=== PATIENT | female | born 1985 | race Hispanic/Latino ===

== ENCOUNTER 2022-06-08 11:45 | Observation (INO) | payer OTHER ==
--- OUTSIDE RECORDS SUMMARY | 2022-06-08 12:03 | XMS REPORT | Continuity of Care Document ---
:1985 Author Organization [facility] t Address [address] [place] [address] Care Team Providers Name Role Phone Eleonora Malin MD Primary Care Physician DESHAWN URIARTE Attending Clinician Unavailable ELEONORA MALIN Attending Clinician Unavailable DEISY SALINAS K.HSherlyn Attending Clinician Unavailable CAILIN STERLING Attending Clinician Unavailable RENEE BOYD Attending Clinician Unavailable 2, [facility] Attending Clinician Unavailable Brad TOMPKINS, Deisy K.H. Attending Clinician Romulo Waldrop Attending Clinician Unknown, Attending Attending Clinician Unavailable UNKNOWN, ATTENDING Attending Clinician Unavailable OZIEL SARMIENTO Attending Clinician Unavailable Oziel Sarmiento DO Attending Clinician Zak Gordon MD Attending Clinician Doctor Unassigned, [place] Attending Clinician Unavailable Enzo TOMPKINS, Stacia Attending Clinician Shelby Galo MD Attending Clinician [phone] Eleonora Malin MD Attending Clinician Deshawn Myers Attending Clinician Pob, [facility] Main Attending Clinician Unavailable Asher MEZA, Cailin Mg Attending Clinician [phone] GILDA ORLANDO Attending Clinician Unavailable SOHAM NICHOLAS Attending Clinician Unavailable Darion CREAM DUMPER, Gilda Gomez Attending Clinician Tessy SINGLETON, Rae Garcia Attending Clinician Unavailable ROMULO LANDEROS Attending Clinician Unavailable Hugo AHUMADA, Cherelle Cho Attending Clinician Ida SINGLETON, Taj Cohn Attending Clinician Unavailable Americo SINGLETON, Rosemarie Cohn Attending Clinician Unavailable Yissel Mcallister MA Attending Clinician Unavailable Meron TOMPKINS, Soham Terry Attending Clinician Haylie COBOS, Mallika Cohn Attending Clinician Unavailable Lona Magallon MA Attending Clinician Unavailable [facility] Attending Clinician Unavailable Kelby Gonzalez Attending Clinician KELBY MERINO Attending Clinician Unavailable Sandrine Alamo Attending Clinician Eleonora Herman MD Attending Clinician ELEONORA HERMAN Attending Clinician Unavailable RAMBO Reynoso Eloise Attending Clinician Aminta Casey Attending Clinician [phone] Lexy COBOS, Joan Attending Clinician Unavailable Senait Rivas Attending Clinician Juliana Gallegos MD Attending Clinician JULIANA GALLEGOS Attending Clinician Unavailable JUAN CARLOS OLVERA Attending Clinician Unavailable Desi Corona RN Attending Clinician ARY HEDRICK Attending Clinician Unavailable Jaja AHUMADA, Jonh Simpson Attending Clinician Piyush Van MD Attending Clinician Mario TOMPKINS, Tareq Attending Clinician Lacey TOMPKINS, Tai Attending Clinician [phone] Benny TOMPKINS, Gianluca Wray Attending Clinician RENAN REECE Attending Clinician Unavailable Viral TOMPKINS, Zak Galicia Attending Clinician Renan Reece MD Attending Clinician Nurse, Adc Pob Immunization Attending Clinician Unavailable Power Wheat RN, Rosemarie Gomez Attending Clinician Unavailable Tavon AHUMADA, All Galan Attending Clinician ALL MONTES DE OCA Attending Clinician Unavailable LUZ MARINA CRUZ Attending Clinician Unavailable Nancy TOMPKINS, Luz Marina Rodriguez Attending Clinician [phone] Dakota SINGLETON, Isabel Thapa Attending Clinician Bert Glover MD Attending Clinician , [facility] Attending Clinician Unavailable OZIEL SARMIENTO Admitting Clinician Unavailable GILDA ORLANDO Admitting Clinician Unavailable DEISY SALINAS Admitting Clinician Unavailable El TOMPKINS, Juliana Garcia Admitting Clinician Payers Payer Name Policy Type Policy Number Effective Date Expiration Date Ramiro RIVERA [id number] 2020 2020 HOSP DIST 00:00:00 00:00:00 [place] [id number] 2022 00:00:00 [facility] [id number] 2022 STAR PLUS 00:00:00 Problems Condition Condition Condition Status Onset Resolution Last Treating Co mments Source Name Details Category Date Date Treatment Clinician Date Spells of Spells of Disease Active 2021-06 Uni vers decreased decreased 0-26 ity [place] [facility] [place] Dyspepsia Dyspepsia Disease Active 2021-06 Uni vers 0-02 ity of 00:00: [place] [id number] Medical Branch Other Other Disease Active 2021-06 Univers cardiomyop cardiomyop 0-02 it y of athy athy 00:00: [place] [facility] Dyslipidem Dyslipidem Disease Active 2021-06 U nivers ia ia 0-02 ity of 00:00: [place] 00 Medical Branch Left Left Disease Active Univers ovarian ovarian 9-30 ity of cyst cyst 00:00: [place] 00 Medical Branch RIVAS RIVAS Disease Active Univers (dyspnea (dyspnea 9-30 ity of on on 00:00: [place] exertion) exertion) 00 [facility] History of History of Disease Active U nivers bacterial bacterial 9-30 ity of endocardit endocardit [place] 00 [facility] Bilateral Bilateral Disease Active Uni vers neck pain neck pain 9-30 ity of 00:00: [place] [facility] Pain Pain Disease Active Univers pelvic pelvic 9- ity of 00:00: [place] [facility] Irregular Irregular Disease Active Uni vers menstrual menstrual 9-21 ity of cycle cycle 00:00: [place] [facility] Enterococc Enterococc Disease Active U nivers us 5-26 ity of faecalis faecalis 00:00: [place] infection infection 00 [facility] Poor Poor Disease Active Univers dentition dentition 5-26 ity of 00:00: [place] 00 Medical Branch Seasonal Seasonal Disease Active Unive rs allergies allergies 5-26 ity of 00:00: [place] 00 [facility] Nausea Nausea Disease Active Univers 5-05 ity of 00:00: [place] 00 [facility] Branch Status Status Disease Active Univers post post 5-05 ity of aortic aortic 00:00: [place] valve valve 00 Medical replacemen replacemen Br anch t with t with bioprosthe bioprosthe tic valve tic valve NSTEMI NSTEMI Disease Active Univers (non-ST (non-ST 4-10 ity of elevated elevated 00:00: [place] myocardial myocardial 00 Me dical infarction infarction Br anch ) ) Nonrheumat Nonrheumat Disease Active U nivers ic aortic ic aortic 4-10 ity of valve valve 00:00: [place] insufficie insufficie 00 Me dical ncy ncy Branch Severe Severe Disease Active Univers aortic aortic 4-09 ity of insufficie insufficie 00:[place] ncy [place]cy 00 [facility] Heart Heart Disease Active Univers disease disease 09-26 ity of 00:00: Medical Branch Cigarette Cigarette Disease Active Uni vers nicotine nicotine 09-26 ity of dependence dependence 00:00: Dam[place] baptiste with other with other 00 Me dical nicotine-i nicotine-i Br anch nduced nduced disorder disorder 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 Added automatic ally from request for surgery [id number] Chronic Chronic Disease Active Univers pain pain 4-02 ity of syndrome syndrome 00:00: Medical Branch Acute Acute Disease Active Univers pulmonary pulmonary 4 ity of edema edema 00:00: [place] [facility] Current Current Disease Active Univers mild mild 4-02 ity of episode of episode of 00:00: [place] baptiste major major 00 Medical depressive depressive Br anch disorder, disorder, unspecifie unspecifie d whether d whether recurrent recurrent Hospital Hospital Disease Active Unive rs discharge discharge 4-02 ity of follow-up follow-up 00:00: [facility] Medical Branch Atypical Atypical Disease Active Unive rs chest pain chest pain 4-02 it y of 00:00: [place] [facility] High High Disease Active Univers priority priority 3-04 ity of for for 00:00: [place] COVID-19 COVID-19 00 Medica l virus virus Branch vaccinatio vaccinatio n n Blurry Blurry Disease Active Univers vision, vision, 3-04 ity of bilateral bilateral 00:00[place] Primary Primary Disease Active Univers insomnia insomnia 2-02 ity of 00:00: [place] [facility] No-show No-show Disease Active Univers for for 2-02 ity of appointmen appointmen 00:00: [place] [facility] Mixed Mixed Disease Active Univers hyperlipid hyperlipid 07-22 it y of emia emia 00:00: [place] 00 Medical Branch Essential Essential Disease Active Uni vers hypertensi hypertensi 07-22 it y of on on 00:00: [place] 00 Medical Branch Insomnia, Insomnia, Disease Active Uni vers unspecifie unspecifie 07-22 it y of d type d type 00:00: [place] 00 Medical Branch Diabetes Diabetes Disease Active Unive rs mellitus, mellitus, 1-28 ity of type II, type II, 00:00: [place] insulin insulin 00 Medical dependent dependent Bran ch Diabetes Diabetes Disease Active Unive rs mellitus mellitus 1-28 ity of type 2 type 2 00:00: [place] with with 00 Medical complicati complicati Br anch ons, ons, uncontroll uncontroll ed ed Menorrhagi Menorrhagi Disease Active 2019-06 U nivers a with a with 105 ity of irregular irregular 00:00[place] cycle [place] Tobacco Tobacco Disease Active 2019-06 Univers use use 1-05 ity of 00:00: [place] 00 Medical Branch Class 1 Class 1 Disease Active 2018-06 Univers obesity obesity 2-16 ity of due to due to 00:00: [place] excess excess 00 Medical calories calories Branch with body with body mass index mass index (BMI) of (BMI) of 34.0 to 34.0 to 34.9 in 34.9 in adult, adult, unspecifie unspecifie d whether d whether serious serious comorbidit comorbidit y present y present Well woman Well woman Disease Active 2018-06 U nivers exam exam 2-16 ity of 00:00: [place] 00 Medical Branch Encounter Encounter Disease Active 2018-06 Uni vers for for 216 ity of surveillan surveillan 00:00: [place] of ce of Medical contracept contracept Br anch german, german, unspecifie unspecifie d d contracept contracept fabiola fabiola History of History of Disease Active 2018-06 U nivers bilateral bilateral 2-16 ity of tubal tubal 00:00: [place] ligation ligation 00 Medica l Branch Class 2 Class 2 Disease Active 2018-06 Univers severe severe 2-16 ity of obesity obesity 00:00: [place] with with 00 Medical serious serious Branch comorbidit comorbidit y and body y and body mass index mass index (BMI) of (BMI) of 37.0 to 37.0 to 37.9 in 37.9 in adult, adult, unspecifie unspecifie d obesity d obesity type type Cellulitis Cellulitis Disease Active U nivers 7-13 ity of 00:00: Medical Branch BMI BMI Disease Active Univers 37.0-37.9, 37.0-37.9, 7-13 it y of adult adult 00:00: [place] [facility] MDD (major MDD (major Disease Active 2012-06 U nivers depressive depressive 0- it y of disorder) disorder) 00:[place] [facility] [place] Anxiety Anxiety Disease Active 2012-06 Univers 0- ity of 00:00: Medical Branch Fibromyalg Fibromyalg Disease Active 2012-06 U nivers ia ia 0- ity of syndrome syndrome 00:00: [place] [facility] High High Disease Active 2010-06 Univers triglyceri triglyceri 1-23 it y of claudia claudia 00:00: [place] [facility] AIDS AIDS Disease Active Univers (acquired (acquired 831 ity of immunodefi immunodefi 00:00: [place] ciency ciency 00 Medical syndrome), syndrome), Br anch CD4 <=200 CD4 <=200 Currently Currently Disease Active Uni vers asymptomat asymptomat 6-22 it y of ic HIV ic HIV 00:00: [place] infection, infection, 00 Me dical with with Branch history of history of HIV-relate HIV-relate d illness d illness Symptomati Symptomati Disease Active U nivers c HIV c HIV 6-22 ity of infection infection 00:00[place] [facility] Maternal Maternal Disease Resolve 2012-10-04 2012-10-04 Univers HIV HIV d 3-12 00:00:00 20:02:55 ity of positive positive 00:00: [place] complicati complicati 00 Me dical ng ng Branch Disease Resolve 2012-10-04 2015-03-21 Univers delivery delivery d 3-05 00:00:00 23:08:00 it y of delivered delivered 00:00[place] [facility] Disease Resolve 2009-08-22 2009-08-23 [facility], d 8-31 00:00:00 01:36:10 ity of incidental incidental 00:00: [place] Abnormal Abnormal Disease Resolve 2009-08-22 2009-08-23 [facility] maternal maternal d 9-13 00:00:00 01:36:14 it y of glucose glucose 00:00: [place] tolerance, tolerance, 00 Me dical complicati complicati Br anch ng ng , , childbirth childbirth , or the , or the puerperium puerperium , , unspecifie unspecifie d as to d as to episode of episode of care care Disease Resolve 2006-062009-02-17 2015-03-21 [facility] delivery delivery d 0-17 00:00:00 22:36:23 it y of delivered delivered [place] Tachycardi Tachycardi Disease Resolve 2009-02-17 2015-03-21 Univers a a d 9-13 00:00:00 22:34:34 ity of 00:00: [place] 00 Medical Branch Disease Resolve 2009-02-17 2009-02-17 [facility], d 6-22 00:00:00 15:41:07 ity of incidental incidental 00:00: [place] Allergies, Adverse Reactions, Alerts Allergy Allergy Status Severity Reaction(s) Onset Inactive Treating Comm ents Source Name Type Date Date Clinician erythrom DA Active [facility] ycin 3-07 Clear base 00:00: [place] 00 [facility] ERYTHROM DRUG Active Anaphylaxis 2006-06 Uni vers YCIN 0-17 ity of 00:00: [place] 00 Medical Branch Erythrom Propensi Active Anaphylaxis 2006-06 U nivers ycin ty to 0-17 ity of adverse 00:00: [place] reaction Medical s Branch Social History Social Habit Start Date Stop Date Quantity Comments Source History SDSD University o f Alcohol Frequency [place] M edical Branch History SDSD University o f Alcohol Std Drinks [place] [facility] History [facility] University o f Alcohol Binge [place] [facility] Exposure to 2022-05-28 2022-06-07 Not sure University of SARS-CoV-2 (event) 00:00:00 15:04:00 [facility] Alcohol intake 2022-05-21 2022-05-21 Current drinker Unive rsity of 00:00:00 00:00:00 of alcohol [facility] (finding) [place] Alcohol Comment 2022-03-10 2022-03-10 socially, not on Uni versity of 00:00:00 00:00:00 a weekly basis [facility] Branch Cigarettes smoked 2022-03-10 2022-03-10 Univers ity of current (pack per 00:00:00 00:00:00 [facility] ) - Reported Branch Cigarette 2022-03-10 2022-03-10 University of pack-years 00:00:00 00:00:00 [facility] Tobacco use and 2022-03-10 2022-03-10 Smokeless Universit y of exposure 00:00:00 00:00:00 tobacco non-user [facility] dical [place] History of tobacco 2020-09-17 Cigarette Smoker University of use 00:00:00 [facility] Sex [birth year] Universit y of 00:00:00 00:00:00 [facility] Smoking Status Start Date Stop Date Source Occasional tobacco 2022-03-10 00:00:00 Universit y of [place] smoker Medical Branch Ex-smoker 2022-01-20 00:00:00 2022-01-20 University o f [place] 00:00:00 [facility] Current every day smoker 2020-10-10 00:00:00 Uni versity of [facility] Medications Ordered Filled Start Stop Current Ordering Indication Dosage Frequency Signature Comments Components Source Medication Medication Date Date Medication? Clinician (SIG) Name Name propranoloL 2021-06- Yes [id number] 10mg Take 1 Univers 10 mg 08-08 tablet by ity of tablet 00:00: 05:59 mouth in [place] 00 :00 the Medical morning Branch and 1 tablet in the evening. Do all this for 30 days. Hold if BP < 100/60. Stop Metoprolol propranoloL 2021-06- Yes [id number] 10mg Take 1 Univers 10 mg 08-08 tablet by ity of tablet 00:00: 05:59 mouth in [place] 00 :00 the Medical morning Branch and 1 tablet in the evening. Do all this for 30 days. Hold if BP < 100/60. Stop Metoprolol propranoloL 2021-06- Yes [id number] 10mg Take 1 Univers 10 mg 08-08 tablet by ity of tablet 00:00: 05:59 mouth in [place] 00 :00 the [facility] morning Branch and 1 tablet in the evening. Do all this for 30 days. Hold if BP < 100/60. Stop Metoprolol naproxen 2021-06 Yes [id number] 550mg Take 1 Univers sodium 550 1-27 [id number] tablet by it y of mg tablet 00:00: [place] the [place] morning Branch and 1 tablet in the evening. Take with meals. naproxen 2021-06 Yes [id number] 550mg Take 1 Univers sodium 550 1-27 [id number] tablet by it y of mg tablet 00:00: [place] the [place] morning Branch and 1 tablet in the evening. Take with meals. methylPREDN 2021-06 Yes [id number] Take by Univers ISolone 4 07-16 [id number] mouth ity of mg tablets 00:00: [place]STRU [place] CTIONS. Medical follow Branch package directions naproxen 2021-06 Yes [id number] 550mg Take 1 Univers sodium 550 1-27 [id number] tablet by it y of mg tablet 00:00: [place] the [place] morning Branch and 1 tablet in the evening. Take with meals. methylPREDN 2021-06 Yes [id number] Take by Univers ISolone 4 07-16 [id number] mouth ity of mg tablets 00:00: [place] CTIONS. Medical follow Branch package directions naproxen 2021-06 Yes [id number] 550mg Take 1 Univers sodium 550 1-27 [id number] tablet by it y of mg tablet 00:00: [place] the [place] morning Branch and 1 tablet in the evening. Take with meals. methylPREDN 2021-06 Yes [id number] Take by Univers ISolone 4 07-16 [id number] mouth ity of mg tablets 00:00: [place] CTIONS. Medical follow Branch package directions naproxen 2021-06 Yes [id number] 550mg Take 1 Univers sodium 550 1-27 [id number] tablet by it y of mg tablet 00:00: [place] the [place] morning Branch and 1 tablet in the evening. Take with meals. naproxen 2021-06 Yes [id number] 550mg Take 1 Univers sodium 550 07-16 [id number] tablet by it y of mg tablet 00:00: [place] 00 the Medical morning Branch and 1 tablet in the evening. Take with meals. naproxen 2021-06 Yes [id number] 550mg Take 1 Univers sodium 550 07-16 [id number] tablet by it y of mg tablet 00:00: [place] 00 the Medical morning Branch and 1 tablet in the evening. Take with meals. naproxen 2021-06 Yes [id number] 550mg Take 1 Univers sodium 550 07-16 [id number] tablet by it y of mg tablet 00:00: [place] 00 the [facility] morning Branch and 1 tablet in the evening. Take with meals. methylPREDN 2021-06- No [id number] Take by Univers ISolone 4 07-16 [id number] mouth ity of mg tablets 00:00: 00:00 SEE-INSTRU [place] 00 :00 CTIONS. Medical follow Branch package directions methylPREDN 2021-06- No [id number] Take by Univers ISolone 4 07-16 [id number] mouth ity of mg tablets 00:00: 00:00 SEE-INSTRU [place] 00 :00 CTIONS. Medical follow Branch package directions methocarbam 2021-06- Yes [id number] 500mg Take 1 Univers oL 500 mg 07-16 [id number] tablet by it y of tablet 00:00: 05:59 mouth in [place] 00 :00 the [facility] morning Branch and 1 tablet at noon and 1 tablet in the evening. Do all this for 5 days. methocarbam 2021-06- No [id number] 500mg Take 1 Univers oL 500 mg 07-16 [id number] tablet by it y of tablet 00:00: 05:59 mouth in [place] 00 :00 the [facility] morning Branch and 1 tablet at noon and 1 tablet in the evening. Do all this for 5 days. albuterol 2021-06 Yes [id number] Use as Univers 2.5 mg /3 1-11 6 directed ity of mL (0.083 00:00: every 4-6 Mirza as %) 00 hrs as Medical nebulizer needed Branch solution flash 2021-06 Yes [id number] 1{kit} 1 Kit 5 Un matthieu glucose 1-11 (five) ity of scanning 00:00: times [place] reader 00 daily. Medical (FREESTYLE Branch MAXINE 14 DAY READER) Misc fluocinonid 2021-06 Yes [id number] Apply to Univers e 0.05 % 1-11 rash once ity of cream 00:00: daily. Medical Branch flash 2021-06 Yes [id number] 1{kit} inject 1 U nivers glucose 1-11 Kit under ity of sensor 00:00: the skin [place] (FREESTYLE 00 as needed Medi itzel MAXINE 14 (as need Branch DAY SENSOR) for Kit glucose monitoring ). albuterol 2021-06 Yes [id number] Use as Univers 2.5 mg /3 1-11 6 directed ity of mL (0.083 00:00: every 4-6 Mirza as %) 00 hrs as Medical nebulizer needed Branch solution flash 2021-06 Yes [id number] 1{kit} 1 Kit 5 Un matthieu glucose 1-11 (five) ity of scanning 00:00: times [place] reader 00 daily. Medical (FREESTYLE Branch MAXINE 14 DAY READER) Misc fluocinonid 2021-06 Yes [id number] Apply to Univers e 0.05 % 1-11 rash once ity of cream 00:00: daily. Medical Branch flash 2021-06 Yes [id number] 1{kit} inject 1 U nivers glucose 1-11 Kit under ity of sensor 00:00: the skin [place] (FREESTYLE 00 as needed Medi itzel MAXINE 14 (as need Branch DAY SENSOR) for Kit glucose monitoring ). albuterol 2021-06 Yes [id number] Use as Univers 2.5 mg /3 1-11 6 directed ity of mL (0.083 00:00: every 4-6 Mirza as %) 00 hrs as Medical nebulizer needed Branch solution flash 2021-06 Yes [id number] 1{kit} 1 Kit 5 Un matthieu glucose 1-11 (five) ity of scanning 00:00: times [place] reader 00 daily. Medical (FREESTYLE Branch MAXINE 14 DAY READER) Misc fluocinonid 2021-06 Yes [id number] Apply to Univers e 0.05 % 1-11 rash once ity of cream 00:00: daily. Medical Branch flash 2021-06 Yes [id number] 1{kit} inject 1 U nivers glucose 1-11 Kit under ity of sensor 00:00: the skin [place] (FREESTYLE 00 as needed Medi itzel MAXINE 14 (as need Branch DAY SENSOR) for Kit glucose monitoring ). albuterol 2021-06 Yes [id number] Use as Univers 2.5 mg /3 1-11 6 directed ity of mL (0.083 00:00: every 4-6 [place]za as %) 00 hrs as Medical nebulizer needed Branch solution flash 2021-06 Yes [id number] 1{kit} 1 Kit 5 Un matthieu glucose 1-11 (five) ity of scanning 00:00: times [place] reader 00 daily. Medical (FREESTYLE Branch MAXINE 14 DAY READER) Misc fluocinonid 2021-06 Yes [id number] Apply to Univers e 0.05 % 1-11 rash once ity of cream 00:00: daily. Medical Branch flash 2021-06 Yes [id number] 1{kit} inject 1 U nivers glucose 1-11 Kit under ity of sensor 00:00: the skin [place] (FREESTYLE 00 as needed Medi itzel MAXINE 14 (as need Branch DAY SENSOR) for Kit glucose monitoring ). albuterol 2021-06 Yes [id number] Use as Univers 2.5 mg /3 1-11 6 directed ity of mL (0.083 00:00: every 4-6 [place]za as %) 00 hrs as Medical nebulizer needed Branch solution flash 2021-06 Yes [id number] 1{kit} 1 Kit 5 Un matthieu glucose 1-11 (five) ity of scanning 00:00: times [place] reader 00 daily. Medical (FREESTYLE Branch MAXINE 14 DAY READER) Misc fluocinonid 2021-06 Yes [id number] Apply to Univers e 0.05 % 1-11 rash once ity of cream 00:00: daily. Medical Branch flash 2021-06 Yes [id number] 1{kit} inject 1 U nivers glucose 1-11 Kit under ity of sensor 00:00: the skin [place] (FREESTYLE 00 as needed Medi itzel MAXINE 14 (as need Branch DAY SENSOR) for Kit glucose monitoring ). albuterol 2021-06 Yes [id number] Use as Univers 2.5 mg /3 1-11 6 directed ity of mL (0.083 00:00: every 4-6 [place]za as %) 00 hrs as Medical nebulizer needed Branch solution flash 2021-06 Yes [id number] 1{kit} 1 Kit 5 Un matthieu glucose 1-11 (five) ity of scanning 00:00: times [place] reader 00 daily. Medical (FREESTYLE Branch MAXINE 14 DAY READER) Misc fluocinonid 2021-06 Yes [id number] Apply to Univers e 0.05 % 1-11 rash once ity of cream 00:00: daily. Medical Branch flash 2021-06 Yes [id number] 1{kit} inject 1 U nivers glucose 1-11 Kit under ity of sensor 00:00: the skin [place] (FREESTYLE 00 as needed Medi itzel MAXINE 14 (as need Branch DAY SENSOR) for Kit glucose monitoring ). albuterol 2021-06 Yes [id number] Use as Univers 2.5 mg /3 1-11 6 directed ity of mL (0.083 00:00: every 4-6 Mirza as %) 00 hrs as Medical nebulizer needed Branch solution flash 2021-06 Yes [id number] 1{kit} 1 Kit 5 Un matthieu glucose 1-11 (five) ity of scanning 00:00: times [place] reader 00 daily. Medical (FREESTYLE Branch MAXINE 14 DAY READER) Misc fluocinonid 2021-06 Yes [id number] Apply to Univers e 0.05 % 1-11 rash once ity of cream 00:00: daily. Medical Branch flash 2021-06 Yes [id number] 1{kit} inject 1 U nivers glucose 1-11 Kit under ity of sensor 00:00: the skin [place] (FREESTYLE 00 as needed Medi itzel MAXINE 14 (as need Branch DAY SENSOR) for Kit glucose monitoring ). albuterol 2021-06 Yes [id number] Use as [facility] 2.5 mg /3 1-11 6 directed ity of mL (0.083 00:00: every 4-6 [facility] as %) 00 hrs as Medical nebulizer needed Branch solution flash 2021-06 Yes [id number] 1{kit} 1 Kit 5 Un [facility] glucose 1-11 (five) ity of scanning 00:00: times [place] reader 00 daily. Medical (FREESTYLE Branch MAXINE 14 DAY READER) Misc fluocinonid 2021-06 Yes [id number] Apply to [facility] e 0.05 % 1-11 rash once ity of cream 00:00: daily. Medical Branch flash 2021-06 Yes [id number] 1{kit} inject 1 U nivers glucose 1-11 Kit under ity of sensor 00:00: the skin [place] (FREESTYLE 00 as needed Medi itzel MAXINE 14 (as need Branch DAY SENSOR) for Kit glucose monitoring ). albuterol 2021-06 Yes [id number] Use as [facility] 2.5 mg /3 1-11 6 directed ity of mL (0.083 00:00: every 4-6 [place] as %) 00 hrs as Medical nebulizer needed Branch solution flash 2021-06 Yes [id number] 1{kit} 1 Kit 5 [facility] glucose 1-11 (five) ity of scanning 00:00: times [place] reader 00 daily. Medical (FREESTYLE Branch MAXINE 14 DAY READER) Misc fluocinonid 2021-06 Yes [id number] Apply to [facility] e 0.05 % 1-11 rash once ity of cream 00:00: daily. Medical Branch flash 2021-06 Yes [id number] 1{kit} inject 1 U nivers glucose 1-11 Kit under ity of sensor 00:00: the skin [place] (FREESTYLE 00 as needed Medi itzel MAXINE 14 (as need Branch DAY SENSOR) for Kit glucose monitoring ). albuterol 2021-06 Yes [id number] Use as [facility] 2.5 mg /3 1-11 6 directed ity of mL (0.083 00:00: every 4-6 [place] as %) 00 hrs as Medical nebulizer needed Branch solution flash 2021-06 Yes [id number] 1{kit} 1 Kit 5 [facility] glucose 1-11 (five) ity of scanning 00:00: times [place] reader 00 daily. Medical (FREESTYLE Branch MAXINE 14 DAY READER) Misc fluocinonid 2021-06 Yes [id number] Apply to [facility] e 0.05 % 1-11 rash once ity of cream 00:00: daily. Medical Branch flash 2021-06 Yes [id number] 1{kit} inject 1 U nivers glucose 1-11 Kit under ity of sensor 00:00: the skin [place] (FREESTYLE 00 as needed Medi itzel MAXINE 14 (as need Branch DAY SENSOR) for Kit glucose monitoring ). albuterol 2021-06 Yes [id number] Use as [facility] 2.5 mg /3 1-11 6 directed ity of mL (0.083 00:00: every 4-6 [place] as %) 00 hrs as Medical nebulizer needed Branch solution flash 2021-06 Yes [id number] 1{kit} 1 Kit 5 [facility] glucose 1-11 (five) ity of scanning 00:00: times [place] reader 00 daily. Medical (FREESTYLE Branch MAXINE 14 DAY READER) Misc fluocinonid 2021-06 Yes [id number] Apply to [facility] e 0.05 % 1-11 rash once ity of cream 00:00: daily. Medical Branch flash 2021-06 Yes [id number] 1{kit} inject 1 U nivers glucose 1-11 Kit under ity of sensor 00:00: the skin [place] (FREESTYLE 00 as needed Medi itzel MAXINE 14 (as need Branch DAY SENSOR) for Kit glucose monitoring ). albuterol 2021-06 Yes [id number] Use as [facility] 2.5 mg /3 1-11 6 directed ity of mL (0.083 00:00: every 4-6 [place] as %) 00 hrs as Medical nebulizer needed Branch solution flash 2021-06 Yes [id number] 1{kit} 1 Kit 5 [facility] glucose 1-11 (five) ity of scanning 00:00: times [place] reader 00 daily. Medical (FREESTYLE Branch MAXINE 14 DAY READER) Misc fluocinonid 2021-06 Yes [id number] Apply to [facility] e 0.05 % 1-11 rash once ity of cream 00:00: daily. Medical Branch flash 2021-06 Yes [id number] 1{kit} inject 1 [facility] nivers glucose 1-11 Kit under ity of sensor 00:00: the skin [place] (FREESTYLE 00 as needed Medi itzel MAXINE 14 (as need Branch DAY SENSOR) for Kit glucose monitoring ). fluticasone 2021-06 Yes [id number] 2{spray Use 2 [facility] (FLONASE 1-10 } Sprays in ity of SENSIMIST) 00:00: each [place] 27.5 00 nostril in Medical mcg/actuati the Branch on nasal morning. spray fluticasone 2021-06 Yes [id number] 2{spray Use 2 [facility] (FLONASE 1-10 } Sprays in ity of SENSIMIST) 00:00: each [place] 27.5 00 nostril in Medical mcg/actuati the Branch on nasal morning. spray fluticasone 2021-06 Yes [id number] 2{spray Use 2 [facility] (FLONASE 1-10 } Sprays in ity of SENSIMIST) 00:00: each [place] 27.5 00 nostril in Medical mcg/actuati the Branch on nasal morning. spray fluticasone 2021-06 Yes [id number] 2{spray Use 2 [facility] (FLONASE 1-10 } Sprays in ity of SENSIMIST) 00:00: each [place] 27.5 00 nostril in Medical mcg/actuati the Branch on nasal morning. spray fluticasone 2021-06 Yes [id number] 2{spray Use 2 [facility] (FLONASE 1-10 } Sprays in ity of SENSIMIST) 00:00: each [place] 27.5 00 nostril in Medical mcg/actuati the Branch on nasal morning. spray fluticasone 2021-06 Yes [id number] 2{spray Use 2 [facility] (FLONASE 1-10 } Sprays in ity of SENSIMIST) 00:00: each [place] 27.5 00 nostril in Medical mcg/actuati the Branch on nasal morning. spray fluticasone 2021-06 Yes [id number] 2{spray Use 2 [facility] (FLONASE 1-10 } Sprays in ity of SENSIMIST) 00:00: each [place] 27.5 00 nostril in Medical mcg/actuati the Branch on nasal morning. spray fluticasone 2021-06 Yes [id number] 2{spray Use 2 [facility] (FLONASE 1-10 } Sprays in ity of SENSIMIST) 00:00: each [place] 27.5 00 nostril in Medical mcg/actuati the Branch on nasal morning. spray fluticasone 2021-06 Yes [id number] 2{spray Use 2 [facility] (FLONASE 1-10 } Sprays in ity of SENSIMIST) 00:00: each [place] 27.5 00 nostril in Medical mcg/actuati the Branch on nasal morning. spray fluticasone 2021-06 Yes [id number] 2{spray Use 2 [facility] (FLONASE 1-10 } Sprays in ity of SENSIMIST) 00:00: each [place] 27.5 00 nostril in Medical mcg/actuati the Branch on nasal morning. spray fluticasone 2021-06 Yes [id number] 2{spray Use 2 [facility] (FLONASE 1-10 } Sprays in ity of SENSIMIST) 00:00: each [place] 27.5 00 nostril in Medical mcg/actuati the Branch on nasal morning. spray fluticasone 2021-06 Yes [id number] 2{spray Use 2 [facility] (FLONASE 1-10 } Sprays in ity of SENSIMIST) 00:00: each [place] 27.5 00 nostril in Medical mcg/actuati the Branch on nasal morning. spray fluticasone 2021-06 Yes [id number] 2{spray Use 2 [facility] (FLONASE 1-10 } Sprays in ity of SENSIMIST) 00:00: each [place] 27.5 00 nostril in Medical mcg/actuati the Branch on nasal morning. spray ondansetron 2021-06 Yes [id number] 4mg Take 1 [facility] (ZOFRAN) 4 1-01 tablet by ity of mg tablet 00:00: mouth [place] 00 every 8 Medical (eight) Branch hours as needed for Nausea and Vomiting (N/V). ondansetron 2021-06 Yes [id number] 4mg Take 1 [facility] (ZOFRAN) 4 1-01 tablet by ity of mg tablet 00:00: mouth [place] 00 every 8 Medical (eight) Branch hours as needed for Nausea and Vomiting (N/V). ondansetron 2021-06 Yes [id number] 4mg Take 1 [facility] (ZOFRAN) 4 1-01 tablet by ity of mg tablet 00:00: mouth [place] 00 every 8 Medical (eight) Branch hours as needed for Nausea and Vomiting (N/V). ondansetron 2021-06 Yes [id number] 4mg Take 1 [facility] (ZOFRAN) 4 1-01 tablet by ity of mg tablet 00:00: mouth [place] 00 every 8 Medical (eight) Branch hours as needed for Nausea and Vomiting (N/V). ondansetron 2021-06 Yes [id number] 4mg Take 1 [facility] (ZOFRAN) 4 1-01 tablet by ity of mg tablet 00:00: mouth [place] 00 every 8 Medical (eight) Branch hours as needed for Nausea and Vomiting (N/V). ondansetron 2021-06 Yes [id number] 4mg Take 1 [facility] (ZOFRAN) 4 1-01 tablet by ity of mg tablet 00:00: mouth [place] 00 every 8 Medical (eight) Branch hours as needed for Nausea and Vomiting (N/V). ondansetron 2021-06 Yes [id number] 4mg Take 1 [facility] (ZOFRAN) 4 1-01 tablet by ity of mg tablet 00:00: mouth [place] 00 every 8 Medical (eight) Branch hours as needed for Nausea and Vomiting (N/V). ondansetron 2021-06 Yes [id number] 4mg Take 1 [facility] (ZOFRAN) 4 1-01 tablet by ity of mg tablet 00:00: mouth [place] 00 every 8 Medical (eight) Branch hours as needed for Nausea and Vomiting (N/V). ondansetron 2021-06 Yes [id number] 4mg Take 1 [facility] (ZOFRAN) 4 1-01 tablet by ity of mg tablet 00:00: mouth [place] 00 every 8 Medical (eight) Branch hours as needed for Nausea and Vomiting (N/V). ondansetron 2021-06 Yes [id number] 4mg Take 1 [facility] (ZOFRAN) 4 1-01 tablet by ity of mg tablet 00:00: mouth [place] 00 every 8 Medical (eight) Branch hours as needed for Nausea and Vomiting (N/V). ondansetron 2021-06 Yes [id number] 4mg Take 1 [facility] (ZOFRAN) 4 1-01 tablet by ity of mg tablet 00:00: mouth [place] 00 every 8 Medical (eight) Branch hours as needed for Nausea and Vomiting (N/V). ondansetron 2021-06- No [id number] 4mg Take 1 [facility] (ZOFRAN) 4 06-20 tablet by ity of mg tablet 00:00: 00:00 mouth [place] 00 :00 every 8 Medical (eight) Branch hours as needed for Nausea and Vomiting (N/V). ondansetron 2021-06- No [id number] 4mg Take 1 [facility] (ZOFRAN) 4 06-20 tablet by ity of mg tablet 00:00: 00:00 mouth [place] 00 :00 every 8 Medical (eight) Branch hours as needed for Nausea and Vomiting (N/V). amoxicillin 2021-06 Yes [id number] 1{tbl} Take 1 [facility] -clavulanat 0-31 tablet by ity of e 875-125 00:00: mouth [place] mg per 00 the Medical tablet morning Branch and 1 tablet in the evening. amoxicillin 2021-06 Yes [id number] 1{tbl} Take 1 [facility] -clavulanat 0-31 tablet by ity of e 875-125 00:00: mouth [place] mg per 00 the Medical tablet morning Branch and 1 tablet in the evening. amoxicillin 2021-06 Yes [id number] 1{tbl} Take 1 [facility] -clavulanat 0-31 tablet by ity of e 875-125 00:00: mouth [place] mg per 00 the Medical tablet morning Branch and 1 tablet in the evening. amoxicillin 2021-06 Yes [id number] 1{tbl} Take 1 [facility] -clavulanat 0-31 tablet by ity of e 875-125 00:00: mouth [place] mg per 00 the Medical tablet morning Branch and 1 tablet in the evening. amoxicillin 2021-06 Yes [id number] 1{tbl} Take 1 [facility] -clavulanat 0-31 tablet by ity of e 875-125 00:00: mouth [place] mg per 00 the Medical tablet morning Branch and 1 tablet in the evening. amoxicillin 2021-06 Yes [id number] 1{tbl} Take 1 [facility] -clavulanat 0-31 tablet by ity of e 875-125 00:00: mouth [place] mg per 00 the Medical tablet morning Branch and 1 tablet in the evening. amoxicillin 2021-06 Yes [id number] 1{tbl} Take 1 [facility] -clavulanat 0-31 tablet by ity of e 875-125 00:00: mouth [place] mg per 00 the Medical tablet morning Branch and 1 tablet in the evening. amoxicillin 2021-06 Yes [id number] 1{tbl} Take 1 [facility] -clavulanat 0-31 tablet by ity of e 875-125 00:00: mouth [place] mg per 00 the Medical tablet morning Branch and 1 tablet in the evening. amoxicillin 2021-06 Yes [id number] 1{tbl} Take 1 [facility] -clavulanat 0-31 tablet by ity of e 875-125 00:00: mouth [place] mg per 00 the Medical tablet morning Branch and 1 tablet in the evening. amoxicillin 2021-06 Yes [id number] 1{tbl} Take 1 [facility] -clavulanat 0-31 tablet by ity of e 875-125 00:00: mouth [place] mg per 00 the Medical tablet morning Branch and 1 tablet in the evening. amoxicillin 2021-06 Yes [id number] 1{tbl} Take 1 [facility] -clavulanat 0-31 tablet by ity of e 875-125 00:00: mouth [place] mg per 00 the Medical tablet morning Branch and 1 tablet in the evening. amoxicillin 2021-06 Yes [id number] 1{tbl} Take 1 [facility] -clavulanat 0-31 tablet by ity of e 875-125 00:00: mouth [place] mg per 00 the Medical tablet morning Branch and 1 tablet in the evening. amoxicillin 2021-06 Yes [id number] 1{tbl} Take 1 [facility] -clavulanat 0-31 tablet by ity of e 875-125 00:00: mouth [place] mg per 00 the Medical tablet morning Branch and 1 tablet in the evening. amoxicillin 2021-06- No [id number] 1{tbl} Take 1 [facility] -clavulanat 0-31 12-19 tablet by it y of e 875-125 00:00: 00:00 mouth in [place] mg per 00 :00 the Medical tablet morning Branch and 1 tablet in the evening. amoxicillin 2021-06- No [id number] 1{tbl} Take 1 [facility] -clavulanat 0-31 12-19 tablet by it y of e 875-125 00:00: 00:00 mouth in [place] mg per 00 :00 the Medical tablet morning Branch and 1 tablet in the evening. Diclofenac 2021-06 Yes [id number] Apply 4g [facility] Sodium 0-26 to ity of (VOLTAREN) 00:00: affected [place] as 1 % gel 00 area QID Medical Branch Lidocaine 5 2021-06 Yes [id number] Apply to [facility] % cream 0-26 area(s) 2 ity of 00:00: (two) [place] 00 times Medical daily as Branch needed for Pain (scale 4-6). Apply 5g to affected areas BID PRN amitriptyli 2021-06 Yes [id number] 10mg Take 1 [facility] ne 10 mg 0-26 tablet by ity of tablet 00:00: mouth at [place] 00 bedtime. Medical Branch Diclofenac 2021-06 Yes [id number] Apply 4g [facility] Sodium 0-26 to ity of (VOLTAREN) 00:00: affected [place] as 1 % gel 00 area QID Medical Branch Lidocaine 5 2021-06 Yes [id number] Apply to [facility] % cream 0-26 area(s) 2 ity of 00:00: (two) [place] 00 times Medical daily as Branch needed for Pain (scale 4-6). Apply 5g to affected areas BID PRN amitriptyli 2021-06 Yes [id number] 10mg Take 1 [facility] ne 10 mg 0-26 tablet by ity of tablet 00:00: mouth at [place] 00 bedtime. Medical Branch Diclofenac 2021-06 Yes [id number] Apply 4g [facility] Sodium 0-26 to ity of (VOLTAREN) 00:00: affected [place] [facility] 1 % gel 00 area QID Medical Branch Lidocaine 5 2021-06 Yes [id number] Apply to [facility] % cream 0-26 area(s) 2 ity of 00:00: (two) [place] 00 times Medical daily as Branch needed for Pain (scale 4-6). Apply 5g to affected areas BID PRN amitriptyli 2021-06 Yes [id number] 10mg Take 1 [facility] ne 10 mg 0-26 tablet by ity of tablet 00:00: mouth at [place] 00 bedtime. Medical Branch Diclofenac 2021-06 Yes [id number] Apply 4g [facility] Sodium 0-26 to ity of (VOLTAREN) 00:00: affected [place] [facility] 1 % gel 00 area QID Medical Branch Lidocaine 5 2021-06 Yes [id number] Apply to [facility] % cream 0-26 area(s) 2 ity of 00:00: (two) [place] 00 times Medical daily as Branch needed for Pain (scale 4-6). Apply 5g to affected areas BID PRN amitriptyli 2021-06 Yes [id number] 10mg Take 1 [facility] ne 10 mg 0-26 tablet by ity of tablet 00:00: mouth at [place] 00 bedtime. Medical Branch Diclofenac 2021-06 Yes [id number] Apply 4g [facility] Sodium 0-26 to ity of (VOLTAREN) 00:00: affected [place] as 1 % gel 00 area QID Medical Branch Lidocaine 5 2021-06 Yes [id number] Apply to [facility] % cream 0-26 area(s) 2 ity of 00:00: (two) [place] 00 times Medical daily as Branch needed for Pain (scale 4-6). Apply 5g to affected areas BID PRN amitriptyli 2021-06 Yes [id number] 10mg Take 1 [facility] ne 10 mg 0-26 tablet by ity of tablet 00:00: mouth at [place] 00 bedtime. Medical Branch Diclofenac 2021-06 Yes [id number] Apply 4g [facility] Sodium 0-26 to ity of (VOLTAREN) 00:00: affected [place] [facility] 1 % gel 00 area QID Medical Branch Lidocaine 5 2021-06 Yes [id number] Apply to [facility] % cream 0-26 area(s) 2 ity of 00:00: (two) [place] 00 times Medical daily as Branch needed for Pain (scale 4-6). Apply 5g to affected areas BID PRN amitriptyli 2021-06 Yes [id number] 10mg Take 1 [facility] ne 10 mg 0-26 tablet by ity of tablet 00:00: mouth at [place] 00 bedtime. Medical Branch Diclofenac 2021-06 Yes [id number] Apply 4g [facility] Sodium 0-26 to ity of (VOLTAREN) 00:00: affected [place] as 1 % gel 00 area QID Medical Branch Lidocaine 5 2021-06 Yes [id number] Apply to [facility] % cream 0-26 area(s) 2 ity of 00:00: (two) [place] 00 times Medical daily as Branch needed for Pain (scale 4-6). Apply 5g to affected areas BID PRN amitriptyli 2021-06 Yes [id number] 10mg Take 1 [facility] ne 10 mg 0-26 tablet by ity of tablet 00:00: mouth at [place] 00 bedtime. Medical Branch Diclofenac 2021-06 Yes [id number] Apply 4g [facility] Sodium 0-26 to ity of (VOLTAREN) 00:00: affected [place] as 1 % gel 00 area QID Medical Branch Lidocaine 5 2021-06 Yes [id number] Apply to [facility] % cream 0-26 area(s) 2 ity of 00:00: (two) [place] 00 times Medical daily as Branch needed for Pain (scale 4-6). Apply 5g to affected areas BID PRN amitriptyli 2021-06 Yes [id number] 10mg Take 1 [facility] ne 10 mg 0-26 tablet by ity of tablet 00:00: mouth at [place] 00 bedtime. Medical Branch Diclofenac 2021-06 Yes [id number] Apply 4g [facility] Sodium 0-26 to ity of (VOLTAREN) 00:00: affected [place] as 1 % gel 00 area QID Medical Branch Lidocaine 5 2021-06 Yes [id number] Apply to [facility] % cream 0-26 area(s) 2 ity of 00:00: (two) [place] 00 times Medical daily as Branch needed for Pain (scale 4-6). Apply 5g to affected areas BID PRN amitriptyli 2021-06 Yes [id number] 10mg Take 1 [facility] ne 10 mg 0-26 tablet by ity of tablet 00:00: mouth at [place] 00 bedtime. Medical Branch Diclofenac 2021-06 Yes [id number] Apply 4g [facility] Sodium 0-26 to ity of (VOLTAREN) 00:00: affected [place] as 1 % gel 00 area QID Medical Branch Lidocaine 5 2021-06 Yes [id number] Apply to [facility] % cream 0-26 area(s) 2 ity of 00:00: (two) [place] 00 times Medical daily as Branch needed for Pain (scale 4-6). Apply 5g to affected areas BID PRN amitriptyli 2021-06 Yes [id number] 10mg Take 1 [facility] ne 10 mg 0-26 tablet by ity of tablet 00:00: mouth at [place] 00 bedtime. Medical Branch Diclofenac 2021-06 Yes [id number] Apply 4g [facility] Sodium 0-26 to ity of (VOLTAREN) 00:00: affected [place] as 1 % gel 00 area QID Medical Branch Lidocaine 5 2021-06 Yes [id number] Apply to [facility] % cream 0-26 area(s) 2 ity of 00:00: (two) [place] 00 times Medical daily as Branch needed for Pain (scale 4-6). Apply 5g to affected areas BID PRN amitriptyli 2021-06 Yes [id number] 10mg Take 1 [facility] ne 10 mg 0-26 tablet by ity of tablet 00:00: mouth at [place] 00 bedtime. Medical Branch Diclofenac 2021-06 Yes [id number] Apply 4g [facility] Sodium 0-26 to ity of (VOLTAREN) 00:00: affected [place] 1 % gel 00 area QID Medical Branch Lidocaine 5 2021-06 Yes [id number] Apply to [facility] % cream 0-26 area(s) 2 ity of 00:00: (two) [place] 00 times Medical daily as Branch needed for Pain (scale 4-6). Apply 5g to affected areas BID PRN amitriptyli 2021-06 Yes [id number] 10mg Take 1 [facility] ne 10 mg 0-26 tablet by ity of tablet 00:00: mouth at [place] 00 bedtime. Medical Branch Diclofenac 2021-06 Yes [id number] Apply 4g [facility] Sodium 0-26 to ity of (VOLTAREN) 00:00: affected [place] 1 % gel 00 area QID Medical Branch Lidocaine 5 2021-06 Yes [id number] Apply to [facility] % cream 0-26 area(s) 2 ity of 00:00: (two) [place] 00 times Medical daily as Branch needed for Pain (scale 4-6). Apply 5g to affected areas BID PRN amitriptyli 2021-06 Yes [id number] 10mg Take 1 [facility] ne 10 mg 0-26 tablet by ity of tablet 00:00: mouth at [place] 00 bedtime. Medical Branch Diclofenac 2021-06 Yes [id number] Apply 4g [facility] Sodium 0-26 to ity of (VOLTAREN) 00:00: affected [place] 1 % gel 00 area QID Medical Branch Lidocaine 5 2021-06 Yes [id number] Apply to [facility] % cream 0-26 area(s) 2 ity of 00:00: (two) [place] 00 times Medical daily as Branch needed for Pain (scale 4-6). Apply 5g to affected areas BID PRN amitriptyli 2021-06 Yes [id number] 10mg Take 1 [facility] ne 10 mg 0-26 tablet by ity of tablet 00:00: mouth at [place] 00 bedtime. Medical Branch Diclofenac 2021-06 Yes [id number] Apply 4g [facility] Sodium 0-26 to ity of (VOLTAREN) 00:00: affected [place] 1 % gel 00 area QID Medical Branch Lidocaine 5 2021-06 Yes [id number] Apply to [facility] % cream 0-26 area(s) 2 ity of 00:00: (two) [place] 00 times Medical daily as Branch needed for Pain (scale 4-6). Apply 5g to affected areas BID PRN amitriptyli 2021-06 Yes [id number] 10mg Take 1 [facility] ne 10 mg 0-26 tablet by ity of tablet 00:00: mouth at [place] 00 bedtime. Medical Branch Diclofenac 2021-06 Yes [id number] Apply 4g [facility] Sodium 0-26 to ity of (VOLTAREN) 00:00: affected [place] 1 % gel 00 area QID Medical Branch Lidocaine 5 2021-06 Yes [id number] Apply to [facility] % cream 0-26 area(s) 2 ity of 00:00: (two) [place] 00 times Medical daily as Branch needed for Pain (scale 4-6). Apply 5g to affected areas BID PRN amitriptyli 2021-06 Yes [id number] 10mg Take 1 [facility] ne 10 mg 0-26 tablet by ity of tablet 00:00: mouth at [place] 00 bedtime. Medical Branch Diclofenac 2021-06 Yes [id number] Apply 4g [facility] Sodium 0-26 to ity of (VOLTAREN) 00:00: affected [place] 1 % gel 00 area QID Medical Branch Lidocaine 5 2021-06 Yes [id number] Apply to [facility] % cream 0-26 area(s) 2 ity of 00:00: (two) [place] 00 times Medical daily as Branch needed for Pain (scale 4-6). Apply 5g to affected areas BID PRN amitriptyli 2021-06 Yes [id number] 10mg Take 1 [facility] ne 10 mg 0-26 tablet by ity of tablet 00:00: mouth at [place] 00 bedtime. Medical Branch Diclofenac 2021-06 Yes [id number] Apply 4g [facility] Sodium 0-26 to ity of (VOLTAREN) 00:00: affected [place] 1 % gel 00 area QID Medical Branch Lidocaine 5 2021-06 Yes [id number] Apply to [facility] % cream 0-26 area(s) 2 ity of 00:00: (two) [place] 00 times Medical daily as Branch needed for Pain (scale 4-6). Apply 5g to affected areas BID PRN amitriptyli 2021-06 Yes [id number] 10mg Take 1 [facility] ne 10 mg 0-26 tablet by ity of tablet 00:00: mouth at [place] 00 bedtime. Medical Branch Diclofenac 2021-06 Yes [id number] Apply 4g [facility] Sodium 0-26 to ity of (VOLTAREN) 00:00: affected [place] 1 % gel 00 area QID Medical Branch Lidocaine 5 2021-06 Yes [id number] Apply to [facility] % cream 0-26 area(s) 2 ity of 00:00: (two) [place] 00 times Medical daily as Branch needed for Pain (scale 4-6). Apply 5g to affected areas BID PRN amitriptyli 2021-06 Yes [id number] 10mg Take 1 [facility] ne 10 mg 0-26 tablet by ity of tablet 00:00: mouth at [place] 00 bedtime. Medical Branch Diclofenac 2021-06 Yes [id number] Apply 4g [facility] Sodium 0-26 to ity of (VOLTAREN) 00:00: affected [place] 1 % gel 00 area QID Medical Branch Lidocaine 5 2021-06 Yes [id number] Apply to [facility] % cream 0-26 area(s) 2 ity of 00:00: (two) [place] 00 times Medical daily as Branch needed for Pain (scale 4-6). Apply 5g to affected areas BID PRN amitriptyli 2021-06 Yes [id number] 10mg Take 1 [facility] ne 10 mg 0-26 tablet by ity of tablet 00:00: mouth at [place] 00 bedtime. Medical Branch Diclofenac 2021-06 Yes [id number] Apply 4g [facility] Sodium 0-26 to ity of (VOLTAREN) 00:00: affected [place] 1 % gel 00 area QID Medical Branch Lidocaine 5 2021-06 Yes [id number] Apply to [facility] % cream 0-26 area(s) 2 ity of 00:00: (two) [place] 00 times Medical daily as Branch needed for Pain (scale 4-6). Apply 5g to affected areas BID PRN amitriptyli 2021-06 Yes [id number] 10mg Take 1 [facility] ne 10 mg 0-26 tablet by ity of tablet 00:00: mouth at [place] [address] bedtime. [facility] Yes [id number] 1{tbl} Take 1 [facility] ne 0.35 mg 0-11 tablet by ity of tablet 00:00: mouth in [place] the Medical morning. [place] [facility] Yes [id number] 1{tbl} Take 1 [facility] ne 0.35 mg 0-11 tablet by ity of tablet 00:00: mouth in [place] the Medical morning. [place] [facility] Yes [id number] 1{tbl} Take 1 [facility] ne 0.35 mg 0-11 tablet by ity of tablet 00:00: mouth in [place] the morning. [place] [facility] Yes [id number] 1{tbl} Take 1 [facility] ne 0.35 mg 0-11 tablet by ity of tablet 00:00: mouth in [place] the morning. [place] [facility] Yes [id number] 1{tbl} Take 1 [facility] ne 0.35 mg 0-11 tablet by ity of tablet 00:00: mouth in [place] the morning. [place] juanndro 2021-06 Yes [id number] 1{tbl} Take 1 [facility] ne 0.35 mg 0-11 tablet by ity of tablet 00:00: mouth in [place] the morning. [place] juanndro 2021-06 Yes [id number] 1{tbl} Take 1 [facility] ne 0.35 mg 0-11 tablet by ity of tablet 00:00: mouth in [place] the Medical morning. [place] [facility] Yes [id number] 1{tbl} Take 1 [facility] ne 0.35 mg 0-11 tablet by ity of tablet 00:00: mouth in [place] the Medical morning. [place] juanndro 2021-06 Yes [id number] 1{tbl} Take 1 [facility] ne 0.35 mg 0-11 tablet by ity of tablet 00:00: mouth in [place] the Medical morning. [place] juanndro 2021-06 Yes [id number] 1{tbl} Take 1 [facility] ne 0.35 mg 0-11 tablet by ity of tablet 00:00: mouth in [place] the Medical morning. Branch juanndro 2021-06 Yes [id number] 1{tbl} Take 1 [facility] ne 0.35 mg 0-11 tablet by ity of tablet 00:00: mouth in [place] the Medical morning. Branch norenicolendro 2021-06 Yes [id number] 1{tbl} Take 1 [facility] ne 0.35 mg 0-11 tablet by ity of tablet 00:00: mouth in [place] the Medical morning. Branch norenicolendro 2021-06 Yes [id number] 1{tbl} Take 1 [facility] ne 0.35 mg 0-11 tablet by ity of tablet 00:00: mouth in [place] the Medical morning. Branch juanndro 2021-06 Yes [id number] 1{tbl} Take 1 [facility] ne 0.35 mg 0-11 tablet by ity of tablet 00:00: mouth in [place] the Medical morning. Branch juanndro 2021-06 Yes [id number] 1{tbl} Take 1 [facility] ne 0.35 mg 0-11 tablet by ity of tablet 00:00: mouth in [place] the Medical morning. Branch juanndro 2021-06 Yes [id number] 1{tbl} Take 1 [facility] ne 0.35 mg 0-11 tablet by ity of tablet 00:00: mouth in [place] the Medical morning. Branch juanndro 2021-06 Yes [id number] 1{tbl} Take 1 [facility] ne 0.35 mg 0-11 tablet by ity of tablet 00:00: mouth in [place] the Medical morning. Branch juanndro 2021-06 Yes [id number] 1{tbl} Take 1 [facility] ne 0.35 mg 0-11 tablet by ity of tablet 00:00: mouth in [place] the Medical morning. Branch juanndro 2021-06 Yes [id number] 1{tbl} Take 1 [facility] ne 0.35 mg 0-11 tablet by ity of tablet 00:00: mouth in [place] 00 the Medical morning. Branch norenicolendro 2021-06 Yes [id number] 1{tbl} Take 1 [facility] ne 0.35 mg 0-11 tablet by ity of tablet 00:00: mouth in [place] the Medical morning. Branch norethindro 2021-06 Yes [id number] 1{tbl} Take 1 [facility] ne 0.35 mg 0-11 tablet by ity of tablet 00:00: mouth in [place] the Medical morning. Branch norethindro 2021-06 Yes [id number] 1{tbl} Take 1 [facility] ne 0.35 mg 0-11 tablet by ity of tablet 00:00: mouth in [place] the morning. Branch norethindro 2021-06 Yes [id number] 1{tbl} Take 1 [facility] ne 0.35 mg 0-11 tablet by ity of tablet 00:00: mouth in [place] the Medical morning. Branch norethindro 2021-06 Yes [id number] 1{tbl} Take 1 [facility] ne 0.35 mg 0-11 tablet by ity of tablet 00:00: mouth in [place] the morning. Branch norethindro 2021-06 Yes [id number] 1{tbl} Take 1 [facility] ne 0.35 mg 0-11 tablet by ity of tablet 00:00: mouth in [place] the morning. Branch norethindro 2021-06 Yes [id number] 1{tbl} Take 1 [facility] ne 0.35 mg 0-11 tablet by ity of tablet 00:00: mouth in [place] the morning. Branch norethindro 2021-06 Yes [id number] 1{tbl} Take 1 [facility] ne 0.35 mg 0-11 tablet by ity of tablet 00:00: mouth in [place] the morning. Branch bictegrav-e Yes [id number] 1{tbl} Take 1 [facility] mtricit-ten 9-30 tablet by ity of ofov ala 00:00: mouth in [place] (BIKTARVY) 00 the Medical 50-200-25 morning. Branch mg tablet buPROPion Yes [id number] 300mg Take 1 U nivers XL 300 mg 9-30 tablet by ity o f 24 hr 00:00: mouth in [place] tablet 00 the Medical morning. Branch metoprolol Yes [id number] 25mg Take 1 [facility] succinate 9-30 tablet by ity o f XL 25 mg 24 00:00: mouth in [place] hr tablet 00 the Medical morning Branch and 1 tablet in the evening. ezetimibe Yes [id number] 10mg Take 1 U nivers 10 mg 9-30 tablet by ity of tablet 00:00: mouth in [place] 00 the morning. Branch atorvastati Yes [id number] 80mg Take 1 [facility] n 80 mg 9-30 tablet by ity of tablet 00:00: mouth at [place] [address] bedtime. Medical Branch fenofibrate Yes [id number] 43mg Take 1 [facility] micronized 9-30 capsule by ity of 43 mg 00:00: mouth in [place] capsule 00 the morning. Branch SITagliptin Yes 100mg Take 1 Uni vers (JANUVIA) 9-30 tablet by ity o f 100 mg 00:00: mouth in [place] tablet 00 the morning. Branch Insulin Yes 10U inject 10 Unive rs Detemir 9-30 Units ity of (LEVEMIR 00:00: under the [facility] s FLEXTOUCH 00 skin in [facility] U-100 the Branch INSULN) 100 morning unit/mL (3 and 10 mL) Units in injection the evening. insulin Yes Blood [facility] aspart 9-30 glucose < ity of U-100 00:00: 90 : Hold [place] (NOVOLOG 00 Novolog, Medical FLEXPEN do not use [place] U-100 Blood INSULIN) glucose 100 unit/mL 90-120, (3 mL) subtract 1 injection Unit, give 4 units Blood glucose 120-150 : GIVE 5 UNITS Blood glucose 150 - 180 add 1 unit, give 6 units Blood glucose 181 - 210 add 2 units, given 7 units Blood glucose 211 - 240 add 3 units, give 8 units Blood glucose 241 - 300 add 4 units, give 9 units Blood glucose > 300, add 5 Units. Given 10 units, recheck in 3 hours. If blood glucose >300 seek medical attention traZODone Yes [id number] 50mg Take 1 [facility] vers 50 mg 9-30 tablet by ity of tablet 00:00: mouth at [place] [address] bedtime. Medical Branch aspirin 81 Yes [id number] 81mg Take 1 U nivers mg chewable 9-30 tablet by ity of tablet 00:00: mouth in [place] 00 the morning. Branch omeprazole Yes [id number] TAKE ONE [facility] 40 mg 9-30 CAPSULE BY ity of capsule 00:00: MOUTH 15 [place] 00 MINS Medical BEFORE A Branch MEAL DAILY Insulin Yes [id number] Use as Uni vers [place], 9-30 directed ity of Disposable, 00:00: [place] (UNIFINE 00 Medical PENTIPS) 32 Branch gauge x 5/32" Ndle blood sugar Yes E11.9 Unive rs diagnostic 9-30 Measure ity of strip 00:00: blood [place] 00 sugar BID Medical Branch lancets 28 Yes E11.9: Unive rs gauge Misc 9-30 Measure ity of 00:00: blood [place] 00 sugar BID Medical Branch metformin Yes [id number] 500mg Take 1 [facility] ER 500 mg 9-30 [id number] tablet by ity of 24 hr 00:00: mouth [place] tablet 00 daily with Medical breakfast. Branch Diclofenac Yes [id number] Apply 4g [facility] Sodium 9-30 to ity of (VOLTAREN) 00:00: affected [place] as 1 % gel 00 area QID Medical Branch Lidocaine 5 Yes [id number] Apply to [facility] % cream 9-30 area(s) 2 ity of 00:00: (two) [place] 00 times Medical daily as Branch needed for Pain (scale 4-6). Apply 5g to affected areas BID PRN bictegrav-e Yes [id number] 1{tbl} Take 1 [facility] mtricit-ten 9-30 tablet by ity of ofov ala 00:00: mouth in [place] (BIKTARVY) 00 the Medical 50-200-25 morning. Branch mg tablet buPROPion Yes [id number] 300mg Take 1 U nivers XL 300 mg 9-30 tablet by ity o f 24 hr 00:00: mouth in [place] tablet 00 the Medical morning. Branch metoprolol Yes [id number] 25mg Take 1 [facility] succinate 9-30 tablet by ity o f XL 25 mg 24 00:00: mouth in [place] hr tablet 00 the Medical morning Branch and 1 tablet in the evening. ezetimibe Yes [id number] 10mg Take 1 U nivers 10 mg 9-30 tablet by ity of tablet 00:00: mouth in [place] 00 the Medical morning. Branch atorvastati Yes [id number] 80mg Take 1 [facility] n 80 mg 9-30 tablet by ity of tablet 00:00: mouth at [place] 00 bedtime. Medical Branch fenofibrate Yes [id number] 43mg Take 1 [facility] micronized 9-30 capsule by ity of 43 mg 00:00: mouth in [place] capsule 00 the morning. Branch SITagliptin Yes 100mg Take 1 Uni vers (JANUVIA) 9-30 tablet by ity o f 100 mg 00:00: mouth in [place] tablet 00 the morning. Branch Insulin Yes 10U inject 10 Unive rs Detemir 9-30 Units ity of (LEVEMIR 00:00: under the [facility] s FLEXTOUCH 00 skin in [facility] U-100 the Branch INSULN) 100 morning unit/mL (3 and 10 mL) Units in injection the evening. insulin Yes Blood [facility] aspart 9-30 glucose < ity of U-100 00:00: 90 : Hold [place] (NOVOLOG 00 Novolog, Medical FLEXPEN do not use [place] U-100 Blood INSULIN) glucose 100 unit/mL 90-120, (3 mL) subtract 1 injection Unit, give 4 units Blood glucose 120-150 : GIVE 5 UNITS Blood glucose 150 - 180 add 1 unit, give 6 units Blood glucose 181 - 210 add 2 units, given 7 units Blood glucose 211 - 240 add 3 units, give 8 units Blood glucose 241 - 300 add 4 units, give 9 units Blood glucose > 300, add 5 Units. Given 10 units, recheck in 3 hours. If blood glucose >300 seek medical attention traZODone Yes [id number] 50mg Take 1 Uni vers 50 mg 9-30 tablet by ity of tablet 00:00: mouth at [place] 00 bedtime. Medical Branch aspirin 81 Yes [id number] 81mg Take 1 U nivers mg chewable 9-30 tablet by ity of tablet 00:00: mouth in [place] 00 the morning. Branch omeprazole Yes [id number] TAKE ONE [facility] 40 mg 9-30 CAPSULE BY ity of capsule 00:00: MOUTH 15 [place] 00 MINS Medical BEFORE A Branch MEAL DAILY Insulin Yes [id number] Use as Uni vers [place], 9-30 directed ity of Disposable, 00:00: [place] (UNIFINE 00 Medical PENTIPS) 32 Branch gauge x 5/32" Ndle blood sugar Yes E11.9 Unive rs diagnostic 9-30 Measure ity of strip 00:00: blood [place] 00 sugar BID Medical Branch lancets 28 Yes E11.9: Unive rs gauge Misc 9-30 Measure ity of 00:00: blood 00 sugar BID Medical Branch metformin Yes [id number] 500mg Take 1 [facility] ER 500 mg 9-30 [id number] tablet by ity of 24 hr 00:00: mouth [place] tablet 00 daily with Medical breakfast. Branch Diclofenac Yes [id number] Apply 4g [facility] Sodium 9-30 to ity of (VOLTAREN) 00:00: affected [place] 1 % gel 00 area QID Medical Branch Lidocaine 5 Yes [id number] Apply to [facility] % cream 9-30 area(s) 2 ity of 00:00: (two) [place] 00 times Medical daily as Branch needed for Pain (scale 4-6). Apply 5g to affected areas BID PRN bictegrav-e Yes [id number] 1{tbl} Take 1 [facility] mtricit-ten 9-30 tablet by ity of ofov ala 00:00: mouth in [place] (BIKTARVY) 00 the Medical 50-200-25 morning. Branch mg tablet buPROPion Yes [id number] 300mg Take 1 U nivers XL 300 mg 9-30 tablet by ity o f 24 hr 00:00: mouth in [place] tablet 00 the Medical morning. Branch metoprolol Yes [id number] 25mg Take 1 [facility] succinate 9-30 tablet by ity o f XL 25 mg 24 00:00: mouth in [place] hr tablet 00 the Medical morning Branch and 1 tablet in the evening. ezetimibe Yes [id number] 10mg Take 1 U nivers 10 mg 9-30 tablet by ity of tablet 00:00: mouth in [place] 00 the Medical morning. Branch atorvastati Yes [id number] 80mg Take 1 [facility] n 80 mg 9-30 tablet by ity of tablet 00:00: mouth at [place] 00 bedtime. Medical Branch fenofibrate Yes [id number] 43mg Take 1 [facility] micronized 9-30 capsule by ity of 43 mg 00:00: mouth in [place] capsule 00 the morning. Branch SITagliptin Yes 100mg Take 1 Uni vers (JANUVIA) 9-30 tablet by ity o f 100 mg 00:00: mouth in [place] tablet 00 the morning. Branch Insulin Yes 10U inject 10 Unive rs Detemir 9-30 Units ity of (LEVEMIR 00:00: [place] FLEXTOUCH 00 skin in Medical U-100 the Branch INSULN) 100 morning unit/mL (3 and 10 mL) Units in injection the evening. insulin Yes Blood [facility] aspart 9-30 glucose < ity of U-100 00:00: 90 : Hold [place] (NOVOLOG 00 Novolog, [facility] FLEXPEN do not use [place] U-100 Blood INSULIN) glucose 100 unit/mL 90-120, (3 mL) subtract 1 injection Unit, give 4 units Blood glucose 120-150 : GIVE 5 UNITS Blood glucose 150 - 180 add 1 unit, give 6 units Blood glucose 181 - 210 add 2 units, given 7 units Blood glucose 211 - 240 add 3 units, give 8 units Blood glucose 241 - 300 add 4 units, give 9 units Blood glucose > 300, add 5 Units. Given 10 units, recheck in 3 hours. If blood glucose >300 seek medical attention traZODone Yes [id number] 50mg Take 1 Uni vers 50 mg 9-30 tablet by ity of tablet 00:00: mouth at [place] 00 bedtime. [facility] aspirin 81 Yes [id number] 81mg Take 1 U nivers mg chewable 9-30 tablet by ity of tablet 00:00: mouth in [place] 00 the morning. Branch omeprazole Yes [id number] TAKE ONE [facility] 40 mg 9-30 CAPSULE BY ity of capsule 00:00: MOUTH 15 [place] 00 MINS Medical BEFORE A [place] MEAL DAILY Insulin Yes [id number] Use as Uni vers [place], 9-30 directed ity of Disposable, 00:00: [place] (UNIFINE 00 Medical PENTIPS) 32 Branch gauge x 5/32" Ndle blood sugar Yes E11.9 Unive rs diagnostic 9-30 Measure ity of strip 00:00: blood [place] 00 sugar BID Medical Branch lancets 28 0 Yes E11.9: Unive rs gauge Misc 9-30 Measure ity of 00:00: blood [place] 00 sugar BID Medical Branch metformin 0 Yes [id number] 500mg Take 1 [facility] ER 500 mg 9-30 [id number] tablet by ity of 24 hr 00:00: mouth [place] tablet 00 daily with Medical breakfast. Branch Diclofenac Yes [id number] Apply 4g [facility] Sodium 9-30 to ity of (VOLTAREN) 00:00: affected [place] 1 % gel 00 area QID Medical Branch Lidocaine 5 Yes [id number] Apply to [facility] % cream 9-30 area(s) 2 ity of 00:00: (two) [place] 00 times Medical daily as Branch needed for Pain (scale 4-6). Apply 5g to affected areas BID PRN bictegrav-e Yes [id number] 1{tbl} Take 1 [facility] mtricit-ten 9-30 tablet by ity of ofov ala 00:00: mouth in [place] (BIKTARVY) 00 the Medical 50-200-25 morning. Branch mg tablet buPROPion Yes [id number] 300mg Take 1 U nivers XL 300 mg 9-30 tablet by ity o f 24 hr 00:00: mouth in [place] tablet 00 the Medical morning. Branch metoprolol Yes [id number] 25mg Take 1 [facility] succinate 9-30 tablet by ity o f XL 25 mg 24 00:00: mouth in [place] hr tablet 00 the Medical morning Branch and 1 tablet in the evening. ezetimibe Yes [id number] 10mg Take 1 U nivers 10 mg 9-30 tablet by ity of tablet 00:00: mouth in [place] 00 the Medical morning. Branch atorvastati Yes [id number] 80mg Take 1 [facility] n 80 mg 9-30 tablet by ity of tablet 00:00: mouth at [place] 00 bedtime. Medical Branch fenofibrate 0 Yes [id number] 43mg Take 1 [facility] micronized 9-30 capsule by ity of 43 mg 00:00: mouth in [place] capsule 00 the Medical morning. Branch SITagliptin 0 Yes 100mg Take 1 Uni vers (JANUVIA) 9-30 tablet by ity o f 100 mg 00:00: mouth in [place] tablet 00 the Medical morning. Branch Insulin Yes 10U inject 10 Unive rs Detemir 9-30 Units ity of (LEVEMIR 00:00: [place] FLE[place] skin in Medical U-100 the Branch INSULN) 100 morning unit/mL (3 and 10 mL) Units in injection the evening. insulin Yes Blood Univers aspart 9-30 glucose < ity of U-100 00:00: 90 : Hold [place] (NOVOLOG 00 Novolog, Medical FLEXPEN do not use [place] U-100 Blood INSULIN) glucose 100 unit/mL 90-120, (3 mL) subtract 1 injection Unit, give 4 units Blood glucose 120-150 : GIVE 5 UNITS Blood glucose 150 - 180 add 1 unit, give 6 units Blood glucose 181 - 210 add 2 units, given 7 units Blood glucose 211 - 240 add 3 units, give 8 units Blood glucose 241 - 300 add 4 units, give 9 units Blood glucose > 300, add 5 Units. Given 10 units, recheck in 3 hours. If blood glucose >300 seek medical attention traZODone Yes [id number] 50mg Take 1 Uni vers 50 mg 9-30 tablet by ity of tablet 00:00: mouth at [place] 00 bedtime. Medical Branch aspirin 81 Yes [id number] 81mg Take 1 U nivers mg chewable 9-30 tablet by ity of tablet 00:00: mouth in [place] 00 the Medical morning. Branch omeprazole Yes [id number] TAKE ONE [facility] 40 mg 9-30 CAPSULE BY ity of capsule 00:00: MOUTH 15 [place] 00 MINS Medical BEFORE A [place] MEAL DAILY Insulin Yes [id number] Use as Uni vers [place], 9-30 directed ity of Disposable, 00:00: [place] (UNIFINE 00 Medical PENTIPS) 32 Branch gauge x 5/32" Ndle blood sugar Yes E11.9 Unive rs diagnostic 9-30 Measure ity of strip 00:00: blood [place] 00 sugar BID Medical Branch lancets 28 Yes E11.9: Unive rs gauge Misc 9-30 Measure ity of 00:00: blood [place] 00 sugar BID Medical Branch metformin Yes [id number] 500mg Take 1 [facility] ER 500 mg 9-30 [id number] tablet by ity of 24 hr 00:00: mouth [place] tablet 00 daily with Medical breakfast. Branch Diclofenac Yes [id number] Apply 4g [facility] Sodium 9-30 to ity of (VOLTAREN) 00:00: affected [place] 1 % gel 00 area QID Medical Branch Lidocaine 5 Yes [id number] Apply to [facility] % cream 9-30 area(s) 2 ity of 00:00: (two) [place] 00 times Medical daily as Branch needed for Pain (scale 4-6). Apply 5g to affected areas BID PRN bictegrav-e Yes [id number] 1{tbl} Take 1 [facility] mtricit-ten 9-30 tablet by ity of ofov ala 00:00: mouth in [place] (BIKTARVY) 00 the Medical 50-200-25 morning. Branch mg tablet buPROPion Yes [id number] 300mg Take 1 U nivers XL 300 mg 9-30 tablet by ity o f 24 hr 00:00: mouth in [place] tablet 00 the Medical morning. Branch metoprolol Yes [id number] 25mg Take 1 [facility] succinate 9-30 tablet by ity o f XL 25 mg 24 00:00: mouth in [place] hr tablet 00 the Medical morning Branch and 1 tablet in the evening. ezetimibe Yes [id number] 10mg Take 1 U nivers 10 mg 9-30 tablet by ity of tablet 00:00: mouth in [place] 00 the Medical morning. Branch atorvastati Yes [id number] 80mg Take 1 [facility] n 80 mg 9-30 tablet by ity of tablet 00:00: mouth at [place] 00 bedtime. Medical Branch fenofibrate Yes [id number] 43mg Take 1 [facility] micronized 9-30 capsule by ity of 43 mg 00:00: mouth in [place] capsule 00 the Medical morning. Branch SITagliptin Yes 100mg Take 1 Uni vers (JANUVIA) 9-30 tablet by ity o f 100 mg 00:00: mouth in [place] tablet 00 the Medical morning. Branch Insulin Yes 10U inject 10 Unive rs Detemir 9-30 Units ity of (LEVEMIR 00:00: [place] FLEXT[place]CH 00 skin in Medical U-100 the Branch INSULN) 100 morning unit/mL (3 and 10 mL) Units in injection the evening. insulin Yes Blood [facility] aspart 9-30 glucose < ity of U-100 00:00: 90 : Hold [place] (NOVOLOG 00 Novolog, Medical FLEXPEN do not use Branch U-100 Blood INSULIN) glucose 100 unit/mL 90-120, (3 mL) subtract 1 injection Unit, give 4 units Blood glucose 120-150 : GIVE 5 UNITS Blood glucose 150 - 180 add 1 unit, give 6 units Blood glucose 181 - 210 add 2 units, given 7 units Blood glucose 211 - 240 add 3 units, give 8 units Blood glucose 241 - 300 add 4 units, give 9 units Blood glucose > 300, add 5 Units. Given 10 units, recheck in 3 hours. If blood glucose >300 seek medical attention traZODone Yes [id number] 50mg Take 1 Uni vers 50 mg 9-30 tablet by ity of tablet 00:00: mouth at [place] 00 bedtime. Medical Branch aspirin 81 Yes [id number] 81mg Take 1 U nivers mg chewable 9-30 tablet by ity of tablet 00:00: mouth in [place] 00 the Medical morning. Branch omeprazole Yes [id number] TAKE ONE [facility] 40 mg 9-30 CAPSULE BY ity of capsule 00:00: MOUTH 15 [place] 00 MINS Medical BEFORE A [place] MEAL DAILY Insulin Yes [id number] Use as Uni vers [place], 9-30 directed ity of Disposable, 00:00: [place] (UNIFINE 00 Medical PENTIPS) 32 Branch gauge x 5/32" Ndle blood sugar Yes E11.9 Unive rs diagnostic 9-30 Measure ity of strip 00:00: blood 00 sugar BID Medical Branch lancets 28 Yes E11.9: Unive rs gauge Misc 9-30 Measure ity of 00:00: blood 00 sugar BID Medical Branch metformin Yes [id number] 500mg Take 1 [facility] ER 500 mg 9-30 [id number] tablet by ity of 24 hr 00:00: mouth [place] tablet 00 daily with Medical breakfast. Branch Diclofenac Yes [id number] Apply 4g [facility] Sodium 9-30 to ity of (VOLTAREN) 00:00: affected [place] 1 % gel 00 area QID Medical Branch Lidocaine 5 Yes [id number] Apply to [facility] % cream 9-30 area(s) 2 ity of 00:00: (two) [place] 00 times Medical daily as Branch needed for Pain (scale 4-6). Apply 5g to affected areas BID PRN bictegrav-e Yes [id number] 1{tbl} Take 1 Univers mtricit-ten 9-30 tablet by ity of ofov ala 00:00: mouth in [place] (BIKTARVY) 00 the Medical 50-200-25 morning. Branch mg tablet buPROPion Yes [id number] 300mg Take 1 U nivers XL 300 mg 9-30 tablet by ity o f 24 hr 00:00: mouth in [place] tablet 00 the Medical morning. Branch metoprolol Yes [id number] 25mg Take 1 [facility] succinate 9-30 tablet by ity o f XL 25 mg 24 00:00: mouth in [place] hr tablet 00 the Medical morning Branch and 1 tablet in the evening. ezetimibe Yes [id number] 10mg Take 1 U nivers 10 mg 9-30 tablet by ity of tablet 00:00: mouth in [place] 00 the Medical morning. Branch atorvastati Yes [id number] 80mg Take 1 [facility] n 80 mg 9-30 tablet by ity of tablet 00:00: mouth at [place] 00 bedtime. Medical Branch fenofibrate Yes [id number] 43mg Take 1 [facility] micronized 9-30 capsule by ity of 43 mg 00:00: mouth in [place] capsule 00 the Medical morning. Branch SITagliptin Yes 100mg Take 1 Uni vers (JANUVIA) 9-30 tablet by ity o f 100 mg 00:00: mouth in [place] tablet 00 the Medical morning. Branch Insulin Yes 10U inject 10 Unive rs Detemir 9-30 Units ity of (LEVEMIR 00:00: [place] the [place] FLEXT[place] 00 skin in Medical U-100 the Branch INSULN) 100 morning unit/mL (3 and 10 mL) Units in injection the evening. insulin Yes Blood [facility] aspart 9-30 glucose < ity of U-100 00:00: 90 : Hold [place] (NOVOLOG 00 Novolog, Medical FLEXPEN do not use Branch U-100 Blood INSULIN) glucose 100 unit/mL 90-120, (3 mL) subtract 1 injection Unit, give 4 units Blood glucose 120-150 : GIVE 5 UNITS Blood glucose 150 - 180 add 1 unit, give 6 units Blood glucose 181 - 210 add 2 units, given 7 units Blood glucose 211 - 240 add 3 units, give 8 units Blood glucose 241 - 300 add 4 units, give 9 units Blood glucose > 300, add 5 Units. Given 10 units, recheck in 3 hours. If blood glucose >300 seek medical attention traZODone Yes [id number] 50mg Take 1 Uni vers 50 mg 9-30 tablet by ity of tablet 00:00: mouth at [place] 00 bedtime. Medical Branch aspirin 81 Yes [id number] 81mg Take 1 U nivers mg chewable 9-30 tablet by ity of tablet 00:00: mouth in [place] 00 the Medical morning. Branch omeprazole Yes [id number] TAKE ONE [facility] 40 mg 9-30 CAPSULE BY ity of capsule 00:00: MOUTH 15 [place] 00 MINS Medical BEFORE A Branch MEAL DAILY Insulin 0 Yes [id number] Use as Uni vers [place], 9-30 directed ity of Disposable, 00:00: [place] (UNIFINE 00 Medical PENTIPS) 32 Branch gauge x 5/32" Ndle blood sugar Yes E11.9 Unive rs diagnostic 9-30 Measure ity of strip 00:00: blood [place] sugar BID Medical Branch lancets 28 Yes E11.9: Unive rs gauge Misc -30 Measure ity of 00:00: blood [place] 00 sugar BID Medical Branch metformin 0 Yes [id number] 500mg Take 1 [facility] ER 500 mg 9-30 [id number] tablet by ity of 24 hr 00:00: mouth [place] tablet 00 daily with Medical breakfast. Branch Diclofenac Yes [id number] Apply 4g [facility] Sodium 30 to ity of (VOLTAREN) 00:00: affected [place] 1 % gel 00 area QID Medical Branch Lidocaine 5 Yes [id number] Apply to [facility] % cream 30 area(s) 2 ity of 00:00: (two) [place] 00 times Medical daily as Branch needed for Pain (scale 4-6). Apply 5g to affected areas BID PRN bictegrav-e Yes [id number] 1{tbl} Take 1 [facility] mtricit-ten 9-30 tablet by ity of ofov ala 00:00: mouth in [place] (BIKTARVY) 00 the Medical 50-200-25 morning. Branch mg tablet buPROPion Yes [id number] 300mg Take 1 U nivers XL 300 mg 9-30 tablet by ity o f 24 hr 00:00: mouth in [place] tablet 00 the Medical morning. Branch metoprolol Yes [id number] 25mg Take 1 [facility] succinate 9-30 tablet by ity o f XL 25 mg 24 00:00: mouth in [place] hr tablet 00 the Medical morning Branch and 1 tablet in the evening. ezetimibe Yes [id number] 10mg Take 1 U nivers 10 mg 9-30 tablet by ity of tablet 00:00: mouth in [place] 00 the morning. Branch atorvastati Yes [id number] 80mg Take 1 Univers n 80 mg 9-30 tablet by ity of tablet 00:00: mouth at [place] 00 bedtime. Medical Branch fenofibrate Yes [id number] 43mg Take 1 [facility] micronized 9-30 capsule by ity of 43 mg 00:00: mouth in [place] capsule 00 the morning. Branch SITagliptin Yes 100mg Take 1 Uni vers (JANUVIA) 9-30 tablet by ity o f 100 mg 00:00: mouth in [place] tablet 00 the morning. Branch Insulin Yes 10U inject 10 Unive rs Detemir 9-30 Units ity of (LEVEMIR 00:00: [place] the [place] FLEXT[place] 00 skin in Medical U-100 the Branch INSULN) 100 morning unit/mL (3 and 10 mL) Units in injection the evening. insulin Yes Blood Univers aspart 9-30 glucose < ity of U-100 00:00: 90 : Hold [place] (NOVOLOG 00 Novolog, Medical FLEXPEN do not use Branch U-100 Blood INSULIN) glucose 100 unit/mL 90-120, (3 mL) subtract 1 injection Unit, give 4 units Blood glucose 120-150 : GIVE 5 UNITS Blood glucose 150 - 180 add 1 unit, give 6 units Blood glucose 181 - 210 add 2 units, given 7 units Blood glucose 211 - 240 add 3 units, give 8 units Blood glucose 241 - 300 add 4 units, give 9 units Blood glucose > 300, add 5 Units. Given 10 units, recheck in 3 hours. If blood glucose >300 seek medical attention traZODone Yes [id number] 50mg Take 1 Uni vers 50 mg 9-30 tablet by ity of tablet 00:00: mouth at [place] 00 bedtime. Medical Branch aspirin 81 Yes [id number] 81mg Take 1 U nivers mg chewable 9-30 tablet by ity of tablet 00:00: mouth in [place] 00 the Medical morning. Branch omeprazole Yes [id number] TAKE ONE [facility] 40 mg 9-30 CAPSULE BY ity of capsule 00:00: MOUTH 15 [place] 00 MINS Medical BEFORE A Branch MEAL DAILY Insulin Yes [id number] Use as [facility] vers [place], 9-30 directed ity of Disposable, 00:00: [place] (UNIFINE 00 Medical PENTIPS) 32 Branch gauge x 5/32" Ndle blood sugar Yes E11.9 Unive rs diagnostic 9-30 Measure ity of strip 00:00: blood [place] 00 sugar BID Medical Branch lancets 28 Yes E11.9: Unive rs gauge Misc 9-30 Measure ity of 00:00: blood [place] 00 sugar BID Medical Branch metformin Yes [id number] 500mg Take 1 [facility] ER 500 mg 9-30 [id number] tablet by ity of 24 hr 00:00: mouth [place] tablet 00 daily with Medical breakfast. Branch Diclofenac Yes [id number] Apply 4g [facility] Sodium 9-30 to ity of (VOLTAREN) 00:00: affected [place] as 1 % gel 00 area QID Medical Branch Lidocaine 5 Yes [id number] Apply to [facility] % cream 9-30 area(s) 2 ity of 00:00: (two) [place] 00 times Medical daily as Branch needed for Pain (scale 4-6). Apply 5g to affected areas BID PRN bictegrav-e Yes [id number] 1{tbl} Take 1 [facility] mtricit-ten 9-30 tablet by ity of ofov ala 00:00: mouth in [place] (BIKTARVY) 00 the Medical 50-200-25 morning. Branch mg tablet buPROPion Yes [id number] 300mg Take 1 U nivers XL 300 mg 9-30 tablet by ity o f 24 hr 00:00: mouth in [place] tablet 00 the Medical morning. Branch metoprolol Yes [id number] 25mg Take 1 [facility] succinate 9-30 tablet by ity o f XL 25 mg 24 00:00: mouth in [place] hr tablet 00 the Medical morning Branch and 1 tablet in the evening. ezetimibe Yes [id number] 10mg Take 1 U nivers 10 mg 9-30 tablet by ity of tablet 00:00: mouth in [place] 00 the morning. Branch atorvastati Yes [id number] 80mg Take 1 [facility] n 80 mg 9-30 tablet by ity of tablet 00:00: mouth at [place] 00 bedtime. Medical Branch fenofibrate Yes [id number] 43mg Take 1 [facility] micronized 9-30 capsule by ity of 43 mg 00:00: mouth in [place] capsule 00 the morning. Branch SITagliptin Yes 100mg Take 1 Uni vers (JANUVIA) 9-30 tablet by ity o f 100 mg 00:00: mouth in [place] tablet 00 the morning. Branch Insulin Yes 10U inject 10 Unive rs Detemir 9-30 Units ity of (LEVEMIR 00:00: under the [facility] s FLEXTOUCH 00 skin in [facility] U-100 the Branch INSULN) 100 morning unit/mL (3 and 10 mL) Units in injection the evening. insulin Yes Blood [facility] aspart 9-30 glucose < ity of U-100 00:00: 90 : Hold [place] (NOVOLOG 00 Novolog, Medical FLEXPEN do not use [place] U-100 Blood INSULIN) glucose 100 unit/mL 90-120, (3 mL) subtract 1 injection Unit, give 4 units Blood glucose 120-150 : GIVE 5 UNITS Blood glucose 150 - 180 add 1 unit, give 6 units Blood glucose 181 - 210 add 2 units, given 7 units Blood glucose 211 - 240 add 3 units, give 8 units Blood glucose 241 - 300 add 4 units, give 9 units Blood glucose > 300, add 5 Units. Given 10 units, recheck in 3 hours. If blood glucose >300 seek medical attention traZODone Yes [id number] 50mg Take 1 [facility] vers 50 mg 9-30 tablet by ity of tablet 00:00: mouth at [place] 00 bedtime. Medical Branch aspirin 81 Yes [id number] 81mg Take 1 U nivers mg chewable 9-30 tablet by ity of tablet 00:00: mouth in [place] 00 the Medical morning. Branch omeprazole Yes [id number] TAKE ONE [facility] 40 mg 9-30 CAPSULE BY ity of capsule 00:00: MOUTH 15 [place] 00 MINS Medical BEFORE A Branch MEAL DAILY Insulin Yes [id number] Use as [facility] vers [place], 9-30 directed ity of Disposable, 00:00: [place] (UNIFINE 00 Medical PENTIPS) 32 Branch gauge x 5/32" Ndle blood sugar Yes E11.9 Unive rs diagnostic 9-30 Measure ity of strip 00:00: blood [place] 00 sugar BID Medical Branch lancets 28 Yes E11.9: Unive rs gauge Misc 9-30 Measure ity of 00:00: blood [place] 00 sugar BID Medical Branch metformin Yes [id number] 500mg Take 1 [facility] ER 500 mg 9-30 [id number] tablet by ity of 24 hr 00:00: mouth [place] tablet 00 daily with Medical breakfast. Branch Diclofenac Yes [id number] Apply 4g [facility] Sodium 9-30 to ity of (VOLTAREN) 00:00: affected [place] as 1 % gel 00 area QID Medical Branch Lidocaine 5 Yes [id number] Apply to [facility] % cream 9-30 area(s) 2 ity of 00:00: (two) [place] 00 times Medical daily as Branch needed for Pain (scale 4-6). Apply 5g to affected areas BID PRN bictegrav-e Yes [id number] 1{tbl} Take 1 [facility] mtricit-ten 9-30 tablet by ity of ofov ala 00:00: mouth in [place] (BIKTARVY) 00 the Medical 50-200-25 morning. Branch mg tablet buPROPion Yes [id number] 300mg Take 1 U nivers XL 300 mg 9-30 tablet by ity o f 24 hr 00:00: mouth in [place] tablet 00 the Medical morning. Branch metoprolol Yes [id number] 25mg Take 1 [facility] succinate 9-30 tablet by ity o f XL 25 mg 24 00:00: mouth in [place] hr tablet 00 the Medical morning Branch and 1 tablet in the evening. ezetimibe Yes [id number] 10mg Take 1 U nivers 10 mg 9-30 tablet by ity of tablet 00:00: mouth in [place] 00 the morning. Branch atorvastati Yes [id number] 80mg Take 1 [facility] n 80 mg 9-30 tablet by ity of tablet 00:00: mouth at [place] 00 bedtime. Medical Branch fenofibrate Yes [id number] 43mg Take 1 [facility] micronized 9-30 capsule by ity of 43 mg 00:00: mouth in [place] capsule 00 the morning. Branch SITagliptin Yes 100mg Take 1 Uni vers (JANUVIA) 9-30 tablet by ity o f 100 mg 00:00: mouth in [place] tablet 00 the morning. Branch Insulin Yes 10U inject 10 Unive rs Detemir 9-30 Units ity of (LEVEMIR 00:00: under the [facility] s FLEXTOUCH 00 skin in [facility] U-100 the Branch INSULN) 100 morning unit/mL (3 and 10 mL) Units in injection the evening. insulin Yes Blood [facility] aspart 9-30 glucose < ity of U-100 00:00: 90 : Hold [place] (NOVOLOG 00 Novolog, Medical FLEXPEN do not use [place] U-100 Blood INSULIN) glucose 100 unit/mL 90-120, (3 mL) subtract 1 injection Unit, give 4 units Blood glucose 120-150 : GIVE 5 UNITS Blood glucose 150 - 180 add 1 unit, give 6 units Blood glucose 181 - 210 add 2 units, given 7 units Blood glucose 211 - 240 add 3 units, give 8 units Blood glucose 241 - 300 add 4 units, give 9 units Blood glucose > 300, add 5 Units. Given 10 units, recheck in 3 hours. If blood glucose >300 seek medical attention traZODone Yes [id number] 50mg Take 1 [facility] vers 50 mg 9-30 tablet by ity of tablet 00:00: mouth at [place] 00 bedtime. Medical Branch aspirin 81 Yes [id number] 81mg Take 1 U nivers mg chewable 9-30 tablet by ity of tablet 00:00: mouth in [place] 00 the Medical morning. Branch omeprazole Yes [id number] TAKE ONE [facility] 40 mg 9-30 CAPSULE BY ity of capsule 00:00: MOUTH 15 [place] 00 MINS Medical BEFORE A Branch MEAL DAILY Insulin Yes [id number] Use as [facility] vers [place], 9-30 directed ity of Disposable, 00:00: [place] (UNIFINE 00 Medical PENTIPS) 32 Branch gauge x 5/32" Ndle blood sugar Yes E11.9 Unive rs diagnostic 9-30 Measure ity of strip 00:00: blood [place] 00 sugar BID Medical Branch lancets 28 Yes E11.9: Unive rs gauge Misc -30 Measure ity of 00:00: blood [place] 00 sugar BID Medical Branch metformin Yes [id number] 500mg Take 1 [facility] ER 500 mg 9-30 [id number] tablet by ity of 24 hr 00:00: mouth [place] tablet 00 daily with Medical breakfast. Branch bictegrav-e Yes [id number] 1{tbl} Take 1 [facility] mtricit-ten 9-30 tablet by ity of ofov ala 00:00: mouth in [place] (BIKTARVY) 00 the Medical 50-200-25 morning. Branch mg tablet buPROPion Yes [id number] 300mg Take 1 U nivers XL 300 mg 9-30 tablet by ity o f 24 hr 00:00: mouth in [place] tablet 00 the Medical morning. Branch metoprolol Yes [id number] 25mg Take 1 [facility] succinate 9-30 tablet by ity o f XL 25 mg 24 00:00: mouth in [place] hr tablet 00 the Medical morning Branch and 1 tablet in the evening. ezetimibe Yes [id number] 10mg Take 1 U nivers 10 mg 9-30 tablet by ity of tablet 00:00: mouth in [place] 00 the Medical morning. Branch atorvastati Yes [id number] 80mg Take 1 [facility] n 80 mg 9-30 tablet by ity of tablet 00:00: mouth at [place] 00 bedtime. Medical Branch fenofibrate Yes [id number] 43mg Take 1 [facility] micronized 9-30 capsule by ity of 43 mg 00:00: mouth in [place] capsule 00 the morning. Branch SITagliptin Yes 100mg Take 1 Uni vers (JANUVIA) 9-30 tablet by ity o f 100 mg 00:00: mouth in [place] tablet 00 the morning. Branch Insulin Yes 10U inject 10 Unive rs Detemir 9-30 Units ity of (LEVEMIR 00:00: [place] FLE[place] 00 skin in Medical U-100 the Branch INSULN) 100 morning unit/mL (3 and 10 mL) Units in injection the evening. insulin Yes Blood [facility] aspart 9-30 glucose < ity of U-100 00:00: 90 : Hold [place] (NOVOLOG 00 Novolog, Medical FLEXPEN do not use Branch U-100 Blood INSULIN) glucose 100 unit/mL 90-120, (3 mL) subtract 1 injection Unit, give 4 units Blood glucose 120-150 : GIVE 5 UNITS Blood glucose 150 - 180 add 1 unit, give 6 units Blood glucose 181 - 210 add 2 units, given 7 units Blood glucose 211 - 240 add 3 units, give 8 units Blood glucose 241 - 300 add 4 units, give 9 units Blood glucose > 300, add 5 Units. Given 10 units, recheck in 3 hours. If blood glucose >300 seek medical attention traZODone Yes [id number] 50mg Take 1 [facility] vers 50 mg 9-30 tablet by ity of tablet 00:00: mouth at [place] 00 bedtime. Medical Branch aspirin 81 Yes [id number] 81mg Take 1 U nivers mg chewable 9-30 tablet by ity of tablet 00:00: mouth in [place] 00 the morning. Branch omeprazole Yes [id number] TAKE ONE [facility] 40 mg 9-30 CAPSULE BY ity of capsule 00:00: MOUTH 15 [place] 00 MINS Medical BEFORE A Branch MEAL DAILY Insulin Yes [id number] Use as [facility] vers [place], 9-30 directed ity of Disposable, 00:00: [place] (UNIFINE 00 Medical PENTIPS) 32 Branch gauge x 5/32" Ndle blood sugar Yes E11.9 Unive rs diagnostic 9-30 Measure ity of strip 00:00: blood [place] 00 sugar BID Medical Branch lancets 28 0 Yes E11.9: Unive rs gauge Misc 9-30 Measure ity of 00:00: blood [place] 00 sugar BID Medical Branch metformin 0 Yes [id number] 500mg Take 1 [facility] ER 500 mg 9-30 [id number] tablet by ity of 24 hr 00:00: mouth [place] tablet 00 daily with Medical breakfast. Branch bictegrav-e Yes [id number] 1{tbl} Take 1 [facility] mtricit-ten 9-30 tablet by ity of ofov ala 00:00: mouth in [place] (BIKTARVY) 00 the Medical 50-200-25 morning. Branch mg tablet buPROPion Yes [id number] 300mg Take 1 U nivers XL 300 mg 9-30 tablet by ity o f 24 hr 00:00: mouth in [place] tablet 00 the Medical morning. Branch metoprolol Yes [id number] 25mg Take 1 [facility] succinate 9-30 tablet by ity o f XL 25 mg 24 00:00: mouth in [place] hr tablet 00 the Medical morning Branch and 1 tablet in the evening. ezetimibe Yes [id number] 10mg Take 1 U nivers 10 mg 9-30 tablet by ity of tablet 00:00: mouth in [place] 00 the Medical morning. Branch atorvastati Yes [id number] 80mg Take 1 [facility] n 80 mg 9-30 tablet by ity of tablet 00:00: mouth at [place] 00 bedtime. Medical Branch fenofibrate Yes [id number] 43mg Take 1 [facility] micronized 9-30 capsule by ity of 43 mg 00:00: mouth in [place] capsule 00 the Medical morning. Branch SITagliptin Yes 100mg Take 1 Uni vers (JANUVIA) 9-30 tablet by ity o f 100 mg 00:00: mouth in [place] tablet 00 the Medical morning. Branch Insulin Yes 10U inject 10 Unive rs Detemir 9-30 Units ity of (LEVEMIR 00:00: [place] FLE[place] skin in Medical U-100 the Branch INSULN) 100 morning unit/mL (3 and 10 mL) Units in injection the evening. insulin Yes Blood [facility] aspart 9-30 glucose < ity of U-100 00:00: 90 : Hold [place] (NOVOLOG 00 Novolog, Medical FLEXPEN do not use Branch U-100 Blood INSULIN) glucose 100 unit/mL 90-120, (3 mL) subtract 1 injection Unit, give 4 units Blood glucose 120-150 : GIVE 5 UNITS Blood glucose 150 - 180 add 1 unit, give 6 units Blood glucose 181 - 210 add 2 units, given 7 units Blood glucose 211 - 240 add 3 units, give 8 units Blood glucose 241 - 300 add 4 units, give 9 units Blood glucose > 300, add 5 Units. Given 10 units, recheck in 3 hours. If blood glucose >300 seek medical attention traZODone Yes [id number] 50mg Take 1 [facility] vers 50 mg 9-30 tablet by ity of tablet 00:00: mouth at [place] 00 bedtime. Medical Branch aspirin 81 Yes [id number] 81mg Take 1 U nivers mg chewable 9-30 tablet by ity of tablet 00:00: mouth in [place] 00 the Medical morning. Branch omeprazole Yes [id number] TAKE ONE [facility] 40 mg 9-30 CAPSULE BY ity of capsule 00:00: MOUTH 15 [place] 00 MINS Medical BEFORE A Branch MEAL DAILY Insulin Yes [id number] Use as [facility] vers [place], 9-30 directed ity of Disposable, 00:00: [place] (UNIFINE 00 Medical PENTIPS) 32 Branch gauge x 5/32" Ndle blood sugar Yes E11.9 Unive rs diagnostic 9-30 Measure ity of strip 00:00: blood [place] 00 sugar BID Medical Branch lancets 28 Yes E11.9: Unive rs gauge Misc 9-30 Measure ity of 00:00: blood 00 sugar BID Medical Branch metformin Yes [id number] 500mg Take 1 [facility] ER 500 mg 9-30 [id number] tablet by ity of 24 hr 00:00: mouth [place] tablet 00 daily with Medical breakfast. Branch bictegrav-e Yes [id number] 1{tbl} Take 1 [facility] mtricit-ten 9-30 tablet by ity of ofov ala 00:00: mouth in [place] (BIKTARVY) 00 the Medical 50-200-25 morning. Branch mg tablet buPROPion Yes [id number] 300mg Take 1 U nivers XL 300 mg 9-30 tablet by ity o f 24 hr 00:00: mouth in [place] tablet 00 the morning. Branch metoprolol Yes [id number] 25mg Take 1 [facility] succinate 9-30 tablet by ity o f XL 25 mg 24 00:00: mouth in [place] hr tablet 00 the Medical morning Branch and 1 tablet in the evening. ezetimibe Yes [id number] 10mg Take 1 U nivers 10 mg 9-30 tablet by ity of tablet 00:00: mouth in [place] 00 the morning. Branch atorvastati Yes [id number] 80mg Take 1 [facility] n 80 mg 9-30 tablet by ity of tablet 00:00: mouth at [place] 00 bedtime. Medical Branch fenofibrate Yes [id number] 43mg Take 1 [facility] micronized 9-30 capsule by ity of 43 mg 00:00: mouth in [place] capsule the morning. Branch SITagliptin Yes 100mg Take 1 Uni vers (JANUVIA) 9-30 tablet by ity o f 100 mg 00:00: mouth in [place] tablet 00 the morning. Branch Insulin Yes 10U inject 10 Unive rs Detemir 9-30 Units ity of (LEVEMIR 00:00: under the [facility] s FLEXTOUCH 00 skin in Medical U-100 the Branch INSULN) 100 morning unit/mL (3 and 10 mL) Units in injection the evening. insulin Yes Blood [facility] aspart 9-30 glucose < ity of U-100 00:00: 90 : Hold [place] (NOVOLOG 00 Novolog, Medical FLEXPEN do not use [place] U-100 Blood INSULIN) glucose 100 unit/mL 90-120, (3 mL) subtract 1 injection Unit, give 4 units Blood glucose 120-150 : GIVE 5 UNITS Blood glucose 150 - 180 add 1 unit, give 6 units Blood glucose 181 - 210 add 2 units, given 7 units Blood glucose 211 - 240 add 3 units, give 8 units Blood glucose 241 - 300 add 4 units, give 9 units Blood glucose > 300, add 5 Units. Given 10 units, recheck in 3 hours. If blood glucose >300 seek medical attention traZODone Yes [id number] 50mg Take 1 [facility] vers 50 mg 9-30 tablet by ity of tablet 00:00: mouth at [place] 00 bedtime. Medical Branch aspirin 81 Yes [id number] 81mg Take 1 U nivers mg chewable 9-30 tablet by ity of tablet 00:00: mouth in [place] 00 the Medical morning. Branch omeprazole Yes [id number] TAKE ONE [facility] 40 mg 9-30 CAPSULE BY ity of capsule 00:00: MOUTH 15 [place] 00 MINS Medical BEFORE A Branch MEAL DAILY Insulin Yes [id number] Use as [facility] vers [place], 9-30 directed ity of Disposable, 00:00: [place] (UNIFINE 00 Medical PENTIPS) 32 Branch gauge x 5/32" Ndle blood sugar Yes E11.9 Unive rs diagnostic 9-30 Measure ity of strip 00:00: blood [place] 00 sugar BID Medical Branch lancets 28 Yes E11.9: Unive rs gauge Misc 9-30 Measure ity of 00:00: blood [place] 00 sugar BID Medical Branch metformin Yes [id number] 500mg Take 1 [facility] ER 500 mg 9-30 [id number] tablet by ity of 24 hr 00:00: mouth [place] tablet 00 daily with Medical breakfast. Branch bictegrav-e Yes [id number] 1{tbl} Take 1 [facility] mtricit-ten 9-30 tablet by ity of ofov ala 00:00: mouth in [place] (BIKTARVY) 00 the Medical 50-200-25 morning. Branch mg tablet buPROPion Yes [id number] 300mg Take 1 U nivers XL 300 mg 9-30 tablet by ity o f 24 hr 00:00: mouth in [place] tablet 00 the Medical morning. Branch metoprolol Yes [id number] 25mg Take 1 [facility] succinate 9-30 tablet by ity o f XL 25 mg 24 00:00: mouth in [place] hr tablet 00 the Medical morning Branch and 1 tablet in the evening. ezetimibe Yes [id number] 10mg Take 1 U nivers 10 mg 9-30 tablet by ity of tablet 00:00: mouth in [place] 00 the Medical morning. Branch atorvastati Yes [id number] 80mg Take 1 [facility] n 80 mg 9-30 tablet by ity of tablet 00:00: mouth at [place] 00 bedtime. Medical Branch fenofibrate Yes [id number] 43mg Take 1 [facility] micronized 9-30 capsule by ity of 43 mg 00:00: mouth in [place] capsule 00 the Medical morning. Branch SITagliptin Yes 100mg Take 1 Uni vers (JANUVIA) 9-30 tablet by ity o f 100 mg 00:00: mouth in [place] tablet 00 the Medical morning. Branch Insulin Yes 10U inject 10 Unive rs Detemir 9-30 Units ity of (LEVEMIR 00:00: under the [place] FLEXT[place] 00 skin in Medical U-100 the Branch INSULN) 100 morning unit/mL (3 and 10 mL) Units in injection the evening. insulin Yes Blood [facility] aspart 9-30 glucose < ity of U-100 00:00: 90 : Hold [place] (NOVOLOG 00 Novolog, Medical FLEXPEN do not use [place] U-100 Blood INSULIN) glucose 100 unit/mL 90-120, (3 mL) subtract 1 injection Unit, give 4 units Blood glucose 120-150 : GIVE 5 UNITS Blood glucose 150 - 180 add 1 unit, give 6 units Blood glucose 181 - 210 add 2 units, given 7 units Blood glucose 211 - 240 add 3 units, give 8 units Blood glucose 241 - 300 add 4 units, give 9 units Blood glucose > 300, add 5 Units. Given 10 units, recheck in 3 hours. If blood glucose >300 seek medical attention traZODone Yes [id number] 50mg Take 1 Uni vers 50 mg 9-30 tablet by ity of tablet 00:00: mouth at [place] 00 bedtime. Medical Branch aspirin 81 Yes [id number] 81mg Take 1 U nivers mg chewable 9-30 tablet by ity of tablet 00:00: mouth in [place] 00 the morning. Branch omeprazole Yes [id number] TAKE ONE [facility] 40 mg 9-30 CAPSULE BY ity of capsule 00:00: MOUTH 15 [place] 00 MINS Medical BEFORE A Branch MEAL DAILY Insulin Yes [id number] Use as [facility] vers [place], 9-30 directed ity of Disposable, 00:00: [place] (UNIFINE 00 Medical PENTIPS) 32 Branch gauge x 5/32" Ndle blood sugar 0 Yes E11.9 Unive rs diagnostic 9-30 Measure ity of strip 00:00: blood [place] 00 sugar BID Medical Branch lancets 28 0 Yes E11.9: Unive rs gauge Misc 9-30 Measure ity of 00:00: blood 00 sugar BID Medical Branch metformin 0 Yes [id number] 500mg Take 1 [facility] ER 500 mg 9-30 [id number] tablet by ity of 24 hr 00:00: mouth [place] tablet 00 daily with Medical breakfast. Branch bictegrav-e Yes [id number] 1{tbl} Take 1 [facility] mtricit-ten 9-30 tablet by ity of ofov ala 00:00: mouth in [place] (BIKTARVY) 00 the Medical 50-200-25 morning. Branch mg tablet buPROPion Yes [id number] 300mg Take 1 U nivers XL 300 mg 9-30 tablet by ity o f 24 hr 00:00: mouth in [place] tablet 00 the Medical morning. Branch metoprolol Yes [id number] 25mg Take 1 [facility] succinate 9-30 tablet by ity o f XL 25 mg 24 00:00: mouth in [place] hr tablet 00 the Medical morning Branch and 1 tablet in the evening. ezetimibe Yes [id number] 10mg Take 1 U nivers 10 mg 9-30 tablet by ity of tablet 00:00: mouth in [place] 00 the Medical morning. Branch atorvastati Yes [id number] 80mg Take 1 [facility] n 80 mg 9-30 tablet by ity of tablet 00:00: mouth at [place] 00 bedtime. Medical Branch fenofibrate Yes [id number] 43mg Take 1 [facility] micronized 9-30 capsule by ity of 43 mg 00:00: mouth in [place] capsule 00 the Medical morning. Branch SITagliptin Yes 100mg Take 1 Uni vers (JANUVIA) 9-30 tablet by ity o f 100 mg 00:00: mouth in [place] tablet 00 the Medical morning. Branch Insulin Yes 10U inject 10 Unive rs Detemir 9-30 Units ity of (LEVEMIR 00:00: under the [place] FLEXT[place] 00 skin in Medical U-100 the Branch INSULN) 100 morning unit/mL (3 and 10 mL) Units in injection the evening. insulin Yes Blood [facility] aspart 9-30 glucose < ity of U-100 00:00: 90 : Hold [place] (NOVOLOG 00 Novolog, Medical FLEXPEN do not use Branch U-100 Blood INSULIN) glucose 100 unit/mL 90-120, (3 mL) subtract 1 injection Unit, give 4 units Blood glucose 120-150 : GIVE 5 UNITS Blood glucose 150 - 180 add 1 unit, give 6 units Blood glucose 181 - 210 add 2 units, given 7 units Blood glucose 211 - 240 add 3 units, give 8 units Blood glucose 241 - 300 add 4 units, give 9 units Blood glucose > 300, add 5 Units. Given 10 units, recheck in 3 hours. If blood glucose >300 seek medical attention traZODone Yes [id number] 50mg Take 1 [facility] vers 50 mg 9-30 tablet by ity of tablet 00:00: mouth at [place] 00 bedtime. Medical Branch aspirin 81 Yes [id number] 81mg Take 1 U nivers mg chewable 9-30 tablet by ity of tablet 00:00: mouth in [place] 00 the Medical morning. Branch omeprazole Yes [id number] TAKE ONE [facility] 40 mg 9-30 CAPSULE BY ity of capsule 00:00: MOUTH 15 [place] 00 MINS Medical BEFORE A Branch MEAL DAILY Insulin Yes [id number] Use as [facility] vers [place], 9-30 directed ity of Disposable, 00:00: [place] (UNIFINE 00 Medical PENTIPS) 32 Branch gauge x 5/32" Ndle blood sugar Yes E11.9 Unive rs diagnostic 9-30 Measure ity of strip 00:00: blood [place] 00 sugar BID Medical Branch lancets 28 Yes E11.9: Unive rs gauge Misc 9-30 Measure ity of 00:00: blood [place] 00 sugar BID Medical Branch metformin Yes [id number] 500mg Take 1 [facility] ER 500 mg 9-30 [id number] tablet by ity of 24 hr 00:00: mouth [place] tablet 00 daily with Medical breakfast. Branch bictegrav-e Yes [id number] 1{tbl} Take 1 [facility] mtricit-ten 9-30 tablet by ity of ofov ala 00:00: mouth in [place] (BIKTARVY) 00 the Medical 50-200-25 morning. Branch mg tablet buPROPion Yes [id number] 300mg Take 1 U nivers XL 300 mg 9-30 tablet by ity o f 24 hr 00:00: mouth in [place] tablet 00 the morning. Branch metoprolol Yes [id number] 25mg Take 1 [facility] succinate 9-30 tablet by ity o f XL 25 mg 24 00:00: mouth in [place] hr tablet 00 the Medical morning Branch and 1 tablet in the evening. ezetimibe Yes [id number] 10mg Take 1 U nivers 10 mg 9-30 tablet by ity of tablet 00:00: mouth in [place] 00 the morning. Branch atorvastati Yes [id number] 80mg Take 1 [facility] n 80 mg 9-30 tablet by ity of tablet 00:00: mouth at [place] 00 bedtime. Medical Branch fenofibrate Yes [id number] 43mg Take 1 [facility] micronized 9-30 capsule by ity of 43 mg 00:00: mouth in [place] capsule 00 the morning. Branch SITagliptin Yes 100mg Take 1 Uni vers (JANUVIA) 9-30 tablet by ity o f 100 mg 00:00: mouth in [place] tablet 00 the morning. Branch Insulin Yes 10U inject 10 Unive rs Detemir 9-30 Units ity of (LEVEMIR 00:00: under the [facility] s FLEXTOUCH 00 skin in Medical U-100 the [place] INSULN) 100 morning unit/mL (3 and 10 mL) Units in injection the evening. insulin Yes Blood [facility] aspart 9-30 glucose < ity of U-100 00:00: 90 : Hold [place] (NOVOLOG 00 Novolog, Medical FLEXPEN do not use [place] U-100 Blood INSULIN) glucose 100 unit/mL 90-120, (3 mL) subtract 1 injection Unit, give 4 units Blood glucose 120-150 : GIVE 5 UNITS Blood glucose 150 - 180 add 1 unit, give 6 units Blood glucose 181 - 210 add 2 units, given 7 units Blood glucose 211 - 240 add 3 units, give 8 units Blood glucose 241 - 300 add 4 units, give 9 units Blood glucose > 300, add 5 Units. Given 10 units, recheck in 3 hours. If blood glucose >300 seek medical attention traZODone Yes [id number] 50mg Take 1 Uni vers 50 mg 9-30 tablet by ity of tablet 00:00: mouth at [place] 00 bedtime. Medical Branch aspirin 81 Yes [id number] 81mg Take 1 U nivers mg chewable 9-30 tablet by ity of tablet 00:00: mouth in [place] 00 the Medical morning. Branch omeprazole Yes [id number] TAKE ONE [facility] 40 mg 9-30 CAPSULE BY ity of capsule 00:00: MOUTH 15 [place] 00 MINS Medical BEFORE A Branch MEAL DAILY Insulin Yes [id number] Use as [facility] vers [place], 9-30 directed ity of Disposable, 00:00: [place] (UNIFINE 00 Medical PENTIPS) 32 Branch gauge x 5/32" Ndle blood sugar Yes E11.9 Unive rs diagnostic 9-30 Measure ity of strip 00:00: blood [place] 00 sugar BID Medical Branch lancets 28 Yes E11.9: Unive rs gauge Misc 9-30 Measure ity of 00:00: blood [place] 00 sugar BID Medical Branch metformin Yes [id number] 500mg Take 1 [facility] ER 500 mg 9-30 [id number] tablet by ity of 24 hr 00:00: mouth [place] tablet 00 daily with Medical breakfast. Branch bictegrav-e Yes [id number] 1{tbl} Take 1 [facility] mtricit-ten 9-30 tablet by ity of ofov ala 00:00: mouth in [place] (BIKTARVY) 00 the Medical 50-200-25 morning. Branch mg tablet buPROPion Yes [id number] 300mg Take 1 U nivers XL 300 mg 9-30 tablet by ity o f 24 hr 00:00: mouth in [place] tablet 00 the Medical morning. Branch metoprolol Yes [id number] 25mg Take 1 [facility] succinate 9-30 tablet by ity o f XL 25 mg 24 00:00: mouth in [place] hr tablet 00 the Medical morning Branch and 1 tablet in the evening. ezetimibe Yes [id number] 10mg Take 1 [facility] nivers 10 mg 9-30 tablet by ity of tablet 00:00: mouth in [place] 00 the Medical morning. Branch atorvastati Yes [id number] 80mg Take 1 [facility] n 80 mg 9-30 tablet by ity of tablet 00:00: mouth at [place] 00 bedtime. Medical Branch fenofibrate Yes [id number] 43mg Take 1 [facility] micronized 9-30 capsule by ity of 43 mg 00:00: mouth in [place] capsule 00 the Medical morning. Branch SITagliptin Yes 100mg Take 1 Uni vers (JANUVIA) 9-30 tablet by ity o f 100 mg 00:00: mouth in [place] tablet 00 the Medical morning. Branch Insulin Yes 10U inject 10 Unive rs Detemir 9-30 Units ity of (LEVEMIR 00:00: [place] FLE[place] skin in Medical U-100 the [place] INSULN) 100 morning unit/mL (3 and 10 mL) Units in injection the evening. insulin Yes Blood [facility] aspart 9-30 glucose < ity of U-100 00:00: 90 : Hold [place] (NOVOLOG 00 Novolog, Medical FLEXPEN do not use [place] U-100 Blood INSULIN) glucose 100 unit/mL 90-120, (3 mL) subtract 1 injection Unit, give 4 units Blood glucose 120-150 : GIVE 5 UNITS Blood glucose 150 - 180 add 1 unit, give 6 units Blood glucose 181 - 210 add 2 units, given 7 units Blood glucose 211 - 240 add 3 units, give 8 units Blood glucose 241 - 300 add 4 units, give 9 units Blood glucose > 300, add 5 Units. Given 10 units, recheck in 3 hours. If blood glucose >300 seek medical attention traZODone Yes [id number] 50mg Take 1 [facility] vers 50 mg 9-30 tablet by ity of tablet 00:00: mouth at [place] 00 bedtime. Medical Branch aspirin 81 Yes [id number] 81mg Take 1 [facility] nivers mg chewable 9-30 tablet by ity of tablet 00:00: mouth in [place] 00 the Medical morning. Branch omeprazole Yes [id number] TAKE ONE [facility] 40 mg 9-30 CAPSULE BY ity of capsule 00:00: MOUTH 15 [place] 00 MINS Medical BEFORE A Branch MEAL DAILY Insulin Yes [id number] Use as [facility] vers [place], 9-30 directed ity of Disposable, 00:00: [place] (UNIFINE 00 Medical PENTIPS) 32 Branch gauge x 5/32" Ndle blood sugar 0 Yes E11.9 Unive rs diagnostic 9-30 Measure ity of strip 00:00: blood [place] 00 sugar BID Medical Branch lancets 28 Yes E11.9: Unive rs gauge Misc 9-30 Measure ity of 00:00: blood [place] 00 sugar BID Medical Branch metformin Yes [id number] 500mg Take 1 [facility] ER 500 mg 9-30 [id number] tablet by ity of 24 hr 00:00: mouth [place] tablet 00 daily with Medical breakfast. Branch bictegrav-e Yes [id number] 1{tbl} Take 1 [facility] mtricit-ten 9-30 tablet by ity of ofov ala 00:00: mouth in [place] (BIKTARVY) 00 the Medical 50-200-25 morning. Branch mg tablet buPROPion Yes [id number] 300mg Take 1 [facility] nivers XL 300 mg 9-30 tablet by ity o f 24 hr 00:00: mouth in [place] tablet 00 the Medical morning. Branch metoprolol Yes [id number] 25mg Take 1 [facility] succinate 9-30 tablet by ity o f XL 25 mg 24 00:00: mouth in [place] hr tablet 00 the Medical morning Branch and 1 tablet in the evening. ezetimibe Yes [id number] 10mg Take 1 [facility] nivers 10 mg 9-30 tablet by ity of tablet 00:00: mouth in [place] 00 the Medical morning. Branch atorvastati Yes [id number] 80mg Take 1 [facility] n 80 mg 9-30 tablet by ity of tablet 00:00: mouth at [place] 00 bedtime. Medical Branch fenofibrate Yes [id number] 43mg Take 1 [facility] micronized 9-30 capsule by ity of 43 mg 00:00: mouth in [place] capsule 00 the Medical morning. Branch SITagliptin Yes 100mg Take 1 [facility] vers (JANUVIA) 9-30 tablet by ity o f 100 mg 00:00: mouth in [place] tablet 00 the Medical morning. Branch Insulin Yes 10U inject 10 Unive rs Detemir 9-30 Units ity of (LEVEMIR 00:00: [facility] skin in Medical U-100 the Branch INSULN) 100 morning unit/mL (3 and 10 mL) Units in injection the evening. insulin Yes Blood [facility] aspart 9-30 glucose < ity of U-100 00:00: 90 : Hold [place] (NOVOLOG 00 Novolog, Medical FLEXPEN do not use Branch U-100 Blood INSULIN) glucose 100 unit/mL 90-120, (3 mL) subtract 1 injection Unit, give 4 units Blood glucose 120-150 : GIVE 5 UNITS Blood glucose 150 - 180 add 1 unit, give 6 units Blood glucose 181 - 210 add 2 units, given 7 units Blood glucose 211 - 240 add 3 units, give 8 units Blood glucose 241 - 300 add 4 units, give 9 units Blood glucose > 300, add 5 Units. Given 10 units, recheck in 3 hours. If blood glucose >300 seek medical attention traZODone Yes [id number] 50mg Take 1 [facility] vers 50 mg 9-30 tablet by ity of tablet 00:00: mouth at [place] 00 bedtime. Medical Branch aspirin 81 Yes [id number] 81mg Take 1 [facility] nivers mg chewable 9-30 tablet by ity of tablet 00:00: mouth in [place] 00 the Medical morning. Branch omeprazole Yes [id number] TAKE ONE [facility] 40 mg 9-30 CAPSULE BY ity of capsule 00:00: MOUTH 15 [place] 00 MINS Medical BEFORE A [place] MEAL DAILY Insulin Yes [id number] Use as [facility] vers [place], 9-30 directed ity of Disposable, 00:00: [place] (UNIFINE 00 Medical PENTIPS) 32 Branch gauge x 5/32" Ndle blood sugar Yes E11.9 Unive rs diagnostic 9-30 Measure ity of strip 00:00: blood [place] 00 sugar BID Medical Branch lancets 28 Yes E11.9: Unive rs gauge Misc 9-30 Measure ity of 00:00: blood [place] 00 sugar BID Medical Branch metformin Yes [id number] 500mg Take 1 [facility] ER 500 mg 9-30 [id number] tablet by ity of 24 hr 00:00: mouth [place] tablet 00 daily with Medical breakfast. Branch bictegrav-e Yes [id number] 1{tbl} Take 1 [facility] mtricit-ten 9-30 tablet by ity of ofov ala 00:00: mouth in [place] (BIKTARVY) 00 the Medical 50-200-25 morning. Branch mg tablet buPROPion Yes [id number] 300mg Take 1 U nivers XL 300 mg 9-30 tablet by ity o f 24 hr 00:00: mouth in [place] tablet 00 the Medical morning. Branch metoprolol Yes [id number] 25mg Take 1 [facility] succinate 9-30 tablet by ity o f XL 25 mg 24 00:00: mouth in [place] hr tablet 00 the Medical morning Branch and 1 tablet in the evening. ezetimibe Yes [id number] 10mg Take 1 [facility] nivers 10 mg 9-30 tablet by ity of tablet 00:00: mouth in [place] 00 the Medical morning. Branch atorvastati Yes [id number] 80mg Take 1 [facility] n 80 mg 9-30 tablet by ity of tablet 00:00: mouth at [place] 00 bedtime. Medical Branch fenofibrate Yes [id number] 43mg Take 1 [facility] micronized 9-30 capsule by ity of 43 mg 00:00: mouth in [place] capsule 00 the Medical morning. Branch SITagliptin Yes 100mg Take 1 [facility] vers (JANUVIA) 9-30 tablet by ity o f 100 mg 00:00: mouth in [place] tablet 00 the Medical morning. Branch Insulin Yes 10U inject 10 Unive rs Detemir 9-30 Units ity of (LEVEMIR 00:00: [place] FLEXT[place] 00 skin in Medical U-100 the Branch INSULN) 100 morning unit/mL (3 and 10 mL) Units in injection the evening. insulin Yes Blood [facility] aspart 9-30 glucose < ity of U-100 00:00: 90 : Hold [place] (NOVOLOG 00 Novolog, Medical FLEXPEN do not use Branch U-100 Blood INSULIN) glucose 100 unit/mL 90-120, (3 mL) subtract 1 injection Unit, give 4 units Blood glucose 120-150 : GIVE 5 UNITS Blood glucose 150 - 180 add 1 unit, give 6 units Blood glucose 181 - 210 add 2 units, given 7 units Blood glucose 211 - 240 add 3 units, give 8 units Blood glucose 241 - 300 add 4 units, give 9 units Blood glucose > 300, add 5 Units. Given 10 units, recheck in 3 hours. If blood glucose >300 seek medical attention traZODone Yes [id number] 50mg Take 1 [facility] vers 50 mg 9-30 tablet by ity of tablet 00:00: mouth at [place] 00 bedtime. Medical Branch aspirin 81 Yes [id number] 81mg Take 1 [facility] nivers mg chewable 9-30 tablet by ity of tablet 00:00: mouth in [place] 00 the Medical morning. Branch omeprazole Yes [id number] TAKE ONE [facility] 40 mg 9-30 CAPSULE BY ity of capsule 00:00: MOUTH 15 [place] 00 MINS Medical BEFORE A [place] MEAL DAILY Insulin Yes [id number] Use as [facility] vers [place], 9-30 directed ity of Disposable, 00:00: [place] (UNIFINE 00 Medical PENTIPS) 32 Branch gauge x 5/32" Ndle blood sugar Yes E11.9 Unive rs diagnostic 9-30 Measure ity of strip 00:00: blood [place] 00 sugar BID Medical Branch lancets 28 Yes E11.9: Unive rs gauge Misc 9-30 Measure ity of 00:00: blood [place] 00 sugar BID Medical Branch metformin Yes [id number] 500mg Take 1 [facility] ER 500 mg 9-30 [id number] tablet by ity of 24 hr 00:00: mouth [place] tablet 00 daily with Medical breakfast. Branch bictegrav-e Yes [id number] 1{tbl} Take 1 [facility] mtricit-ten 9-30 tablet by ity of ofov ala 00:00: mouth in [place] (BIKTARVY) 00 the Medical 50-200-25 morning. Branch mg tablet buPROPion Yes [id number] 300mg Take 1 U nivers XL 300 mg 9-30 tablet by ity o f 24 hr 00:00: mouth in [place] tablet 00 the Medical morning. Branch metoprolol Yes [id number] 25mg Take 1 [facility] succinate 9-30 tablet by ity o f XL 25 mg 24 00:00: mouth in [place] hr tablet 00 the Medical morning Branch and 1 tablet in the evening. ezetimibe Yes [id number] 10mg Take 1 [facility] nivers 10 mg 9-30 tablet by ity of tablet 00:00: mouth in [place] 00 the morning. Branch atorvastati Yes [id number] 80mg Take 1 [facility] n 80 mg 9-30 tablet by ity of tablet 00:00: mouth at [place] [address] bedtime. Medical Branch fenofibrate Yes [id number] 43mg Take 1 [facility] micronized 9-30 capsule by ity of 43 mg 00:00: mouth in [place] capsule 00 the morning. Branch SITagliptin Yes 100mg Take 1 [facility] vers (JANUVIA) 9-30 tablet by ity o f 100 mg 00:00: mouth in [place] tablet 00 the morning. Branch Insulin Yes 10U inject 10 Unive rs Detemir 9-30 Units ity of (LEVEMIR 00:00: under the [facility] s FLEXTOUCH 00 skin in [facility] U-100 the Branch INSULN) 100 morning unit/mL (3 and 10 mL) Units in injection the evening. insulin Yes Blood [facility] aspart 9-30 glucose < ity of U-100 00:00: 90 : Hold [place] (NOVOLOG 00 Novolog, Medical FLEXPEN do not use [place] U-100 Blood INSULIN) glucose 100 unit/mL 90-120, (3 mL) subtract 1 injection Unit, give 4 units Blood glucose 120-150 : GIVE 5 UNITS Blood glucose 150 - 180 add 1 unit, give 6 units Blood glucose 181 - 210 add 2 units, given 7 units Blood glucose 211 - 240 add 3 units, give 8 units Blood glucose 241 - 300 add 4 units, give 9 units Blood glucose > 300, add 5 Units. Given 10 units, recheck in 3 hours. If blood glucose >300 seek medical attention traZODone Yes [id number] 50mg Take 1 [facility] vers 50 mg 9-30 tablet by ity of tablet 00:00: mouth at [place] [address] bedtime. Medical Branch aspirin 81 Yes [id number] 81mg Take 1 U nivers mg chewable 9-30 tablet by ity of tablet 00:00: mouth in [place] 00 the morning. Branch omeprazole Yes [id number] TAKE ONE [facility] 40 mg 9-30 CAPSULE BY ity of capsule 00:00: MOUTH 15 [place] 00 MINS Medical BEFORE A Branch MEAL DAILY Insulin Yes [id number] Use as [facility] vers [place], 9-30 directed ity of Disposable, 00:00: [place] (UNIFINE 00 Medical PENTIPS) 32 Branch gauge x 5/32" Ndle blood sugar Yes E11.9 Unive rs diagnostic 9-30 Measure ity of strip 00:00: blood [place] 00 sugar BID Medical Branch lancets 28 Yes E11.9: Unive rs gauge Misc 9-30 Measure ity of 00:00: blood [place] 00 sugar BID Medical Branch metformin Yes [id number] 500mg Take 1 [facility] ER 500 mg 9-30 [id number] tablet by ity of 24 hr 00:00: mouth [place] tablet 00 daily with Medical breakfast. Branch bictegrav-e Yes [id number] 1{tbl} Take 1 [facility] mtricit-ten 9-30 tablet by ity of ofov ala 00:00: mouth in [place] (BIKTARVY) 00 the Medical 50-200-25 morning. Branch mg tablet buPROPion Yes [id number] 300mg Take 1 U nivers XL 300 mg 9-30 tablet by ity o f 24 hr 00:00: mouth in [place] tablet 00 the Medical morning. Branch metoprolol Yes [id number] 25mg Take 1 [facility] succinate 9-30 tablet by ity o f XL 25 mg 24 00:00: mouth in [place] hr tablet 00 the Medical morning Branch and 1 tablet in the evening. ezetimibe Yes [id number] 10mg Take 1 U nivers 10 mg 9-30 tablet by ity of tablet 00:00: mouth in [place] 00 the Medical morning. Branch atorvastati Yes [id number] 80mg Take 1 [facility] n 80 mg 9-30 tablet by ity of tablet 00:00: mouth at [place] 00 bedtime. Medical Branch fenofibrate Yes [id number] 43mg Take 1 [facility] micronized 9-30 capsule by ity of 43 mg 00:00: mouth in [place] capsule 00 the Medical morning. Branch SITagliptin Yes 100mg Take 1 Uni vers (JANUVIA) 9-30 tablet by ity o f 100 mg 00:00: mouth in [place] tablet 00 the Medical morning. Branch Insulin Yes 10U inject 10 Unive rs Detemir 9-30 Units ity of (LEVEMIR 00:00: [place]LEXT[place] 00 skin in Medical U-100 the Branch INSULN) 100 morning unit/mL (3 and 10 mL) Units in injection the evening. insulin Yes Blood [facility] aspart 9-30 glucose < ity of U-100 00:00: 90 : Hold [place] (NOVOLOG 00 Novolog, Medical FLEXPEN do not use Branch U-100 Blood INSULIN) glucose 100 unit/mL 90-120, (3 mL) subtract 1 injection Unit, give 4 units Blood glucose 120-150 : GIVE 5 UNITS Blood glucose 150 - 180 add 1 unit, give 6 units Blood glucose 181 - 210 add 2 units, given 7 units Blood glucose 211 - 240 add 3 units, give 8 units Blood glucose 241 - 300 add 4 units, give 9 units Blood glucose > 300, add 5 Units. Given 10 units, recheck in 3 hours. If blood glucose >300 seek medical attention traZODone Yes [id number] 50mg Take 1 Uni vers 50 mg 9-30 tablet by ity of tablet 00:00: mouth at [place] 00 bedtime. Medical Branch aspirin 81 Yes [id number] 81mg Take 1 U nivers mg chewable 9-30 tablet by ity of tablet 00:00: mouth in [place] 00 the Medical morning. Branch omeprazole Yes [id number] TAKE ONE [facility] 40 mg 9-30 CAPSULE BY ity of capsule 00:00: MOUTH 15 [place] 00 MINS Medical BEFORE A Branch MEAL DAILY Insulin Yes [id number] Use as [facility] vers [place], 9-30 directed ity of Disposable, 00:00: [place] (UNIFINE 00 Medical PENTIPS) 32 Branch gauge x 5/32" Ndle blood sugar Yes E11.9 Unive rs diagnostic 9-30 Measure ity of strip 00:00: blood [place] 00 sugar BID Medical Branch lancets 28 Yes E11.9: Unive rs gauge Misc 9-30 Measure ity of 00:00: blood 00 sugar BID Medical Branch metformin Yes [id number] 500mg Take 1 [facility] ER 500 mg 9-30 [id number] tablet by ity of 24 hr 00:00: mouth [place] tablet 00 daily with Medical breakfast. Branch bictegrav-e Yes [id number] 1{tbl} Take 1 [facility] mtricit-ten 9-30 tablet by ity of ofov ala 00:00: mouth in [place] (BIKTARVY) 00 the Medical 50-200-25 morning. Branch mg tablet buPROPion Yes [id number] 300mg Take 1 U nivers XL 300 mg 9-30 tablet by ity o f 24 hr 00:00: mouth in [place] tablet 00 the Medical morning. Branch metoprolol Yes [id number] 25mg Take 1 [facility] succinate 9-30 tablet by ity o f XL 25 mg 24 00:00: mouth in [place] hr tablet 00 the Medical morning Branch and 1 tablet in the evening. ezetimibe Yes [id number] 10mg Take 1 U nivers 10 mg 9-30 tablet by ity of tablet 00:00: mouth in [place] 00 the Medical morning. Branch atorvastati Yes [id number] 80mg Take 1 [facility] n 80 mg 9-30 tablet by ity of tablet 00:00: mouth at [place] 00 bedtime. Medical Branch fenofibrate Yes [id number] 43mg Take 1 [facility] micronized 9-30 capsule by ity of 43 mg 00:00: mouth in [place] capsule 00 the Medical morning. Branch SITagliptin Yes 100mg Take 1 Uni vers (JANUVIA) 9-30 tablet by ity o f 100 mg 00:00: mouth in [place] tablet 00 the Medical morning. Branch Insulin Yes 10U inject 10 Unive rs Detemir 9-30 Units ity of (LEVEMIR 00:00: [place]LEXT[place] 00 skin in Medical U-100 the [place] INSULN) 100 morning unit/mL (3 and 10 mL) Units in injection the evening. insulin Yes Blood [facility] aspart 9-30 glucose < ity of U-100 00:00: 90 : Hold [place] (NOVOLOG 00 Novolog, Medical FLEXPEN do not use [place] U-100 Blood INSULIN) glucose 100 unit/mL 90-120, (3 mL) subtract 1 injection Unit, give 4 units Blood glucose 120-150 : GIVE 5 UNITS Blood glucose 150 - 180 add 1 unit, give 6 units Blood glucose 181 - 210 add 2 units, given 7 units Blood glucose 211 - 240 add 3 units, give 8 units Blood glucose 241 - 300 add 4 units, give 9 units Blood glucose > 300, add 5 Units. Given 10 units, recheck in 3 hours. If blood glucose >300 seek medical attention traZODone Yes [id number] 50mg Take 1 Uni vers 50 mg 9-30 tablet by ity of tablet 00:00: mouth at [place] 00 bedtime. Medical Branch aspirin 81 Yes [id number] 81mg Take 1 U nivers mg chewable 9-30 tablet by ity of tablet 00:00: mouth in [place] 00 the Medical morning. Branch omeprazole Yes [id number] TAKE ONE [facility] 40 mg 9-30 CAPSULE BY ity of capsule 00:00: MOUTH 15 [place] 00 MINS Medical BEFORE A [place] MEAL DAILY Insulin Yes [id number] Use as Uni vers [place], 9-30 directed ity of Disposable, 00:00: [place] (UNIFINE 00 Medical PENTIPS) 32 Branch gauge x 5/32" Ndle blood sugar Yes E11.9 Unive rs diagnostic 9-30 Measure ity of strip 00:00: blood [place] 00 sugar BID Medical Branch lancets 28 Yes E11.9: Unive rs gauge Misc 9-30 Measure ity of 00:00: blood [place] 00 sugar BID Medical Branch metformin Yes [id number] 500mg Take 1 [facility] ER 500 mg 9-30 [id number] tablet by ity of 24 hr 00:00: mouth [place] tablet 00 daily with Medical breakfast. Branch bictegrav-e Yes [id number] 1{tbl} Take 1 [facility] mtricit-ten 9-30 tablet by ity of ofov ala 00:00: mouth in [place] (BIKTARVY) 00 the Medical 50-200-25 morning. Branch mg tablet buPROPion Yes [id number] 300mg Take 1 U nivers XL 300 mg 9-30 tablet by ity o f 24 hr 00:00: mouth in [place] tablet 00 the Medical morning. Branch metoprolol Yes [id number] 25mg Take 1 [facility] succinate 9-30 tablet by ity o f XL 25 mg 24 00:00: mouth in [place] hr tablet 00 the Medical morning Branch and 1 tablet in the evening. ezetimibe Yes [id number] 10mg Take 1 U nivers 10 mg 9-30 tablet by ity of tablet 00:00: mouth in [place] 00 the morning. Branch atorvastati Yes [id number] 80mg Take 1 [facility] n 80 mg 9-30 tablet by ity of tablet 00:00: mouth at [place] [address] bedtime. Medical Branch fenofibrate Yes [id number] 43mg Take 1 Univers micronized 9-30 capsule by ity of 43 mg 00:00: mouth in [place] capsule 00 the morning. Branch SITagliptin Yes 100mg Take 1 Uni vers (JANUVIA) 9-30 tablet by ity o f 100 mg 00:00: mouth in [place] tablet 00 the morning. Branch Insulin Yes 10U inject 10 Unive rs Detemir 9-30 Units ity of (LEVEMIR 00:00: [place]LE[place] 00 skin in Medical U-100 the Branch INSULN) 100 morning unit/mL (3 and 10 mL) Units in injection the evening. insulin Yes Blood [facility] aspart 9-30 glucose < ity of U-100 00:00: 90 : Hold [place] (NOVOLOG 00 Novolog, Medical FLEXPEN do not use Branch U-100 Blood INSULIN) glucose 100 unit/mL 90-120, (3 mL) subtract 1 injection Unit, give 4 units Blood glucose 120-150 : GIVE 5 UNITS Blood glucose 150 - 180 add 1 unit, give 6 units Blood glucose 181 - 210 add 2 units, given 7 units Blood glucose 211 - 240 add 3 units, give 8 units Blood glucose 241 - 300 add 4 units, give 9 units Blood glucose > 300, add 5 Units. Given 10 units, recheck in 3 hours. If blood glucose >300 seek medical attention traZODone Yes [id number] 50mg Take 1 Uni vers 50 mg 9-30 tablet by ity of tablet 00:00: mouth at [place] [address] bedtime. Medical Branch aspirin 81 Yes [id number] 81mg Take 1 U nivers mg chewable 9-30 tablet by ity of tablet 00:00: mouth in [place] 00 the Medical morning. Branch omeprazole Yes [id number] TAKE ONE [facility] 40 mg 9-30 CAPSULE BY ity of capsule 00:00: MOUTH 15 [place] 00 MINS Medical BEFORE A [place] MEAL DAILY Insulin Yes [id number] Use as [facility] vers [place], 9-30 directed ity of Disposable, 00:00: [place] (UNIFINE 00 Medical PENTIPS) 32 Branch gauge x 5/32" Ndle blood sugar Yes E11.9 Unive rs diagnostic 9-30 Measure ity of strip 00:00: blood [place] 00 sugar BID Medical Branch lancets 28 Yes E11.9: Unive rs gauge Misc 9-30 Measure ity of 00:00: blood [place] 00 sugar BID Medical Branch metformin Yes [id number] 500mg Take 1 [facility] ER 500 mg 9-30 [id number] tablet by ity of 24 hr 00:00: mouth [place] tablet 00 daily with Medical breakfast. Branch bictegrav-e Yes [id number] 1{tbl} Take 1 [facility] mtricit-ten 9-30 tablet by ity of ofov ala 00:00: mouth in [place] (BIKTARVY) 00 the Medical 50-200-25 morning. Branch mg tablet buPROPion Yes [id number] 300mg Take 1 U nivers XL 300 mg 9-30 tablet by ity o f 24 hr 00:00: mouth in [place] tablet 00 the Medical morning. Branch metoprolol Yes [id number] 25mg Take 1 [facility] succinate 9-30 tablet by ity o f XL 25 mg 24 00:00: mouth in [place] hr tablet 00 the Medical morning Branch and 1 tablet in the evening. ezetimibe Yes [id number] 10mg Take 1 U nivers 10 mg 9-30 tablet by ity of tablet 00:00: mouth in [place] 00 the Medical morning. Branch atorvastati Yes [id number] 80mg Take 1 [facility] n 80 mg 9-30 tablet by ity of tablet 00:00: mouth at [place] 00 bedtime. Medical Branch fenofibrate Yes [id number] 43mg Take 1 [facility] micronized 9-30 capsule by ity of 43 mg 00:00: mouth in [place] capsule 00 the Medical morning. Branch SITagliptin Yes 100mg Take 1 Uni vers (JANUVIA) 9-30 tablet by ity o f 100 mg 00:00: mouth in [place] tablet 00 the Medical morning. Branch Insulin Yes 10U inject 10 Unive rs Detemir 9-30 Units ity of (LEVEMIR 00:00: [place]LE[place] 00 skin in Medical U-100 the Branch INSULN) 100 morning unit/mL (3 and 10 mL) Units in injection the evening. insulin Yes Blood [facility] aspart 9-30 glucose < ity of U-100 00:00: 90 : Hold [place] (NOVOLOG 00 Novolog, Medical FLEXPEN do not use [place] U-100 Blood INSULIN) glucose 100 unit/mL 90-120, (3 mL) subtract 1 injection Unit, give 4 units Blood glucose 120-150 : GIVE 5 UNITS Blood glucose 150 - 180 add 1 unit, give 6 units Blood glucose 181 - 210 add 2 units, given 7 units Blood glucose 211 - 240 add 3 units, give 8 units Blood glucose 241 - 300 add 4 units, give 9 units Blood glucose > 300, add 5 Units. Given 10 units, recheck in 3 hours. If blood glucose >300 seek medical attention traZODone Yes [id number] 50mg Take 1 Uni vers 50 mg 9-30 tablet by ity of tablet 00:00: mouth at [place] 00 bedtime. Medical Branch aspirin 81 Yes [id number] 81mg Take 1 U nivers mg chewable 9-30 tablet by ity of tablet 00:00: mouth in [place] 00 the Medical morning. Branch omeprazole Yes [id number] TAKE ONE [facility] 40 mg 9-30 CAPSULE BY ity of capsule 00:00: MOUTH 15 [place] 00 MINS Medical BEFORE A Branch MEAL DAILY Insulin Yes [id number] Use as [facility] vers [place], 9-30 directed ity of Disposable, 00:00: [place] (UNIFINE 00 Medical PENTIPS) 32 Branch gauge x 5/32" Ndle blood sugar Yes E11.9 Unive rs diagnostic 9-30 Measure ity of strip 00:00: blood [place] 00 sugar BID Medical Branch lancets 28 2022-0 Yes E11.9: Unive rs gauge Misc 9-30 Measure ity of 00:00: blood [place] 00 sugar BID Medical Branch metformin Yes [id number] 500mg Take 1 [facility] ER 500 mg 9-30 [id number] tablet by ity of 24 hr 00:00: mouth [place] tablet 00 daily with Medical breakfast. Branch bictegrav-e Yes [id number] 1{tbl} Take 1 [facility] mtricit-ten 9-30 tablet by ity of ofov ala 00:00: mouth in [place] (BIKTARVY) 00 the Medical 50-200-25 morning. Branch mg tablet buPROPion Yes [id number] 300mg Take 1 U nivers XL 300 mg 9-30 tablet by ity o f 24 hr 00:00: mouth in [place] tablet 00 the Medical morning. Branch metoprolol Yes [id number] 25mg Take 1 [facility] succinate 9-30 tablet by ity o f XL 25 mg 24 00:00: mouth in [place] hr tablet 00 the Medical morning Branch and 1 tablet in the evening. ezetimibe Yes [id number] 10mg Take 1 U nivers 10 mg 9-30 tablet by ity of tablet 00:00: mouth in [place] 00 the Medical morning. Branch atorvastati Yes [id number] 80mg Take 1 [facility] n 80 mg 9-30 tablet by ity of tablet 00:00: mouth at [place] 00 bedtime. Medical Branch fenofibrate Yes [id number] 43mg Take 1 [facility] micronized 9-30 capsule by ity of 43 mg 00:00: mouth in [place] capsule 00 the Medical morning. Branch SITagliptin Yes 100mg Take 1 Uni vers (JANUVIA) 9-30 tablet by ity o f 100 mg 00:00: mouth in [place] tablet 00 the Medical morning. Branch Insulin Yes 10U inject 10 Unive rs Detemir 9-30 Units ity of (LEVEMIR 00:00: [place] FLE[place] 00 skin in Medical U-100 the Branch INSULN) 100 morning unit/mL (3 and 10 mL) Units in injection the evening. insulin Yes Blood [facility] aspart 9-30 glucose < ity of U-100 00:00: 90 : Hold [place] (NOVOLOG 00 Novolog, Medical FLEXPEN do not use Branch U-100 Blood INSULIN) glucose 100 unit/mL 90-120, (3 mL) subtract 1 injection Unit, give 4 units Blood glucose 120-150 : GIVE 5 UNITS Blood glucose 150 - 180 add 1 unit, give 6 units Blood glucose 181 - 210 add 2 units, given 7 units Blood glucose 211 - 240 add 3 units, give 8 units Blood glucose 241 - 300 add 4 units, give 9 units Blood glucose > 300, add 5 Units. Given 10 units, recheck in 3 hours. If blood glucose >300 seek medical attention traZODone Yes [id number] 50mg Take 1 Uni vers 50 mg 9-30 tablet by ity of tablet 00:00: mouth at [place] 00 bedtime. Medical Branch aspirin 81 Yes [id number] 81mg Take 1 U nivers mg chewable 9-30 tablet by ity of tablet 00:00: mouth in [place] 00 the Medical morning. Branch omeprazole Yes [id number] TAKE ONE [facility] 40 mg 9-30 CAPSULE BY ity of capsule 00:00: MOUTH 15 [place] 00 MINS Medical BEFORE A [place] MEAL DAILY Insulin Yes [id number] Use as Uni vers [place], 9-30 directed ity of Disposable, 00:00: [place] (UNIFINE 00 Medical PENTIPS) 32 Branch gauge x 5/32" Ndle blood sugar Yes E11.9 Unive rs diagnostic 9-30 Measure ity of strip 00:00: blood [place] 00 sugar BID Medical Branch lancets 28 Yes E11.9: Unive rs gauge Misc 9-30 Measure ity of 00:00: blood [place] 00 sugar BID Medical Branch metformin Yes [id number] 500mg Take 1 [facility] ER 500 mg 9-30 [id number] tablet by ity of 24 hr 00:00: mouth [place] tablet 00 daily with Medical breakfast. Branch bictegrav-e Yes [id number] 1{tbl} Take 1 Univers mtricit-ten 9-30 tablet by ity of ofov ala 00:00: mouth in [place] (BIKTARVY) 00 the Medical 50-200-25 morning. Branch mg tablet buPROPion Yes [id number] 300mg Take 1 U nivers XL 300 mg 9-30 tablet by ity o f 24 hr 00:00: mouth in [place] tablet 00 the morning. Branch metoprolol Yes [id number] 25mg Take 1 [facility] succinate 9-30 tablet by ity o f XL 25 mg 24 00:00: mouth in [place] hr tablet 00 the Medical morning Branch and 1 tablet in the evening. ezetimibe Yes [id number] 10mg Take 1 U nivers 10 mg 9-30 tablet by ity of tablet 00:00: mouth in [place] 00 the morning. Branch atorvastati Yes [id number] 80mg Take 1 [facility] n 80 mg 9-30 tablet by ity of tablet 00:00: mouth at [place] 00 bedtime. Medical Branch fenofibrate Yes [id number] 43mg Take 1 [facility] micronized 9-30 capsule by ity of 43 mg 00:00: mouth in [place] capsule 00 the morning. Branch SITagliptin Yes 100mg Take 1 Uni vers (JANUVIA) 9-30 tablet by ity o f 100 mg 00:00: mouth in [place] tablet 00 the morning. Branch Insulin Yes 10U inject 10 Unive rs Detemir 9-30 Units ity of (LEVEMIR 00:00: under the [facility] s FLEXTOUCH 00 skin in [facility] U-100 the Branch INSULN) 100 morning unit/mL (3 and 10 mL) Units in injection the evening. insulin Yes Blood [facility] aspart 9-30 glucose < ity of U-100 00:00: 90 : Hold [place] (NOVOLOG 00 Novolog, Medical FLEXPEN do not use [place] U-100 Blood INSULIN) glucose 100 unit/mL 90-120, (3 mL) subtract 1 injection Unit, give 4 units Blood glucose 120-150 : GIVE 5 UNITS Blood glucose 150 - 180 add 1 unit, give 6 units Blood glucose 181 - 210 add 2 units, given 7 units Blood glucose 211 - 240 add 3 units, give 8 units Blood glucose 241 - 300 add 4 units, give 9 units Blood glucose > 300, add 5 Units. Given 10 units, recheck in 3 hours. If blood glucose >300 seek medical attention traZODone Yes [id number] 50mg Take 1 Uni vers 50 mg 9-30 tablet by ity of tablet 00:00: mouth at [place] 00 bedtime. Medical Branch aspirin 81 Yes [id number] 81mg Take 1 U nivers mg chewable 9-30 tablet by ity of tablet 00:00: mouth in [place] 00 the Medical morning. Branch omeprazole Yes [id number] TAKE ONE [facility] 40 mg 9-30 CAPSULE BY ity of capsule 00:00: MOUTH 15 [place] 00 MINS Medical BEFORE A Branch MEAL DAILY Insulin Yes [id number] Use as Uni vers [place], 9- directed ity of Disposable, 00:00: [place] (UNIFINE 00 Medical PENTIPS) 32 Branch gauge x 5/32" Ndle blood sugar Yes E11.9 Unive rs diagnostic 9-30 Measure ity of strip 00:00: blood [place] 00 sugar BID Medical Branch lancets 28 Yes E11.9: Unive rs gauge Misc -30 Measure ity of 00:00: blood [place] 00 sugar BID Medical Branch metformin Yes [id number] 500mg Take 1 [facility] ER 500 mg 9-30 [id number] tablet by ity of 24 hr 00:00: mouth [place] tablet 00 daily with Medical breakfast. Branch bictegrav-e Yes [id number] 1{tbl} Take 1 Univers mtricit-ten 9-30 tablet by ity of ofov ala 00:00: mouth in [place] (BIKTARVY) 00 the Medical 50-200-25 morning. Branch mg tablet buPROPion Yes [id number] 300mg Take 1 U nivers XL 300 mg 9-30 tablet by ity o f 24 hr 00:00: mouth in [place] tablet 00 the Medical morning. Branch ezetimibe Yes [id number] 10mg Take 1 U nivers 10 mg 9-30 tablet by ity of tablet 00:00: mouth in [place] 00 the Medical morning. Branch atorvastati Yes [id number] 80mg Take 1 Univers n 80 mg 9-30 tablet by ity of tablet 00:00: mouth at [place] 00 bedtime. Medical Branch fenofibrate Yes [id number] 43mg Take 1 [facility] micronized 9-30 capsule by ity of 43 mg 00:00: mouth in [place] capsule 00 the Medical morning. Branch SITagliptin Yes 100mg Take 1 Uni vers (JANUVIA) 9-30 tablet by ity o f 100 mg 00:00: mouth in [place] tablet 00 the Medical morning. Branch Insulin Yes 10U inject 10 Unive rs Detemir 9-30 Units ity of (LEVEMIR 00:00: [place] FLEXT[place] 00 skin in Medical U-100 the Branch INSULN) 100 morning unit/mL (3 and 10 mL) Units in injection the evening. insulin Yes Blood [facility] aspart 9-30 glucose < ity of U-100 00:00: 90 : Hold [place] (NOVOLOG 00 Novolog, Medical FLEXPEN do not use Branch U-100 Blood INSULIN) glucose 100 unit/mL 90-120, (3 mL) subtract 1 injection Unit, give 4 units Blood glucose 120-150 : GIVE 5 UNITS Blood glucose 150 - 180 add 1 unit, give 6 units Blood glucose 181 - 210 add 2 units, given 7 units Blood glucose 211 - 240 add 3 units, give 8 units Blood glucose 241 - 300 add 4 units, give 9 units Blood glucose > 300, add 5 Units. Given 10 units, recheck in 3 hours. If blood glucose >300 seek medical attention traZODone Yes [id number] 50mg Take 1 Uni vers 50 mg 9-30 tablet by ity of tablet 00:00: mouth at [place] 00 bedtime. Medical Branch aspirin 81 Yes [id number] 81mg Take 1 U nivers mg chewable 9-30 tablet by ity of tablet 00:00: mouth in [place] 00 the Medical morning. Branch omeprazole Yes [id number] TAKE ONE [facility] 40 mg 9-30 CAPSULE BY ity of capsule 00:00: MOUTH 15 [place] 00 MINS Medical BEFORE A [place] MEAL DAILY Insulin Yes [id number] Use as Uni vers [place], 9-30 directed ity of Disposable, 00:00: [place] (UNIFINE 00 Medical PENTIPS) 32 Branch gauge x 5/32" Ndle blood sugar Yes E11.9 Unive rs diagnostic 9-30 Measure ity of strip 00:00: blood [place] 00 sugar BID Medical Branch lancets 28 Yes E11.9: Unive rs gauge Misc 9-30 Measure ity of 00:00: blood [place] 00 sugar BID Medical Branch metformin Yes [id number] 500mg Take 1 Univers ER 500 mg 9-30 [id number] tablet by ity of 24 hr 00:00: mouth [place] tablet 00 daily with Medical breakfast. Branch bictegrav-e Yes [id number] 1{tbl} Take 1 Univers mtricit-ten 9-30 tablet by ity of ofov ala 00:00: mouth in [place] (BIKTARVY) 00 the Medical 50-200-25 morning. Branch mg tablet buPROPion Yes [id number] 300mg Take 1 U nivers XL 300 mg 9-30 tablet by ity o f 24 hr 00:00: mouth in [place] tablet 00 the Medical morning. Branch ezetimibe Yes [id number] 10mg Take 1 U nivers 10 mg 9-30 tablet by ity of tablet 00:00: mouth in [place] 00 the Medical morning. Branch atorvastati Yes [id number] 80mg Take 1 Univers n 80 mg 9-30 tablet by ity of tablet 00:00: mouth at [place] 00 bedtime. Medical Branch fenofibrate Yes [id number] 43mg Take 1 [facility] micronized 9-30 capsule by ity of 43 mg 00:00: mouth in [place] capsule 00 the Medical morning. Branch SITagliptin Yes 100mg Take 1 Uni vers (JANUVIA) 9-30 tablet by ity o f 100 mg 00:00: mouth in [place] tablet 00 the Medical morning. Branch Insulin Yes 10U inject 10 Unive rs Detemir 9-30 Units ity of (LEVEMIR 00:00: [place] FLEXTOU[place] 00 skin in Medical U-100 the Branch INSULN) 100 morning unit/mL (3 and 10 mL) Units in injection the evening. insulin Yes Blood [facility] aspart 9-30 glucose < ity of U-100 00:00: 90 : Hold [place] (NOVOLOG 00 Novolog, Medical FLEXPEN do not use [place] U-100 Blood INSULIN) glucose 100 unit/mL 90-120, (3 mL) subtract 1 injection Unit, give 4 units Blood glucose 120-150 : GIVE 5 UNITS Blood glucose 150 - 180 add 1 unit, give 6 units Blood glucose 181 - 210 add 2 units, given 7 units Blood glucose 211 - 240 add 3 units, give 8 units Blood glucose 241 - 300 add 4 units, give 9 units Blood glucose > 300, add 5 Units. Given 10 units, recheck in 3 hours. If blood glucose >300 seek medical attention traZODone Yes [id number] 50mg Take 1 Uni vers 50 mg 9-30 tablet by ity of tablet 00:00: mouth at [place] 00 bedtime. Medical Branch aspirin 81 Yes [id number] 81mg Take 1 U nivers mg chewable 9-30 tablet by ity of tablet 00:00: mouth in [place] 00 the Medical morning. Branch omeprazole Yes [id number] TAKE ONE Univers 40 mg 9-30 CAPSULE BY ity of capsule 00:00: MOUTH 15 [place] 00 MINS Medical BEFORE A [place] MEAL DAILY Insulin Yes [id number] Use as Uni vers [place], 9-30 directed ity of Disposable, 00:00: [place] (UNIFINE 00 Medical PENTIPS) 32 Branch gauge x 5/32" Ndle blood sugar Yes E11.9 Unive rs diagnostic 9-30 Measure ity of strip 00:00: blood [place] 00 sugar BID Medical Branch lancets 28 Yes E11.9: Unive rs gauge Misc 9-30 Measure ity of 00:00: blood [place] 00 sugar BID Medical Branch metformin Yes [id number] 500mg Take 1 Univers ER 500 mg 9-30 [id number] tablet by ity of 24 hr 00:00: mouth [place] tablet 00 daily with Medical breakfast. Branch bictegrav-e Yes [id number] 1{tbl} Take 1 Univers mtricit-ten 9-30 tablet by ity of ofov ala 00:00: mouth in [place] (BIKTARVY) 00 the Medical 50-200-25 morning. Branch mg tablet buPROPion Yes [id number] 300mg Take 1 U nivers XL 300 mg 9-30 tablet by ity o f 24 hr 00:00: mouth in [place] tablet 00 the Medical morning. Branch ezetimibe Yes [id number] 10mg Take 1 U nivers 10 mg 9-30 tablet by ity of tablet 00:00: mouth in [place] 00 the Medical morning. Branch atorvastati Yes [id number] 80mg Take 1 Univers n 80 mg 9-30 tablet by ity of tablet 00:00: mouth at [place] 00 bedtime. Medical Branch fenofibrate Yes [id number] 43mg Take 1 Univers micronized 9-30 capsule by ity of 43 mg 00:00: mouth in [place] capsule 00 the morning. Branch SITagliptin Yes 100mg Take 1 Uni vers (JANUVIA) 9-30 tablet by ity o f 100 mg 00:00: mouth in [place] tablet 00 the Medical morning. Branch Insulin Yes 10U inject 10 Unive rs Detemir 9-30 Units ity of (LEVEMIR 00:00: [place] FLEXTOUCH 00 skin in Medical U-100 the Branch INSULN) 100 morning unit/mL (3 and 10 mL) Units in injection the evening. insulin Yes Blood Univers aspart 9-30 glucose < ity of U-100 00:00: 90 : Hold [place] (NOVOLOG 00 Novolog, [facility] FLEXPEN do not use [place] U-100 Blood INSULIN) glucose 100 unit/mL 90-120, (3 mL) subtract 1 injection Unit, give 4 units Blood glucose 120-150 : GIVE 5 UNITS Blood glucose 150 - 180 add 1 unit, give 6 units Blood glucose 181 - 210 add 2 units, given 7 units Blood glucose 211 - 240 add 3 units, give 8 units Blood glucose 241 - 300 add 4 units, give 9 units Blood glucose > 300, add 5 Units. Given 10 units, recheck in 3 hours. If blood glucose >300 seek medical attention traZODone Yes [id number] 50mg Take 1 Uni vers 50 mg 9-30 tablet by ity of tablet 00:00: mouth at [place] 00 bedtime. Medical Branch aspirin 81 Yes [id number] 81mg Take 1 U nivers mg chewable 9-30 tablet by ity of tablet 00:00: mouth in [place] 00 the morning. Branch omeprazole Yes [id number] TAKE ONE Univers 40 mg 9-30 CAPSULE BY ity of capsule 00:00: MOUTH 15 [place] 00 MINS Medical BEFORE A Branch MEAL DAILY Insulin Yes [id number] Use as Uni vers [place], 9-30 directed ity of Disposable, 00:00: [place] (UNIFINE 00 Medical PENTIPS) 32 Branch gauge x 5/32" Ndle blood sugar Yes E11.9 Unive rs diagnostic 9-30 Measure ity of strip 00:00: blood 00 sugar BID Medical Branch lancets 28 0 Yes E11.9: Unive rs gauge Misc 9-30 Measure ity of 00:00: blood 00 sugar BID Medical Branch metformin Yes [id number] 500mg Take 1 Univers ER 500 mg 9-30 [id number] tablet by ity of 24 hr 00:00: mouth [place] tablet 00 daily with Medical breakfast. Branch bictegrav-e Yes [id number] 1{tbl} Take 1 Univers mtricit-ten 9-30 tablet by ity of ofov ala 00:00: mouth in [place] (BIKTARVY) 00 the Medical 50200-25 morning. Branch mg tablet buPROPion Yes [id number] 300mg Take 1 U nivers XL 300 mg 9-30 tablet by ity o f 24 hr 00:00: mouth in [place] tablet 00 the Medical morning. Branch ezetimibe Yes [id number] 10mg Take 1 U nivers 10 mg 9-30 tablet by ity of tablet 00:00: mouth in [place] 00 the Medical morning. Branch atorvastati Yes [id number] 80mg Take 1 Univers n 80 mg 9-30 tablet by ity of tablet 00:00: mouth at [place] 00 bedtime. Medical Branch fenofibrate Yes [id number] 43mg Take 1 [facility] micronized 9-30 capsule by ity of 43 mg 00:00: mouth in [place] capsule 00 the Medical morning. Branch SITagliptin Yes 100mg Take 1 Uni vers (JANUVIA) 9-30 tablet by ity o f 100 mg 00:00: mouth in [place] tablet 00 the Medical morning. Branch Insulin Yes 10U inject 10 Unive rs Detemir 9-30 Units ity of (LEVEMIR 00:00: [place] FLEXTOUCH 00 skin in Medical U-100 the Branch INSULN) 100 morning unit/mL (3 and 10 mL) Units in injection the evening. insulin Yes Blood Univers aspart 9-30 glucose < ity of U-100 00:00: 90 : Hold [place] (NOVOLOG 00 Novolog, Medical FLEXPEN do not use Branch U-100 Blood INSULIN) glucose 100 unit/mL 90-120, (3 mL) subtract 1 injection Unit, give 4 units Blood glucose 120-150 : GIVE 5 UNITS Blood glucose 150 - 180 add 1 unit, give 6 units Blood glucose 181 - 210 add 2 units, given 7 units Blood glucose 211 - 240 add 3 units, give 8 units Blood glucose 241 - 300 add 4 units, give 9 units Blood glucose > 300, add 5 Units. Given 10 units, recheck in 3 hours. If blood glucose >300 seek medical attention traZODone Yes [id number] 50mg Take 1 Uni vers 50 mg 9-30 tablet by ity of tablet 00:00: mouth at [place] 00 bedtime. Medical Branch aspirin 81 0 Yes [id number] 81mg Take 1 U nivers mg chewable 9-30 tablet by ity of tablet 00:00: mouth in [place] 00 the Medical morning. Branch omeprazole Yes [id number] TAKE ONE Univers 40 mg 9-30 CAPSULE BY ity of capsule 00:00: MOUTH 15 [place] 00 MINS Medical BEFORE A [place] MEAL DAILY Insulin 0 Yes [id number] Use as Uni vers [place], 9-30 directed ity of Disposable, 00:00: [place] (UNIFINE 00 Medical PENTIPS) 32 Branch gauge x 5/32" Ndle blood sugar Yes E11.9 Unive rs diagnostic 9-30 Measure ity of strip 00:00: blood [place] 00 sugar BID Medical Branch lancets 28 Yes E11.9: Unive rs gauge Misc 9-30 Measure ity of 00:00: blood [place] 00 sugar BID Medical Branch metformin 0 Yes [id number] 500mg Take 1 Univers ER 500 mg 9-30 [id number] tablet by ity of 24 hr 00:00: mouth [place] tablet 00 daily with Medical breakfast. Branch metoprolol 2021- No [id number] 25mg Take 1 Univers succinate 9-30 12-19 tablet by ity of XL 25 mg 24 00:00: 00:00 mouth in [place] hr tablet 00 :00 the Medical morning Branch and 1 tablet in the evening. metoprolol 2021- No [id number] 25mg Take 1 [facility] succinate 03-19 12-19 tablet by ity of XL 25 mg 24 00:00: 00:00 mouth in [place] hr tablet 00 :00 the Medical morning Branch and 1 tablet in the evening. metoprolol 2021- No [id number] 25mg Take 1 [facility] succinate 03-19 12-19 tablet by ity of XL 25 mg 24 00:00: 00:00 mouth in [place] hr tablet 00 :00 the Medical morning Branch and 1 tablet in the evening. Diclofenac 2021- No [id number] Apply 4g Univers Sodium 03-19 to ity of (VOLTAREN) 00:00: 00:00 affected [place] 1 % gel 00 :00 area QID Medical Branch Lidocaine 5 2021- No [id number] Apply to Univers % cream 03-19 area(s) 2 ity of 00:00: 00:00 (two) [place] 00 :00 times Medical daily as Branch needed for Pain (scale 4-6). Apply 5g to affected areas BID PRN Diclofenac 2021- No [id number] Apply 4g Univers Sodium 03-19 to ity of (VOLTAREN) 00:00: 00:00 affected [place] 1 % gel 00 :00 area QID Medical Branch Lidocaine 5 2021- No [id number] Apply to Univers % cream 03-19 area(s) 2 ity of 00:00: 00:00 (two) [place] 00 :00 times Medical daily as Branch needed for Pain (scale 4-6). Apply 5g to affected areas BID PRN empaglifloz 2021-2021- No 10mg Take 1 Uni vers in 03-19 tablet by ity of (JARDIANCE) 00:00: 00:00 mouth in [place] 10 mg 00 :00 the Medical morning. Branch empaglifloz 2021-2021- No 10mg Take 1 Uni vers in 03-19-30 tablet by ity of (JARDIANCE) 00:00: 00:00 mouth in [place] 10 mg 00 :00 the Medical morning. Branch METOPROLOL Yes [id number] TAKE 1 Univers SUCCINATE 9-27 TABLET BY ity o f XL 25 mg 24 00:00: MOUTH [place] hr tablet 00 TWICE Medical DAILY Branch METOPROLOL 2021-0 2021- No [id number] TAKE 1 [facility] SUCCINATE 9-27 09-30 TABLET BY ity of XL 25 mg 24 00:00: 00:00 MOUTH [place] hr tablet 00 :00 TWICE Medical DAILY Branch METOPROLOL 2021-0 2021- No [id number] TAKE 1 [facility] SUCCINATE 9-27 -30 TABLET BY ity of XL 25 mg 24 00:00: 00:00 MOUTH [place] hr tablet 00 :00 TWICE Medical DAILY Branch FENOFIBRATE 0 Yes [id number] TAKE ONE Univers MICRONIZED 9-07 CAPSULE BY ity of 43 mg 00:00: MOUTH [place] capsule 00 DAILY Medical Branch FENOFIBRATE 0 Yes [id number] TAKE ONE Univers MICRONIZED 9-07 CAPSULE BY ity of 43 mg 00:00: MOUTH [place] capsule 00 DAILY Medical Branch FENOFIBRATE 0 Yes [id number] TAKE ONE Univers MICRONIZED 9-07 CAPSULE BY ity of 43 mg 00:00: MOUTH [place] capsule 00 DAILY Medical Branch FENOFIBRATE 0 Yes [id number] TAKE ONE Univers MICRONIZED 9-07 CAPSULE BY ity of 43 mg 00:00: MOUTH [place] capsule 00 DAILY Medical Branch FENOFIBRATE 0 Yes [id number] TAKE ONE Univers MICRONIZED 9-07 CAPSULE BY ity of 43 mg 00:00: MOUTH [place] capsule 00 DAILY Medical Branch FENOFIBRATE 2021-0 2021- No [id number] TAKE ONE Univers MICRONIZED 9-07 09-30 CAPSULE BY it y of 43 mg 00:00: 00:00 MOUTH [place] capsule 00 :00 DAILY Medical Branch FENOFIBRATE 2021-0 2021- No [id number] TAKE ONE Univers MICRONIZED 9-07 09-30 CAPSULE BY it y of 43 mg 00:00: 00:00 MOUTH [place] capsule 00 :00 DAILY Medical Branch FENOFIBRATE 2021-0 Yes [id number] TAKE ONE Univers MICRONIZED 8-16 CAPSULE BY ity of 43 mg 00:00: MOUTH [place] capsule 00 DAILY Medical Branch FENOFIBRATE 2021-0 2021- No [id number] TAKE ONE Univers MICRONIZED 8-16 09-07 CAPSULE BY it y of 43 mg 00:00: 00:00 MOUTH [place] capsule 00 :00 DAILY Medical Branch molnupiravi 2021-0 Yes [id number] 800mg Take 4 Univers r 200 mg 8-04 capsules ity of capsule 00:00: by mouth [place] 00 every 12 Medical (twelve) Branch hours. molnupiravi 2021-0 Yes [id number] 800mg Take 4 Univers r 200 mg 8-04 capsules ity of capsule 00:00: by mouth [place] 00 every 12 Medical (twelve) Branch hours. molnupiravi 2021-0 Yes [id number] 800mg Take 4 Univers r 200 mg 8-04 capsules ity of capsule 00:00: by mouth [place] 00 every 12 Medical (twelve) Branch hours. molnupiravi 0 Yes [id number] 800mg Take 4 Univers r 200 mg 8-04 capsules ity of capsule 00:00: by mouth [place] 00 every 12 Medical (twelve) Branch hours. molnupiravi 0 Yes [id number] 800mg Take 4 Univers r 200 mg 8-04 capsules ity of capsule 00:00: by mouth [place] 00 every 12 Medical (twelve) Branch hours. molnupiravi 0 Yes [id number] 800mg Take 4 Univers r 200 mg 8-04 capsules ity of capsule 00:00: by mouth [place] 00 every 12 Medical (twelve) Branch hours. molnupiravi 2021-0 Yes [id number] 800mg Take 4 Univers r 200 mg 8-04 capsules ity of capsule 00:00: by mouth [place] 00 every 12 Medical (twelve) Branch hours. molnupiravi 0 Yes [id number] 800mg Take 4 Univers r 200 mg 8-04 capsules ity of capsule 00:00: by mouth [place] 00 every 12 Medical (twelve) Branch hours. molnupiravi 0 2021- No [id number] 800mg Take 4 Univers r 200 mg 8-04 09-30 capsules ity of capsule 00:00: 00:00 by mouth [place] 00 :00 every 12 Medical (twelve) Branch hours. molnupiravi 2021-0 202- No [id number] 800mg Take 4 Univers r 200 mg 8-04 09-30 capsules ity of capsule 00:00: 00:00 by mouth [place] 00 :00 every 12 Medical (twelve) Branch hours. atorvastati 0 Yes 80mg Take 1 Univ ers n 80 mg 8-03 tablet by ity of tablet 00:00: mouth at [place] [address] bedtime. Medical Branch ezetimibe 2022-0 Yes 10mg Take 1 Univer s 10 mg 8-03 tablet by ity of tablet 00:00: mouth in [place] the Medical morning. Branch atorvastati 2022-0 Yes 80mg Take 1 Univ ers n 80 mg 8-03 tablet by ity of tablet 00:00: mouth at [place] 00 bedtime. Medical Branch ezetimibe 2022-0 Yes 10mg Take 1 Univer s 10 mg 8-03 tablet by ity of tablet 00:00: mouth in [place] the Medical morning. Branch atorvastati 2022-0 Yes 80mg Take 1 Univ ers n 80 mg 8-03 tablet by ity of tablet 00:00: mouth at [place] [address] bedtime. Medical Branch ezetimibe 2022-0 Yes 10mg Take 1 Univer s 10 mg 8-03 tablet by ity of tablet 00:00: mouth in [place] the Medical morning. Branch atorvastati 2022-0 Yes 80mg Take 1 Univ ers n 80 mg 8-03 tablet by ity of tablet 00:00: mouth at [place] [address] bedtime. Medical Branch ezetimibe 2022-0 Yes 10mg Take 1 Univer s 10 mg 8-03 tablet by ity of tablet 00:00: mouth in [place] the Medical morning. Branch atorvastati 2022-0 Yes 80mg Take 1 Univ ers n 80 mg 8-03 tablet by ity of tablet 00:00: mouth at [place] [address] bedtime. Medical Branch ezetimibe 2022-0 Yes 10mg Take 1 Univer s 10 mg 8-03 tablet by ity of tablet 00:00: mouth in [place] the Medical morning. Branch atorvastati 2022-0 Yes 80mg Take 1 Univ ers n 80 mg 8-03 tablet by ity of tablet 00:00: mouth at [place] 00 bedtime. Medical Branch ezetimibe 2022-0 Yes 10mg Take 1 Univer s 10 mg 8-03 tablet by ity of tablet 00:00: mouth in [place] the Medical morning. Branch atorvastati 2022-0 Yes 80mg Take 1 Univ ers n 80 mg 8-03 tablet by ity of tablet 00:00: mouth at [place] 00 bedtime. Medical Branch ezetimibe 2022-0 Yes 10mg Take 1 Univer s 10 mg 8-03 tablet by ity of tablet 00:00: mouth in [place] 00 the Medical morning. Branch atorvastati 2022-0 Yes 80mg Take 1 Univ ers n 80 mg 8-03 tablet by ity of tablet 00:00: mouth at [place] 00 bedtime. Medical Branch ezetimibe 2022-0 Yes 10mg Take 1 Univer s 10 mg 8-03 tablet by ity of tablet 00:00: mouth in [place] 00 the Medical morning. Branch atorvastati 2022-0 Yes 80mg Take 1 Univ ers n 80 mg 8-03 tablet by ity of tablet 00:00: mouth at [place] 00 bedtime. Medical Branch ezetimibe 2022-0 Yes 10mg Take 1 Univer s 10 mg 8-03 tablet by ity of tablet 00:00: mouth in [place] 00 the Medical morning. Branch atorvastati 2022-0 Yes 80mg Take 1 Univ ers n 80 mg 8-03 tablet by ity of tablet 00:00: mouth at [place] [address] bedtime. Medical Branch ezetimibe 2-0 Yes 10mg Take 1 Univer s 10 mg 8-03 tablet by ity of tablet 00:00: mouth in [place] 00 the Medical morning. Branch atorvastati 2022-0 2022- No 80mg Take 1 Uni vers n 80 mg 8-03 09-30 tablet by ity of tablet 00:00: 00:00 mouth at [place] 00 :00 bedtime. Medical Branch ezetimibe 2022-0 2022- No 10mg Take 1 Unive rs 10 mg 8-03 09-30 tablet by ity of tablet 00:00: 00:00 mouth in [place] 00 :00 the Medical morning. Branch atorvastati 2022-0 2022- No 80mg Take 1 Uni vers n 80 mg 8-03 09-30 tablet by ity of tablet 00:00: 00:00 mouth at [place] 00 :00 bedtime. Medical Branch ezetimibe 2022-0 2022- No 10mg Take 1 Unive rs 10 mg 8-03 09-30 tablet by ity of tablet 00:00: 00:00 mouth in [place] 00 :00 the Medical morning. Branch BIKTARVY 2022-0 Yes [id number] TAKE ONE Univers 50-200-25 7-11 TABLET BY ity o f mg tablet 00:00: MOUTH [place] DAILY Medical Branch FENOFIBRATE Yes [id number] TAKE ONE [facility] MICRONIZED 7-11 CAPSULE BY ity of 43 mg 00:00: MOUTH [place] capsule DAILY [facility] flash Yes [id number] USE 2 KITS [facility] n[facility] glucose 7-11 6 (SIX) ity of sensor 00:00: TIMES [place] (FREESTYLE DAILY Medical MAXINE 14 Branch DAY SENSOR) Kit BIKTARVY Yes [id number] TAKE ONE [facility] 50-200-25 7-11 TABLET BY ity o f mg tablet 00:00: MOUTH [place] DAILY Medical Branch FENOFIBRATE Yes [id number] TAKE ONE [facility] MICRONIZED 7-11 CAPSULE BY ity of 43 mg 00:00: MOUTH [place] capsule DAILY Medical [facility] flash Yes [id number] USE 2 KITS U nivers glucose 7-11 6 (SIX) ity of sensor 00:00: TIMES [place] (FREESTYLE DAILY Medical MAXINE Branch SENSOR) Kit BIKTARVY Yes [id number] TAKE ONE [facility] 50-200-25 7-11 TABLET BY ity o f mg tablet 00:00: MOUTH [place] DAILY Medical Branch FENOFIBRATE Yes [id number] TAKE ONE [facility] MICRONIZED 7-11 CAPSULE BY ity of 43 mg 00:00: MOUTH [place] capsule DAILY Medical [facility] flash Yes [id number] USE 2 KITS [facility] nivers glucose 7-11 6 (SIX) ity of sensor 00:00: TIMES [place] (FREESTYLE DAILY Medical MAXINE 14 Branch DAY SENSOR) Kit BIKTARVY Yes [id number] TAKE ONE [facility] 50-200-25 7-11 TABLET BY ity o f mg tablet 00:00: MOUTH [place] 00 DAILY Medical Branch FENOFIBRATE Yes [id number] TAKE ONE [facility] MICRONIZED 7-11 CAPSULE BY ity of 43 mg 00:00: MOUTH [place] capsule DAILY Medical [facility] flash Yes [id number] USE 2 KITS U nivers glucose 7-11 6 (SIX) ity of sensor 00:00: TIMES [place] (FREESTYLE DAILY Medical MAXINE 14 Branch DAY SENSOR) Kit BIKTARVY Yes [id number] TAKE ONE [facility] 50-200-25 7-11 TABLET BY ity o f mg tablet 00:00: MOUTH [place] DAILY Medical [facility] flash Yes [id number] USE 2 KITS U nivers glucose 7-11 6 (SIX) ity of sensor 00:00: TIMES (FREESTYLE DAILY Medical MAXINE 14 Branch DAY SENSOR) Kit BIKTARVY Yes [id number] TAKE ONE [facility] 50-200-25 7-11 TABLET BY ity o f mg tablet 00:00: MOUTH [place] DAILY [facility] flash Yes [id number] USE 2 KITS U nivers glucose 7-11 6 (SIX) ity of sensor 00:00: TIMES (FREESTYLE DAILY Medical MAXINE 14 Branch DAY SENSOR) Kit BIKTARVY Yes [id number] TAKE ONE [facility] 50-200-25 7-11 TABLET BY ity o f mg tablet 00:00: MOUTH [place] DAILY [facility] flash Yes [id number] USE 2 KITS U nivers glucose 7-11 6 (SIX) ity of sensor 00:00: TIMES (FREESTYLE DAILY Medical MAXINE Branch DAY SENSOR) Kit BIKTARVY Yes [id number] TAKE ONE [facility] 50-200-25 7-11 TABLET BY ity o f mg tablet 00:00: MOUTH [place] DAILY [facility] flash Yes [id number] USE 2 KITS U nivers glucose 7-11 6 (SIX) ity of sensor 00:00: TIMES (FREESTYLE 00 DAILY Medical MAXINE 14 Branch DAY SENSOR) Kit BIKTARVY Yes [id number] TAKE ONE [facility] 50-200-25 7-11 TABLET BY ity o f mg tablet 00:00: MOUTH [place] DAILY Medical [facility] flash Yes [id number] USE 2 KITS U nivers glucose 7-11 6 (SIX) ity of sensor 00:00: TIMES (FREESTYLE 00 DAILY Medical MAXINE 14 Branch DAY SENSOR) Kit BIKTARVY Yes [id number] TAKE ONE [facility] 50-200-25 7-11 TABLET BY ity o f mg tablet 00:00: MOUTH [place] 00 DAILY Medical [facility] flash 2022-0 Yes [id number] USE 2 KITS [facility] nivers glucose 7-11 6 (SIX) ity of sensor 00:00: TIMES [place] (FREESTYLE 00 DAILY Medical MAXINE 14 Branch DAY SENSOR) Kit flash 2-0 Yes [id number] USE 2 KITS [facility] nivers glucose 7-11 6 (SIX) ity of sensor 00:00: TIMES [place] (FREESTYLE 00 DAILY Medical MAXINE 14 Branch DAY SENSOR) Kit flash 2021-0 Yes [id number] USE 2 KITS [facility] n[facility] glucose 7-11 6 (SIX) ity of sensor 00:00: TIMES [place] (FREESTYLE 00 DAILY Medical MAXINE 14 Branch DAY SENSOR) Kit flash 2021-0 Yes [id number] USE 2 KITS [facility] nivers glucose 7-11 6 (SIX) ity of sensor 00:00: TIMES [place] (FREESTYLE 00 DAILY Medical MAXINE 14 Branch DAY SENSOR) Kit flash 2021-0 Yes [id number] USE 2 KITS [facility] nivers glucose 7-11 6 (SIX) ity of sensor 00:00: TIMES [place] (FREESTYLE 00 DAILY Medical MAXINE 14 Branch DAY SENSOR) Kit flash 2021-0 Yes [id number] USE 2 KITS [facility] nivers glucose 7-11 6 (SIX) ity of sensor 00:00: TIMES [place] (FREESTYLE 00 DAILY Medical MAXINE 14 Branch DAY SENSOR) Kit flash 2021-0 Yes [id number] USE 2 KITS [facility] n[facility] glucose 7-11 6 (SIX) ity of sensor 00:00: TIMES [place] (FREESTYLE 00 DAILY Medical MAXINE 14 Branch DAY SENSOR) Kit flash 2021-0 Yes [id number] USE 2 KITS [facility] nivers glucose 7-11 6 (SIX) ity of sensor 00:00: TIMES [place] (FREESTYLE 00 DAILY Medical MAXINE 14 Branch DAY SENSOR) Kit flash 2021-0 Yes [id number] USE 2 KITS [facility] nivers glucose 7-11 6 (SIX) ity of sensor 00:00: TIMES [place] (FREESTYLE 00 DAILY Medical MAXINE 14 Branch DAY SENSOR) Kit flash 2-0 Yes [id number] USE 2 KITS [facility] n[facility] glucose 7-11 6 (SIX) ity of sensor 00:00: TIMES [place] (FREESTYLE 00 DAILY Medical MAXINE 14 Branch DAY SENSOR) Kit flash 2021-0 Yes [id number] USE 2 KITS [facility] nivers glucose 7-11 6 (SIX) ity of sensor 00:00: TIMES [place] (FREESTYLE 00 DAILY Medical MAXINE 14 Branch DAY SENSOR) Kit flash 2021-0 Yes [id number] USE 2 KITS U nivers glucose 7-11 6 (SIX) ity of sensor 00:00: TIMES [place] (FREESTYLE 00 DAILY Medical MAXINE 14 Branch DAY SENSOR) Kit flash 2021-0 Yes [id number] USE 2 KITS [facility] nivers glucose 7-11 6 (SIX) ity of sensor 00:00: TIMES [place] (FREESTYLE 00 DAILY Medical MAXINE 14 Branch DAY SENSOR) Kit flash 2021-0 Yes [id number] USE 2 KITS U nivers glucose 7-11 6 (SIX) ity of sensor 00:00: TIMES [place] (FREESTYLE 00 DAILY Medical MAXINE 14 Branch DAY SENSOR) Kit flash 2021-0 Yes [id number] USE 2 KITS [facility] nivers glucose 7-11 6 (SIX) ity of sensor 00:00: TIMES [place] (FREESTYLE 00 DAILY Medical MAXINE 14 Branch DAY SENSOR) Kit flash 2021-0 Yes [id number] USE 2 KITS [facility] n[facility] glucose 7-11 6 (SIX) ity of sensor 00:00: TIMES [place] (FREESTYLE 00 DAILY Medical MAXINE 14 Branch DAY SENSOR) Kit flash 2021-0 Yes [id number] USE 2 KITS [facility] n[facility] glucose 7-11 6 (SIX) ity of sensor 00:00: TIMES [place] (FREESTYLE 00 DAILY Medical MAXINE 14 Branch DAY SENSOR) Kit flash 2021-0 Yes [id number] USE 2 KITS [facility] n[facility] glucose 7-11 6 (SIX) ity of sensor 00:00: TIMES [place] (FREESTYLE 00 DAILY Medical MAXINE 14 Branch DAY SENSOR) Kit flash 2021-0 2022- No [id number] USE 2 KITS [facility] glucose 7-11 10-31 6 (SIX) ity of sensor 00:00: 00:00 TIMES [place] (FREESTYLE 00 :00 DAILY Medical MAXINE 14 Branch DAY SENSOR) Kit BIKTARVY 2021-2- No [id number] TAKE ONE [facility] 50-200-25 7-11 09-30 TABLET BY ity of mg tablet 00:00: 00:00 MOUTH [place] 00 :00 DAILY Medical Branch BIKTARVY 2- No [id number] TAKE ONE [facility] 50-200-25 12-2830 TABLET BY ity of mg tablet 00:00: 00:00 MOUTH [place] 00 :00 DAILY Medical Branch FENOFIBRATE 2021- No [id number] TAKE ONE [facility] MICRONIZED 12-2816 CAPSULE BY it y of 43 mg 00:00: 00:00 MOUTH [place] capsule 00 :00 DAILY Medical [facility] metoprolol 2021-0 Yes [id number] 25mg Take 1 [facility] succinate 6-01 tablet by ity o f XL 25 mg 24 00:00: mouth 2 [place] hr tablet 00 (two) Medical times Branch daily. metoprolol 2021-0 Yes [id number] 25mg Take 1 [facility] succinate 6-01 tablet by ity o f XL 25 mg 24 00:00: mouth 2 [place] hr tablet 00 (two) Medical times Branch daily. metoprolol 2021-0 Yes [id number] 25mg Take 1 [facility] succinate 6-01 tablet by ity o f XL 25 mg 24 00:00: mouth 2 [place] hr tablet 00 (two) Medical times Branch daily. metoprolol 2021-0 Yes [id number] 25mg Take 1 [facility] succinate 6-01 tablet by ity o f XL 25 mg 24 00:00: mouth 2 [place] hr tablet 00 (two) Medical times Branch daily. metoprolol 2021-0 Yes [id number] 25mg Take 1 [facility] succinate 6-01 tablet by ity o f XL 25 mg 24 00:00: mouth 2 [place] hr tablet 00 (two) Medical times Branch daily. metoprolol 2021-0 Yes [id number] 25mg Take 1 [facility] succinate 6-01 tablet by ity o f XL 25 mg 24 00:00: mouth 2 [place] hr tablet 00 (two) Medical times Branch daily. metoprolol 2021-0 Yes [id number] 25mg Take 1 [facility] succinate 6-01 tablet by ity o f XL 25 mg 24 00:00: mouth 2 [place] hr tablet 00 (two) Medical times Branch daily. metoprolol 2021-0 Yes [id number] 25mg Take 1 [facility] succinate 6-01 tablet by ity o f XL 25 mg 24 00:00: mouth 2 [place] hr tablet 00 (two) Medical times Branch daily. metoprolol Yes [id number] 25mg Take 1 [facility] succinate 6- tablet by ity o f XL 25 mg 24 00:00: mouth 2 [place] hr tablet 00 (two) Medical times Branch daily. metoprolol 0 2021- No [id number] 25mg Take 1 [facility] succinate 6- 09-27 tablet by ity of XL 25 mg 24 00:00: 00:00 mouth 2 [place] hr tablet 00 :00 (two) Medical times Branch daily. albuterol Yes [id number] .INHALE [facility] 90 5-19 6 1-2 PUFFS ity of mcg/actuati 00:00: BY MOUTH [place] on inhaler 00 EVERY SIX Medi itzle HOURS Branch NEEDED FOR SHORTNESS OF BREATH AND WHEEZING albuterol Yes [id number] .INHALE [facility] 90 5-19 6 1-2 PUFFS ity of mcg/actuati 00:00: BY MOUTH [place] on inhaler 00 EVERY SIX Medi it[facility] HOURS Branch NEEDED FOR SHORTNESS OF BREATH AND WHEEZING albuterol Yes [id number] .INHALE [facility] 90 5-19 6 1-2 PUFFS ity of mcg/actuati 00:00: BY MOUTH [place] on inhaler 00 EVERY SIX Medi itzel HOURS Branch NEEDED FOR SHORTNESS OF BREATH AND WHEEZING albuterol Yes [id number] .INHALE [facility] 90 5-19 6 1-2 PUFFS ity of mcg/actuati 00:00: BY MOUTH [place] on inhaler 00 EVERY SIX Medi itzel HOURS Branch NEEDED FOR SHORTNESS OF BREATH AND WHEEZING albuterol Yes [id number] .INHALE [facility] 90 5-19 6 1-2 PUFFS ity of mcg/actuati 00:00: BY MOUTH [place] on inhaler 00 EVERY SIX Medi itzel HOURS Branch NEEDED FOR SHORTNESS OF BREATH AND WHEEZING albuterol Yes [id number] .INHALE [facility] 90 5-19 6 1-2 PUFFS ity of mcg/actuati 00:00: BY MOUTH [place] on inhaler 00 EVERY SIX Medi itzel HOURS Branch NEEDED FOR SHORTNESS OF BREATH AND WHEEZING albuterol Yes [id number] .INHALE [facility] 90 5-19 6 1-2 PUFFS ity of mcg/actuati 00:00: BY MOUTH [place] on inhaler 00 EVERY SIX [facility]i [facility] HOURS Branch NEEDED FOR SHORTNESS OF BREATH AND WHEEZING albuterol 0 Yes [id number] .INHALE [facility] 90 5-19 6 1-2 PUFFS ity of mcg/actuati 00:00: BY MOUTH [place] on inhaler 00 EVERY SIX [facility]i [facility]zel HOURS Branch NEEDED FOR SHORTNESS OF BREATH AND WHEEZING albuterol 0 Yes [id number] .INHALE [facility] 90 5-19 6 1-2 PUFFS ity of mcg/actuati 00:00: BY MOUTH [place] on inhaler 00 EVERY SIX [facility]i [facility] HOURS Branch NEEDED FOR SHORTNESS OF BREATH AND WHEEZING albuterol 0 Yes [id number] .INHALE [facility] 90 5-19 6 1-2 PUFFS ity of mcg/actuati 00:00: BY MOUTH [place] on inhaler 00 EVERY SIX Medi itzel HOURS Branch NEEDED FOR SHORTNESS OF BREATH AND WHEEZING albuterol 0 Yes [id number] .INHALE [facility] 90 5-19 6 1-2 PUFFS ity of mcg/actuati 00:00: BY MOUTH [place] on inhaler 00 EVERY SIX Medi itzel HOURS Branch NEEDED FOR SHORTNESS OF BREATH AND WHEEZING albuterol 0 Yes [id number] .INHALE [facility] 90 5-19 6 1-2 PUFFS ity of mcg/actuati 00:00: BY MOUTH [place] on inhaler 00 EVERY SIX [facility]i [facility] HOURS Branch NEEDED FOR SHORTNESS OF BREATH AND WHEEZING albuterol 0 Yes [id number] .INHALE [facility] 90 5-19 6 1-2 PUFFS ity of mcg/actuati 00:00: BY MOUTH [place] on inhaler 00 EVERY SIX [facility]i [facility] HOURS Branch NEEDED FOR SHORTNESS OF BREATH AND WHEEZING albuterol 0 Yes [id number] .INHALE [facility] 90 5-19 6 1-2 PUFFS ity of mcg/actuati 00:00: BY MOUTH [place] on inhaler 00 EVERY SIX [facility]i [facility] HOURS Branch NEEDED FOR SHORTNESS OF BREATH AND WHEEZING albuterol 2021-0 Yes [id number] .INHALE [facility] 90 5-19 6 1-2 PUFFS ity of mcg/actuati 00:00: BY MOUTH [place] on inhaler 00 EVERY SIX Medi itzel HOURS Branch NEEDED FOR SHORTNESS OF BREATH AND WHEEZING albuterol 0 Yes [id number] .INHALE [facility] 90 5-19 6 1-2 PUFFS ity of mcg/actuati 00:00: BY MOUTH [place] on inhaler 00 EVERY SIX [facility]i itzel HOURS Branch NEEDED FOR SHORTNESS OF BREATH AND WHEEZING albuterol 0 Yes [id number] .INHALE [facility] 90 5-19 6 1-2 PUFFS ity of mcg/actuati 00:00: BY MOUTH [place] on inhaler 00 EVERY SIX [facility]i [facility]zel HOURS Branch NEEDED FOR SHORTNESS OF BREATH AND WHEEZING albuterol 0 Yes [id number] .INHALE [facility] 90 5-19 6 1-2 PUFFS ity of mcg/actuati 00:00: BY MOUTH [place] on inhaler 00 EVERY SIX Medi itzel HOURS Branch NEEDED FOR SHORTNESS OF BREATH AND WHEEZING albuterol 0 Yes [id number] .INHALE [facility] 90 5-19 6 1-2 PUFFS ity of mcg/actuati 00:00: BY MOUTH [place] on inhaler 00 EVERY SIX Medi itzel HOURS Branch NEEDED FOR SHORTNESS OF BREATH AND WHEEZING albuterol 0 Yes [id number] .INHALE [facility] 90 5-19 6 1-2 PUFFS ity of mcg/actuati 00:00: BY MOUTH [place] on inhaler 00 EVERY SIX Medi itzel HOURS Branch NEEDED FOR SHORTNESS OF BREATH AND WHEEZING albuterol 0 Yes [id number] .INHALE [facility] 90 5-19 6 1-2 PUFFS ity of mcg/actuati 00:00: BY MOUTH [place] on inhaler 00 EVERY SIX Medi itzel HOURS Branch NEEDED FOR SHORTNESS OF BREATH AND WHEEZING albuterol 0 Yes [id number] .INHALE [facility] 90 5-19 6 1-2 PUFFS ity of mcg/actuati 00:00: BY MOUTH [place] on inhaler 00 EVERY SIX Medi [facility]zel HOURS Branch NEEDED FOR SHORTNESS OF BREATH AND WHEEZING albuterol 2021-0 Yes [id number] .INHALE [facility] 90 5-19 6 1-2 PUFFS ity of mcg/actuati 00:00: BY MOUTH [place] on inhaler 00 EVERY SIX Medi [facility]zel HOURS Branch NEEDED FOR SHORTNESS OF BREATH AND WHEEZING albuterol Yes [id number] .INHALE [facility] 90 5-19 6 1-2 PUFFS ity of mcg/actuati 00:00: BY MOUTH [place] on inhaler 00 EVERY SIX [facility]i [facility] HOURS Branch NEEDED FOR SHORTNESS OF BREATH AND WHEEZING albuterol 0 Yes [id number] .INHALE [facility] 90 5-19 6 1-2 PUFFS ity of mcg/actuati 00:00: BY MOUTH [place] on inhaler 00 EVERY SIX Medi [facility]zel HOURS Branch NEEDED FOR SHORTNESS OF BREATH AND WHEEZING albuterol Yes [id number] .INHALE [facility] 90 5-19 6 1-2 PUFFS ity of mcg/actuati 00:00: BY MOUTH [place] on inhaler 00 EVERY SIX Medi [facility]zel HOURS Branch NEEDED FOR SHORTNESS OF BREATH AND WHEEZING albuterol 0 Yes [id number] .INHALE [facility] 90 5-19 6 1-2 PUFFS ity of mcg/actuati 00:00: BY MOUTH [place] on inhaler 00 EVERY SIX [facility]i [facility] HOURS Branch NEEDED FOR SHORTNESS OF BREATH AND WHEEZING albuterol 0 Yes [id number] .INHALE [facility] 90 5-19 6 1-2 PUFFS ity of mcg/actuati 00:00: BY MOUTH [place] on inhaler 00 EVERY SIX Medi itzel HOURS Branch NEEDED FOR SHORTNESS OF BREATH AND WHEEZING albuterol 0 Yes [id number] .INHALE [facility] 90 5-19 6 1-2 PUFFS ity of mcg/actuati 00:00: BY MOUTH [place] on inhaler 00 EVERY SIX [facility]i [facility] HOURS Branch NEEDED FOR SHORTNESS OF BREATH AND WHEEZING albuterol 0 Yes [id number] .INHALE [facility] 90 5-19 6 1-2 PUFFS ity of mcg/actuati 00:00: BY MOUTH [place] on inhaler 00 EVERY SIX Medi [facility]zel HOURS Branch NEEDED FOR SHORTNESS OF BREATH AND WHEEZING albuterol 0 Yes [id number] .INHALE [facility] 90 5-19 6 1-2 PUFFS ity of mcg/actuati 00:00: BY MOUTH [place] on inhaler 00 EVERY SIX Medi itzel HOURS Branch NEEDED FOR SHORTNESS OF BREATH AND WHEEZING albuterol Yes [id number] .INHALE [facility] 90 5-19 6 1-2 PUFFS ity of mcg/actuati 00:00: BY MOUTH [place] on inhaler 00 EVERY SIX Medi itzel HOURS Branch NEEDED FOR SHORTNESS OF BREATH AND WHEEZING albuterol Yes [id number] .INH[facility] 90 5-19 6 1-2 PUFFS ity of mcg/actuati 00:00: BY MOUTH [place] on inhaler 00 EVERY SIX Medi itzel HOURS Branch NEEDED FOR SHORTNESS OF BREATH AND WHEEZING albuterol 0 Yes [id number] .INHALE [facility] 90 5-19 6 1-2 PUFFS ity of mcg/actuati 00:00: BY MOUTH [place] on inhaler 00 EVERY SIX [facility]i [facility] HOURS Branch NEEDED FOR SHORTNESS OF BREATH AND WHEEZING albuterol 0 Yes [id number] .INHALE [facility] 90 5-19 6 1-2 PUFFS ity of mcg/actuati 00:00: BY MOUTH [place] on inhaler 00 EVERY SIX Medi itzel HOURS Branch NEEDED FOR SHORTNESS OF BREATH AND WHEEZING albuterol 0 Yes [id number] .INHALE [facility] 90 5-19 6 1-2 PUFFS ity of mcg/actuati 00:00: BY MOUTH [place] on inhaler 00 EVERY SIX Medi itzel HOURS Branch NEEDED FOR SHORTNESS OF BREATH AND WHEEZING albuterol 0 Yes [id number] .INHALE [facility] 90 5-19 6 1-2 PUFFS ity of mcg/actuati 00:00: BY MOUTH [place] on inhaler 00 EVERY SIX Medi itzel HOURS Branch NEEDED FOR SHORTNESS OF BREATH AND WHEEZING albuterol 0 Yes [id number] .IN[facility] 90 5-19 6 1-2 PUFFS ity of mcg/actuati 00:00: BY MOUTH [place] on inhaler 00 EVERY SIX Medi itzel HOURS Branch NEEDED FOR SHORTNESS OF BREATH AND WHEEZING albuterol 0 Yes [id number] .INHALE [facility] 90 5-19 6 1-2 PUFFS ity of mcg/actuati 00:00: BY MOUTH [place] on inhaler 00 EVERY SIX Medi itzel HOURS Branch NEEDED FOR SHORTNESS OF BREATH AND WHEEZING Nitrofurant 2022-0 Yes [id number] 1 po BID x [facility] oin&Nit. 5-05 5 days ity of Macrocryst 00:00: [place] 100 mg 00 Medical capsule Branch Nitrofurant 2021-0 Yes [id number] 1 po BID x [facility] oin&Nit. 5-05 5 days ity of Macrocryst 00:00: [place] 100 mg 00 Medical capsule Branch Nitrofurant 2021-0 Yes [id number] 1 po BID x [facility] oin&Nit. 5-05 5 days ity of Macrocryst 00:00: [place] 100 mg 00 Medical capsule Branch Nitrofurant 2021-0 Yes [id number] 1 po BID x [facility] oin&Nit. 5-05 5 days ity of Macrocryst 00:00: [place] 100 mg 00 Medical capsule Branch Nitrofurant 2021-0 Yes [id number] 1 po BID x [facility] oin&Nit. 5-05 5 days ity of Macrocryst 00:00: [place] 100 mg 00 Medical capsule Branch Nitrofurant 2021-0 Yes [id number] 1 po BID x [facility] oin&Nit. 5-05 5 days ity of Macrocryst 00:00: [place] 100 mg 00 Medical capsule Branch Nitrofurant 2021-0 2- No [id number] 1 po BID x [facility] oin&Nit. 505 03-10 5 days ity of Macrocryst 00:00: 00:00 [place] 100 mg 00 :00 Medical capsule Branch Nitrofurant 2-0 2- No [id number] 1 po BID x [facility] oin&Nit. 503-10 5 days ity of Macrocryst 00:00: 00:00 [place] 100 mg 00 :00 Medical capsule Branch TRAZODONE 2-0 Yes [id number] TAKE ONE [facility] 50 mg 4-22 TABLET BY ity of tablet 00:00: MOUTH AT [place] BEDTIME Medical Branch TRAZODONE 2021-0 Yes [id number] TAKE ONE [facility] 50 mg 4-22 TABLET BY ity of tablet 00:00: MOUTH AT [place] BEDTIME Medical Branch TRAZODONE 2021-0 Yes [id number] TAKE ONE [facility] 50 mg 4-22 TABLET BY ity of tablet 00:00: MOUTH AT [place] BEDTIME Medical Branch TRAZODONE 2021-0 Yes [id number] TAKE ONE [facility] 50 mg 4-22 TABLET BY ity of tablet 00:00: MOUTH AT [address] Branch TRAZODONE Yes [id number] TAKE ONE [facility] 50 mg 4-22 TABLET BY ity of tablet 00:00: MOUTH AT [place] [facility] Branch TRAZODONE 0 Yes [id number] TAKE ONE Univers 50 mg 4-22 TABLET BY ity of tablet 00:00: MOUTH AT [place] [facility] Branch TRAZODONE 0 Yes [id number] TAKE ONE [facility] 50 mg 4-22 TABLET BY ity of tablet 00:00: MOUTH AT [place] [facility] Branch TRAZODONE 0 Yes [id number] TAKE ONE Univers 50 mg 4-22 TABLET BY ity of tablet 00:00: MOUTH AT [address] Branch TRAZODONE Yes [id number] TAKE ONE [facility] 50 mg 4-22 TABLET BY ity of tablet 00:00: MOUTH AT [address] Branch TRAZODONE Yes [id number] TAKE ONE [facility] 50 mg 4-22 TABLET BY ity of tablet 00:00: MOUTH AT [place] [facility] Branch TRAZODONE 0 2021- No [id number] TAKE ONE [facility] 50 mg 4-22 09-30 TABLET BY ity of tablet 00:00: 00:00 MOUTH AT [place] 00 :00 [facility] Branch TRAZODONE 0 2021- No [id number] TAKE ONE [facility] 50 mg 4-22 09-30 TABLET BY ity of tablet 00:00: 00:00 MOUTH AT [place] 00 :00 [facility] Branch busPIRone 5 Yes [id number] 5mg Take 1 Univers mg tablet 4-05 tablet by ity o f 00:00: mouth 3 [place] (three) Medical times Branch daily as needed (anxiety). busPIRone 5 Yes [id number] 5mg Take 1 Univers mg tablet 4-05 tablet by ity o f 00:00: mouth 3 [place] 00 (three) Medical times Branch daily as needed (anxiety). busPIRone 5 Yes [id number] 5mg Take 1 [facility] mg tablet 4-05 tablet by ity o f 00:00: mouth 3 [place] 00 (three) Medical times Branch daily as needed (anxiety). busPIRone 5 Yes [id number] 5mg Take 1 [facility] mg tablet 4-05 tablet by ity o f 00:00: mouth 3 (three) Medical times Branch daily as needed (anxiety). busPIRone 5 0 Yes [id number] 5mg Take 1 [facility] mg tablet 4-05 tablet by ity o f 00:00: mouth 3 00 (three) Medical times Branch daily as needed (anxiety). busPIRone 5 Yes [id number] 5mg Take 1 [facility] mg tablet 4-05 tablet by ity o f 00:00: mouth 3 (three) Medical times Branch daily as needed (anxiety). busPIRone 5 Yes [id number] 5mg Take 1 [facility] mg tablet 4-05 tablet by ity o f 00:00: mouth 3 (three) Medical times Branch daily as needed (anxiety). busPIRone 5 Yes [id number] 5mg Take 1 Univers mg tablet 4-05 tablet by ity o f 00:00: mouth 3 (three) Medical times Branch daily as needed (anxiety). busPIRone 5 Yes [id number] 5mg Take 1 Univers mg tablet 4-05 tablet by ity o f 00:00: mouth 3 (three) Medical times Branch daily as needed (anxiety). busPIRone 5 Yes [id number] 5mg Take 1 [facility] mg tablet 4-05 tablet by ity o f 00:00: mouth 3 (three) Medical times Branch daily as needed (anxiety). busPIRone 5 2021- No [id number] 5mg Take 1 [facility] mg tablet 4-05 09-30 tablet by ity of 00:00: 00:00 mouth 3 00 :00 (three) Medical times Branch daily as needed (anxiety). busPIRone 5 2021- No [id number] 5mg Take 1 [facility] mg tablet 4-05 09-30 tablet by ity of 00:00: 00:00 mouth 3 00 :00 (three) Medical times Branch daily as needed (anxiety). fluocinonid Yes [id number] Apply to Univers e 0.05 % 1-21 rash once ity of cream 00:00: daily. Medical Branch fluocinonid 2021-0 Yes [id number] Apply to Univers e 0.05 % 1-21 rash once ity of cream 00:00: daily. Medical Branch fluocinonid 2021-0 Yes [id number] Apply to Univers e 0.05 % 1-21 rash once ity of cream 00:00: daily. Medical Branch fluocinonid 2021-0 Yes [id number] Apply to Univers e 0.05 % 1-21 rash once ity of cream 00:00: daily. Medical Branch fluocinonid 2021-0 Yes [id number] Apply to Univers e 0.05 % 1-21 rash once ity of cream 00:00: daily. Medical Branch fluocinonid 2021-0 Yes [id number] Apply to Univers e 0.05 % 1-21 rash once ity of cream 00:00: daily. Medical Branch fluocinonid 2021-0 Yes [id number] Apply to Univers e 0.05 % 1-21 rash once ity of cream 00:00: daily. Medical Branch fluocinonid 2021- Yes [id number] Apply to Univers e 0.05 % 1-21 rash once ity of cream 00:00: daily. Medical Branch fluocinonid 2021-0 Yes [id number] Apply to Univers e 0.05 % 1-21 rash once ity of cream 00:00: daily. Medical Branch fluocinonid 2021-0 Yes [id number] Apply to Univers e 0.05 % 1-21 rash once ity of cream 00:00: daily. Medical Branch fluocinonid 2021-0 Yes [id number] Apply to Univers e 0.05 % 1-21 rash once ity of cream 00:00: daily. Medical Branch fluocinonid 2021-0 Yes [id number] Apply to Univers e 0.05 % 1-21 rash once ity of cream 00:00: daily. Medical Branch fluocinonid 2021-0 Yes [id number] Apply to Univers e 0.05 % 1-21 rash once ity of cream 00:00: daily. Medical Branch fluocinonid 2021-0 Yes [id number] Apply to Univers e 0.05 % 1-21 rash once ity of cream 00:00: daily. Medical Branch fluocinonid 2021-0 Yes [id number] Apply to Univers e 0.05 % 1-21 rash once ity of cream 00:00: daily. Medical Branch fluocinonid 2021-0 Yes [id number] Apply to Univers e 0.05 % 1-21 rash once ity of cream 00:00: daily. Medical Branch fluocinonid 2021-0 Yes [id number] Apply to Univers e 0.05 % 1-21 rash once ity of cream 00:00: daily. Medical Branch fluocinonid 2021-0 Yes [id number] Apply to Univers e 0.05 % 1-21 rash once ity of cream 00:00: daily. Medical Branch fluocinonid 2021-0 Yes [id number] Apply to Univers e 0.05 % 1-21 rash once ity of cream 00:00: daily. [facility] Branch fluocinonid 2021-0 Yes [id number] Apply to Univers e 0.05 % 1-21 rash once ity of cream 00:00: daily. [facility] Branch fluocinonid 2021-0 Yes [id number] Apply to Univers e 0.05 % 1-21 rash once ity of cream 00:00: daily. Medical Branch fluocinonid 2021-0 Yes [id number] Apply to Univers e 0.05 % 1-21 rash once ity of cream 00:00: daily. [facility] Branch fluocinonid 2021-0 Yes [id number] Apply to Univers e 0.05 % 1-21 rash once ity of cream 00:00: daily. [facility] Branch fluocinonid 2021-0 Yes [id number] Apply to Univers e 0.05 % 1-21 rash once ity of cream 00:00: daily. [facility] Branch fluocinonid 2021-0 Yes [id number] Apply to Univers e 0.05 % 1-21 rash once ity of cream 00:00: daily. [facility] Branch fluocinonid 2021-0 Yes [id number] Apply to Univers e 0.05 % 1-21 rash once ity of cream 00:00: daily. Medical Branch fluocinonid Yes [id number] Apply to Univers e 0.05 % 1-21 rash once ity of cream 00:00: daily. [facility] Branch fluocinonid 2021- No [id number] Apply to Univers e 0.05 % -21 - rash once ity o f cream 00:00: 00:00 daily. [place] 00 : [facility] Branch Insulin Yes [id number] 10U inject 10 U nivers Detemir 1-20 Units ity of (LEVEM[place] 00:[place]LE[place] 00 skin 2 Medical U-100 (two) Branch INSULN) 100 times unit/mL (3 daily. mL) injection insulin Yes [id number] Blood Unive rs aspart 1-20 glucose < ity of U-100 00:00: 90 : Hold [place] (NOVOLOG 00 Novolog, Medical FLEXPEN do not use Branch U-100 Blood INSULIN) glucose 100 unit/mL 90-120, (3 mL) subtract 1 injection Unit, give 4 units Blood glucose 120-150 : GIVE 5 UNITS Blood glucose 150 - 180 add 1 unit, give 6 units Blood glucose 181 - 210 add 2 units, given 7 units Blood glucose 211 - 240 add 3 units, give 8 units Blood glucose 241 - 300 add 4 units, give 9 units Blood glucose > 300, add 5 Units. Given 10 units, recheck in 3 hours. If blood glucose >300 seek medical attention SITagliptin Yes [id number] 100mg Take 1 Univers (JANUVIA) 1-20 tablet by ity o f 100 mg 00:00: mouth [place] tablet 00 daily. [facility] blood sugar Yes [id number] E11.9 U nivers diagnostic 1-20 Measure ity of strip 00:00: blood sugar BID [facility] Branch empaglifloz Yes [id number] 10mg Take 1 Univers in 1-20 tablet by ity of (JARDIANCE) 00:00: mouth [place] 10 mg 00 daily. [facility] lancets 28 Yes [id number] E11.9: U nivers gauge Misc 1-20 Measure ity of 00:00: blood 00 sugar BID [facility] Branch Insulin Yes [id number] Use as Uni vers [place], 1-20 directed ity of Disposable, 00:00: [place] (UNIFINE 00 Medical PENTIPS) 32 Branch gauge x 5/32" Ndle aspirin 81 Yes [id number] 81mg Take 1 U nivers mg chewable 1-20 tablet by ity of tablet 00:00: mouth [place] 00 daily. Medical Branch Insulin Yes [id number] 10U inject 10 U nivers Detemir 1-20 Units ity of (LEVEMIR 00:00: [place] FLEXT[place]CH 00 skin 2 Medical U-100 (two) Branch INSULN) 100 times unit/mL (3 daily. mL) injection insulin Yes [id number] Blood Unive rs aspart 1-20 glucose < ity of U-100 00:00: 90 : Hold [place] (NOVOLOG 00 Novolog, Medical FLEXPEN do not use Branch U-100 Blood INSULIN) glucose 100 unit/mL 90-120, (3 mL) subtract 1 injection Unit, give 4 units Blood glucose 120-150 : GIVE 5 UNITS Blood glucose 150 - 180 add 1 unit, give 6 units Blood glucose 181 - 210 add 2 units, given 7 units Blood glucose 211 - 240 add 3 units, give 8 units Blood glucose 241 - 300 add 4 units, give 9 units Blood glucose > 300, add 5 Units. Given 10 units, recheck in 3 hours. If blood glucose >300 seek medical attention SITagliptin Yes [id number] 100mg Take 1 Univers (JANUVIA) 1-20 tablet by ity o f 100 mg 00:00: mouth [place] tablet 00 daily. Medical Branch blood sugar Yes [id number] E11.9 U nivers diagnostic 1-20 Measure ity of strip 00:00: blood [place] 00 sugar BID Medical Branch empaglifloz Yes [id number] 10mg Take 1 Univers in 1-20 tablet by ity of (JARDIANCE) 00:00: mouth [place] 10 mg 00 daily. Medical Branch lancets 28 Yes [id number] E11.9: U nivers gauge Misc 1-20 Measure ity of 00:00: blood [place] 00 sugar BID Medical Branch Insulin Yes [id number] Use as Uni vers [place], 1-20 directed ity of Disposable, 00:00: [place] (UNIFINE 00 Medical PENTIPS) 32 Branch gauge x " Ndle aspirin 81 0 Yes [id number] 81mg Take 1 U nivers mg chewable 1-20 tablet by ity of tablet 00:00: mouth [place] 00 daily. Medical Branch Insulin Yes [id number] 10U inject 10 U nivers Detemir 1-20 Units ity of (LEVEMIR 00:00: [place] FLEXTOUCH 00 skin 2 Medical U-100 (two) Branch INSULN) 100 times unit/mL (3 daily. mL) injection insulin Yes [id number] Blood Unive rs aspart 1-20 glucose < ity of U-100 00:00: 90 : Hold [place] (NOVOLOG 00 Novolog, Medical FLEXPEN do not use Branch U-100 Blood INSULIN) glucose 100 unit/mL 90-120, (3 mL) subtract 1 injection Unit, give 4 units Blood glucose 120-150 : GIVE 5 UNITS Blood glucose 150 - 180 add 1 unit, give 6 units Blood glucose 181 - 210 add 2 units, given 7 units Blood glucose 211 - 240 add 3 units, give 8 units Blood glucose 241 - 300 add 4 units, give 9 units Blood glucose > 300, add 5 Units. Given 10 units, recheck in 3 hours. If blood glucose >300 seek medical attention SITagliptin Yes [id number] 100mg Take 1 Univers (JANUVIA) 1-20 tablet by ity o f 100 mg 00:00: mouth [place] tablet 00 daily. Medical Branch blood sugar Yes [id number] E11.9 U nivers diagnostic 1-20 Measure ity of strip 00:00: blood [place] 00 sugar BID Medical Branch empaglifloz Yes [id number] 10mg Take 1 Univers in 1-20 tablet by ity of (JARDIANCE) 00:00: mouth [place] 10 mg 00 daily. Medical Branch lancets 28 Yes [id number] E11.9: U nivers gauge Misc 1-20 Measure ity of 00:00: blood [place] 00 sugar BID Medical Branch Insulin Yes [id number] Use as Uni vers [place], 1-20 directed ity of Disposable, 00:00: [place] (UNIFINE 00 Medical PENTIPS) 32 Branch gauge x 5/" Ndle aspirin 81 0 Yes [id number] 81mg Take 1 U nivers mg chewable 1-20 tablet by ity of tablet 00:00: mouth [place] 00 daily. Medical Branch Insulin Yes [id number] 10U inject 10 U nivers Detemir 1-20 Units ity of (LEVEMIR 00:00: [place] FLEXTOUCH 00 skin 2 Medical U-100 (two) Branch INSULN) 100 times unit/mL (3 daily. mL) injection insulin Yes [id number] Blood Unive rs aspart 1-20 glucose < ity of U-100 00:00: 90 : Hold [place] (NOVOLOG 00 Novolog, Medical FLEXPEN do not use Branch U-100 Blood INSULIN) glucose 100 unit/mL 90-120, (3 mL) subtract 1 injection Unit, give 4 units Blood glucose 120-150 : GIVE 5 UNITS Blood glucose 150 - 180 add 1 unit, give 6 units Blood glucose 181 - 210 add 2 units, given 7 units Blood glucose 211 - 240 add 3 units, give 8 units Blood glucose 241 - 300 add 4 units, give 9 units Blood glucose > 300, add 5 Units. Given 10 units, recheck in 3 hours. If blood glucose >300 seek medical attention SITagliptin Yes [id number] 100mg Take 1 Univers (JANUVIA) 1-20 tablet by ity o f 100 mg 00:00: mouth [place] tablet 00 daily. Medical Branch blood sugar Yes [id number] E11.9 U nivers diagnostic 1-20 Measure ity of strip 00:00: blood [place] 00 sugar BID Medical Branch empaglifloz Yes [id number] 10mg Take 1 Univers in 1-20 tablet by ity of (JARDIANCE) 00:00: mouth [place] 10 mg 00 daily. Medical Branch lancets 28 Yes [id number] E11.9: U nivers gauge Misc 1-20 Measure ity of 00:00: blood [place] 00 sugar BID Medical Branch Insulin Yes [id number] Use as Uni vers [place], 1-20 directed ity of Disposable, 00:00: [place] (UNIFINE 00 Medical PENTIPS) 32 Branch gauge x 5/32" Ndle aspirin 81 Yes [id number] 81mg Take 1 U nivers mg chewable 1-20 tablet by ity of tablet 00:00: mouth [place] 00 daily. Medical Branch Insulin Yes [id number] 10U inject 10 U nivers Detemir 1-20 Units ity of (LEVEMIR 00:00: [place] FLEXTOUCH 00 skin 2 Medical U-100 (two) Branch INSULN) 100 times unit/mL (3 daily. mL) injection insulin Yes [id number] Blood Unive rs aspart 1-20 glucose < ity of U-100 00:00: 90 : Hold [place] (NOVOLOG 00 Novolog, Medical FLEXPEN do not use Branch U-100 Blood INSULIN) glucose 100 unit/mL 90-120, (3 mL) subtract 1 injection Unit, give 4 units Blood glucose 120-150 : GIVE 5 UNITS Blood glucose 150 - 180 add 1 unit, give 6 units Blood glucose 181 - 210 add 2 units, given 7 units Blood glucose 211 - 240 add 3 units, give 8 units Blood glucose 241 - 300 add 4 units, give 9 units Blood glucose > 300, add 5 Units. Given 10 units, recheck in 3 hours. If blood glucose >300 seek medical attention SITagliptin Yes [id number] 100mg Take 1 Univers (JANUVIA) 1-20 tablet by ity o f 100 mg 00:00: mouth [place] tablet 00 daily. Medical Branch blood sugar Yes [id number] E11.9 U nivers diagnostic 1-20 Measure ity of strip 00:00: blood [place] sugar BID Medical Branch empaglifloz Yes [id number] 10mg Take 1 Univers in 1-20 tablet by ity of (JARDIANCE) 00:00: mouth [place] 10 mg 00 daily. Medical Branch lancets 28 Yes [id number] E11.9: U nivers gauge Misc 1-20 Measure ity of 00:00: blood [place] 00 sugar BID Medical Branch Insulin Yes [id number] Use as Uni vers [place], 1-20 directed ity of Disposable, 00:00: [place] (UNIFINE 00 Medical PENTIPS) 32 Branch gauge x 5/32" Ndle aspirin 81 Yes [id number] 81mg Take 1 U nivers mg chewable 1-20 tablet by ity of tablet 00:00: mouth [place] 00 daily. Medical Branch Insulin Yes [id number] 10U inject 10 U nivers Detemir 1-20 Units ity of (LEVEMIR 00:00: [facility] skin 2 Medical U-100 (two) Branch INSULN) 100 times unit/mL (3 daily. mL) injection insulin Yes [id number] Blood Unive rs aspart 1-20 glucose < ity of U-100 00:00: 90 : Hold [place] (NOVOLOG 00 Novolog, Medical FLEXPEN do not use Branch U-100 Blood INSULIN) glucose 100 unit/mL 90-120, (3 mL) subtract 1 injection Unit, give 4 units Blood glucose 120-150 : GIVE 5 UNITS Blood glucose 150 - 180 add 1 unit, give 6 units Blood glucose 181 - 210 add 2 units, given 7 units Blood glucose 211 - 240 add 3 units, give 8 units Blood glucose 241 - 300 add 4 units, give 9 units Blood glucose > 300, add 5 Units. Given 10 units, recheck in 3 hours. If blood glucose >300 seek medical attention SITagliptin Yes [id number] 100mg Take 1 Univers (JANUVIA) 1-20 tablet by ity o f 100 mg 00:00: mouth [place] tablet 00 daily. Medical Branch blood sugar Yes [id number] E11.9 U nivers diagnostic 1-20 Measure ity of strip 00:00: blood [place] 00 sugar BID Medical Branch empaglifloz Yes [id number] 10mg Take 1 Univers in 1-20 tablet by ity of (JARDIANCE) 00:00: mouth [place] 10 mg 00 daily. Medical Branch lancets 28 Yes [id number] E11.9: U nivers gauge Misc 1-20 Measure ity of 00:00: blood [place] 00 sugar BID Medical Branch Insulin Yes [id number] Use as Uni vers [place], 1-20 directed ity of Disposable, 00:00: [place] (UNIFINE 00 Medical PENTIPS) 32 Branch gauge x 5/32" Ndle aspirin 81 Yes [id number] 81mg Take 1 U nivers mg chewable 1-20 tablet by ity of tablet 00:00: mouth [place] 00 daily. Medical Branch Insulin Yes [id number] 10U inject 10 U nivers Detemir 1-20 Units ity of (LEVEMIR 00:00: [place] FLEXTOUCH 00 skin 2 Medical U-100 (two) Branch INSULN) 100 times unit/mL (3 daily. mL) injection insulin Yes [id number] Blood Unive rs aspart 1-20 glucose < ity of U-100 00:00: 90 : Hold [place] (NOVOLOG 00 Novolog, Medical FLEXPEN do not use Branch U-100 Blood INSULIN) glucose 100 unit/mL 90-120, (3 mL) subtract 1 injection Unit, give 4 units Blood glucose 120-150 : GIVE 5 UNITS Blood glucose 150 - 180 add 1 unit, give 6 units Blood glucose 181 - 210 add 2 units, given 7 units Blood glucose 211 - 240 add 3 units, give 8 units Blood glucose 241 - 300 add 4 units, give 9 units Blood glucose > 300, add 5 Units. Given 10 units, recheck in 3 hours. If blood glucose >300 seek medical attention SITagliptin Yes [id number] 100mg Take 1 Univers (JANUVIA) 1-20 tablet by ity o f 100 mg 00:00: mouth [place] tablet 00 daily. Medical Branch blood sugar Yes [id number] E11.9 U nivers diagnostic 1-20 Measure ity of strip 00:00: blood [place] sugar BID Medical Branch empaglifloz Yes [id number] 10mg Take 1 Univers in 1-20 tablet by ity of (JARDIANCE) 00:00: mouth [place] 10 mg 00 daily. Medical Branch lancets 28 Yes [id number] E11.9: U nivers gauge Misc 1-20 Measure ity of 00:00: blood [place] 00 sugar BID Medical Branch Insulin Yes [id number] Use as Uni vers [place], 1-20 directed ity of Disposable, 00:00: [place] (UNIFINE 00 Medical PENTIPS) 32 Branch gauge x 5/32" Ndle aspirin 81 Yes [id number] 81mg Take 1 U nivers mg chewable 1-20 tablet by ity of tablet 00:00: mouth [place] 00 daily. Medical Branch Insulin Yes [id number] 10U inject 10 U nivers Detemir 1-20 Units ity of (LEVEMIR 00:00: under the [employer] FLEXTOUCH 00 skin 2 Medical U-100 (two) Branch INSULN) 100 times unit/mL (3 daily. mL) injection insulin Yes [id number] Blood Unive rs aspart 1-20 glucose < ity of U-100 00:00: 90 : Hold [place] (NOVOLOG 00 Novolog, Medical FLEXPEN do not use Branch U-100 Blood INSULIN) glucose 100 unit/mL 90-120, (3 mL) subtract 1 injection Unit, give 4 units Blood glucose 120-150 : GIVE 5 UNITS Blood glucose 150 - 180 add 1 unit, give 6 units Blood glucose 181 - 210 add 2 units, given 7 units Blood glucose 211 - 240 add 3 units, give 8 units Blood glucose 241 - 300 add 4 units, give 9 units Blood glucose > 300, add 5 Units. Given 10 units, recheck in 3 hours. If blood glucose >300 seek medical attention SITagliptin Yes [id number] 100mg Take 1 Univers (JANUVIA) 1-20 tablet by ity o f 100 mg 00:00: mouth [place] tablet 00 daily. Medical Branch blood sugar Yes [id number] E11.9 U nivers diagnostic 1-20 Measure ity of strip 00:00: blood [place] 00 sugar BID Medical Branch empaglifloz Yes [id number] 10mg Take 1 Univers in 1-20 tablet by ity of (JARDIANCE) 00:00: mouth [place] 10 mg 00 daily. Medical Branch lancets 28 Yes [id number] E11.9: U nivers gauge Misc 1-20 Measure ity of 00:00: blood [place] 00 sugar BID Medical Branch Insulin Yes [id number] Use as Uni vers [place], 1-20 directed ity of Disposable, 00:00: [place] (UNIFINE 00 Medical PENTIPS) 32 Branch gauge x 5/32" Ndle aspirin 81 Yes [id number] 81mg Take 1 U nivers mg chewable 1-20 tablet by ity of tablet 00:00: mouth [place] 00 daily. Medical Branch Insulin Yes [id number] 10U inject 10 U nivers Detemir 1-20 Units ity of (LEVEMIR 00:00: [place] FLEXTOUCH 00 skin 2 Medical U-100 (two) Branch INSULN) 100 times unit/mL (3 daily. mL) injection insulin Yes [id number] Blood Unive rs aspart 1-20 glucose < ity of U-100 00:00: 90 : Hold [place] (NOVOLOG 00 Novolog, Medical FLEXPEN do not use Branch U-100 Blood INSULIN) glucose 100 unit/mL 90-120, (3 mL) subtract 1 injection Unit, give 4 units Blood glucose 120-150 : GIVE 5 UNITS Blood glucose 150 - 180 add 1 unit, give 6 units Blood glucose 181 - 210 add 2 units, given 7 units Blood glucose 211 - 240 add 3 units, give 8 units Blood glucose 241 - 300 add 4 units, give 9 units Blood glucose > 300, add 5 Units. Given 10 units, recheck in 3 hours. If blood glucose >300 seek medical attention SITagliptin Yes [id number] 100mg Take 1 Univers (JANUVIA) 1-20 tablet by ity o f 100 mg 00:00: mouth [place] tablet 00 daily. Medical Branch blood sugar Yes [id number] E11.9 U nivers diagnostic 1-20 Measure ity of strip 00:00: blood sugar BID Medical Branch empaglifloz Yes [id number] 10mg Take 1 Univers in 1-20 tablet by ity of (JARDIANCE) 00:00: mouth [place] 10 mg 00 daily. Medical Branch lancets 28 Yes [id number] E11.9: U nivers gauge Misc 1-20 Measure ity of 00:00: blood [place] 00 sugar BID Medical Branch Insulin Yes [id number] Use as Uni vers [place], 1-20 directed ity of Disposable, 00:00: [place] (UNIFINE 00 Medical PENTIPS) 32 Branch gauge x 5/32" Ndle aspirin 81 Yes [id number] 81mg Take 1 U nivers mg chewable 1-20 tablet by ity of tablet 00:00: mouth [place] 00 daily. Medical Branch Insulin Yes [id number] 10U inject 10 U nivers Detemir 1-20 Units ity of (LEVEMIR 00:00: [place] FLEXTOUCH 00 skin 2 Medical U-100 (two) Branch INSULN) 100 times unit/mL (3 daily. mL) injection insulin Yes [id number] Blood Unive rs aspart 1-20 glucose < ity of U-100 00:00: 90 : Hold [place] (NOVOLOG 00 Novolog, Medical FLEXPEN do not use Branch U-100 Blood INSULIN) glucose 100 unit/mL 90-120, (3 mL) subtract 1 injection Unit, give 4 units Blood glucose 120-150 : GIVE 5 UNITS Blood glucose 150 - 180 add 1 unit, give 6 units Blood glucose 181 - 210 add 2 units, given 7 units Blood glucose 211 - 240 add 3 units, give 8 units Blood glucose 241 - 300 add 4 units, give 9 units Blood glucose > 300, add 5 Units. Given 10 units, recheck in 3 hours. If blood glucose >300 seek medical attention SITagliptin Yes [id number] 100mg Take 1 Univers (JANUVIA) 1-20 tablet by ity o f 100 mg 00:00: mouth [place] tablet 00 daily. Medical Branch blood sugar Yes [id number] E11.9 U nivers diagnostic 1-20 Measure ity of strip 00:00: blood [place] 00 sugar BID Medical Branch empaglifloz Yes [id number] 10mg Take 1 Univers in 1-20 tablet by ity of (JARDIANCE) 00:00: mouth [place] 10 mg 00 daily. Medical Branch lancets 28 Yes [id number] E11.9: U nivers gauge Misc 1-20 Measure ity of 00:00: blood [place] 00 sugar BID Medical Branch Insulin Yes [id number] Use as Uni vers [place], 1-20 directed ity of Disposable, 00:00: [place] (UNIFINE 00 Medical PENTIPS) 32 Branch gauge x 5/32" Ndle aspirin 81 Yes [id number] 81mg Take 1 U nivers mg chewable 1-20 tablet by ity of tablet 00:00: mouth [place] 00 daily. Medical Branch Insulin 2021- No [id number] 10U inject 10 Univers Detemir 1-20 09-30 Units ity of (LEVEMIR 00:00: 00:00 under the [place] as FLEXTOUCH 00 :00 skin 2 Medical U-100 (two) Branch INSULN) 100 times unit/mL (3 daily. mL) injection insulin 2021- No [id number] Blood Univ ers aspart 1-20 09-30 glucose < ity of U-100 00:00: 00:00 90 : Hold [place] (NOVOLOG 00 :00 Novolog, Medical FLEXPEN do not use Branch U-100 Blood INSULIN) glucose 100 unit/mL 90-120, (3 mL) subtract 1 injection Unit, give 4 units Blood glucose 120-150 : GIVE 5 UNITS Blood glucose 150 - 180 add 1 unit, give 6 units Blood glucose 181 - 210 add 2 units, given 7 units Blood glucose 211 - 240 add 3 units, give 8 units Blood glucose 241 - 300 add 4 units, give 9 units Blood glucose > 300, add 5 Units. Given 10 units, recheck in 3 hours. If blood glucose >300 seek medical attention SITagliptin 2021- No [id number] 100mg Take 1 Univers (JANUVIA) 07-09 tablet by ity of 100 mg 00:00: 00:00 mouth [place] tablet 00 :00 daily. Medical Branch blood sugar 2021- No [id number] E11.9 Univers diagnostic 07-09 Measure ity o f strip 00:00: 00:00 blood [place] 00 :00 sugar BID Medical Branch empaglifloz 2021- No [id number] 10mg Take 1 [facility] in 07-09 tablet by ity of (JARDIANCE) 00:00: 00:00 [place] 10 mg 00 :00 daily. Medical Branch lancets 28 2021- No [id number] E11.9: Univers gauge Misc 07-09 Measure ity o f 00:00: 00:00 blood [place] 00 :00 sugar BID Medical Branch Insulin 2021- No [id number] Use as Un matthieu [place], 07-09 directed ity of Disposable, 00:00: 00:00 [place] (UNIFINE 00 :00 Medical PENTIPS) 32 Branch gauge x 5/32" Ndle aspirin 81 2021- No [id number] 81mg Take 1 Univers mg chewable 07-09 tablet by it y of tablet 00:00: 00:00 mouth [place] 00 :00 daily. Medical Branch Insulin 2021- No [id number] 10U inject 10 Univers Detemir 07-09 Units ity of (LEVEMIR 00:00: 00:00 under the [place] FLEXTOUCH 00 :00 skin 2 Medical U-100 (two) Branch INSULN) 100 times unit/mL (3 daily. mL) injection insulin 2021- No [id number] Blood Univ ers aspart 07-09 glucose < ity of U-100 00:00: 00:00 90 : Hold [place] (NOVOLOG 00 :00 Novolog, Medical FLEXPEN do not use Branch U-100 Blood INSULIN) glucose 100 unit/mL 90-120, (3 mL) subtract 1 injection Unit, give 4 units Blood glucose 120-150 : GIVE 5 UNITS Blood glucose 150 - 180 add 1 unit, give 6 units Blood glucose 181 - 210 add 2 units, given 7 units Blood glucose 211 - 240 add 3 units, give 8 units Blood glucose 241 - 300 add 4 units, give 9 units Blood glucose > 300, add 5 Units. Given 10 units, recheck in 3 hours. If blood glucose >300 seek medical attention SITagliptin 2021- No [id number] 100mg Take 1 Univers (JANUVIA) 07-09 tablet by ity of 100 mg 00:00: 00:00 mouth [place] tablet 00 :00 daily. Medical Branch blood sugar 2021- No [id number] E11.9 Univers diagnostic 07-09 Measure ity o f strip 00:00: 00:00 blood [place] 00 :00 sugar BID [facility] Branch empaglifloz 2021- No [id number] 10mg Take 1 [facility] in 07-09 tablet by ity of (JARDIANCE) 00:00: 00:00 [place] 10 mg 00 :00 daily. Medical Branch lancets 28 2021- No [id number] E11.9: Univers gauge Misc 07-09 Measure ity o f 00:00: 00:00 blood [place] 00 :00 sugar BID Medical Branch Insulin 2021- No [id number] Use as Un matthieu [place], 07-09 directed ity of Disposable, 00:00: 00:00 [place] (UNIFINE 00 :00 Medical PENTIPS) 32 Branch gauge x 5/32" Ndle aspirin 81 2021- No [id number] 81mg Take 1 Univers mg chewable 07-09 tablet by it y of tablet 00:00: 00:00 mouth [place] 00 :00 daily. Medical Branch amoxicillin 2020-06 Yes [id number] 1{tbl} Take 1 Univers -clavulanat 2-10 tablet by ity of e 00:00: mouth 2 [place] (AUGMENTIN) 00 (two) Medical 875-125 mg times Branch per tablet daily. amoxicillin 2020-06 Yes [id number] 1{tbl} Take 1 Univers -clavulanat 2-10 tablet by ity of e 00:00: mouth 2 [place] (AUGMENTIN) 00 (two) Medical 875-125 mg times Branch per tablet daily. amoxicillin 2020-06 Yes [id number] 1{tbl} Take 1 Univers -clavulanat 2-10 tablet by ity of e 00:00: mouth 2 [place] (AUGMENTIN) 00 (two) Medical 875-125 mg times Branch per tablet daily. amoxicillin 2020-06 Yes [id number] 1{tbl} Take 1 Univers -clavulanat 2-10 tablet by ity of e 00:00: mouth 2 [place] (AUGMENTIN) 00 (two) Medical 875-125 mg times Branch per tablet daily. amoxicillin 2020-06 Yes [id number] 1{tbl} Take 1 Univers -clavulanat 2-10 tablet by ity of e 00:00: mouth 2 [place] (AUGMENTIN) 00 (two) Medical 875-125 mg times Branch per tablet daily. amoxicillin 2020-06 Yes [id number] 1{tbl} Take 1 Univers -clavulanat 2-10 tablet by ity of e 00:00: mouth 2 [place] (AUGMENTIN) 00 (two) Medical 875-125 mg times Branch per tablet daily. amoxicillin 2020-06- No [id number] 1{tbl} Take 1 Univers -clavulanat 2-10 - tablet by it y of e 00:00: 00:00 mouth 2 [place] (AUGMENTIN) 00 :00 (two) Medical 875-125 mg times Branch per tablet daily. amoxicillin 2020-06- No [id number] 1{tbl} Take 1 Univers -clavulanat 2-10 -21 tablet by it y of e 00:00: 00:00 mouth 2 [place] (AUGMENTIN) 00 :00 (two) Medical 875-125 mg times Branch per tablet daily. flash 2020-06 Yes [id number] 1{kit} 1 Kit 5 Un matthieu glucose 0-19 (five) ity of scanning 00:00: times [place] reader 00 daily. Medical (FREESTYLE Branch MAXINE 14 DAY READER) Misc flash 2020-06 Yes [id number] 1{kit} 1 Kit 5 Un matthieu glucose 0-19 (five) ity of scanning 00:00: times [place] reader 00 daily. Medical (FREESTYLE Branch MAXINE 14 DAY READER) Misc flash 2020-06 Yes [id number] 1{kit} 1 Kit 5 Un matthieu glucose 0-19 (five) ity of scanning 00:00: times [place] reader 00 daily. Medical (FREESTYLE Branch MAXINE 14 DAY READER) Misc flash 2020-06 Yes [id number] 1{kit} 1 Kit 5 Un matthieu glucose 0-19 (five) ity of scanning 00:00: times [place] reader 00 daily. Medical (FREESTYLE Branch MAXINE 14 DAY READER) Misc flash 2020-06 Yes [id number] 1{kit} 1 Kit 5 Un matthieu glucose 0-19 (five) ity of scanning 00:00: times [place] reader 00 daily. Medical (FREESTYLE Branch MAXINE 14 DAY READER) Misc flash 2020-06 Yes [id number] 1{kit} 1 Kit 5 Un matthieu glucose 0-19 (five) ity of scanning 00:00: times [place] reader 00 daily. Medical (FREESTYLE Branch MAXINE 14 DAY READER) Misc flash 2020-06 Yes [id number] 1{kit} 1 Kit 5 Un matthieu glucose 0-19 (five) ity of scanning 00:00: times [place] reader 00 daily. Medical (FREESTYLE Branch MAXINE 14 DAY READER) Misc flash 2020-06 Yes [id number] 1{kit} 1 Kit 5 Un matthieu glucose 0-19 (five) ity of scanning 00:00: times [place] reader 00 daily. Medical (FREESTYLE Branch MAXINE 14 DAY READER) Misc flash 2020-06 Yes [id number] 1{kit} 1 Kit 5 Un matthieu glucose 0-19 (five) ity of scanning 00:00: times [place] reader 00 daily. Medical (FREESTYLE Branch MAXINE 14 DAY READER) Misc flash 2020-06 Yes [id number] 1{kit} 1 Kit 5 Un matthieu glucose 0-19 (five) ity of scanning 00:00: times [place] reader 00 daily. Medical (FREESTYLE Branch MAXINE 14 DAY READER) Misc flash 2020-06 Yes [id number] 1{kit} 1 Kit 5 Un matthieu glucose 0-19 (five) ity of scanning 00:00: times [place] reader 00 daily. Medical (FREESTYLE Branch MAXINE 14 DAY READER) Misc flash 2020-06 Yes [id number] 1{kit} 1 Kit 5 Un matthieu glucose 0-19 (five) ity of scanning 00:00: times [place] reader 00 daily. Medical (FREESTYLE Branch MAXINE 14 DAY READER) Misc flash 2020-06 Yes [id number] 1{kit} 1 Kit 5 Un matthieu glucose 0-19 (five) ity of scanning 00:00: times [place] reader 00 daily. Medical (FREESTYLE Branch MAXINE 14 DAY READER) Misc flash 2020-06 Yes [id number] 1{kit} 1 Kit 5 Un matthieu glucose 0-19 (five) ity of scanning 00:00: times [place] reader 00 daily. Medical (FREESTYLE Branch MAXINE 14 DAY READER) Misc flash 2020-06 Yes [id number] 1{kit} 1 Kit 5 Un matthieu glucose 0-19 (five) ity of scanning 00:00: times [place] reader 00 daily. Medical (FREESTYLE Branch MAXINE 14 DAY READER) Misc flash 2020-06 Yes [id number] 1{kit} 1 Kit 5 Un matthieu glucose 0-19 (five) ity of scanning 00:00: times [place] reader 00 daily. Medical (FREESTYLE Branch MAXINE 14 DAY READER) Misc flash 2020-06 Yes [id number] 1{kit} 1 Kit 5 Un matthieu glucose 0-19 (five) ity of scanning 00:00: times [place] reader 00 daily. Medical (FREESTYLE Branch MAXINE 14 DAY READER) Misc flash 2020- Yes [id number] 1{kit} 1 Kit 5 Un matthieu glucose 0-19 (five) ity of scanning 00:00: times [place] reader 00 daily. Medical (FREESTYLE Branch MAXINE 14 DAY READER) Misc flash 2020- Yes [id number] 1{kit} 1 Kit 5 Un [facility] glucose 0-19 (five) ity of scanning 00:00: times [place] reader 00 daily. Medical (FREESTYLE Branch MAXINE 14 DAY READER) Misc flash 2020-06 Yes [id number] 1{kit} 1 Kit 5 Un [facility] glucose 0-19 (five) ity of scanning 00:00: times [place] reader 00 daily. Medical (FREESTYLE Branch MAXINE 14 DAY READER) Misc flash 2020-06 Yes [id number] 1{kit} 1 Kit 5 Un mat[facility] glucose 0-19 (five) ity of scanning 00:00: times [place] reader 00 daily. Medical (FREESTYLE Branch MAXINE 14 DAY READER) Misc flash 2020-06 Yes [id number] 1{kit} 1 Kit 5 Un mat[facility] glucose 0-19 (five) ity of scanning 00:00: times [place] reader 00 daily. Medical (FREESTYLE Branch MAXINE 14 DAY READER) Misc flash 2020-06 Yes [id number] 1{kit} 1 Kit 5 Un [facility] glucose 0-19 (five) ity of scanning 00:00: times [place] reader 00 daily. Medical (FREESTYLE Branch MAXINE 14 DAY READER) Misc flash 2020-06 Yes [id number] 1{kit} 1 Kit 5 Un mat[facility]ieu glucose 0-19 (five) ity of scanning 00:00: times [place] reader 00 daily. Medical (FREESTYLE Branch MAXINE 14 DAY READER) Misc flash 2020-06 Yes [id number] 1{kit} 1 Kit 5 Un mat[facility]ieu glucose 0-19 (five) ity of scanning 00:00: times [place] reader 00 daily. Medical (FREESTYLE Branch MAXINE 14 DAY READER) Misc flash 2020-06 Yes [id number] 1{kit} 1 Kit 5 Un [facility]ieu glucose 0-19 (five) ity of scanning 00:00: times [place] reader 00 daily. Medical (FREESTYLE Branch MAXINE 14 DAY READER) Misc flash 2020-06 Yes [id number] 1{kit} 1 Kit 5 Un [facility]ieu glucose 0-19 (five) ity of scanning 00:00: times [place] reader 00 daily. Medical (FREESTYLE Branch MAXINE 14 DAY READER) Misc flash 2020-06 2022- No [id number] 1{kit} 1 Kit 5 U nivers glucose 0-19 10-31 (five) ity of scanning 00:00: 00:00 times [place] reader 00 :00 daily. 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 Medical Branch buPROPion 2020-06 Yes [id number] 300mg Take 1 U nivers XL 300 mg 0-06 tablet by ity o f 24 hr 00:00: mouth [place] tablet 00 daily. [facility] Branch buPROPion 2020-06 Yes [id number] 300mg Take 1 U nivers XL 300 mg 0-06 tablet by ity o f 24 hr 00:00: mouth [place] tablet 00 daily. [facility] Branch buPROPion 2020-06 Yes [id number] 300mg Take 1 U nivers XL 300 mg 0-06 tablet by ity o f 24 hr 00:00: mouth [place] tablet 00 daily. [facility] Branch buPROPion 2020-06 Yes [id number] 300mg Take 1 U nivers XL 300 mg 0-06 tablet by ity o f 24 hr 00:00: mouth [place] tablet 00 daily. [facility] Branch buPROPion 2020-06 Yes [id number] 300mg Take 1 U nivers XL 300 mg 0-06 tablet by ity o f 24 hr 00:00: mouth [place] tablet 00 daily. [facility] Branch buPROPion 2020-06 Yes [id number] 300mg Take 1 U nivers XL 300 mg 0-06 tablet by ity o f 24 hr 00:00: mouth [place] tablet 00 daily. [facility] Branch buPROPion 2020-06 Yes [id number] 300mg Take 1 U nivers XL 300 mg 0-06 tablet by ity o f 24 hr 00:00: mouth [place] tablet 00 daily. [facility] Branch buPROPion 2020-06 Yes [id number] 300mg Take 1 U nivers XL 300 mg 0-06 tablet by ity o f 24 hr 00:00: mouth [place] tablet 00 daily. [facility] Branch buPROPion 2020-06 Yes [id number] 300mg Take 1 U nivers XL 300 mg 0-06 tablet by ity o f 24 hr 00:00: mouth [place] tablet 00 daily. [facility] buPROPion 2020-06- No [id number] 300mg Take 1 Univers XL 300 mg 0-06 09-30 tablet by ity of 24 hr 00:00: 00:00 mouth [place] tablet 00 :00 daily. Medical Branch buPROPion 2020-1 2- No [id number] 300mg Take 1 Univers XL 300 mg 0-06 09-30 tablet by ity of 24 hr 00:00: 00:00 mouth [place] tablet 00 :00 daily. Medical Branch omeprazole 1-0 Yes [id number] TAKE ONE Univers 40 mg 9-28 CAPSULE BY ity of capsule 00:00: MOUTH 15 [place] 00 MINS Medical BEFORE A Branch MEAL DAILY omeprazole 1-0 Yes [id number] TAKE ONE [facility] 40 mg 9-28 CAPSULE BY ity of capsule 00:00: MOUTH 15 [place] 00 MINS Medical BEFORE A Branch MEAL DAILY omeprazole 1-0 Yes [id number] TAKE ONE [facility] 40 mg 9-28 CAPSULE BY ity of capsule 00:00: MOUTH 15 [place] 00 MINS Medical BEFORE A Branch MEAL DAILY omeprazole 1-0 Yes [id number] TAKE ONE [facility] 40 mg 9-28 CAPSULE BY ity of capsule 00:00: MOUTH 15 [place] 00 MINS Medical BEFORE A Branch MEAL DAILY omeprazole 1-0 Yes [id number] TAKE ONE [facility] 40 mg 9-28 CAPSULE BY ity of capsule 00:00: MOUTH 15 [place] 00 MINS Medical BEFORE A Branch MEAL DAILY omeprazole 1-0 Yes [id number] TAKE ONE [facility] 40 mg 9-28 CAPSULE BY ity of capsule 00:00: MOUTH 15 [place] 00 MINS Medical BEFORE A Branch MEAL DAILY omeprazole 1-0 Yes [id number] TAKE ONE [facility] 40 mg 9-28 CAPSULE BY ity of capsule 00:00: MOUTH 15 [place] 00 MINS Medical BEFORE A Branch MEAL DAILY omeprazole 1-0 Yes [id number] TAKE ONE [facility] 40 mg 9-28 CAPSULE BY ity of capsule 00:00: MOUTH 15 [place] 00 MINS Medical BEFORE A Branch MEAL DAILY omeprazole 1-0 Yes [id number] TAKE ONE [facility] 40 mg 9-28 CAPSULE BY ity of capsule 00:00: MOUTH 15 [place] 00 MINS Medical BEFORE A Branch MEAL DAILY omeprazole 1-0 Yes [id number] TAKE ONE [facility] 40 mg 9-28 CAPSULE BY ity of capsule 00:00: MOUTH 15 [place] 00 MINS Medical BEFORE A Branch MEAL DAILY omeprazole 1-0 2- No [id number] TAKE ONE [facility] 40 mg 9-28 -30 CAPSULE BY ity of capsule 00:00: 00:00 MOUTH 15 00 :00 MINS Medical BEFORE A Branch MEAL DAILY omeprazole 2- No [id number] TAKE ONE Univers 40 mg 03-17 09-30 CAPSULE BY ity of capsule 00:00: 00:00 MOUTH 15 [place] 00 :00 MINS Medical BEFORE A Branch MEAL DAILY FLONASE 0 Yes [id number] Use 2 Univ ers SENSIMIST 9-27 Sprays in ity o f 27.5 00:00: each [place] mcg/actuati 00 nostril Medic al on nasal daily. Branch spray albuterol Yes [id number] Use as Univers 2.5 mg /3 9-27 6 directed ity of mL (0.083 00:00: every 4-6 [place] as %) 00 hrs as Medical nebulizer needed Branch solution Nebulizer & Yes [id number] Use as Univers Compressor 9-27 6 directed ity o f For Neb 00:00: [place] [facility] FLONASE Yes [id number] Use 2 Univ ers SENSIMIST 9-27 Sprays in ity o f 27.5 00:00: each [place] mcg/actuati 00 nostril Medic al on nasal daily. Branch spray albuterol Yes [id number] Use as Univers 2.5 mg /3 -27 6 directed ity of mL (0.083 00:00: every 4-6 [place] as %) 00 hrs as Medical nebulizer needed Branch solution Nebulizer & Yes [id number] Use as Univers Compressor 9-27 6 directed ity o f For Neb 00:00: [place] [facility] FLONASE Yes [id number] Use 2 Univ ers SENSIMIST 9-27 Sprays in ity o f 27.5 00:00: each [place] mcg/actuati 00 nostril Medic al on nasal daily. Branch spray albuterol Yes [id number] Use as Univers 2.5 mg /3 9-27 6 directed ity of mL (0.083 00:00: every 4-6 [place] as %) 00 hrs as Medical nebulizer needed Branch solution Nebulizer & Yes [id number] Use as Univers Compressor 9-27 6 directed ity o f For Neb 00:00: [place] [facility] Branch FLONASE 0 Yes [id number] Use 2 Univ ers SENSIMIST 9-27 Sprays in ity o f 27.5 00:00: each [place] mcg/actuati 00 nostril Medic al on nasal daily. Branch spray albuterol 0 Yes [id number] Use as Univers 2.5 mg /3 9-27 6 directed ity of mL (0.083 00:00: every 4-6 [place] as %) 00 hrs as Medical nebulizer needed Branch solution Nebulizer & 0 Yes [id number] Use as Univers Compressor 9-27 6 directed ity o f For Neb 00:00: [place] [facility] Branch FLONASE 0 Yes [id number] Use 2 Univ ers SENSIMIST 9-27 Sprays in ity o f 27.5 00:00: each [place] mcg/actuati 00 nostril Medic al on nasal daily. Branch spray albuterol 0 Yes [id number] Use as Univers 2.5 mg /3 9-27 6 directed ity of mL (0.083 00:00: every 4-6 [place] as %) 00 hrs as Medical nebulizer needed Branch solution Nebulizer & 0 Yes [id number] Use as Univers Compressor 9-27 6 directed ity o f For Neb 00:00: [place] [facility] Branch FLONASE 0 Yes [id number] Use 2 Univ ers SENSIMIST 9-27 Sprays in ity o f 27.5 00:00: each [place] mcg/actuati 00 nostril Medic al on nasal daily. Branch spray albuterol 0 Yes [id number] Use as Univers 2.5 mg /3 9-27 6 directed ity of mL (0.083 00:00: every 4-6 [place] as %) 00 hrs as Medical nebulizer needed Branch solution Nebulizer & 0 Yes [id number] Use as Univers Compressor 9-27 6 directed ity o f For Neb 00:00: [place] [facility] Branch FLONASE 0 Yes [id number] Use 2 Univ ers SENSIMIST 9-27 Sprays in ity o f 27.5 00:00: each [place] mcg/actuati 00 nostril Medic al on nasal daily. Branch spray albuterol Yes [id number] Use as Univers 2.5 mg /3 9-27 6 directed ity of mL (0.083 00:00: every 4-6 [place] as %) 00 hrs as Medical nebulizer needed Branch solution Nebulizer & Yes [id number] Use as [facility] Compressor 9-27 6 directed ity o f For Neb 00:00: [place] [facility] FLONASE 0 Yes [id number] Use 2 Univ ers SENSIMIST 9-27 Sprays in ity o f 27.5 00:00: each [place] mcg/actuati 00 nostril Medic al on nasal daily. Branch spray albuterol Yes [id number] Use as Univers 2.5 mg /3 9-27 6 directed ity of mL (0.083 00:00: every 4-6 [place] as %) 00 hrs as Medical nebulizer needed Branch solution Nebulizer & Yes [id number] Use as Univers Compressor 9-27 6 directed ity o f For Neb 00:00: [place] [facility] FLONASE Yes [id number] Use 2 Univ ers SENSIMIST 9-27 Sprays in ity o f 27.5 00:00: each [place] mcg/actuati 00 nostril Medic al on nasal daily. Branch spray albuterol Yes [id number] Use as Univers 2.5 mg /3 9-27 6 directed ity of mL (0.083 00:00: every 4-6 [place] as %) 00 hrs as Medical nebulizer needed Branch solution Nebulizer & Yes [id number] Use as [facility] Compressor 9-27 6 directed ity o f For Neb 00:00: [place] [facility] FLONASE 0 Yes [id number] Use 2 Univ ers SENSIMIST 9-27 Sprays in ity o f 27.5 00:00: each [place] mcg/actuati 00 nostril Medic al on nasal daily. Branch spray albuterol Yes [id number] Use as Univers 2.5 mg /3 9-27 6 directed ity of mL (0.083 00:00: every 4-6 [place] as %) 00 hrs as Medical nebulizer needed Branch solution Nebulizer & Yes [id number] Use as Univers Compressor 9-27 6 directed ity o f For Neb 00:00: [place] [facility] Branch FLONASE Yes [id number] Use 2 Univ ers SENSIMIST 9-27 Sprays in ity o f 27.5 00:00: each [place] mcg/actuati 00 nostril Medic al on nasal daily. Branch spray albuterol Yes [id number] Use as Univers 2.5 mg /3 9-27 6 directed ity of mL (0.083 00:00: every 4-6 [place] as %) 00 hrs as Medical nebulizer needed Branch solution Nebulizer & Yes [id number] Use as [facility] Compressor 9-27 6 directed ity o f For Neb 00:00: [place] [facility] Branch FLONASE Yes [id number] Use 2 Univ ers SENSIMIST 9-27 Sprays in ity o f 27.5 00:00: each [place] mcg/actuati 00 nostril Medic al on nasal daily. Branch spray albuterol Yes [id number] Use as Univers 2.5 mg /3 9-27 6 directed ity of mL (0.083 00:00: every 4-6 [place] as %) 00 hrs as Medical nebulizer needed Branch solution Nebulizer & Yes [id number] Use as [facility] Compressor 9-27 6 directed ity o f For Neb 00:00: [place] [facility] Branch FLONASE Yes [id number] Use 2 Univ ers SENSIMIST 9-27 Sprays in ity o f 27.5 00:00: each [place] mcg/actuati 00 nostril Medic al on nasal daily. Branch spray albuterol Yes [id number] Use as Univers 2.5 mg /3 9-27 6 directed ity of mL (0.083 00:00: every 4-6 [place] as %) 00 hrs as Medical nebulizer needed Branch solution Nebulizer & Yes [id number] Use as [facility] Compressor 9-27 6 directed ity o f For Neb 00:00: [place] [facility] Branch FLONASE Yes [id number] Use 2 Univ ers SENSIMIST 9-27 Sprays in ity o f 27.5 00:00: each [place] mcg/actuati 00 nostril Medic al on nasal daily. Branch spray albuterol Yes [id number] Use as Univers 2.5 mg /3 9-27 6 directed ity of mL (0.083 00:00: every 4-6 [place] as %) 00 hrs as Medical nebulizer needed Branch solution Nebulizer & Yes [id number] Use as [facility] Compressor 9-27 6 directed ity o f For Neb 00:00: [place] [facility] FLONASE 0 Yes [id number] Use 2 Univ ers SENSIMIST 9-27 Sprays in ity o f 27.5 00:00: each [place] mcg/actuati 00 nostril Medic al on nasal daily. Branch spray albuterol Yes [id number] Use as Univers 2.5 mg /3 9-27 6 directed ity of mL (0.083 00:00: every 4-6 [place] as %) 00 hrs as Medical nebulizer needed Branch solution Nebulizer & Yes [id number] Use as [facility] Compressor 9-27 6 directed ity o f For Neb 00:00: [place] [facility] FLONASE Yes [id number] Use 2 Univ ers SENSIMIST 9-27 Sprays in ity o f 27.5 00:00: each [place] mcg/actuati 00 nostril Medic al on nasal daily. Branch spray albuterol 0 Yes [id number] Use as Univers 2.5 mg /3 9-27 6 directed ity of mL (0.083 00:00: every 4-6 [place] as %) 00 hrs as Medical nebulizer needed Branch solution Nebulizer & 0 Yes [id number] Use as [facility] Compressor 9-27 6 directed ity o f For Neb 00:00: [place] [facility] FLONASE 0 Yes [id number] Use 2 Univ ers SENSIMIST 9-27 Sprays in ity o f 27.5 00:00: each [place] mcg/actuati 00 nostril Medic al on nasal daily. Branch spray albuterol Yes [id number] Use as Univers 2.5 mg /3 9-27 6 directed ity of mL (0.083 00:00: every 4-6 [place] as %) 00 hrs as Medical nebulizer needed Branch solution Nebulizer & Yes [id number] Use as [facility] Compressor 9-27 6 directed ity o f For Neb 00:00: [place] [facility] Branch FLONASE 0 Yes [id number] Use 2 Univ ers SENSIMIST 9-27 Sprays in ity o f 27.5 00:00: each [place] mcg/actuati 00 nostril Medic al on nasal daily. Branch spray albuterol Yes [id number] Use as Univers 2.5 mg /3 9-27 6 directed ity of mL (0.083 00:00: every 4-6 [place] as %) 00 hrs as Medical nebulizer needed Branch solution Nebulizer & Yes [id number] Use as [facility] Compressor 9-27 6 directed ity o f For Neb 00:00: Medical Branch FLONASE Yes [id number] Use 2 Univ ers SENSIMIST 9-27 Sprays in ity o f 27.5 00:00: each [place] mcg/actuati 00 nostril Medic al on nasal daily. Branch spray albuterol Yes [id number] Use as Univers 2.5 mg /3 9-27 6 directed ity of mL (0.083 00:00: every 4-6 [place] as %) 00 hrs as Medical nebulizer needed Branch solution Nebulizer & Yes [id number] Use as [facility] Compressor 9-27 6 directed ity o f For Neb 00:00: Medical Branch FLONASE Yes [id number] Use 2 Univ ers SENSIMIST 9-27 Sprays in ity o f 27.5 00:00: each [place] mcg/actuati 00 nostril Medic al on nasal daily. Branch spray albuterol Yes [id number] Use as Univers 2.5 mg /3 9-27 6 directed ity of mL (0.083 00:00: every 4-6 [place] as %) 00 hrs as Medical nebulizer needed Branch solution Nebulizer & Yes [id number] Use as [facility] Compressor 9-27 6 directed ity o f For Neb 00:00: [place] [facility] Branch FLONASE 0 Yes [id number] Use 2 Univ ers SENSIMIST 9-27 Sprays in ity o f 27.5 00:00: each [place] mcg/actuati 00 nostril Medic al on nasal daily. Branch spray albuterol 0 Yes [id number] Use as Univers 2.5 mg /3 9-27 6 directed ity of mL (0.083 00:00: every 4-6 [place] as %) 00 hrs as Medical nebulizer needed Branch solution Nebulizer & 0 Yes [id number] Use as [facility] Compressor 9-27 6 directed ity o f For Neb 00:00: [place] [facility] Branch FLONASE Yes [id number] Use 2 Univ ers SENSIMIST 9-27 Sprays in ity o f 27.5 00:00: each [place] mcg/actuati 00 nostril Medic al on nasal daily. Branch spray albuterol Yes [id number] Use as [facility] 2.5 mg /3 9-27 6 directed ity of mL (0.083 00:00: every 4-6 [place] as %) 00 hrs as Medical nebulizer needed Branch solution Nebulizer & 0 Yes [id number] Use as [facility] Compressor 9-27 6 directed ity o f For Neb 00:00: [place] [facility] Branch FLONASE 0 Yes [id number] Use 2 Univ ers SENSIMIST 9-27 Sprays in ity o f 27.5 00:00: each [place] mcg/actuati 00 nostril Medic al on nasal daily. Branch spray albuterol 0 Yes [id number] Use as [facility] 2.5 mg /3 9-27 6 directed ity of mL (0.083 00:00: every 4-6 [place] as %) 00 hrs as Medical nebulizer needed Branch solution Nebulizer & 0 Yes [id number] Use as [facility] Compressor 9-27 6 directed ity o f For Neb 00:00: [place] [facility] Branch FLONASE 0 Yes [id number] Use 2 Univ ers SENSIMIST 9-27 Sprays in ity o f 27.5 00:00: each [place] mcg/actuati 00 nostril Medic al on nasal daily. Branch spray albuterol Yes [id number] Use as [facility] 2.5 mg /3 9-27 6 directed ity of mL (0.083 00:00: every 4-6 [place] as %) 00 hrs as Medical nebulizer needed Branch solution Nebulizer & 0 Yes [id number] Use as [facility] Compressor 9-27 6 directed ity o f For Neb 00:00: [place] [facility] FLONASE 0 Yes [id number] Use 2 Univ ers SENSIMIST 9-27 Sprays in ity o f 27.5 00:00: each [place] mcg/actuati 00 nostril Medic al on nasal daily. Branch spray albuterol Yes [id number] Use as [facility] 2.5 mg /3 9-27 6 directed ity of mL (0.083 00:00: every 4-6 [place] as %) 00 hrs as Medical nebulizer needed Branch solution Nebulizer & Yes [id number] Use as [facility] Compressor 9-27 6 directed ity o f For Neb 00:00: [place] [facility] FLONASE Yes [id number] Use 2 Univ ers SENSIMIST 9-27 Sprays in ity o f 27.5 00:00: each [place] mcg/actuati 00 nostril Medic al on nasal daily. Branch spray albuterol Yes [id number] Use as [facility] 2.5 mg /3 9-27 6 directed ity of mL (0.083 00:00: every 4-6 [place] as %) 00 hrs as Medical nebulizer needed Branch solution Nebulizer & Yes [id number] Use as [facility] Compressor 9-27 6 directed ity o f For Neb 00:00: [place] [facility] albuterol 0 Yes [id number] Use as [facility] 2.5 mg /3 9-27 6 directed ity of mL (0.083 00:00: every 4-6 [place] as %) 00 hrs as Medical nebulizer needed Branch solution Nebulizer & 0 Yes [id number] Use as [facility] Compressor 9-27 6 directed ity o f For Neb 00:00: [place] [facility] Nebulizer & 0 Yes [id number] Use as [facility] Compressor 9-27 6 directed ity o f For Neb 00:00: Medical Branch Nebulizer & 2020-0 Yes [id number] Use as [facility] Compressor 9-27 6 directed ity o f For Neb 00:00: Medical Branch Nebulizer & 2020-0 Yes [id number] Use as [facility] Compressor 9-27 6 directed ity o f For Neb 00:00: Medical Branch Nebulizer & 2020-0 Yes [id number] Use as [facility] Compressor 9-27 6 directed ity o f For Neb 00:00: Medical Branch Nebulizer & 2020-0 Yes [id number] Use as [facility] Compressor 9-27 6 directed ity o f For Neb 00:00: Medical Branch Nebulizer & 2020-0 Yes [id number] Use as [facility] Compressor 9-27 6 directed ity o f For Neb 00:00: Medical Branch Nebulizer & 0 Yes [id number] Use as [facility] Compressor 9-27 6 directed ity o f For Neb 00:00: Medical Branch Nebulizer & 2020-0 Yes [id number] Use as [facility] Compressor 9-27 6 directed ity o f For Neb 00:00: Medical Branch Nebulizer & 2020-0 Yes [id number] Use as [facility] Compressor 9-27 6 directed ity o f For Neb 00:00: Medical Branch Nebulizer & 2020-0 Yes [id number] Use as [facility] Compressor 9-27 6 directed ity o f For Neb 00:00: Medical Branch Nebulizer & 2020-0 Yes [id number] Use as [facility] Compressor 9-27 6 directed ity o f For Neb 00:00: Medical Branch Nebulizer & 2020-0 Yes [id number] Use as [facility] Compressor 9-27 6 directed ity o f For Neb 00:00: Medical Branch FLONASE 2021- No [id number] Use 2 Uni vers SENSIMIST 9-27 10-31 Sprays in ity of 27.5 00:00: 00:00 each [place] mcg/actuati 00 :00 nostril Medic al on nasal daily. Branch spray albuterol 2021- No [id number] Use as [facility] 2.5 mg /3 03-16 6 directed ity o f mL (0.083 00:00: 00:00 every 4-6 [place] 00 :00 hrs as Medical nebulizer needed Branch solution acetaminoph 2020- No acute pain 1{tbl} Take 1 [facility] en-codeine 5-07 05-11 tablet by ity of (TYLENOL-CO 00:00: 04:59 [place] DEINE #3) 00 :00 every 6 Medical 300-30 mg (six) Branch tablet hours as needed for Pain (scale 4-6) for up to 3 days. Indication s: acute pain ondansetron Yes [id number] 4mg Take 1 Univers (ZOFRAN) 4 5-05 tablet by ity of mg tablet 00:00: mouth [place] 00 every 8 Medical (eight) Branch hours as needed for Nausea and Vomiting (N/V). ondansetron Yes [id number] 4mg Take 1 Univers (ZOFRAN) 4 5-05 tablet by ity of mg tablet 00:00: mouth [place] 00 every 8 Medical (eight) Branch hours as needed for Nausea and Vomiting (N/V). ondansetron Yes [id number] 4mg Take 1 Univers (ZOFRAN) 4 5-05 tablet by ity of mg tablet 00:00: mouth [place] 00 every 8 Medical (eight) Branch hours as needed for Nausea and Vomiting (N/V). ondansetron Yes [id number] 4mg Take 1 Univers (ZOFRAN) 4 5-05 tablet by ity of mg tablet 00:00: mouth [place] 00 every 8 Medical (eight) Branch hours as needed for Nausea and Vomiting (N/V). ondansetron Yes [id number] 4mg Take 1 Univers (ZOFRAN) 4 5-05 tablet by ity of mg tablet 00:00: mouth [place] 00 every 8 Medical (eight) Branch hours as needed for Nausea and Vomiting (N/V). ondansetron Yes [id number] 4mg Take 1 Univers (ZOFRAN) 4 5-05 tablet by ity of mg tablet 00:00: mouth [place] 00 every 8 Medical (eight) Branch hours as needed for Nausea and Vomiting (N/V). ondansetron 2020-0 Yes [id number] 4mg Take 1 Univers (ZOFRAN) 4 5-05 tablet by ity of mg tablet 00:00: mouth [place] 00 every 8 Medical (eight) Branch hours as needed for Nausea and Vomiting (N/V). ondansetron 2020-0 Yes [id number] 4mg Take 1 Univers (ZOFRAN) 4 5-05 tablet by ity of mg tablet 00:00: mouth [place] 00 every 8 Medical (eight) Branch hours as needed for Nausea and Vomiting (N/V). ondansetron 2020-0 Yes [id number] 4mg Take 1 Univers (ZOFRAN) 4 5-05 tablet by ity of mg tablet 00:00: mouth [place] 00 every 8 Medical (eight) Branch hours as needed for Nausea and Vomiting (N/V). ondansetron 2020-0 Yes [id number] 4mg Take 1 Univers (ZOFRAN) 4 5-05 tablet by ity of mg tablet 00:00: mouth [place] 00 every 8 Medical (eight) Branch hours as needed for Nausea and Vomiting (N/V). ondansetron 2020-0 Yes [id number] 4mg Take 1 Univers (ZOFRAN) 4 5-05 tablet by ity of mg tablet 00:00: mouth [place] 00 every 8 Medical (eight) Branch hours as needed for Nausea and Vomiting (N/V). ondansetron 2020-0 Yes [id number] 4mg Take 1 Univers (ZOFRAN) 4 5-05 tablet by ity of mg tablet 00:00: mouth [place] 00 every 8 Medical (eight) Branch hours as needed for Nausea and Vomiting (N/V). ondansetron 2020-0 Yes [id number] 4mg Take 1 Univers (ZOFRAN) 4 5-05 tablet by ity of mg tablet 00:00: mouth [place] 00 every 8 Medical (eight) Branch hours as needed for Nausea and Vomiting (N/V). ondansetron 2020-0 Yes [id number] 4mg Take 1 Univers (ZOFRAN) 4 5-05 tablet by ity of mg tablet 00:00: mouth [place] 00 every 8 Medical (eight) Branch hours as needed for Nausea and Vomiting (N/V). ondansetron 1-0 Yes [id number] 4mg Take 1 Univers (ZOFRAN) 4 5-05 tablet by ity of mg tablet 00:00: mouth [place] 00 every 8 Medical (eight) Branch hours as needed for Nausea and Vomiting (N/V). ondansetron 2020-0 Yes [id number] 4mg Take 1 Univers (ZOFRAN) 4 5-05 tablet by ity of mg tablet 00:00: mouth [place] 00 every 8 Medical (eight) Branch hours as needed for Nausea and Vomiting (N/V). ondansetron 2020-0 Yes [id number] 4mg Take 1 Univers (ZOFRAN) 4 5-05 tablet by ity of mg tablet 00:00: mouth [place] 00 every 8 Medical (eight) Branch hours as needed for Nausea and Vomiting (N/V). ondansetron 2020-0 Yes [id number] 4mg Take 1 Univers (ZOFRAN) 4 5-05 tablet by ity of mg tablet 00:00: mouth [place] 00 every 8 Medical (eight) Branch hours as needed for Nausea and Vomiting (N/V). ondansetron 2020-0 Yes [id number] 4mg Take 1 Univers (ZOFRAN) 4 5-05 tablet by ity of mg tablet 00:00: mouth [place] 00 every 8 Medical (eight) Branch hours as needed for Nausea and Vomiting (N/V). ondansetron 2020-0 Yes [id number] 4mg Take 1 Univers (ZOFRAN) 4 5-05 tablet by ity of mg tablet 00:00: mouth [place] 00 every 8 Medical (eight) Branch hours as needed for Nausea and Vomiting (N/V). ondansetron 1-0 Yes [id number] 4mg Take 1 Univers (ZOFRAN) 4 5-05 tablet by ity of mg tablet 00:00: mouth [place] 00 every 8 Medical (eight) Branch hours as needed for Nausea and Vomiting (N/V). ondansetron 1-0 Yes [id number] 4mg Take 1 Univers (ZOFRAN) 4 5-05 tablet by ity of mg tablet 00:00: mouth [place] 00 every 8 Medical (eight) Branch hours as needed for Nausea and Vomiting (N/V). insulin Yes Diabetes Blood Unive rs aspart 5-05 mellitus glucose < ity of U-100 00:00: type 2 with 90 : Hold (NOVOLOG 00 complicatio Novolog, Medical FLEXPEN ns, do not use Branch U-100 uncontrolle Blood INSULIN) d glucose 100 unit/mL 90-120, (3 mL) subtract 1 injection Unit, give 4 units Blood glucose 120-150 : GIVE 5 UNITS Blood glucose 150 - 180 add 1 unit, give 6 units Blood glucose 181 - 210 add 2 units, given 7 units Blood glucose 211 - 240 add 3 units, give 8 units Blood glucose 241 - 300 add 4 units, give 9 units Blood glucose > 300, add 5 Units. Given 10 units, recheck in 3 hours. If blood glucose >300 seek medical attention ondansetron Yes Nausea 4mg Take 1 Un matthieu (ZOFRAN) 4 5-05 tablet by ity of mg tablet 00:00: mouth 00 every 8 Medical (eight) Branch hours as needed for Nausea and Vomiting (N/V). proMETHazin Yes Nausea 1-2 tabs Univers e 12.5 mg 5-05 every 6 ity of tablet 00:00: hrs prn nausea and Medical vomiting Branch insulin Yes Diabetes Blood Unive rs aspart 5-05 mellitus glucose < ity of U-100 00:00: type 2 with 90 : Hold (NOVOLOG 00 complicatio Novolog, Medical FLEXPEN ns, do not use Branch U-100 uncontrolle Blood INSULIN) d glucose 100 unit/mL 90-120, (3 mL) subtract 1 injection Unit, give 4 units Blood glucose 120-150 : GIVE 5 UNITS Blood glucose 150 - 180 add 1 unit, give 6 units Blood glucose 181 - 210 add 2 units, given 7 units Blood glucose 211 - 240 add 3 units, give 8 units Blood glucose 241 - 300 add 4 units, give 9 units Blood glucose > 300, add 5 Units. Given 10 units, recheck in 3 hours. If blood glucose >300 seek medical attention ondansetron Yes Nausea 4mg Take 1 Un mat[facility]ieu (ZOFRAN) 4 5-05 tablet by ity of mg tablet 00:00: mouth [place] 00 every 8 Medical (eight) Branch hours as needed for Nausea and Vomiting (N/V). proMETHazin Yes Nausea 1-2 tabs Univers e 12.5 mg 5-05 every 6 ity of tablet 00:00: hrs prn [place] 00 nausea and Medical vomiting Branch ondansetron 2021- No [id number] 4mg Take 1 Univers (ZOFRAN) 4 5-05 10-31 tablet by ity of mg tablet 00:00: 00:00 mouth [place] 00 :00 every 8 Medical (eight) Branch hours as needed for Nausea and Vomiting (N/V). ondansetron 2021- No [id number] 4mg Take 1 Univers (ZOFRAN) 4 5-05 10-31 tablet by ity of mg tablet 00:00: 00:00 mouth [place] 00 :00 every 8 Medical (eight) Branch hours as needed for Nausea and Vomiting (N/V). aspirin 81 Yes Heart 81mg Take 1 Univ ers mg chewable 5-02 disease tablet by ity of tablet 00:00: mouth [place] 00 daily. Medical Branch clopidogreL Yes Heart 75mg Take 1 Uni vers 75 mg 5-02 disease tablet by ity of tablet 00:00: mouth [place] 00 daily. Medical Branch docusate Yes Heart 100mg Take 1 Unive rs 100 mg 5-02 disease capsule by ity of capsule 00:00: mouth [place] 00 daily. Medical Branch aspirin 81 Yes Heart 81mg Take 1 Univ ers mg chewable 5-02 disease tablet by ity of tablet 00:00: mouth [place] 00 daily. Medical Branch clopidogreL Yes Heart 75mg Take 1 Uni vers 75 mg 5-02 disease tablet by ity of tablet 00:00: mouth [place] 00 daily. Medical Branch docusate Yes Heart 100mg Take 1 Unive rs 100 mg 5-02 disease capsule by ity of capsule 00:00: mouth [place] 00 daily. Medical Branch NaCl 0.9% No Heart 2g Infuse 2 g Univers (NS) PgBk 10-19 05-23 disease every 12 it y of 100 mL with 00:00: 04:59 (twelve) [place] cefTRIAXone 00 :00 hours for Med ical 2 gram SolR 20 days. Bran ch 2 g NaCl 0.9% 2020- No Heart 2g Infuse 2 g Univers (NS) PgBk 5-02 05-23 disease every 12 it y of 100 mL with 00:00: 04:59 (twelve) [place] cefTRIAXone 00 :00 hours for Med ical 2 gram SolR 20 days. Bran ch 2 g bisacodyL Yes Heart 10mg Insert 1 Uni vers 10 mg 5-01 disease Suppositor ity o f suppository 00:00: y [place] 00 rectum Medical once daily Branch as needed for Constipati on (For bowel movent). furosemide Yes Heart 20mg Take 1 Univ ers 20 mg 5-01 disease tablet by ity of tablet 00:00: mouth [place] 00 every Medical morning Branch and evening. ferrous Yes Heart 325mg Take 1 Univer s sulfate 325 5-01 disease tablet by ity of mg (65 mg 00:00: mouth 2 [place] iron) 00 (two) Medical tablet times Branch daily before breakfast and dinner. KCL 20 mEq Yes Heart 20meq Take 1 Uni vers tablet 5-01 disease tablet by ity o f 00:00: mouth 2 [place] 00 (two) Medical times Branch daily. HYDROcodone Yes acute pain 1{tbl} Take 1 Univers -acetaminop 5-01 tablet by ity of hen 5-325 00:00: mouth [place] mg tablet 00 every 4 Medical (four) Branch hours as needed for Pain (scale 4-6). Indication s: acute pain bisacodyL Yes Heart 10mg Insert 1 Uni vers 10 mg 5-01 disease Suppositor ity o f suppository 00:00: y into [place] 00 rectum Medical once daily Branch as needed for Constipati on (For bowel movent). furosemide Yes Heart 20mg Take 1 Univ ers 20 mg 5-01 disease tablet by ity of tablet 00:00: mouth [place] 00 every Medical morning Branch and evening. ferrous 2020- Yes Heart 325mg Take 1 Univer s sulfate 325 5-01 disease tablet by ity of mg (65 mg 00:00: mouth 2 [place] iron) 00 (two) Medical tablet times Branch daily before breakfast and dinner. KCL 20 mEq 2020- Yes Heart 20meq Take 1 Uni vers tablet 5-01 disease tablet by ity o f 00:00: mouth 2 [place] 00 (two) Medical times Branch daily. HYDROcodone Yes acute pain 1{tbl} Take 1 Univers -acetaminop 5-01 tablet by ity of hen 5-325 00:00: mouth [place] mg tablet 00 every 4 Medical (four) Branch hours as needed for Pain (scale 4-6). Indication s: acute pain acetaminoph 2021- No Heart 650mg Take 2 U nivers en 325 mg 10-18- disease tablets by ity of tablet 00:00: 04:59 mouth [place] 00 :00 every 6 Medical (six) Branch hours as needed for Temp > 38.5 C. acetaminoph 2020-2021- No Heart 650mg Take 2 U nivers en 325 mg 10-18 disease tablets by ity of tablet 00:00: 04:59 mouth [place] 00 :00 every 6 Medical (six) Branch hours as needed for Temp > 38.5 C. penicillin 2020-2020- No Heart 2.410 Infuse Un matthieu g potassium 5-06 24-23 disease 2,400,000 ity of 20 million 00:00: 04:59 Units [place] unit 00 :00 daily for Medical injection 21 days. Branch penicillin 2020-2020- No Heart 2.410 Infuse Un mat[facility]ieu g potassium 5-06 24-23 disease 2,400,000 ity of 20 million 00:00: 04:59 Units [place] unit 00 :00 daily for Medical injection 21 days. Branch nicotine 14 Yes Cigarette 1{patch Apply 1 [facility] mg/24 hr 4-02 nicotine } Patch to ity of patch 00:00: dependence area(s) [place] 00 with other every 24 Medic al nicotine-in (twenty-fo Br anch duced ur) hours. disorder Apply 21mg patch daily x 6 weeks; then apply 14mf patch daily x 2 weeks; then apply 7mg patch daily x 2 weeks. Stop smoking on initiation of therapy nicotine 7 Yes Cigarette 1{patch Apply 1 [facility] mg/24 hr 4-02 nicotine } Patch to ity of patch 00:00: dependence area(s) [place] 00 with other every 24 Medic al nicotine-in (twenty-fo Br anch duced ur) hours. disorder Apply 21mg patch daily x 6 weeks; then apply 14mf patch daily x 2 weeks; then apply 7mg patch daily x 2 weeks. Stop smoking on initiation of therapy nicotine Yes Cigarette 1{patch Apply 1 [facility] mg/24 hr 4-02 nicotine } Patch to ity of patch 00:00: dependence area(s) [place] 00 with other daily. Medical nicotine-in Apply 21mg Br anch duced patch disorder daily x 6 weeks; then apply 14mf patch daily x 2 weeks; then apply 7mg patch daily x 2 weeks. Stop smoking on initiation of therapy nicotine Yes Cigarette 1{patch Apply 1 [facility] mg/24 hr 4-02 nicotine } Patch to ity of patch 00:00: dependence area(s) [place] 00 with other every 24 Medic al nicotine-in (twenty-fo Br anch duced ur) hours. disorder Apply 21mg patch daily x 6 weeks; then apply 14mf patch daily x 2 weeks; then apply 7mg patch daily x 2 weeks. Stop smoking on initiation of therapy nicotine Yes Cigarette 1{patch Apply 1 [facility] mg/24 hr 4-02 nicotine } Patch to ity of patch 00:00: dependence area(s) [place] 00 with other every 24 Medic al nicotine-in (twenty-fo Br anch duced ur) hours. disorder Apply 21mg patch daily x 6 weeks; then apply 14mf patch daily x 2 weeks; then apply 7mg patch daily x 2 weeks. Stop smoking on initiation of therapy nicotine Yes Cigarette 1{patch Apply 1 [facility] mg/24 hr 4-02 nicotine } Patch to ity of patch 00:00: dependence area(s) [place] 00 with other daily. Medical nicotine-in Apply 21mg Br anch duced patch disorder daily x 6 weeks; then apply 14mf patch daily x 2 weeks; then apply 7mg patch daily x 2 weeks. Stop smoking on initiation of therapy Insulin Yes Diabetes 10U inject 10 U nivers Detemir 3-04 mellitus Units ity of (LEVEMIR 00:00: type 2 with under the [place] FLEXTOUCH 00 complicatio skin 2 M edical U-100 ns, (two) Branch INSULN) 100 uncontrolle times unit/mL (3 d daily. mL) injection atorvastati Yes Mixed 40mg Take 1 Uni vers n 40 mg 3-04 hyperlipide tablet by ity of tablet 00:00: nena mouth at [place] 00 bedtime. Medical Branch Insulin Yes Diabetes 10U inject 10 U nivers Detemir 3-04 mellitus Units ity of (LEVEMIR 00:00: type 2 with under the [place] FLEXTOUCH 00 complicatio skin 2 M edical U-100 ns, (two) Branch INSULN) 100 uncontrolle times unit/mL (3 d daily. mL) injection atorvastati Yes Mixed 40mg Take 1 Uni vers n 40 mg 3-04 hyperlipide tablet by ity of tablet 00:00: nena mouth at [place] 00 bedtime. Medical Branch fluocinonid Yes Rash Apply to Un mat[facility] e 0.05 % 2-11 rash once ity of cream 00:00: daily. Medical Branch fluocinonid Yes Rash Apply to [facility] e 0.05 % 2-11 rash once ity of cream 00:00: daily. Medical Branch amitriptyli Yes Fibromyalgi 10mg Take 1 Univers ne 10 mg 2-02 a syndrome tablet by ity of tablet 00:00: mouth at [place] 00 bedtime. Medical Branch SITagliptin Yes Type 2 100mg Take 1 U nivers (JANUVIA) 2-02 diabetes tablet by i ty of 100 mg 00:00: mellitus mouth [place] tablet 00 without daily. Medical complicatio Branch n, without long-term current use of insulin empaglifloz Yes Type 2 10mg Take 10 mg Univers in 2-02 diabetes by mouth ity of (JARDIANCE) 00:00: mellitus daily. [place] 10 mg Tab 00 without Medical complicatio Branch n, without long-term current use of insulin fenofibrate Yes Mixed TAKE ONE U nivers micronized 2-02 hyperlipide CAPSULE BY ity of 43 mg 00:00: nena MOUTH [place] capsule 00 DAILY Medical Branch buPROPion Yes Anxiety 150mg Take 1 Un mat[facility]ieu XL 2-02 tablet by ity of (WELLBUTRIN 00:00: mouth [place] XL) 150 mg 00 daily. Medical 24 hr Branch tablet DULoxetine Yes Anxiety 20mg Take 20 mg Univers 20 mg CDRS 2-02 by mouth 2 ity of 00:00: (two) [place] 00 times Medical daily. Branch traZODone Yes Insomnia, 50mg Take 1 U nivers 50 mg 2-02 unspecified tablet by it y of tablet 00:00: type mouth at [place] 00 bedtime. Medical Branch blood sugar Yes Type 2 E11.9Measu Univers diagnostic 2-02 diabetes re blood i ty of strip 00:00: mellitus sugar BID [place] 00 without Medical complicatio Branch n, without long-term current use of insulin lancets 28 Yes Type 2 E11.9: Uni vers gauge Misc 2- diabetes Measure it y of 00:00: mellitus blood [place] 00 without sugar BID Medical complicatio Branch n, without long-term current use of insulin amitriptyli Yes Fibromyalgi 10mg Take 1 [facility] ne 10 mg 202 a syndrome tablet by ity of tablet 00:00: mouth at [place] 00 bedtime. Medical Branch SITagliptin Yes Type 2 100mg Take 1 U nivers (JANUVIA) 2-02 diabetes tablet by i ty of 100 mg 00:00: mellitus mouth [place] tablet 00 without daily. Medical complicatio Branch n, without long-term current use of insulin empaglifloz Yes Type 2 10mg Take 10 mg [facility] in 2-02 diabetes by mouth ity of (JARDIANCE) 00:00: mellitus daily. [place] 10 mg Tab 00 without Medical complicatio Branch n, without long-term current use of insulin fenofibrate Yes Mixed TAKE ONE U nivers micronized - hyperlipide CAPSULE BY ity of 43 mg 00:00: nena MOUTH [place] capsule 00 DAILY Medical Branch buPROPion Yes Anxiety 150mg Take 1 Un matthieu XL 2-02 tablet by ity of (WELLBUTRIN 00:00: mouth [place] XL) 150 mg 00 daily. Medical 24 hr Branch tablet DULoxetine Yes Anxiety 20mg Take 20 mg Univers 20 mg CDRS 2-02 by mouth 2 ity of 00:00: (two) [place] 00 times Medical daily. Branch traZODone Yes Insomnia, 50mg Take 1 U nivers 50 mg 2-02 unspecified tablet by it y of tablet 00:00: type mouth at [place] 00 bedtime. Medical Branch blood sugar Yes Type 2 E11.9Measu [facility] diagnostic 2-02 diabetes re blood i ty of strip 00:00: mellitus sugar BID [place] 00 without Medical complicatio Branch n, without long-term current use of insulin lancets 28 Yes Type 2 E11.9: Uni vers gauge Misc 2-02 diabetes Measure it y of 00:00: mellitus blood [place] 00 without sugar BID Medical complicatio Branch n, without long-term current use of insulin medroxyPROG 2020-1 Yes Menorrhagia 150mg [facility] ESTERone 1-05 with ity of (DEPO-PROVE 22:00: irregular [place] RA) 00 cycle Medical injection Branch 150 mg medroxyPROG 2020-1 Yes Menorrhagia 150mg [facility] ESTERone 1-05 with ity of (DEPO-PROVE 22:00: irregular [place] RA) 00 cycle Medical injection Branch 150 mg medroxyPROG 2020-1 Yes [id number] 150mg [facility] ESTERone 1-05 ity of (DEPO-PROVE 22:00: [place] RA) 00 Medical injection Branch 150 mg medroxyPROG 2020-1 Yes [id number] 150mg [facility] ESTERone 1-05 ity of (DEPO-PROVE 22:00: [place] RA) 00 Medical injection Branch 150 mg medroxyPROG 2020-1 Yes [id number] 150mg [facility] ESTERone 1-05 ity of (DEPO-PROVE 22:00: [place] RA) 00 Medical injection Branch 150 mg medroxyPROG 2020-1 Yes [id number] 150mg [facility] ESTERone 1-05 ity of (DEPO-PROVE 22:00: [place] RA) 00 Medical injection Branch 150 mg medroxyPROG 2020-1 Yes [id number] 150mg [facility] ESTERone 1-05 ity of (DEPO-PROVE 22:00: [place] RA) 00 Medical injection Branch 150 mg medroxyPROG 2020-1 Yes [id number] 150mg [facility] ESTERone 1-05 ity of (DEPO-PROVE 22:00: [place] RA) 00 Medical injection Branch 150 mg medroxyPROG 2020-1 Yes [id number] 150mg [facility] ESTERone 1-05 ity of (DEPO-PROVE 22:00: [place] RA) 00 Medical injection Branch 150 mg medroxyPROG 2020- Yes [id number] 150mg [facility] ESTERone 1-05 ity of (DEPO-PROVE 22:00: [place] RA) 00 Medical injection Branch 150 mg medroxyPROG 2020- Yes [id number] 150mg [facility] ESTERone 1-05 ity of (DEPO-PROVE 22:00: [place] RA) 00 Medical injection Branch 150 mg medroxyPROG 2020- Yes [id number] 150mg Univers ESTERone 1-05 ity of (DEPO-PROVE 22:00: [place] RA) 00 Medical injection Branch 150 mg medroxyPROG 2019-2021- No [id number] 150mg Univers ESTERone 1-05 09-30 ity of (DEPO-PROVE 22:00: 14:23 [place] RA) 00 :41 Medical injection Branch 150 mg medroxyPROG 2019-2021- No [id number] 150mg Univers ESTERone 1-05 09-30 ity of (DEPO-PROVE 22:00: 14:23 [place] RA) 00 :41 Medical injection Branch 150 mg omeprazole 2019-06 Yes Dyspepsia 1 po 15 Univers 40 mg 0-30 mins ity of capsule 00:00: before a [place] meal once Medical daily Branch omeprazole 2019-06 Yes Dyspepsia 1 po 15 Univers 40 mg 0-30 mins ity of capsule 00:00: before a [place] 00 meal once Medical daily Branch bictegrav-e 0 Yes Symptomatic 1{tbl} Take 1 Univers mtricit-ten 9-15 HIV tablet by ity of ofov ala 00:00: infection mouth [place] 50-200-25 00 daily. Medical mg tablet Branch bictegrav-e Yes Symptomatic 1{tbl} Take 1 Univers mtricit-ten 9-15 HIV tablet by ity of ofov ala 00:00: infection mouth [place] 50-200-25 00 daily. Medical mg tablet Branch Immunizations Ordered Filled Immunization Date Status Comments [facility] e Immunization Name Name Pneumococcal 2022-04-14 Completed Universit y of Conjugate, PCV20 00:00:00 [facility] dical (Prevnar 20) Branch Pneumococcal 2022-04-14 Completed Universit y of Conjugate, PCV20 00:00:00 [facility] dical (Prevnar 20) Branch Pneumococcal 2022-04-14 Completed Universit y of Conjugate, PCV20 00:00:00 [place] [facility] dical (Prevnar 20) Branch Pneumococcal 20 2022-04-14 Completed Universit y of Conjugate, PCV20 00:00:00 [place] Me dical (Prevnar 20) Branch Pneumococcal 20 2022-04-14 Completed Universit y of Conjugate, PCV20 00:00:00 [place] Me dical (Prevnar 20) Branch Pneumococcal 20 2022-04-14 Completed Universit y of Conjugate, PCV20 00:00:00 [place] Me dical (Prevnar 20) Branch Pneumococcal 20 2022-04-14 Completed Universit y of Conjugate, PCV20 00:00:00 [place] Me dical (Prevnar 20) Branch Pneumococcal 20 2022-04-14 Completed Universit y of Conjugate, PCV20 00:00:00 [place] Me dical (Prevnar 20) Branch Pneumococcal 20 2022-04-14 Completed Universit y of Conjugate, PCV20 00:00:00 [place] Me dical (Prevnar 20) Branch Pneumococcal 20 2022-04-14 Completed Universit y of Conjugate, PCV20 00:00:00 [place] Me dical (Prevnar 20) Branch Pneumococcal 20 2022-04-14 Completed Universit y of Conjugate, PCV20 00:00:00 [place] Me dical (Prevnar 20) Branch Pneumococcal 20 2022-04-14 Completed Universit y of Conjugate, PCV20 00:00:00 [place] Me dical (Prevnar 20) Branch Pneumococcal 20 2022-04-14 Completed Universit y of Conjugate, PCV20 00:00:00 [place] Me dical (Prevnar 20) Branch Pneumococcal 20 2022-04-14 Completed Universit y of Conjugate, PCV20 00:00:00 [place] Me dical (Prevnar 20) Branch Pneumococcal 20 2022-04-14 Completed Universit y of Conjugate, PCV20 00:00:00 [place] Me dical (Prevnar 20) Branch Pneumococcal 20 2022-04-14 Completed Universit y of Conjugate, PCV20 00:00:00 [place] Me dical (Prevnar 20) Branch Pneumococcal 20 2022-04-14 Completed Universit y of Conjugate, PCV20 00:00:00 [place] Me dical (Prevnar 20) Branch Pneumococcal 20 2022-04-14 Completed Universit y of Conjugate, PCV20 00:00:00 [place] [facility] dical (Prevnar 20) Branch Pneumococcal 20 2022-04-14 Completed Universit y of Conjugate, PCV20 00:00:00 [facility] dical (Prevnar 20) Branch Pneumococcal 20 2022-04-14 Completed Universit y of Conjugate, PCV20 00:00:00 [facility] dical (Prevnar 20) Branch Pneumococcal 20 2022-04-14 Completed Universit y of Conjugate, PCV20 00:00:00 [facility] dical (Prevnar 20) Branch Pneumococcal 13 2020-11-12 Completed Universit y of Conjugate, PCV13 00:00:00 [facility] dical (Prevnar 13) Branch Twinrix (hep a/hep 2020-11-12 Completed Univer sity of b) 00:00:00 [facility] Pneumococcal 13 2020-11-12 Completed Universit y of Conjugate, PCV13 00:00:00 [facility] dical (Prevnar 13) Branch Twinrix (hep a/hep 2020-11-12 Completed Univer sity of b) 00:00:00 [facility] Pneumococcal 13 2020-11-12 Completed Universit y of Conjugate, PCV13 00:00:00 [facility] dical (Prevnar 13) Branch Twinrix (hep a/hep 2020-11-12 Completed Univer sity of b) 00:00:00 [facility] Pneumococcal 13 2020-11-12 Completed Universit y of Conjugate, PCV13 00:00:00 [facility] dical (Prevnar 13) Branch Twinrix (hep a/hep 2020-11-12 Completed Univer sity of b) 00:00:00 [facility] Pneumococcal 13 2020-11-12 Completed Universit y of Conjugate, PCV13 00:00:00 [facility] dical (Prevnar 13) Branch Twinrix (hep a/hep 2020-11-12 Completed Univer sity of b) 00:00:00 [facility] Pneumococcal 13 2020-11-12 Completed Universit y of Conjugate, PCV13 00:00:00 [facility] dical (Prevnar 13) Branch Twinrix (hep a/hep 2020-11-12 Completed Univer sity of b) 00:00:00 [facility] Pneumococcal 13 2020-11-12 Completed Universit y of Conjugate, PCV13 00:00:00 [facility] dical (Prevnar 13) Branch Twinrix (hep a/hep 2020-11-12 Completed Univer sity of b) 00:00:00 [facility] Pneumococcal 13 2020-11-12 Completed Universit y of Conjugate, PCV13 00:00:00 [facility] dical (Prevnar 13) Branch Twinrix (hep a/hep 2020-11-12 Completed Univer sity of b) 00:00:00 [facility] Pneumococcal 13 2020-11-12 Completed Universit y of Conjugate, PCV13 00:00:00 [facility] dical (Prevnar 13) Branch Twinrix (hep a/hep 2020-11-12 Completed Univer sity of b) 00:00:00 [facility] Pneumococcal 13 2020-11-12 Completed Universit y of Conjugate, PCV13 00:00:00 [facility] dical (Prevnar 13) Branch Twinrix (hep a/hep 2020-11-12 Completed Univer sity of b) 00:00:00 [facility] Pneumococcal 13 2020-11-12 Completed Universit y of Conjugate, PCV13 00:00:00 [facility] dical (Prevnar 13) Branch Twinrix (hep a/hep 2020-11-12 Completed Univer sity of b) 00:00:00 [facility] Pneumococcal 13 2020-11-12 Completed Universit y of Conjugate, PCV13 00:00:00 [facility] dical (Prevnar 13) Branch Twinrix (hep a/hep 2020-11-12 Completed Univer sity of b) 00:00:00 [facility] Pneumococcal 13 2020-11-12 Completed Universit y of Conjugate, PCV13 00:00:00 [facility] dical (Prevnar 13) Branch Twinrix (hep a/hep 2020-11-12 Completed Univer sity of b) 00:00:00 [facility] Pneumococcal 13 2020-11-12 Completed Universit y of Conjugate, PCV13 00:00:00 [facility] dical (Prevnar 13) Branch Twinrix (hep a/hep 2020-11-12 Completed Univer sity of b) 00:00:00 [facility] Pneumococcal 13 2020-11-12 Completed Universit y of Conjugate, PCV13 00:00:00 [facility] dical (Prevnar 13) Branch Twinrix (hep a/hep 2020-11-12 Completed Univer sity of b) 00:00:00 [facility] Pneumococcal 13 2020-11-12 Completed Universit y of Conjugate, PCV13 00:00:00 [facility] dical (Prevnar 13) Branch Twinrix (hep a/hep 2020-11-12 Completed Univer sity of b) 00:00:00 [facility] Pneumococcal 13 2020-11-12 Completed Universit y of Conjugate, PCV13 00:00:00 [facility] dical (Prevnar 13) Branch Twinrix (hep a/hep 2020-11-12 Completed Univer sity of b) 00:00:00 [facility] Pneumococcal 13 2020-11-12 Completed Universit y of Conjugate, PCV13 00:00:00 [facility] dical (Prevnar 13) Branch Twinrix (hep a/hep 2020-11-12 Completed Univer sity of b) 00:00:00 [facility] Pneumococcal 13 2020-11-12 Completed Universit y of Conjugate, PCV13 00:00:00 [facility] dical (Prevnar 13) Branch Twinrix (hep a/hep 2020-11-12 Completed Univer sity of b) 00:00:00 [facility] Pneumococcal 13 2020-11-12 Completed Universit y of Conjugate, PCV13 00:00:00 [facility] dical (Prevnar 13) Branch Twinrix (hep a/hep 2020-11-12 Completed Univer sity of b) 00:00:00 [facility] Pneumococcal 13 2020-11-12 Completed Universit y of Conjugate, PCV13 00:00:00 [facility] dical (Prevnar 13) Branch Twinrix (hep a/hep 2020-11-12 Completed Univer sity of b) 00:00:00 [facility] Pneumococcal 13 2020-11-12 Completed Universit y of Conjugate, PCV13 00:00:00 [facility] dical (Prevnar 13) Branch Twinrix (hep a/hep 2020-11-12 Completed Univer sity of b) 00:00:00 [facility] Pneumococcal 13 2020-11-12 Completed Universit y of Conjugate, PCV13 00:00:00 [facility] dical (Prevnar 13) Branch Twinrix (hep a/hep 2020-11-12 Completed Univer sity of b) 00:00:00 [facility] Pneumococcal 13 2020-11-12 Completed Universit y of Conjugate, PCV13 00:00:00 [facility] dical (Prevnar 13) Branch Twinrix (hep a/hep 2020-11-12 Completed Univer sity of b) 00:00:00 [facility] Pneumococcal 13 2020-11-12 Completed Universit y of Conjugate, PCV13 00:00:00 [facility] dical (Prevnar 13) Branch Twinrix (hep a/hep 2020-11-12 Completed Univer sity of b) 00:00:00 [facility] Pneumococcal 13 2020-11-12 Completed Universit y of Conjugate, PCV13 00:00:00 [facility] dical (Prevnar 13) Branch Twinrix (hep a/hep 2020-11-12 Completed Univer sity of b) 00:00:00 [facility] Pneumococcal 13 2020-11-12 Completed Universit y of Conjugate, PCV13 00:00:00 [facility] dical (Prevnar 13) Branch Twinrix (hep a/hep 2020-11-12 Completed Univer sity of b) 00:00:00 [facility] Pneumococcal 13 2020-11-12 Completed Universit y of Conjugate, PCV13 00:00:00 [facility] dical (Prevnar 13) Branch Twinrix (hep a/hep 2020-11-12 Completed Univer sity of b) 00:00:00 [facility] Pneumococcal 13 2020-11-12 Completed [facility] Conjugate, PCV13 00:00:00 [facility] (Prevnar 13) Branch Twinrix (hep a/hep 2020-11-12 Completed Univer sity of b) 00:00:00 [facility] Pneumococcal 13 2020-11-12 Completed [facility] of Conjugate, PCV13 00:00:00 [facility] (Prevnar 13) Branch Twinrix (hep a/hep 2020-11-12 Completed [facility] of b) 00:00:00 [facility] Pneumococcal 13 2020-11-12 Completed [facility]it [facility] of Conjugate, PCV13 00:00:00 [facility] (Prevnar 13) Branch Twinrix (hep a/hep 2020-11-12 Completed [facility] of b) 00:00:00 [facility] Pneumococcal 13 2020-11-12 Completed [facility] of Conjugate, PCV13 00:00:00 [facility] (Prevnar 13) Branch Twinrix (hep a/hep 2020-11-12 Completed [facility] of b) 00:00:00 [facility] Pneumococcal 13 2020-11-12 Completed [facility] of Conjugate, PCV13 00:00:00 [facility] (Prevnar 13) Branch Twinrix (hep a/hep 2020-11-12 Completed [facility]iver s[facility] of b) 00:00:00 [facility] Pneumococcal 13 2020-11-12 Completed [facility] of Conjugate, PCV13 00:00:00 [facility] (Prevnar 13) Branch Twinrix (hep a/hep 2020-11-12 Completed [facility]iver [facility] of b) 00:00:00 [facility] Pneumococcal 13 2020-11-12 Completed [facility] of Conjugate, PCV13 00:00:00 [facility] (Prevnar 13) Branch Twinrix (hep a/hep 2020-11-12 Completed [facility] of b) 00:00:00 [facility] Pneumococcal 13 2020-11-12 Completed [facility] of Conjugate, PCV13 00:00:00 [facility] (Prevnar 13) Branch Twinrix (hep a/hep 2020-11-12 Completed [facility] of b) 00:00:00 [facility] Pneumococcal 13 2020-11-12 Completed [facility] of Conjugate, PCV13 00:00:00 [facility] (Prevnar 13) Branch Twinrix (hep a/hep 2020-11-12 Completed [facility] of b) 00:00:00 [facility] Pneumococcal 13 2020-11-12 Completed [facility] of Conjugate, PCV13 00:00:00 [facility] (Prevnar 13) Branch Twinrix (hep a/hep 2020-11-12 Completed [facility] of b) 00:00:00 [facility] Pneumococcal 13 2020-11-12 Completed [facility] Conjugate, PCV13 00:00:00 [facility] (Prevnar 13) Branch Twinrix (hep a/hep 2020-11-12 Completed [facility] b) 00:00:00 [facility] SARS-COV-2 COVID-19 2020-08-27 Completed Unive rsity of MODERNA VACCINE 00:00:00 [facility] SARS-COV-2 COVID-19 2020-08-27 Completed Unive rsity of MODERNA VACCINE 00:00:00 [facility] SARS-COV-2 COVID-19 2020-08-27 Completed [facility]ive rsity of MODERNA VACCINE 00:00:00 [facility] SARS-COV-2 COVID-19 2020-08-27 Completed [facility]ive rsity of MODERNA VACCINE 00:00:00 [facility] SARS-COV-2 COVID-19 2020-08-27 Completed [facility]ive rsity of MODERNA VACCINE 00:00:00 [facility] SARS-COV-2 COVID-19 2020-08-27 Completed [facility]ive rsity of MODERNA VACCINE 00:00:00 [facility] SARS-COV-2 COVID-19 2020-08-27 Completed [facility]ive rsity of MODERNA VACCINE 00:00:00 [facility] SARS-COV-2 COVID-19 2020-08-27 Completed Unive rsity of MODERNA 12+ YRS 00:00:00 [facility] V[facility]INE [facility] SARS-COV-2 COVID-19 2020-08-27 Completed Unive rsity of MODERNA 12+ YRS 00:00:00 [facility] V[facility]INE [facility] SARS-COV-2 COVID-19 2020-08-27 Completed [facility]ive rsity of MODERNA 12+ YRS 00:00:00 [facility] SARS-COV-2 COVID-19 2020-08-27 Completed Unive rsity of MODERNA 12+ YRS 00:00:00 [facility] V[facility]INE [facility] SARS-COV-2 COVID-19 2020-08-27 Completed Unive rsity of MODERNA 12+ YRS 00:00:00 [facility] VACCINE [facility] SARS-COV-2 COVID-19 2020-08-27 Completed [facility]ive rsity of MODERNA 12+ YRS 00:00:00 [facility] VACCINE [facility] SARS-COV-2 COVID-19 2020-08-27 Completed [facility]ive rsity of MODERNA 12+ YRS 00:00:00 [facility] VACCINE [facility] SARS-COV-2 COVID-19 2020-08-27 Completed [facility]ive rsity of MODERNA 12+ YRS 00:00:00 [facility] VACCINE [facility] SARS-COV-2 COVID-19 2020-08-27 Completed [facility]ive rsity of MODERNA 12+ YRS 00:00:00 [facility] VACCINE [facility] SARS-COV-2 COVID-19 2020-08-27 Completed [facility]ive rsity of MODERNA 12+ YRS 00:00:00 [facility] VACCINE [facility] SARS-COV-2 COVID-19 2020-08-27 Completed [facility]ive rsity of MODERNA 12+ YRS 00:00:00 [facility] VACCINE [facility] SARS-COV-2 COVID-19 2020-08-27 Completed [facility]ive rsity of MODERNA 12+ YRS 00:00:00 [facility] VACCINE [facility] SARS-COV-2 COVID-19 2020-08-27 Completed [facility]ive rsity of MODERNA 12+ YRS 00:00:00 [facility] VACCINE [facility] SARS-COV-2 COVID-19 2020-08-27 Completed [facility]ive rsity of MODERNA 12+ YRS 00:00:00 [facility] VACCINE [facility] SARS-COV-2 COVID-19 2020-08-27 Completed [facility]ive rsity of MODERNA 12+ YRS 00:00:00 [facility] VACCINE [facility] SARS-COV-2 COVID-19 2020-08-27 Completed [facility]ive rsity of MODERNA 12+ YRS 00:00:00 [facility] VACCINE [facility] SARS-COV-2 COVID-19 2020-08-27 Completed [facility]ive rsity of MODERNA 12+ YRS 00:00:00 [facility] VACCINE [facility] SARS-COV-2 COVID-19 2020-08-27 Completed [facility]ive rsity of MODERNA 12+ YRS 00:00:00 [facility] VACCINE [facility] SARS-COV-2 COVID-19 2020-08-27 Completed [facility]ive rsity of MODERNA 12+ YRS 00:00:00 [facility] VACCINE [facility] SARS-COV-2 COVID-19 2020-08-27 Completed [facility] rsity of MODERNA 12+ YRS 00:00:00 [facility] VACCINE [facility] SARS-COV-2 COVID-19 2020-08-27 Completed [facility] rsity of MODERNA 12+ YRS 00:00:00 [facility] VACCINE [facility] SARS-COV-2 COVID-19 2020-08-27 Completed [facility] rsity of MODERNA 12+ YRS 00:00:00 [facility] VACCINE [facility] SARS-COV-2 COVID-19 2020-08-27 Completed [facility]ive rsity of MODERNA 12+ YRS 00:00:00 [facility] VACCINE [facility] SARS-COV-2 COVID-19 2020-08-27 Completed [facility]ive rsity of MODERNA 12+ YRS 00:00:00 [facility] VACCINE [facility] SARS-COV-2 COVID-19 2020-08-27 Completed [facility]ive rsity of MODERNA 12+ YRS 00:00:00 [facility] VACCINE [facility] SARS-COV-2 COVID-19 2020-08-27 Completed [facility]ive rsity of MODERNA 12+ YRS 00:00:00 [facility] VACCINE [facility] SARS-COV-2 COVID-19 2020-08-27 Completed [facility]ive rsity of MODERNA 12+ YRS 00:00:00 [facility] VACCINE [facility] SARS-COV-2 COVID-19 2020-08-27 Completed [facility] rsity of MODERNA 12+ YRS 00:00:00 [facility] VACCINE [facility] SARS-COV-2 COVID-19 2020-08-27 Completed [facility]ive rsity of MODERNA 12+ YRS 00:00:00 [facility] VACCINE [facility] SARS-COV-2 COVID-19 2020-08-27 Completed [facility] rsity of MODERNA 12+ YRS 00:00:00 [facility] VACCINE [facility] SARS-COV-2 COVID-19 2020-08-27 Completed [facility]ive rsity of MODERNA 12+ YRS 00:00:00 [facility] VACCINE [facility] SARS-COV-2 COVID-19 2020-08-27 Completed [facility]ive rsity of MODERNA 12+ YRS 00:00:00 [facility] VACCINE [facility] SARS-COV-2 COVID-19 2020-08-27 Completed [facility]ive rsity of MODERNA 12+ YRS 00:00:00 [facility] VACCINE [facility] SARS-COV-2 COVID-19 2020-08-27 Completed [facility]ive rsity of MODERNA 12+ YRS 00:00:00 [facility] VACCINE Branch Influenza Virus 2020-04-18 Completed [facility]it [facility] of Vaccine Quad .5 mL 00:00:00 [facility] Influenza Virus 2020-04-18 Completed [facility] Vaccine Quad .5 mL 00:00:00 [facility] Influenza Virus 2020-04-18 Completed [facility] Vaccine Quad .5 mL 00:00:00 [facility] Influenza Virus 2020-04-18 Completed [facility] Vaccine Quad .5 mL 00:00:00 [facility] Influenza Virus 2020-04-18 Completed [facility] Vaccine Quad .5 mL 00:00:00 [facility] Influenza Virus 2020-04-18 Completed [facility] Vaccine Quad .5 mL 00:00:00 [facility] Influenza Virus 2020-04-18 Completed [facility] Vaccine Quad .5 mL 00:00:00 [facility] Influenza Virus 2020-04-18 Completed [facility] Vaccine Quad .5 mL 00:00:00 [facility] Influenza Virus 2020-04-18 Completed [facility] Vaccine Quad .5 mL 00:00:00 [facility] Influenza Virus 2020-04-18 Completed [facility] Vaccine Quad .5 mL 00:00:00 [facility] Influenza Virus 2020-04-18 Completed [facility] Vaccine Quad .5 mL 00:00:00 [facility] Influenza Virus 2020-04-18 Completed [facility] of Vaccine Quad .5 mL 00:00:00 [facility] Influenza Virus 2020-04-18 Completed [facility] Vaccine Quad .5 mL 00:00:00 [facility] Influenza Virus 2020-04-18 Completed [facility] Vaccine Quad .5 mL 00:00:00 [facility] Influenza Virus 2020-04-18 Completed [facility] Vaccine Quad .5 mL 00:00:00 [facility] Influenza Virus 2020-04-18 Completed [facility] Vaccine Quad .5 mL 00:00:00 [facility] Influenza Virus 2020-04-18 Completed [facility] Vaccine Quad .5 mL 00:00:00 [facility] Influenza Virus 2020-04-18 Completed [facility] Vaccine Quad .5 mL 00:00:00 [facility] Influenza Virus 2020-04-18 Completed [facility] Vaccine Quad .5 mL 00:00:00 [facility] Influenza Virus 2020-04-18 Completed [facility] Vaccine Quad .5 mL 00:00:00 [facility] Influenza Virus 2020-04-18 Completed [facility] Vaccine Quad .5 mL 00:00:00 [facility] Influenza Virus 2020-04-18 Completed [facility] Vaccine Quad .5 mL 00:00:00 [facility] Influenza Virus 2020-04-18 Completed [facility] Vaccine Quad .5 mL 00:00:00 [facility] Influenza Virus 2020-04-18 Completed [facility] Vaccine Quad .5 mL 00:00:00 [facility] Influenza Virus 2020-04-18 Completed [facility] Vaccine Quad .5 mL 00:00:00 [facility] Influenza Virus 2020-04-18 Completed [facility] Vaccine Quad .5 mL 00:00:00 [facility] Influenza Virus 2020-04-18 Completed [facility] of Vaccine Quad .5 mL 00:00:00 [facility] Influenza Virus 2020-04-18 Completed [facility] Vaccine Quad .5 mL 00:00:00 [facility] Influenza Virus 2020-04-18 Completed [facility] Vaccine Quad .5 mL 00:00:00 [facility] Influenza Virus 2020-04-18 Completed [facility] Vaccine Quad .5 mL 00:00:00 [facility] Influenza Virus 2020-04-18 Completed [facility] Vaccine Quad .5 mL 00:00:00 [facility] Influenza Virus 2020-04-18 Completed [facility] of Vaccine Quad .5 mL 00:00:00 [facility] Influenza Virus 2020-04-18 Completed [facility] of Vaccine Quad .5 mL 00:00:00 [facility] Influenza Virus 2020-04-18 Completed [facility] of Vaccine Quad .5 mL 00:00:00 [facility] Influenza Virus 2020-04-18 Completed [facility] of Vaccine Quad .5 mL 00:00:00 [facility] Influenza Virus 2020-04-18 Completed [facility] of Vaccine Quad .5 mL 00:00:00 [facility] Influenza Virus 2020-04-18 Completed [facility] of Vaccine Quad .5 mL 00:00:00 [facility] Influenza Virus 2020-04-18 Completed [facility] of Vaccine Quad .5 mL 00:00:00 [facility] Influenza Virus 2020-04-18 Completed [facility] of Vaccine Quad .5 mL 00:00:00 [facility] Influenza Virus 2020-04-18 Completed [facility] of Vaccine Quad .5 mL 00:00:00 [facility] Influenza Virus 2020-04-18 Completed [facility] of Vaccine Quad .5 mL 00:00:00 [facility] MO [facility] Influenza Virus 2019-05-09 Completed [facility] of Vaccine Quad .5 mL 00:00:00 [facility] MO [facility] Influenza Virus 2019-05-09 Completed [facility] of Vaccine Quad .5 mL 00:00:00 [facility] Influenza Virus 2019-05-09 Completed [facility] of Vaccine Quad .5 mL 00:00:00 [facility] Influenza Virus 2019-05-09 Completed [facility] of Vaccine Quad .5 mL 00:00:00 [facility] MO [facility] Influenza Virus 2019-05-09 Completed [facility] of Vaccine Quad .5 mL 00:00:00 [facility] Influenza Virus 2019-05-09 Completed [facility] of Vaccine Quad .5 mL 00:00:00 [facility] Influenza Virus 2019-05-09 Completed [facility] of Vaccine Quad .5 mL 00:00:00 [facility] Influenza Virus 2019-05-09 Completed [facility] of Vaccine Quad .5 mL 00:00:00 [facility] Influenza Virus 2019-05-09 Completed [facility] of Vaccine Quad .5 mL 00:00:00 [facility] Influenza Virus 2019-05-09 Completed [facility] of Vaccine Quad .5 mL 00:00:00 [facility] Influenza Virus 2019-05-09 Completed [facility] of Vaccine Quad .5 mL 00:00:00 [facility] Influenza Virus 2019-05-09 Completed [facility] of Vaccine Quad .5 mL 00:00:00 [facility] Influenza Virus 2019-05-09 Completed [facility] of Vaccine Quad .5 mL 00:00:00 [facility] Influenza Virus 2019-05-09 Completed [facility] of Vaccine Quad .5 mL 00:00:00 [facility] Influenza Virus 2019-05-09 Completed [facility] of Vaccine Quad .5 mL 00:00:00 [facility] Influenza Virus 2019-05-09 Completed [facility] of Vaccine Quad .5 mL 00:00:00 [facility] Influenza Virus 2019-05-09 Completed [facility] of Vaccine Quad .5 mL 00:00:00 [facility] Influenza Virus 2019-05-09 Completed [facility] of Vaccine Quad .5 mL 00:00:00 [facility] Influenza Virus 2019-05-09 Completed [facility] of Vaccine Quad .5 mL 00:00:00 [facility] Influenza Virus 2019-05-09 Completed [facility] of Vaccine Quad .5 mL 00:00:00 [facility] Influenza Virus 2019-05-09 Completed [facility] of Vaccine Quad .5 mL 00:00:00 [facility] Influenza Virus 2019-05-09 Completed [facility] of Vaccine Quad .5 mL 00:00:00 [facility] Influenza Virus 2019-05-09 Completed [facility] of Vaccine Quad .5 mL 00:00:00 [facility] Influenza Virus 2019-05-09 Completed [facility] of Vaccine Quad .5 mL 00:00:00 [facility] Influenza Virus 2019-05-09 Completed [facility] of Vaccine Quad .5 mL 00:00:00 [facility] Influenza Virus 2019-05-09 Completed [facility] of Vaccine Quad .5 mL 00:00:00 [facility] Influenza Virus 2019-05-09 Completed [facility] of Vaccine Quad .5 mL 00:00:00 [facility] Influenza Virus 2019-05-09 Completed [facility] of Vaccine Quad .5 mL 00:00:00 [facility] Influenza Virus 2019-05-09 Completed [facility] of Vaccine Quad .5 mL 00:00:00 [facility] Influenza Virus 2019-05-09 Completed [facility] of Vaccine Quad .5 mL 00:00:00 [facility] Influenza Virus 2019-05-09 Completed [facility] of Vaccine Quad .5 mL 00:00:00 [facility] Influenza Virus 2019-05-09 Completed [facility] of Vaccine Quad .5 mL 00:00:00 [facility] Influenza Virus 2019-05-09 Completed [facility] of Vaccine Quad .5 mL 00:00:00 [facility] Influenza Virus 2019-05-09 Completed [facility] of Vaccine Quad .5 mL 00:00:00 [facility] Influenza Virus 2019-05-09 Completed [facility] of Vaccine Quad .5 mL 00:00:00 [facility] Influenza Virus 2019-05-09 Completed [facility] of Vaccine Quad .5 mL 00:00:00 [facility] Influenza Virus 2019-05-09 Completed [facility] of Vaccine Quad .5 mL 00:00:00 [facility] Influenza Virus 2019-05-09 Completed [facility] of Vaccine Quad .5 mL 00:00:00 [facility] 6[facility] MO [facility] Influenza Virus 2019-05-09 Completed [facility] y of Vaccine Quad .5 mL 00:00:00 [facility] Influenza Virus 2019-05-09 Completed [facility] of Vaccine Quad .5 mL 00:00:00 [facility] Influenza Virus 2019-05-09 Completed [facility] y of Vaccine Quad .5 mL 00:00:00 [facility] 6[facility] MO Branch Influenza Virus 2017-08-05 Completed [facility]it y of Vaccine Quad IM 3+ 00:00:00 [facility] Influenza Virus 2017-08-05 Completed [facility]it y of Vaccine Quad IM 3+ 00:00:00 [facility] Influenza Virus 2017-08-05 Completed [facility]it y of Vaccine Quad IM 3+ 00:00:00 [facility] Influenza Virus 2017-08-05 Completed [facility]it y of Vaccine Quad IM 3+ 00:00:00 [facility] Influenza Virus 2017-08-05 Completed [facility]it y of Vaccine Quad IM 3+ 00:00:00 [facility] Influenza Virus 2017-08-05 Completed [facility]it y of Vaccine Quad IM 3+ 00:00:00 [facility] Influenza Virus 2017-08-05 Completed [facility]it y of Vaccine Quad IM 3+ 00:00:00 [facility] Influenza Virus 2017-08-05 Completed [facility]it y of Vaccine Quad IM 3+ 00:00:00 [facility] Influenza Virus 2017-08-05 Completed [facility]it y of Vaccine Quad IM 3+ 00:00:00 [facility] Influenza Virus 2017-08-05 Completed [facility]it y of Vaccine Quad IM 3+ 00:00:00 [facility] Influenza Virus 2017-08-05 Completed [facility]it y of Vaccine Quad IM 3+ 00:00:00 [facility] Influenza Virus 2017-08-05 Completed [facility]it y of Vaccine Quad IM 3+ 00:00:00 [facility] Influenza Virus 2017-08-05 Completed [facility]it y of Vaccine Quad IM 3+ 00:00:00 [facility] Influenza Virus 2017-08-05 Completed [facility] y of Vaccine Quad IM 3+ 00:00:00 [facility] Influenza Virus 2017-08-05 Completed [facility] y of Vaccine Quad IM 3+ 00:00:00 [facility] Influenza Virus 2017-08-05 Completed [facility] y of Vaccine Quad IM 3+ 00:00:00 [facility] Influenza Virus 2017-08-05 Completed [facility] y of Vaccine Quad IM 3+ 00:00:00 [facility] Influenza Virus 2017-08-05 Completed [facility]it y of Vaccine Quad IM 3+ 00:00:00 [facility] Influenza Virus 2017-08-05 Completed [facility]it y of Vaccine Quad IM 3+ 00:00:00 [facility] Influenza Virus 2017-08-05 Completed [facility]it y of Vaccine Quad IM 3+ 00:00:00 [facility] Influenza Virus 2017-08-05 Completed [facility] y of Vaccine Quad IM 3+ 00:00:00 [facility] Influenza Virus 2017-08-05 Completed [facility] y of Vaccine Quad IM 3+ 00:00:00 [facility] Influenza Virus 2017-08-05 Completed [facility] y of Vaccine Quad IM 3+ 00:00:00 [facility] Influenza Virus 2017-08-05 Completed [facility] y of Vaccine Quad IM 3+ 00:00:00 [facility] Influenza Virus 2017-08-05 Completed [facility] y of Vaccine Quad IM 3+ 00:00:00 [facility] Influenza Virus 2017-08-05 Completed [facility] y of Vaccine Quad IM 3+ 00:00:00 [facility] Influenza Virus 2017-08-05 Completed [facility]it y of Vaccine Quad IM 3+ 00:00:00 [facility] Influenza Virus 2017-08-05 Completed [facility]it y of Vaccine Quad IM 3+ 00:00:00 [facility] Influenza Virus 2017-08-05 Completed [facility] y of Vaccine Quad IM 3+ 00:00:00 [facility] Influenza Virus 2017-08-05 Completed [facility] y of Vaccine Quad IM 3+ 00:00:00 [facility] Influenza Virus 2017-08-05 Completed [facility] y of Vaccine Quad IM 3+ 00:00:00 [facility] Influenza Virus 2017-08-05 Completed [facility] y of Vaccine Quad IM 3+ 00:00:00 [facility] Influenza Virus 2017-08-05 Completed [facility] y of Vaccine Quad IM 3+ 00:00:00 [facility] Influenza Virus 2017-08-05 Completed [facility] y of Vaccine Quad IM 3+ 00:00:00 [facility] Influenza Virus 2017-08-05 Completed [facility] y of Vaccine Quad IM 3+ 00:00:00 [facility] Influenza Virus 2017-08-05 Completed [facility] y of Vaccine Quad IM 3+ 00:00:00 [facility] Influenza Virus 2017-08-05 Completed [facility] y of Vaccine Quad IM 3+ 00:00:00 [facility] Influenza Virus 2017-08-05 Completed [facility] y of Vaccine Quad IM 3+ 00:00:00 [facility] Influenza Virus 2017-08-05 Completed [facility] y of Vaccine Quad IM 3+ 00:00:00 [facility] Influenza Virus 2017-08-05 Completed [facility] y of Vaccine Quad IM 3+ 00:00:00 [facility] Influenza Virus 2017-08-05 Completed [facility] of Vaccine Quad IM 3+ 00:00:00 [facility] Influenza Virus 2013-04-27 Completed [facility]it y of Vaccine (3+ yrs) 00:00:00 [facility] Influenza Virus 2013-04-27 Completed [facility]it y of Vaccine (3+ yrs) 00:00:00 [facility] Influenza Virus 2013-04-27 Completed [facility]it y of Vaccine (3+ yrs) 00:00:00 [facility] Influenza Virus 2013-04-27 Completed [facility] of Vaccine (3+ yrs) 00:00:00 [facility] Influenza Virus 2013-04-27 Completed [facility] of Vaccine (3+ yrs) 00:00:00 [facility] Influenza Virus 2013-04-27 Completed [facility] of Vaccine (3+ yrs) 00:00:00 [facility] Influenza Virus 2013-04-27 Completed [facility] of Vaccine (3+ yrs) 00:00:00 [facility] Influenza Virus 2013-04-27 Completed [facility] y of Vaccine (3+ yrs) 00:00:00 [facility] Influenza Virus 2013-04-27 Completed [facility] of Vaccine (3+ yrs) 00:00:00 [facility] Influenza Virus 2013-04-27 Completed [facility] of Vaccine (3+ yrs) 00:00:00 [facility] Influenza Virus 2013-04-27 Completed [facility] of Vaccine (3+ yrs) 00:00:00 [facility] Influenza Virus 2013-04-27 Completed [facility] of Vaccine (3+ yrs) 00:00:00 [facility] Influenza Virus 2013-04-27 Completed [facility] of Vaccine (3+ yrs) 00:00:00 [facility] Influenza Virus 2013-04-27 Completed [facility] of Vaccine (3+ yrs) 00:00:00 [facility] Influenza Virus 2013-04-27 Completed [facility] of Vaccine (3+ yrs) 00:00:00 [facility] Influenza Virus 2013-04-27 Completed [facility] of Vaccine (3+ yrs) 00:00:00 [facility] Influenza Virus 2013-04-27 Completed [facility] y of Vaccine (3+ yrs) 00:00:00 [facility] Influenza Virus 2013-04-27 Completed [facility] of Vaccine (3+ yrs) 00:00:00 [facility] Influenza Virus 2013-04-27 Completed [facility] of Vaccine (3+ yrs) 00:00:00 [facility] Influenza Virus 2013-04-27 Completed [facility] y of Vaccine (3+ yrs) 00:00:00 [facility] Influenza Virus 2013-04-27 Completed [facility] of Vaccine (3+ yrs) 00:00:00 [facility] Influenza Virus 2013-04-27 Completed [facility] of Vaccine (3+ yrs) 00:00:00 [facility] Influenza Virus 2013-04-27 Completed [facility] of Vaccine (3+ yrs) 00:00:00 [facility] Influenza Virus 2013-04-27 Completed [facility] of Vaccine (3+ yrs) 00:00:00 [facility] Influenza Virus 2013-04-27 Completed [facility] of Vaccine (3+ yrs) 00:00:00 [facility] Influenza Virus 2013-04-27 Completed [facility] of Vaccine (3+ yrs) 00:00:00 [facility] Influenza Virus 2013-04-27 Completed [facility] of Vaccine (3+ yrs) 00:00:00 [facility] Influenza Virus 2013-04-27 Completed [facility] Vaccine (3+ yrs) 00:00:00 [facility] Influenza Virus 2013-04-27 Completed [facility] Vaccine (3+ yrs) 00:00:00 [facility] Influenza Virus 2013-04-27 Completed [facility] Vaccine (3+ yrs) 00:00:00 [facility] Influenza Virus 2013-04-27 Completed [facility] Vaccine (3+ yrs) 00:00:00 [facility] Influenza Virus 2013-04-27 Completed [facility] Vaccine (3+ yrs) 00:00:00 [facility] Influenza Virus 2013-04-27 Completed [facility] Vaccine (3+ yrs) 00:00:00 [facility] Influenza Virus 2013-04-27 Completed [facility] Vaccine (3+ yrs) 00:00:00 [facility] Influenza Virus 2013-04-27 Completed [facility] Vaccine (3+ yrs) 00:00:00 [facility] Influenza Virus 2013-04-27 Completed [facility] Vaccine (3+ yrs) 00:00:00 [facility] Influenza Virus 2013-04-27 Completed [facility] Vaccine (3+ yrs) 00:00:00 [facility] Influenza Virus 2013-04-27 Completed [facility] Vaccine (3+ yrs) 00:00:00 [facility] Influenza Virus 2013-04-27 Completed [facility] Vaccine (3+ yrs) 00:00:00 [facility] Influenza Virus 2013-04-27 Completed [facility] Vaccine (3+ yrs) 00:00:00 [facility] Influenza Virus 2013-04-27 Completed [facility] Vaccine (3+ yrs) 00:00:00 [facility] TDAP (ADACEL) 2012-03-07 Completed [facility] of VACCINE 00:00:00 [facility] HEPATITIS A 2012-03-07 Completed [facility] of 00:00:00 [facility] Hep B, Adol or Pedi 2012-03-07 Completed Unive rsity of Dosage 00:00:00 [facility] TDAP (ADACEL) 2012-03-07 Completed University of VACCINE 00:00:00 [facility] HEPATITIS A 2012-03-07 Completed [facility] of 00:00:00 [facility] Hep B, Adol or Pedi 2012-03-07 Completed [facility]ive rs[facility] of Dosage 00:00:00 [facility] TDAP (ADACEL) 2012-03-07 Completed [facility] of VACCINE 00:00:00 [facility] HEPATITIS A 2012-03-07 Completed [facility] of 00:00:00 [facility] Hep B, Adol or Pedi 2012-03-07 Completed [facility]ive rs[facility] of Dosage 00:00:00 [facility] TDAP (ADACEL) 2012-03-07 Completed [facility] of VACCINE 00:00:00 [facility] HEPATITIS A 2012-03-07 Completed [facility] of 00:00:00 [facility] Hep B, Adol or Pedi 2012-03-07 Completed [facility]ive rs[facility] of Dosage 00:00:00 [facility] TDAP (ADACEL) 2012-03-07 Completed [facility] of VACCINE 00:00:00 [facility] HEPATITIS A 2012-03-07 Completed [facility] of 00:00:00 [facility] Hep B, Adol or Pedi 2012-03-07 Completed [facility]ive rs[facility] of Dosage 00:00:00 [facility] TDAP (ADACEL) 2012-03-07 Completed [facility] of VACCINE 00:00:00 [facility] HEPATITIS A 2012-03-07 Completed [facility] of 00:00:00 [facility] Hep B, Adol or Pedi 2012-03-07 Completed [facility]ive rs[facility] of Dosage 00:00:00 [facility] TDAP (ADACEL) 2012-03-07 Completed [facility] of VACCINE 00:00:00 [facility] HEPATITIS A 2012-03-07 Completed [facility] 00:00:00 [facility] Hep B, Adol or Pedi 2012-03-07 Completed [facility]ive rs[facility] of Dosage 00:00:00 [facility] TDAP (ADACEL) 2012-03-07 Completed [facility] of VACCINE 00:00:00 [facility] HEPATITIS A 2012-03-07 Completed [facility] 00:00:00 [facility] Hep B, Adol or Pedi 2012-03-07 Completed [facility] rs[facility] of Dosage 00:00:00 [facility] TDAP (ADACEL) 2012-03-07 Completed [facility] of VACCINE 00:00:00 [facility] HEPATITIS A 2012-03-07 Completed [facility] of 00:00:00 [facility] Hep B, Adol or Pedi 2012-03-07 Completed [facility]ive rs[facility] of Dosage 00:00:00 [facility] TDAP (ADACEL) 2012-03-07 Completed [facility] of VACCINE 00:00:00 [facility] HEPATITIS A 2012-03-07 Completed [facility] of 00:00:00 [facility] Hep B, Adol or Pedi 2012-03-07 Completed [facility]ive rs[facility] of Dosage 00:00:00 [facility] TDAP (ADACEL) 2012-03-07 Completed [facility] of VACCINE 00:00:00 [facility] HEPATITIS A 2012-03-07 Completed [facility] of 00:00:00 [facility] Hep B, Adol or Pedi 2012-03-07 Completed [facility]ive rs[facility] of Dosage 00:00:00 [facility] TDAP (ADACEL) 2012-03-07 Completed [facility] of VACCINE 00:00:00 [facility] HEPATITIS A 2012-03-07 Completed [facility] of 00:00:00 [facility] Hep B, Adol or Pedi 2012-03-07 Completed [facility]ive rs[facility] of Dosage 00:00:00 [facility] TDAP (ADACEL) 2012-03-07 Completed [facility] of VACCINE 00:00:00 [facility] HEPATITIS A 2012-03-07 Completed [facility] 00:00:00 [facility] Hep B, Adol or Pedi 2012-03-07 Completed [facility]ive rs[facility] of Dosage 00:00:00 [facility] TDAP (ADACEL) 2012-03-07 Completed [facility] of VACCINE 00:00:00 [facility] HEPATITIS A 2012-03-07 Completed [facility] of 00:00:00 [facility] Hep B, Adol or Pedi 2012-03-07 Completed [facility] rs[facility] of Dosage 00:00:00 [facility] TDAP (ADACEL) 2012-03-07 Completed [facility] of VACCINE 00:00:00 [facility] HEPATITIS A 2012-03-07 Completed [facility] of 00:00:00 [facility] Hep B, Adol or Pedi 2012-03-07 Completed [facility]ive rs[facility] of Dosage 00:00:00 [facility] TDAP (ADACEL) 2012-03-07 Completed [facility] of VACCINE 00:00:00 [facility] HEPATITIS A 2012-03-07 Completed [facility] of 00:00:00 [facility] Hep B, Adol or Pedi 2012-03-07 Completed [facility] rs[facility] of Dosage 00:00:00 [facility] TDAP (ADACEL) 2012-03-07 Completed [facility] of VACCINE 00:00:00 [facility] HEPATITIS A 2012-03-07 Completed [facility] of 00:00:00 [facility] Hep B, Adol or Pedi 2012-03-07 Completed [facility]ive rs[facility] of Dosage 00:00:00 [facility] TDAP (ADACEL) 2012-03-07 Completed [facility] of VACCINE 00:00:00 [facility] HEPATITIS A 2012-03-07 Completed [facility] of 00:00:00 [facility] Hep B, Adol or Pedi 2012-03-07 Completed [facility]ive rs[facility] of Dosage 00:00:00 [facility] TDAP (ADACEL) 2012-03-07 Completed [facility] of VACCINE 00:00:00 [facility] HEPATITIS A 2012-03-07 Completed [facility] of 00:00:00 [facility] Hep B, Adol or Pedi 2012-03-07 Completed [facility]ive rs[facility] of Dosage 00:00:00 [facility] TDAP (ADACEL) 2012-03-07 Completed [facility] of VACCINE 00:00:00 [facility] HEPATITIS A 2012-03-07 Completed [facility] of 00:00:00 [facility] Hep B, Adol or Pedi 2012-03-07 Completed [facility]ive rs[facility] of Dosage 00:00:00 [facility] TDAP (ADACEL) 2012-03-07 Completed [facility] of VACCINE 00:00:00 [facility] HEPATITIS A 2012-03-07 Completed [facility] of 00:00:00 [facility] Hep B, Adol or Pedi 2012-03-07 Completed [facility]ive rs[facility] of Dosage 00:00:00 [facility] TDAP (ADACEL) 2012-03-07 Completed [facility] of VACCINE 00:00:00 [facility] HEPATITIS A 2012-03-07 Completed [facility] of 00:00:00 [facility] Hep B, Adol or Pedi 2012-03-07 Completed [facility]ive rs[facility] of Dosage 00:00:00 [facility] TDAP (ADACEL) 2012-03-07 Completed [facility] of VACCINE 00:00:00 [facility] HEPATITIS A 2012-03-07 Completed [facility] of 00:00:00 [facility] Hep B, Adol or Pedi 2012-03-07 Completed [facility]ive rs[facility] of Dosage 00:00:00 [facility] TDAP (ADACEL) 2012-03-07 Completed [facility] of VACCINE 00:00:00 [facility] HEPATITIS A 2012-03-07 Completed [facility] of 00:00:00 [facility] Hep B, Adol or Pedi 2012-03-07 Completed [facility]ive rs[facility] of Dosage 00:00:00 [facility] TDAP (ADACEL) 2012-03-07 Completed [facility] of VACCINE 00:00:00 [facility] HEPATITIS A 2012-03-07 Completed [facility] of 00:00:00 [facility] Hep B, Adol or Pedi 2012-03-07 Completed [facility]ive rs[facility] of Dosage 00:00:00 [facility] TDAP (ADACEL) 2012-03-07 Completed [facility] of VACCINE 00:00:00 [facility] HEPATITIS A 2012-03-07 Completed [facility] of 00:00:00 [facility] Hep B, Adol or Pedi 2012-03-07 Completed [facility]ive rs[facility] of Dosage 00:00:00 [facility] TDAP (ADACEL) 2012-03-07 Completed [facility] of VACCINE 00:00:00 [facility] HEPATITIS A 2012-03-07 Completed [facility] of 00:00:00 [facility] Hep B, Adol or Pedi 2012-03-07 Completed [facility]ive rs[facility] of Dosage 00:00:00 [facility] TDAP (ADACEL) 2012-03-07 Completed [facility] of VACCINE 00:00:00 [facility] HEPATITIS A 2012-03-07 Completed [facility] 00:00:00 [facility] Hep B, Adol or Pedi 2012-03-07 Completed [facility]ive rs[facility] of Dosage 00:00:00 [facility] TDAP (ADACEL) 2012-03-07 Completed [facility] of VACCINE 00:00:00 [facility] HEPATITIS A 2012-03-07 Completed [facility] of 00:00:00 [facility] Hep B, Adol or Pedi 2012-03-07 Completed [facility]ive rs[facility] of Dosage 00:00:00 [facility] TDAP (ADACEL) 2012-03-07 Completed [facility] of VACCINE 00:00:00 [facility] HEPATITIS A 2012-03-07 Completed [facility] 00:00:00 [facility] Hep B, Adol or Pedi 2012-03-07 Completed [facility]ive rs[facility] of Dosage 00:00:00 [facility] TDAP (ADACEL) 2012-03-07 Completed [facility] of VACCINE 00:00:00 [facility] HEPATITIS A 2012-03-07 Completed [facility] of 00:00:00 [facility] Hep B, Adol or Pedi 2012-03-07 Completed [facility]ive rs[facility] of Dosage 00:00:00 [facility] TDAP (ADACEL) 2012-03-07 Completed [facility] of VACCINE 00:00:00 [facility] HEPATITIS A 2012-03-07 Completed [facility] of 00:00:00 [facility] Hep B, Adol or Pedi 2012-03-07 Completed [facility]ive rs[facility] of Dosage 00:00:00 [facility] TDAP (ADACEL) 2012-03-07 Completed [facility] of VACCINE 00:00:00 [facility] HEPATITIS A 2012-03-07 Completed [facility] 00:00:00 [facility] Hep B, Adol or Pedi 2012-03-07 Completed [facility]ive rs[facility] of Dosage 00:00:00 [facility] TDAP (ADACEL) 2012-03-07 Completed [facility] of VACCINE 00:00:00 [facility] HEPATITIS A 2012-03-07 Completed [facility] 00:00:00 [facility] Hep B, Adol or Pedi 2012-03-07 Completed [facility]ive rs[facility] of Dosage 00:00:00 [facility] TDAP (ADACEL) 2012-03-07 Completed [facility] of VACCINE 00:00:00 [facility] HEPATITIS A 2012-03-07 Completed [facility] 00:00:00 [facility] Hep B, Adol or Pedi 2012-03-07 Completed [facility]ive rs[facility] of Dosage 00:00:00 [facility] TDAP (ADACEL) 2012-03-07 Completed [facility] of VACCINE 00:00:00 [facility] HEPATITIS A 2012-03-07 Completed [facility] of 00:00:00 [facility] Hep B, Adol or Pedi 2012-03-07 Completed [facility]ive rs[facility] of Dosage 00:00:00 [facility] TDAP (ADACEL) 2012-03-07 Completed [facility] of VACCINE 00:00:00 [facility] HEPATITIS A 2012-03-07 Completed [facility] 00:00:00 [facility] Hep B, Adol or Pedi 2012-03-07 Completed [facility]ive rs[facility] of Dosage 00:00:00 [facility] TDAP (ADACEL) 2012-03-07 Completed [facility] of VACCINE 00:00:00 [facility] HEPATITIS A 2012-03-07 Completed [facility] of 00:00:00 [facility] Hep B, Adol or Pedi 2012-03-07 Completed [facility]ive rs[facility] of Dosage 00:00:00 [facility] TDAP (ADACEL) 2012-03-07 Completed [facility] of VACCINE 00:00:00 [facility] HEPATITIS A 2012-03-07 Completed [facility] 00:00:00 [facility] Hep B, Adol or Pedi 2012-03-07 Completed [facility]ive rs[facility] of Dosage 00:00:00 [facility] TDAP (ADACEL) 2012-03-07 Completed [facility] of VACCINE 00:00:00 [facility] HEPATITIS A 2012-03-07 Completed [facility] of 00:00:00 [facility] Hep B, Adol or Pedi 2012-03-07 Completed [facility]ive rs[facility] of Dosage 00:00:00 [facility] TDAP (ADACEL) 2012-03-07 Completed [facility] of VACCINE 00:00:00 [facility] HEPATITIS A 2012-03-07 Completed [facility] of 00:00:00 [facility] Hep B, Adol or Pedi 2012-03-07 Completed [facility] rs[facility] of Dosage 00:00:00 [facility] Influenza Virus 2011-03-25 Completed [facility] Vaccine 00:00:00 [facility] Influenza Virus 2011-03-25 Completed [facility] of Vaccine 00:00:00 [facility] Influenza Virus 2011-03-25 Completed [facility] Vaccine 00:00:00 [facility] Influenza Virus 2011-03-25 Completed [facility] of Vaccine 00:00:00 [facility] Influenza Virus 2011-03-25 Completed [facility] of Vaccine 00:00:00 [facility] Influenza Virus 2011-03-25 Completed [facility] Vaccine 00:00:00 [facility] Influenza Virus 2011-03-25 Completed [facility] of Vaccine 00:00:00 [facility] Influenza Virus 2011-03-25 Completed [facility] of Vaccine 00:00:00 [facility] Influenza Virus 2011-03-25 Completed [facility] of Vaccine 00:00:00 [facility] Influenza Virus 2011-03-25 Completed [facility] of Vaccine 00:00:00 [facility] Influenza Virus 2011-03-25 Completed [facility] of Vaccine 00:00:00 [facility] Influenza Virus 2011-03-25 Completed [facility] of Vaccine 00:00:00 [facility] Influenza Virus 2011-03-25 Completed [facility] of Vaccine 00:00:00 [facility] Influenza Virus 2011-03-25 Completed [facility] of Vaccine 00:00:00 [facility] Influenza Virus 2011-03-25 Completed [facility] of Vaccine 00:00:00 [facility] Influenza Virus 2011-03-25 Completed [facility] of Vaccine 00:00:00 [facility] Influenza Virus 2011-03-25 Completed [facility] of Vaccine 00:00:00 [facility] Influenza Virus 2011-03-25 Completed [facility] of Vaccine 00:00:00 [facility] Influenza Virus 2011-03-25 Completed [facility] of Vaccine 00:00:00 [facility] Influenza Virus 2011-03-25 Completed [facility] of Vaccine 00:00:00 [facility] Influenza Virus 2011-03-25 Completed [facility] Vaccine 00:00:00 [facility] Influenza Virus 2011-03-25 Completed [facility] of Vaccine 00:00:00 [facility] Influenza Virus 2011-03-25 Completed [facility] of Vaccine 00:00:00 [facility] Influenza Virus 2011-03-25 Completed [facility] of Vaccine 00:00:00 [facility] Influenza Virus 2011-03-25 Completed [facility] of Vaccine 00:00:00 [facility] Influenza Virus 2011-03-25 Completed [facility] of Vaccine 00:00:00 [facility] Influenza Virus 2011-03-25 Completed [facility] Vaccine 00:00:00 [facility] Influenza Virus 2011-03-25 Completed [facility] of Vaccine 00:00:00 [facility] Influenza Virus 2011-03-25 Completed [facility] of Vaccine 00:00:00 [facility] Influenza Virus 2011-03-25 Completed [facility] of Vaccine 00:00:00 [facility] Influenza Virus 2011-03-25 Completed [facility] of Vaccine 00:00:00 [facility] Influenza Virus 2011-03-25 Completed [facility] of Vaccine 00:00:00 [facility] Influenza Virus 2011-03-25 Completed [facility] of Vaccine 00:00:00 [facility] Influenza Virus 2011-03-25 Completed [facility] of Vaccine 00:00:00 [facility] Influenza Virus 2011-03-25 Completed [facility] Vaccine 00:00:00 [facility] Influenza Virus 2011-03-25 Completed [facility] Vaccine 00:00:00 [facility] Influenza Virus 2011-03-25 Completed [facility] of Vaccine 00:00:00 [facility] Influenza Virus 2011-03-25 Completed [facility] of Vaccine 00:00:00 [facility] Influenza Virus 2011-03-25 Completed [facility] of Vaccine 00:00:00 [facility] Influenza Virus 2011-03-25 Completed [facility] of Vaccine 00:00:00 [facility] Influenza Virus 2011-03-25 Completed [facility] Vaccine 00:00:00 [facility] Pneumococcal 2009-08-24 Completed [facility] o f Polysaccharide, 00:00:00 [facility] PPSV23 (PNEUMOVAX) [facility] Pneumococcal 2009-08-24 Completed [facility] o f Polysaccharide, 00:00:00 [facility] PPSV23 (PNEUMOVAX) [facility] Pneumococcal 2009-08-24 Completed [facility] o f Polysaccharide, 00:00:00 [facility] PPSV23 (PNEUMOVAX) [facility] Pneumococcal 2009-08-24 Completed [facility] o f Polysaccharide, 00:00:00 [facility] PPSV23 (PNEUMOVAX) [facility] Pneumococcal 2009-08-24 Completed [facility] o f Polysaccharide, 00:00:00 [facility] PPSV23 (PNEUMOVAX) [facility] Pneumococcal 2009-08-24 Completed [facility] o f Polysaccharide, 00:00:00 [facility] PPSV23 (PNEUMOVAX) [facility] Pneumococcal 2009-08-24 Completed [facility] o f Polysaccharide, 00:00:00 [facility] PPSV23 (PNEUMOVAX) [facility] Pneumococcal 2009-08-24 Completed [facility] o f Polysaccharide, 00:00:00 [facility] PPSV23 (PNEUMOVAX) [facility] Pneumococcal 2009-08-24 Completed [facility] o f Polysaccharide, 00:00:00 [facility] PPSV23 (PNEUMOVAX) [facility] Pneumococcal 2009-08-24 Completed [facility] o f Polysaccharide, 00:00:00 [facility] PPSV23 (PNEUMOVAX) [facility] Pneumococcal 2009-08-24 Completed [facility] o f Polysaccharide, 00:00:00 [facility] PPSV23 (PNEUMOVAX) [facility] Pneumococcal 2009-08-24 Completed [facility] o f Polysaccharide, 00:00:00 [facility] PPSV23 (PNEUMOVAX) [facility] Pneumococcal 2009-08-24 Completed [facility] o f Polysaccharide, 00:00:00 [facility] PPSV23 (PNEUMOVAX) [facility] Pneumococcal 2009-08-24 Completed [facility] o f Polysaccharide, 00:00:00 [facility] PPSV23 (PNEUMOVAX) [facility] Pneumococcal 2009-08-24 Completed [facility] o f Polysaccharide, 00:00:00 [facility] PPSV23 (PNEUMOVAX) [facility] Pneumococcal 2009-08-24 Completed [facility] o f Polysaccharide, 00:00:00 [facility] PPSV23 (PNEUMOVAX) [facility] Pneumococcal 2009-08-24 Completed [facility] f Polysaccharide, 00:00:00 [facility] PPSV23 (PNEUMOVAX) [facility] Pneumococcal 2009-08-24 Completed [facility] o f Polysaccharide, 00:00:00 [facility] PPSV23 (PNEUMOVAX) [facility] Pneumococcal 2009-08-24 Completed [facility] o f Polysaccharide, 00:00:00 [facility] PPSV23 (PNEUMOVAX) [facility] Pneumococcal 2009-08-24 Completed [facility] o f Polysaccharide, 00:00:00 [facility] PPSV23 (PNEUMOVAX) [facility] Pneumococcal 2009-08-24 Completed [facility] o f Polysaccharide, 00:00:00 [facility] PPSV23 (PNEUMOVAX) [facility] Pneumococcal 2009-08-24 Completed [facility] o f Polysaccharide, 00:00:00 [facility] PPSV23 (PNEUMOVAX) [facility] Pneumococcal 2009-08-24 Completed [facility] o f Polysaccharide, 00:00:00 [facility] PPSV23 (PNEUMOVAX) [facility] Pneumococcal 2009-08-24 Completed [facility] o f Polysaccharide, 00:00:00 [facility] PPSV23 (PNEUMOVAX) [facility] Pneumococcal 2009-08-24 Completed [facility] o f Polysaccharide, 00:00:00 [facility] PPSV23 (PNEUMOVAX) [facility] Pneumococcal 2009-08-24 Completed [facility] o f Polysaccharide, 00:00:00 [facility] PPSV23 (PNEUMOVAX) [facility] Pneumococcal 2009-08-24 Completed [facility] o f Polysaccharide, 00:00:00 [facility] PPSV23 (PNEUMOVAX) [facility] Pneumococcal 2009-08-24 Completed [facility] o f Polysaccharide, 00:00:00 [facility] PPSV23 (PNEUMOVAX) [facility] Pneumococcal 2009-08-24 Completed [facility] o f Polysaccharide, 00:00:00 [facility] PPSV23 (PNEUMOVAX) [facility] Pneumococcal 2009-08-24 Completed [facility] o f Polysaccharide, 00:00:00 [facility] PPSV23 (PNEUMOVAX) [facility] Pneumococcal 2009-08-24 Completed [facility] f Polysaccharide, 00:00:00 [facility] PPSV23 (PNEUMOVAX) [facility] Pneumococcal 2009-08-24 Completed [facility] o f Polysaccharide, 00:00:00 [facility] PPSV23 (PNEUMOVAX) [facility] Pneumococcal 2009-08-24 Completed [facility] o f Polysaccharide, 00:00:00 [facility] PPSV23 (PNEUMOVAX) [facility] Pneumococcal 2009-08-24 Completed [facility] o f Polysaccharide, 00:00:00 [facility] PPSV23 (PNEUMOVAX) [facility] Pneumococcal 2009-08-24 Completed [facility] o f Polysaccharide, 00:00:00 [facility] PPSV23 (PNEUMOVAX) [facility] Pneumococcal 2009-08-24 Completed [facility] o f Polysaccharide, 00:00:00 [facility] PPSV23 (PNEUMOVAX) [facility] Pneumococcal 2009-08-24 Completed [facility] f Polysaccharide, 00:00:00 [facility] PPSV23 (PNEUMOVAX) [facility] Pneumococcal 2009-08-24 Completed [facility] f Polysaccharide, 00:00:00 [facility] PPSV23 (PNEUMOVAX) [facility] Pneumococcal 2009-08-24 Completed [facility] o f Polysaccharide, 00:00:00 [facility] PPSV23 (PNEUMOVAX) [facility] Pneumococcal 2009-08-24 Completed [facility] f Polysaccharide, 00:00:00 [facility] PPSV23 (PNEUMOVAX) [facility] Pneumococcal 2009-08-24 Completed [facility] o f Polysaccharide, 00:00:00 [facility] PPSV23 (PNEUMOVAX) [place] Influenza Virus 2009-04-03 Completed [facility] Vaccine 00:00:00 [facility] Influenza Virus 2009-04-03 Completed [facility] of Vaccine 00:00:00 [facility] Influenza Virus 2009-04-03 Completed [facility] of Vaccine 00:00:00 [facility] Influenza Virus 2009-04-03 Completed [facility] of Vaccine 00:00:00 [facility] Influenza Virus 2009-04-03 Completed [facility] of Vaccine 00:00:00 [facility] Influenza Virus 2009-04-03 Completed [facility] of Vaccine 00:00:00 [facility] Influenza Virus 2009-04-03 Completed [facility] of Vaccine 00:00:00 [facility] Influenza Virus 2009-04-03 Completed [facility] Vaccine 00:00:00 [facility] Influenza Virus 2009-04-03 Completed [facility] Vaccine 00:00:00 [facility] Influenza Virus 2009-04-03 Completed [facility] Vaccine 00:00:00 [facility] Influenza Virus 2009-04-03 Completed [facility] Vaccine 00:00:00 [facility] Influenza Virus 2009-04-03 Completed [facility] Vaccine 00:00:00 [facility] Influenza Virus 2009-04-03 Completed [facility] Vaccine 00:00:00 [facility] Influenza Virus 2009-04-03 Completed Universit y of Vaccine 00:00:00 [facility] Influenza Virus 2009-04-03 Completed Universit y of Vaccine 00:00:00 [facility] Influenza Virus 2009-04-03 Completed Universit y of Vaccine 00:00:00 [facility] Influenza Virus 2009-04-03 Completed Universit y of Vaccine 00:00:00 [facility] Influenza Virus 2009-04-03 Completed Universit y of Vaccine 00:00:00 [facility] Influenza Virus 2009-04-03 Completed Universit y of Vaccine 00:00:00 [facility] Influenza Virus 2009-04-03 Completed Universit y of Vaccine 00:00:00 [facility] Influenza Virus 2009-04-03 Completed Universit y of Vaccine 00:00:00 [facility] Influenza Virus 2009-04-03 Completed Universit y of Vaccine 00:00:00 [facility] Influenza Virus 2009-04-03 Completed Universit y of Vaccine 00:00:00 [facility] Influenza Virus 2009-04-03 Completed Universit y of Vaccine 00:00:00 [facility] Influenza Virus 2009-04-03 Completed Universit y of Vaccine 00:00:00 [facility] Influenza Virus 2009-04-03 Completed Universit y of Vaccine 00:00:00 [facility] Influenza Virus 2009-04-03 Completed Universit y of Vaccine 00:00:00 [facility] Influenza Virus 2009-04-03 Completed Universit y of Vaccine 00:00:00 [facility] Influenza Virus 2009-04-03 Completed Universit y of Vaccine 00:00:00 [facility] Influenza Virus 2009-04-03 Completed Universit y of Vaccine 00:00:00 [facility] Influenza Virus 2009-04-03 Completed Universit y of Vaccine 00:00:00 [facility] Influenza Virus 2009-04-03 Completed Universit y of Vaccine 00:00:00 [facility] Influenza Virus 2009-04-03 Completed Universit y of Vaccine 00:00:00 [facility] Influenza Virus 2009-04-03 Completed Universit y of Vaccine 00:00:00 [facility] Influenza Virus 2009-04-03 Completed Universit y of Vaccine 00:00:00 [facility] Influenza Virus 2009-04-03 Completed Universit y of Vaccine 00:00:00 [facility] Influenza Virus 2009-04-03 Completed Universit y of Vaccine 00:00:00 [facility] Influenza Virus 2009-04-03 Completed Universit y of Vaccine 00:00:00 [facility] Influenza Virus 2009-04-03 Completed Universit y of Vaccine 00:00:00 [facility] Influenza Virus 2009-04-03 Completed Universit y of Vaccine 00:00:00 [facility] Influenza Virus 2009-04-03 Completed Universit y of Vaccine 00:00:00 [facility] Vital Signs Vital Name Observation Time Observation Value Comments Source Systolic blood 2022-06-07 21:18:00 84 mm[Hg] Univer sity of pressure [facility] Diastolic blood 2022-06-07 21:18:00 54 mm[Hg] Unive rsity of pressure [facility] Heart rate 2022-06-07 21:18:00 92 /min Universi ty of [facility] Oxygen saturation in 2022-06-07 21:18:00 99 /min [facility] Arterial blood by [facility] Pulse oximetry Branch Respiratory rate 2022-06-07 21:14:00 21 /min Univ ersity of [facility] Body height 2022-06-07 21:14:00 165.1 cm Universi ty of [facility] Body weight 2022-06-07 21:14:00 92.126 kg Universi ty of [facility] BMI 2022-06-07 21:14:00 33.80 kg/m2 Universi ty of [facility] Systolic blood 2022-05-16 22:12:00 114 mm[Hg] Univer sity of pressure [facility] Diastolic blood 2022-05-16 22:12:00 84 mm[Hg] Unive rsity of pressure [facility] Heart rate 2022-05-16 22:12:00 101 /min Universi ty of [facility] Body temperature 2022-05-16 22:12:00 37.5 Lea Univ ersity of [facility] Respiratory rate 2022-05-16 22:12:00 18 /min Univ ersity of [facility] Body height 2022-05-16 22:12:00 165.1 cm [facility] Body weight 2022-05-16 22:12:00 81.647 kg Universi ty of [facility] BMI 2022-05-16 22:12:00 29.95 kg/m2 Universi ty of [facility] Oxygen saturation in 2022-05-16 22:12:00 98 /min University of Arterial blood by [facility] Pulse oximetry Branch Systolic blood 2022-04-14 18:44:00 111 mm[Hg] Univer sity of pressure [facility] Diastolic blood 2022-04-14 18:44:00 67 mm[Hg] Unive rsity of pressure [facility] Heart rate 2022-04-14 18:44:00 78 /min Universi ty of [facility] Body temperature 2022-04-14 18:44:00 37 Lea Univ ersity of [facility] Respiratory rate 2022-04-14 18:44:00 18 /min Univ ersity of [facility] Body height 2022-04-14 18:44:00 165.1 cm Universi ty [facility] Body weight 2022-04-14 18:44:00 97.523 kg Universi ty of [facility] BMI 2022-04-14 18:44:00 35.78 kg/m2 Universi ty of [facility] Oxygen saturation in 2022-04-14 18:44:00 99 /min University of Arterial blood by [facility] Pulse oximetry Branch Systolic blood 2022-03-30 14:48:00 112 mm[Hg] Univer sity of pressure [facility] Diastolic blood 2022-03-30 14:48:00 73 mm[Hg] Unive rsity of pressure [facility] Heart rate 2022-03-30 14:48:00 64 /min Universi ty of [facility] Body temperature 2022-03-30 14:48:00 36.33 Lea Univ ersity of [facility] Respiratory rate 2022-03-30 14:48:00 18 /min Univ ersity of [facility] Body height 2022-03-30 14:48:00 165.1 cm Universi ty [facility] Body weight 2022-03-30 14:48:00 95.454 kg Universi ty of [facility] BMI 2022-03-30 14:48:00 35.02 kg/m2 [facility] Systolic blood 2022-03-19 13:29:00 121 mm[Hg] Univer sity of pressure [facility] Diastolic blood 2022-03-19 13:29:00 78 mm[Hg] Unive rsity of pressure [facility] Heart rate 2022-03-19 13:29:00 84 /min [facility]i [facility] Body temperature 2022-03-19 13:29:00 36.22 Lea Univ ersity of [facility] Respiratory rate 2022-03-19 13:29:00 18 /min Univ ersity of [facility] Body weight 2022-03-19 13:29:00 92.625 kg [facility]i [facility] BMI 2022-03-19 13:29:00 33.98 kg/m2 [facility] Oxygen saturation in 2022-03-19 13:29:00 98 /min University of Arterial blood by [facility] Pulse oximetry Branch Systolic blood 2022-03-10 20:33:00 105 mm[Hg] Univer sity of pressure [facility] Diastolic blood 2022-03-10 20:33:00 59 mm[Hg] Unive rsity of pressure [facility] Heart rate 2022-03-10 20:33:00 79 /min Universi ty of [facility] Body temperature 2022-03-10 20:33:00 36.06 Lea [facility] Respiratory rate 2022-03-10 20:33:00 18 /min [facility] Body weight 2022-03-10 20:33:00 94.167 kg Universi ty [facility] BMI 2022-03-10 20:33:00 34.55 kg/m2 Universi ty [facility] Systolic blood 2022-01-20 21:58:00 126 mm[Hg] Univer sity of pressure [facility] Diastolic blood 2022-01-20 21:58:00 80 mm[Hg] Unive rsity of pressure [facility] Heart rate 2022-01-20 21:58:00 81 /min Universi ty [facility] Body temperature 2022-01-20 21:58:00 37 Lea [facility] rate 2022-01-20 21:58:00 16 /min [facility] Body height 2022-01-20 21:58:00 165.1 cm Universi ty [facility] Body weight 2022-01-20 21:58:00 89.359 kg Universi [facility] BMI 2022-01-20 21:58:00 32.78 kg/m2 Universi [facility] Oxygen saturation in 2022-01-20 21:58:00 100 /min [facility] Arterial blood by [facility] Pulse oximetry Branch Procedures Procedure Date / Time Performing Clinician Source Performed BLOOD CULTURE SCREEN 2022-06-07 22:07:00 Deisy Salinas Uni [facility] BLOOD CULTURE SCREEN 2022-06-07 21:43:00 Deisy Salinas Uni [facility] MAGNESIUM 2022-06-07 21:43:00 Deisy Salinas [facility] TROPONIN I 2022-06-07 21:43:00 Deisy Salinas [facility] COMP. METABOLIC PANEL 2022-06-07 21:43:00 Deisy Salinas [facility] ([id number]) [facility] IRON PANEL 2022-06-07 21:43:00 Deisy Salinas [facility] CBC WITH DIFF 2022-06-07 21:43:00 Deisy Salinas [facility] N-TERMINAL PRO-BNP 2022-06-07 21:43:00 Deisy [facility]inas [facility] XR SHOULDER 2+ VW RIGHT 2022-05-16 22:32:24 Singer Oziel [facility] CONSENT/REFUSAL FOR 2022-05-16 22:03:15 Doctor Unassigned, No [facility] DIAGNOSIS AND TREATMENT Name [facility] MEDICAL 2022-04-28 06:01:00 Doctor Unassigned, No [facility] RELEASE/CLEARANCE FORMS [facility] PNEUMOCOCCAL 20 2022-04-14 20:04:54 Eleonora Malin [facility] CONJUGATE (PREVNAR 20) Medical B ranch VACCINE THYROID STIMULATING 2022-04-13 15:33:00 Eleonora Malin [facility] HORMONE [facility] Branch COMP. METABOLIC PANEL 2022-04-13 15:33:00 Deisy Salinas [facility] ([id number]) [facility] LIPID PANEL 2022-04-13 15:33:00 Deisy Salinas [facility] ([id number])(TOTAL Medical Branch CHOLESTEROL, TRIGLYCERIDES, HDL) CBC WITH DIFF 2022-04-13 15:33:00 Eleonora Malin [facility] GLYCOSYLATED HEMOGLOBIN 2022-04-13 15:33:00 Eleonora Malin [facility] (A1C) [facility] N-TERMINAL PRO-BNP 2022-04-13 15:33:00 Deisy [facility]inas [facility] FREE T3 2022-04-13 15:33:00 Eleonora Malin [facility] FREE T4 2022-04-13 15:33:00 Eleonora Malin [facility] ASSIGNMENT OF BENEFITS 2022-04-13 14:59:41 Doctor Unassigned, No [facility] Name [facility] POCT TEST 2022-03-30 15:34:00 Cailin Sterling Uni versity of [facility] US PELVIS COMPLETE 2022-03-15 22:03:00 Gilda Orlando [facility] NON-OB [facility] POCT MOLECULAR STREP 2022-01-20 22:03:00 Cherelle Arias [facility] Plan of Care Planned Activity Planned Date Details Comments Source Future Scheduled 2023-07-17 Screening for University of Test 00:00:00 malignant neoplasm [place] [facility] cervix Branch (procedure) [code = 505874951] Future Scheduled 2023-07-17 Screening for University of Test 00:00:00 malignant neoplasm [place] [facility] of cervix Branch (procedure) [code = 781234962] Future Scheduled 2022-03-07 DTaP,Tdap,and Td Univers ity of Test 00:00:00 Vaccines (2 - Td) [facility] [code = Branch DTaP,Tdap,and Td Vaccines (2 - Td)] Future Scheduled 2022-03-07 DTaP,Tdap,and Td Univers ity of Test 00:00:00 Vaccines (2 - Td) [facility] [code = Branch DTaP,Tdap,and Td Vaccines (2 - Td)] Future Scheduled 2021-10-17 Creatinine University of Test 00:00:00 measurement [place] [facility] (procedure) [code = Branch 74330742] Future Scheduled 2021-10-17 Creatinine University of Test 00:00:00 measurement [facility] (procedure) [code = Branch 32619388] Future Scheduled 2021-10-01 Depression screening Uni versity of Test 00:00:00 (procedure) [code = [place] [facility] 571398422] Branch Future Scheduled 2021-10-01 Depression screening Uni versity of Test 00:00:00 (procedure) [code = [place] [facility] 695667651] Branch Future Scheduled 2021-09-26 Calculated low Universit y of Test 00:00:00 density lipoprotein [place] [facility] cholesterol level Branch (procedure) [code = 772114496] Future Scheduled 2021-09-26 Calculated low Universit y of Test 00:00:00 density lipoprotein [place] [facility] cholesterol level Branch (procedure) [code = 744129990] Future Scheduled 2021-08-21 Diabetic foot University of Test 00:00:00 examination [facility] [place] [facility] (regime/therapy) Branch [code = 877381408] Future Scheduled 2021-08-21 Diabetic foot University of Test 00:00:00 examination [facility] (regime/therapy) Branch [code = 458393213] Future Scheduled 2021-03-28 Hemoglobin A1c Universit y of Test 00:00:00 measurement [facility] (procedure) [code = Branch 33363402] Future Scheduled 2021-03-28 Hemoglobin A1c Universit y of Test 00:00:00 measurement [facility] [place] [facility] (procedure) [code = Branch 15934763] Future Scheduled 2021-03-17 Microalbumin University of Test 00:00:00 measurement, urine, [place] [facility] quantitative [facility] (procedure) [code = 531571625] Future Scheduled 2021-03-17 Microalbumin University of Test 00:00:00 measurement, urine, [place] [facility] quantitative [facility] (procedure) [code = 690747899] Diagnostic Test 2020-10-24 XR CHEST 2 VW [code Expected: Unive rsity of Pending 00:00:00 = 237] 10/24/2020, [facility] Expires: Branch 10/24/2021 Future Scheduled 2020-09-24 SARS-CoV-2 University of Test 00:00:00 (COVID-19) Vaccine [place] [facility] (2 - Moderna 2-dose Branch series) [code = SARS-CoV-2 (COVID-19) Vaccine (2 - Moderna 2-dose series)] Future Scheduled 2020-09-24 SARS-CoV-2 University of Test 00:00:00 (COVID-19) Vaccine [place] [facility] (2 - Moderna 2-dose Branch series) [code = SARS-CoV-2 (COVID-19) Vaccine (2 - Moderna 2-dose series)] Future Scheduled 2010-08-24 PNEUMOCOCCAL 0-64 Univer sity of Test 00:00:00 YEARS COMBINED [facility] SERIES (2 of 3 - Branch PCV13) [code = PNEUMOCOCCAL 0-64 YEARS COMBINED SERIES (2 of 3 - PCV13)] Future Scheduled 2010-08-24 PNEUMOCOCCAL 0-64 Univer sity of Test 00:00:00 YEARS COMBINED [facility] [place] [facility] SERIES (2 of 3 - Branch PCV13) [code = PNEUMOCOCCAL 0-64 YEARS COMBINED SERIES (2 of 3 - PCV13)] Future Scheduled 1994 Examination of Universit y of Test 00:00:00 retina (procedure) [place] [facility] [code = 241984002] Branch Future Scheduled 1994 Examination of Universit y of Test 00:00:00 retina (procedure) [place] [facility] [code = 042167392] Branch Encounters Start End Encounter Admission Attending Care Care Encounter Source Date/Time Date/Time Type Type Clinicians Facility Department ID 2021-04-19 Emergency [facility] [id number] Univers 11:57:05 ity [facility] 2021-04-19 Emergency [facility] [id number] [facility]-10-11 2022-10-11 [facility] [id number] Univers 13:00:00 13:00:00 DESHAWN [facility] 2022-07-28 2022-07-28 [facility] [id number] Univers 10:40:00 10:40:00 ELEONORA [facility] 2022-06-07 2022-06-07 Client Engagement Specialist 2, Adc Lab [facility] 1.2.840.114 [id number] Univers 15:45:00 16:04:15 Visit Deisy Salinas 350.1.13. 10 [facility] [place].7.2.[place] [id number] Pr dical NAL 353 Branch [facility] 2022-06-07 2022-06-07 Outpatient [facility] [id number] Univers 15:00:00 15:34:50 SENDDEBBY [facility] 2022-06-07 2022-06-07 [facility] 1.2.840.114 [id number] Univers 15:00:00 15:34:50 Visit Deisy MUSE 350.1.13.10 [facility] [place] [id number] Pr dical NAL 059 [facility] 2022-06-07 2022-06-07 Patient Brad [facility] 1.2.840.114 [id number] Univers 00:00:00 00:00:00 Secure Msg Deisy MUSE 350.1.13.10 ity [place] [id number] [place] [id number] [facility] 2022-06-07 2022-06-07 [facility]phone [facility] [id number] Univers 00:00:00 00:00:00 Senddebby MUSE 350.1.13.10 [place]y [place].2.[place] [id number] [place] [id number] [facility] 2022-05-24 2022-05-24 Outpatient R OLIVER [facility] [id number] Univers 13:30:00 13:30:00 RENEE [facility] 2022-05-21 2022-05-21 Urgent Romulo Landeros [facility] 1.2.840.114 [id number] Univers 15:00:00 15:20:00 Care Unknown, [facility] 350.1.13.10 ity [facility] 4.2.7.2.686 Mirza as RAIZA?BLEA [id number] [address] MEDICAL OFFICE [facility] 2022-05-21 2022-05-21 Outpatient R KRISTOPHER [facility] [id number] Univers 15:00:00 15:00:00 ATTENDING [facility] 2022-05-16 2022-05-16 Emergency X SINGER [facility] ERT [id number] Univers 16:15:00 17:35:00 [facility] 2022-05-16 2022-05-16 Emergency [facility] 1.2.568.433 [id number] Univers 16:15:00 17:35:00 Oziel MUSE 350.1.13.10 i ty [place] [id number] [address] 2022-05-11 2022-05-11 Se Gordon, UNIVERSIT 1.2.821.232 [id number] Univers 00:00:00 00:00:00 Zak H Y HEALTH 350.1.13.10 ity of [place] [id number] [place] [id number] [place] 2022-04-29 2022-04-29 Refkenyon Gordon, [facility] 1.2.451.956 [id number] Univers 00:00:00 00:00:00 Zak H Y HEALTH 350.1.13.10 ity of [place] [id number] [place] 837679 [place] 2022-04-28 2022-04-28 Orders Doctor CHARMAINE 1.2.840.114 [id number] Univers 00:00:00 00:00:00 Only Unassigned, KENYATTA 350.1.13.10 ity of [place] [facility] 4.2.7.2.686 Mirza as [id number] [address] 2022-04-27 2022-04-27 Telephone [facility] 1.2.775.518 [id number] Univers 00:00:00 00:00:00 Deisy MUSE 350.1.13.10 [place] [id number] [address] 2022-04-20 2022-04-20 Telephone [facility] 1.2.821.777 [id number] Univers 00:00:00 00:00:00 Stacia MUSE 350.1.13.10 [place]y [place] [id number] [facility] NAL [address] [place] [address] 2022-04-19 2022-04-19 Refkenyon Galo, [facility] 1.2.840.114 [id number] Univers 00:00:00 00:00:00 Shelby A Y HEALTH 350.1.13.10 ity of [place] [id number] [address] 2022-04-19 2022-04-19 Se [facility] 1.2.840.114 [id number] Univers 00:00:00 00:00:00 Eleonora MUSE 350.1.13.10 i ty of [place] 4[place].2.[place] [id number] Pr dical NAL 044 [facility] 2022-04-19 2022-04-19 [facility] 1.2.840.114 [id number] Univers 00:00:00 00:00:00 Deisy ShakiraValentina MUSE 350.1.13.10 [place]y [place] [id number] Pr dical NAL 059 [facility] 2022-04-19 2022-04-19 [facility] 1.2.795.100 [id number] Univers 00:00:00 00:00:00 [facility] 350.1.13.10 i ty of [facility] 4.2.7.2.[place] [id number] [address] 2022-04-19 2022-04-19 [facility] 1.2.752.462 [id number] Univers 00:00:00 00:00:00 [facility] 350.1.13.10 i ty of [place] [id number] [address] 2022-04-16 2022-04-16 Outpatient R [facility] [id number] Univers 13:00:00 13:00:00 DESHAWN [facility] 2022-04-16 2022-04-16 [facility] 1.2.323.179 [id number] Univers 00:00:00 00:00:00 Stacia MUSE 350.1.13.10 [place] [id number] Pr dic[address] 2022-04-14 2022-04-14 Outpatient R [facility] [id number] Univers 13:40:00 14:59:54 ELEONORA hebert [facility] 2022-04-14 2022-04-14 Office [facility] 1.2.840.114 [id number] Univers 13:40:00 14:59:54 Visit Eleonora MUSE 350.1.13.10 i ty [facility] 4.2.7.2.[place] [id number] Pr dical NAL 044 [facility] 2022-04-13 2022-04-13 Client Engagement Specialist David, Adc Lab Main [facility] 1.2.8 40.114 [id number] Univers 10:00:00 10:15:00 Visit Elizabethjuanvenecia Eleonora MUSE 350.1.13.10 ity of [facility] 4.2.7.2.[place] [id number] Pr dical NAL 353 [facility] 2022-04-13 2022-04-13 Outpatient R DEA [facility] [id number] Univers 10:00:00 10:00:00 ELEONORA hebert [facility] 2022-04-13 2022-04-13 Orders Doctor CHARMAINE 1.2.840.114 [id number] Univers 00:00:00 00:00:00 Only Unassigned, KENYATTA 350.1.13.10 [facility] 4.2.7.2.686 Mirza as [id number] [facility] 009 Branch 2022-04-07 2022-04-07 Outpatient R DEA [facility] [id number] Univers 09:40:00 09:40:00 ELEONORA hebert [facility] 2022-04-02 2022-04-02 Se Galo, [facility] 1..840.114 [id number] Univers 00:00:00 00:00:00 Shelby MARTINEZ 350.1.13.10 ity of [facility] 4.2.7.2.[place] [id number] [facility] 089 Branch 2022-03-30 2022-03-30 Outpatient R ASHER [facility] [id number] Univers 09:30:00 10:30:17 CAILIN hebert o f [facility] 2022-03-30 2022-03-30 Office [facility] 1.2.245.743 [id number] Univers 09:30:00 10:30:17 Visit Cailin Mg LANDING SUPPORT SPECIALIST 350.1.13.10 ity [facility] 4.2.7.2.686 Mirza as MATERNAL [id number] Med ical & CHILD 107 [facility] 2022-03-29 2022-03-29 Outpatient R DARION [facility] [id number] Univers 14:15:00 14:15:00 GILDA ridery o f [facility] 2022-03-19 2022-03-19 Outpatient R DEA [facility] [id number] Univers 08:20:00 09:36:26 ELEONORA itbrittany [facility] 2022-03-19 2022-03-19 Office [facility] 1.2.840.114 [id number] Univers 08:20:00 09:36:26 Visit Eleonora MUSE 350.1.13.10 i ty [facility] 4.2.7.[place] [id number] Pr dical NAL 044 [facility] 2022-03-17 2022-03-17 Outpatient Jason NICHOLAS [facility] [id number] Univers 11:00:00 11:00:00 [facility] 2022-03-16 2022-03-16 Se [facility] 1.2.840.114 [id number] Univers 00:00:00 00:00:00 Deisy ShakiraSherlynDebbieSherlyn MUSE 350.1.13.10 ity [facility] 4.2.7.2.[place] [id number] Pr dical NAL 059 [facility] 2022-03-15 2022-03-15 Outpatient [facility] [id number] Univers 16:29:00 23:59:00 GILDA hebert o f [facility] 2022-03-15 2022-03-15 [facility] 1.2.840.114 [id number] Univers 16:29:00 23:59:00 Encounter Gilda MUSE 350.1.13.10 ity [facility] [place] [id number] [facility] [address] [place] [address] 2022-03-10 2022-03-10 Outpatient R [facility] [id number] Univers 15:15:00 16:28:59 GILDA ridery o f [facility] 2022-03-10 2022-03-10 Office [facility] 1.2.840.114 [id number] Univers 15:15:00 16:28:59 Visit Gilda Jason LANDING SUPPORT SPECIALIST 350.1.13.10 ity of [facility] 4.2.7.2.686 Mirza as MATERNAL [id number] [facility] ical & CHILD [address] [place] [address] 2022-02-23 2022-02-23 Refill [facility] 1.2.840.114 [id number] Univers 00:00:00 00:00:00 Eleonora MUSE 350.1.13.10 i ty [place] [id number] [address] 2022-02-04 2022-02-04 Out[facility] [id number] Univers 13:45:45 23:59:00 [facility]-25 2022-01-25 [facility] 1.2.840.114 [id number] Univers 00:00:00 00:00:00 Secure Msg Eleonora MUSE 350.1.13.10 it[place] of [place] [phone] [address] 2022-01-25 2022-01-25 Refill [facility] 1.2.840.114 [id number] Univers 00:00:00 00:00:00 Eleonora MUSE 350.1.13.10 i ty of [place] [id number] [address] 2022-01-21 2022-01-21 [facility] [id number] Univers 14:00:00 14:00:00 SENDIL [facility] 2022-01-21 2022-01-21 Letter CHARMAINE Still 1.2.840.114 [id number] Univers 00:00:00 00:00:00 (Out) Rae Garcia KENYATTA 350.1.13.10 it y of [facility] 4.2.7.2.686 Mirza as [phone] [facility] [address] 2022-01-21 2022-01-21 Patient Igordarlene [facility] 1.2.840.114 [id number] Univers 00:00:00 00:00:00 Secure Msg Romulo JEFFERY 350.1.13.10 ity of [facility] 4.2.7.2.[place] GL[place] WILD [phone] [facility] [address] 2022-01-20 2022-01-20 Outpatient R SWETHA [facility] [id number] Univers 17:00:00 17:17:13 [facility] 2022-01-20 2022-01-20 Urgent HoodtawandaClau [facility] 1.2.840.114 [id number] Univers 17:00:00 17:17:13 Care Cherelle Arias [facility] 350.1.13.10 ity of [place] 4.2.7.2.686 Mirza as RAIZA?BLEA [id number] Pr [facility] [address] MEDICAL OFFICE BUILDING 2022-01-20 2022-01-20 Outpatient R SWETHA [facility] [id number] Univers 17:00:00 17:17:13 [facility] 2022-01-20 2022-01-20 Telephone [facility] 1.2.649.751 [id number] Univers 00:00:00 00:00:00 Deisy MUSE 350.1.13.10 it[place] of [place] [facility] [phone] Pr alo [facility] [address] BU[address]ING 2022-01-13 2022-01-13 Case LELE Prieto 1.2.948.743 [id number] Univers 00:00:00 00:00:00 Management Taj Finney [facility] 350.1.13.10 ity of [facility] 4.2.7.2.[place] [id number] [facility] [address] [place] 2022-01-11 2022-01-11 Client Engagement Specialist David, Tiffany Lab Main [facility] 1.2.8 40.114 [id number] Univers 12:00:00 12:15:00 Visit Deisy [place] 350.1.13. 10 ity of [facility] 4.2.7.2.[place] [id number] Pr dical NAL 353 [facility] 2022-01-11 2022-01-11 [facility] [id number] Univers 12:00:00 12:00:00 [facility] 2022-01-11 2022-01-11 Out[facility] [id number] Univers 10:30:00 10:57:47 SENDIL [facility] 2022-01-11 2022-01-11 Office Brad [facility] 1.2.840.114 [id number] Univers 10:30:00 10:57:47 Visit Deisy MUSE 350.1.13.10 it[place] of [place] [phone] [facility] 059 [facility] 2021-12-28 2021-12-28 Outpatient [facility] [id number] Univers 13:00:00 13:00:00 [facility] 2021-12-28 2021-12-28 Out[facility] [id number] Univers 13:00:00 13:00:00 [facility] 2021-12-28 2021-12-28 [facility]ill [facility] ..840.114 [id number] Univers 00:00:00 00:00:00 Eleonora MUSE 350.1.13.10 i ty of [facility] 4.2.7.2.[place] [phone] Pr dical NAL 044 [facility] 2021-12-28 2021-12-28 RefLELE [place] ..635.862 7334 [id number] Univers 00:00:00 00:00:00 [facility] 350.1.13.10 i ty of [place] [id number] [address] 2021-11-24 2021-11-24 Refkenyon [facility]inasROO[facility] 1.2.840.114 [id number] Univers 00:00:00 00:00:00 Deisy MUSE 350.1.13.10 ity of [facility] 4.2.7.2.[place] [id number] [address] 2021-11-13 2021-11-13 [facility] 1.2.840.114 [id number] Univers 00:00:00 00:00:00 Eleonora MUSE 350.1.13.10 i ty [place].2.[place] [id number] [address] 2021-11-13 2021-11-13 [facility]yon [facility] 1.2.840.114 [id number] Univers 00:00:00 00:00:00 Deisy MUSE 350.1.13.10 [place] of [place] [id number] [address] 2021-11-03 2021-11-03 [facility] 1.2.840.114 [id number] Univers 00:00:00 00:00:00 Eleonora MUSE 350.1.13.10 i ty [place] [id number] [address] 2021-11-03 2021-11-03 Se Galo [facility] 1.2.840.114 [id number] Univers 00:00:00 00:00:00 [facility] 350.1.13.10 ity of [place] 4[place] [id number] [address] 2021-10-22 2021-10-22 Telephone Chapito [facility] 1.2.840.114 [id number] Univers 00:00:00 00:00:00 [facility] 350.1.13.10 i ty of [facility] 4.2.7.2.686 [place] [id number] [facility] [address] [place] 2021-10-08 2021-10-08 [facility] 1.2.840.114 [id number] Univers 00:00:00 00:00:00 Eleonora MUSE 350.1.13.10 i [place] 4[place] [phone] Pr dical NAL 044 [facility] 2021-10-07 2021-10-07 Outpatient R [facility] [id number] Univers 09:00:00 09:00:00 [facility] 2021-10-07 2021-10-07 Outpatient R [facility] [id number] Univers 09:00:00 09:00:00 [facility] 2021-09-28 2021-09-28 Outpatient [facility] [id number] Univers 15:00:00 [facility] 2021-09-28 2021-09-28 Office [facility] 1.2.840.114 [id number] Univers 15:00:00 16:01:37 Visit Deisy MUSE 350.1.13.10 ity [facility] [place].2.7.2.[place] [phone] Pr dical NAL 059 [facility] 2021-09-28 2021-09-28 Outpatient [facility] [id number] Univers 10:30:00 10:30:00 SENDIL [facility] 2021-09-28 2021-09-28 Telephone [facility] 1.2.240.969 [id number] Univers 00:00:00 00:00:00 Senddebby MUSE 350.1.13.10 [place] of [place] [phone] Me dical NAL 059 [facility] 2021-09-28 2021-09-28 Orders Doctor CHARMAINE 1.2.840.114 [id number] Univers 00:00:00 00:00:00 Only Unassigned, KENYATTA 350.1.13.10 ity of [facility] 4.2.7.2.686 Mirza as [phone] [facility] [address] [place] 2021-09-25 2021-09-25 Telephone [facility] 1.2.701.553 [id number] Univers 00:00:00 00:00:00 Deisy MUSE 350.1.13.10 [place] [id number] [facility] 059 [facility] 2021-09-22 2021-09-22 Telephone [facility] 1.2.840.114 [id number] Univers 00:00:00 00:00:00 [facility] 350.1.13.10 i ty of [place] 4[place].2.[place] [id number] [facility] [address] 2021-09-14 2021-09-14 Se [facility] 1.2.840.114 [id number] Univers 00:00:00 00:00:00 Eleonora MUSE 350.1.13.10 i [place] [phone] [facility] 044 [facility] 2021-09-09 2021-09-09 Sarmad Driscoll [facility] 1.2.840.114 [id number] Univers 00:00:00 00:00:00 Management Rosemarie L Y HEALTH 350.1.13.10 ity of [place] [id number] [address] 2021-09-09 2021-09-09 Shawnee Driscoll [facility] 1.2.840.114 [id number] Univers 00:00:00 00:00:00 (Out) Rosemarie L Y HEALTH 350.1.13.10 ity [place] [id number] [address] 2021-09-09 2021-09-09 [facility] 1.2.840.114 [id number] Univers 00:00:00 00:00:00 Management Rosemarie L Y HEALTH 350.1.13.10 ity of [place] [id number] [address] 2021-09-07 2021-09-07 [facility] 1.2.840.114 [id number] Univers 00:00:00 00:00:00 Eleonora MUSE 350.1.13.10 i ty [place].2.[place] [id number] [address] 2021-09-07 2021-09-07 [facility] 1.2.895.780 [id number] Univers 00:00:00 00:00:00 [facility] 350.1.13.10 i ty of [place] [id number] [address] 2021-08-19 2021-08-19 [facility] 1.2.840.114 [id number] Univers 00:00:00 00:00:00 Management Rosemarie L Y HEALTH 350.1.13.10 ity of [place] [id number] [address] 2021-07-13 2021-07-13 Outpatient R BRAD [facility] [id number] Univers 15:30:00 16:07:23 SENDIL [facility] 2021-07-13 2021-07-13 Outpatient R BRAD [facility] [id number] Univers 15:30:00 16:07:23 SENDIL [facility] 2021-07-13 2021-07-13 Office Brad [facility] 1.2.840.114 [id number] Univers 15:30:00 16:07:23 Visit Deisy MUSE 350.1.13.10 [place].2.[place] [phone] Pr dical [facility] 059 [facility] 2021-07-09 2021-07-09 Outpatient R SALINAS [facility] [id number] Univers 10:00:37 23:59:00 SENDIL ity [facility] 2021-07-09 2021-07-09 Outpatient R SALINAS, [facility] [id number] Univers 10:00:37 23:59:00 SENDIL ity [facility] 2021-07-09 2021-07-09 Outpatient R SALINAS, [facility] [id number] Univers 10:00:37 23:59:00 SENDIL ity [facility] 2021-07-09 2021-07-09 [facility] 1.2.840.114 [id number] Univers 10:00:37 23:59:00 Encounter [facility] 350.1.13.10 ity of [place]2.7.2.[place] [phone] [facility] [address] [place] 2021-07-09 2021-07-09 Office Chapito [facility] 1.2.573.510 [id number] Univers 09:00:00 09:30:00 Visit [facility] 350.1.13.10 i ty [place] [id number] [address] 2021-07-09 2021-07-09 Outpatient R [facility] [id number] Univers 09:00:00 09:00:00 [facility] 2021-07-09 2021-07-09 Outpatient R [facility] [id number] Univers 09:00:00 09:00:00 [facility] 2021-07-09 2021-07-09 Case Ary [facility] 1.2.840.114 [id number] Univers 00:00:00 00:00:00 Management [facility] 350.1.13.10 ity of [place] [id number] [address] 2021-07-09 2021-07-09 Se Malin [facility] 1.2.840.114 [id number] Univers 00:00:00 00:00:00 Eleonora MUSE 350.1.13.10 i ty of [place] 4.2.7.2.[place] [id number] [address] 2021-07-09 2021-07-09 Se Uriarte, [facility] 1.2.020.938 [id number] Univers 00:00:00 00:00:00 [facility] 350.1.13.10 i ty [place] [id number] [address] 2021-07-09 2021-07-09 Silveriokenyon Meron, [facility] 1.2.133.484 [id number] Univers 00:00:00 00:00:00 [facility] 350.1.13.10 i ty of [facility] 4.2.7.2.686 [place] [id number] [address] 2021-07-07 2021-07-07 [facility] 1.2.840.114 [id number] Univers 00:00:00 00:00:00 Management [facility] 350.1.13.10 ity of [place] [id number] [address] 2021-06-18 2021-06-18 Outpatient Jason SALINAS [facility] [id number] Univers 10:00:00 10:00:00 SENDIL ity [facility] 2021-06-18 2021-06-18 Outpatient Jason SALINAS [facility] [id number] Univers 10:00:00 10:00:00 SENDIL ity [facility] 2021-06-16 2021-06-16 Outpatient Jason SALINAS [facility] [id number] Univers 10:30:00 10:30:00 SENDIL ity [facility] 2021-06-05 2021-06-05 Ana Prieto [facility] 1.2.840.114 [id number] Univers 00:00:00 00:00:00 [facility] 350.1.13.10 ity [place] [id number] [address] 2021-05-20 2021-05-20 Patient Brad, [facility] 1.2.840.114 [id number] Univers 00:00:00 00:00:00 Secure Msg Deisy MUSE 350.1.13.10 [place] of [place].2.[place] [id number] Pr dical NAL 059 [facility] 2021-05-18 2021-05-18 Refill [facility] 1.2.840.114 [id number] Univers 00:00:00 00:00:00 Eleonora MUSE 350.1.13.10 i ty [place].2.[place] 713.9001701 Pr dicnv NAL 044 [facility] 2021-05-18 2021-05-18 [facility] 1.2.829.360 [id number] [id number] Univers 00:00:00 00:00:00 [facility] 350.1.13.10 i ty [place] [id number] [address] 2021-05-13 2021-05-13 [facility] 1.2.840.114 [id number] Univers 00:00:00 00:00:00 Eleonora [facility] 350.1.13.10 i [place] 4.2.7.2.[place] [id number] Pr dicnv NAL 044 [facility] 2021-05-13 2021-05-13 [facility] 1.2.946.303 [id number] Univers 00:00:00 00:00:00 [facility] 350.1.13.10 i ty [place] [id number] [address] 2021-05-05 2021-05-05 Patient Brad, [facility] 1.2.840.114 [id number] Univers 00:00:00 00:00:00 Secure Msg Swatiil José Antonio MUSE 350.1.13.10 [place] of [place] 4[place]2.[place].2.[place] [id number] [facility] 059 [facility] 2021-05-02 2021-05-02 [facility] 1.2.840.114 [id number] Univers 00:00:00 00:00:00 Eleonora MUSE 350.1.13.10 [place] [phone] [address] 2021-05-02 2021-05-02 [facility] 1.2.600.991 [id number] Univers 00:00:00 00:00:00 [facility] 350.1.13.10 i ty [place] [id number] [address] 2021-04-28 2021-04-28 [facility] 1.2.840.114 [id number] Univers 00:00:00 00:00:00 Eleonora [place] 350.1.13.10 i ty [place]2.[place] [phone] [address] 2021-04-24 2021-04-24 [facility] 1.2.840.114 [id number] Univers 00:00:00 00:00:00 [facility] 350.1.13.10 i ty [place] [id number] [address] 2021-04-21 2021-04-21 [facility] 1.2.840.114 [id number] Univers 00:00:00 00:00:00 Eleonora MUSE 350.1.13.10 i [place].2.[place] [id number] [facility] NAL [address] [place] [address] 2021-04-21 2021-04-21 [facility] 1.2.745.301 [id number] 2852 Univers 00:00:00 00:00:00 [facility] 350.1.13.10 i ty [place] [id number] [address] 2021-04-13 2021-04-13 Sarmad Magallon, [facility] 1.2.613.833 [id number] Univers 00:00:00 00:00:00 Management Lona L Y HEALTH 350.1.13.10 ity of [place] [id number] [address] 2021-04-10 2021-04-10 Se [facility], [facility] 1.2.546.991 [id number] Univers 00:00:00 00:00:00 [facility] 350.1.13.10 i ty [place] [id number] [address] 2021-04-06 2021-04-06 [facility] [id number] Univers 11:00:00 11:00:00 SENDIL ity [facility] 2021-04-06 2021-04-06 [facility] 1.2.840.114 [id number] Univers 10:00:02 10:53:28 Visit Deisy Muse 350.1.13.10 ity [facility] [place].2.7.2.[place] [phone] [address] 2021-04-06 2021-04-06 Outpatient R BRAD [facility] [id number] Univers 10:00:00 10:53:28 SENDIL ity [facility] 2021-04-06 2021-04-06 Outpatient R BRAD [facility] [id number] Univers 10:00:00 10:00:00 SENDIL ity [facility] 2021-04-06 2021-04-06 Sarmad Magallon, [facility] 1.2.597.958 [id number] Univers 00:00:00 00:00:00 Management Lona Cohn Y [facility] 350.1.13.10 ity of [place] [id number] [place] 8[address] [place] 2021-03-25 2021-03-25 Client Engagement Specialist [facility] 1.2.840.114 [id number] Univers 12:40:57 12:55:57 Visit Deshawn Uirarte [facility] 350.1.13.10 ity of [place]2.7.2.[place] [id number] [facility] [address] 2021-03-25 2021-03-25 Office [facility] 1.2.672.023 [id number] Univers 09:51:10 10:21:10 Visit [facility] 350.1.13.10 i ty of [place] [id number] [address] 2021-03-25 2021-03-25 Outpatient R [facility] [id number] Univers 09:30:00 09:30:00 [facility] 2021-03-25 2021-03-25 [facility], [facility] 1.2.208.312 [id number] Univers 00:00:00 00:00:00 Management Lona L Y HEALTH 350.1.13.10 ity [place] [id number] [address] 2021-03-25 2021-03-25 [facility] 1.2.727.054 [id number] 7099 Univers 00:00:00 00:00:00 Management Lona L Y HEALTH 350.1.13.10 ity of [place] [id number] [place] 837[address] [place] 2021-03-24 2021-03-24 [facility] 1.2.840.114 [id number] Univers 00:00:00 00:00:00 Eleonora Muse 350.1.13.10 i ty of [place].2.[place] Profess[place] [phone] [address] 2021-03-23 2021-03-23 Sarmad Stallings [facility] 1.2.840.114 [id number] Univers 00:00:00 00:00:00 Management [facility] 350.1.13.10 ity of [place] [id number] [address] 2021-03-18 2021-03-18 [facility] 1.2.840.114 [id number] Univers 10:00:00 23:59:00 Encounter Deisy Muse 350.1.13.10 ity of [place] [phone] [facility] 843 [facility] 2021-03-18 2021-03-18 [facility] [id number] Univers 10:00:00 10:00:00 [facility] 2021-03-17 2021-03-17 Refkenyon Uriarte [facility] 1.2.010.082 [id number] Univers 00:00:00 00:00:00 [facility] 350.1.13.10 i ty [place] [id number] [address] 2021-03-13 2021-03-13 Refkenyon Gordon [facility] 1.2.951.760 [id number] 1038 Univers 00:00:00 00:00:00 [facility] 350.1.13.10 ity of [place] [id number] [address] 2021-03-11 2021-03-11 Outpatient R DEA [facility] [id number] Univers 11:00:00 11:00:00 ELEONORA itbrittany [facility] 2021-03-04 2021-03-04 [facility] [id number] Univers 09:00:00 09:00:00 SENDIL [facility] 2021-03-02 2021-03-02 [place] [facility] 1.2.189.981 [id number] Univers 00:00:00 00:00:00 Sendil José Antonio Muse 350.1.13.10 ity of [place] [id number] Pr dical nal 059 [facility] 2021-03-01 2021-03-01 Patient Brad [facility] 1.2.840.114 [id number] Univers 00:00:00 00:00:00 Secure Msg Deisy Muse 350.1.13.10 it[place] of [place] [phone] [facility] 059 [facility] 2021-02-27 2021-02-27 Outpatient [facility] [id number] Univers 09:00:00 09:00:00 DESHAWN ity [facility] 2021-02-26 2021-02-26 Client Engagement Specialist David, Adc Lab Main [facility] 1.2.8 40.114 [id number] [facility] 10:44:07 10:59:07 Visit Deisy [place] 350.1.13. 10 it[place] of [place] [id number] [facility] 353 [facility] 2021-02-26 2021-02-26 Client Engagement Specialist David, Adc Lab Main [facility] 1.2.8 40.114 [id number] Univers 10:44:07 10:59:07 Visit Deisy [place] 350.1.13. 10 [place] of [place].2.[place] [phone] Pr dicnv nal 353 [facility] 2021-02-26 2021-02-26 Outpatient [facility] [id number] Univers 10:45:00 10:45:00 SENDIL ity [facility] 2021-02-26 2021-02-26 LELE Hernnadez 1.2.840.114 [id number] Univers 00:00:00 00:00:00 Management [facility] 350.1.13.10 ity of [facility] 4.2.7.2.[place] [id number] [address] 2021-02-25 2021-02-25 LELE Hernandez 1.2.840.114 [id number] Univers 00:00:00 00:00:00 Management [facility] 350.1.13.10 ity of [place] [id number] [address] 2021-02-20 2021-02-20 Se [facility], [facility] 1.2.796.228 [id number] 2687 Univers 00:00:00 00:00:00 [facility] 350.1.13.10 i [place] [phone] [address] 2021-02-13 2021-02-13 Client Engagement Specialist 2, Ad[facility] Lab [facility] 1.2.840.114 [id number] Univers 11:30:00 11:45:00 Visit Deisy [place] 350.1.13. 10 [place] [phone] Pr dical nal [address] [place] [address] 2021-02-13 2021-02-13 Client Engagement Specialist 2, [facility] 1.2.840.114 [id number] Univers 11:30:00 11:45:00 Visit Deisy [place] 350.1.13. 10 [place] [phone] Pr dical nal [address] [place] [address] 2021-02-13 2021-02-13 Client Engagement Specialist 2, [facility] 1.2.840.114 [id number] Univers 11:30:00 11:45:00 Visit Deisy [place] 350.1.13. 10 [place] [phone] Pr dic[address] 2021-02-13 2021-02-13 Outpatient R DENNY SALINAS [facility] [id number] Univers 10:00:00 11:03:17 SENDIL ity of [facility] 2021-02-13 2021-02-13 Office Brad AZPEDRO 1.2.840.114 [id number] Univers 09:39:48 11:03:17 Visit Sendil José Antonio Edna 350.1.13.10 [place] [phone] [place] 499009 [facility] 2021-02-13 2021-02-13 Office Brad [facility] 1.2.840.114 [id number] Univers 09:39:48 11:03:17 Visit Sendil José Antonio Edna 350.1.13.10 [place] [phone] [address] 2021-02-13 2021-02-13 Outpatient R [facility] [id number] Univers 10:00:00 10:00:00 SENDIL ity of [facility] 2021-02-10 2021-02-10 Letter LELE Mcallister 1.2.840.114 [id number] Univers 00:00:00 00:00:00 (Out) [facility] 350.1.13.10 [place] [phone] [place] [address] [place] 2021-02-10 2021-02-10 Letter LELE Mcallister 1.2.840.114 [id number] Univers 00:00:00 00:00:00 (Out) [facility] 350.1.13.10 [place] [phone] [facility] [address] [place] 2021-02-06 2021-02-06 Orders Doctor CHARMAINE 1.2.840.114 [id number] Univers 00:00:00 00:00:00 Only Unassigned, KENYATTA 350.1.13.10 ity of [facility] 4.2.7.2.686 Mirza as [phone] [facility] [address] [place] 2021-02-02 2021-02-02 Se Nicholas, UNIVERSIT 1.2.959.447 [id number] Univers 00:00:00 00:00:00 [facility] 350.1.13.10 i ty of [place] [phone] [address] 2021-01-30 2021-01-30 Outpatient R BRAD [facility] [id number] Univers 10:00:00 10:00:00 SENDIL ity of [facility] 2021-01-26 2021-01-26 [facility] 1.2.029.799 [id number] [id number] Univers 00:00:00 00:00:00 [facility] 350.1.13.10 i [place] [phone] [address] 2021-01-26 2021-01-26 Telephone [facility] 1.2.840.114 [id number] Univers 00:00:00 00:00:00 [facility] 350.1.13.10 ity of [place] [id number] [address] 2021-01-21 2021-01-21 [facility] 1.2.645.668 0839 [id number] Univers 00:00:00 00:00:00 [facility] 350.1.13.10 i ty [place] [id number] [address] 2021-01-15 2021-01-15 Office [facility] 1.2.840.114 [id number] Univers 10:32:07 11:14:14 Visit Kelby Muse 350.1.13.10 ity [facility] [place] [phone] [address] 2021-01-15 2021-01-15 Outpatient Jason MERINO [facility] [id number] Univers 10:30:00 10:30:00 KELBY simpson [facility] 2021-01-12 2021-01-12 Outpatient R WILBER [facility] [id number] Univers 11:00:00 11:00:00 KELBY simpson [facility] 2021-01-12 2021-01-12 Case [facility] 1.2.840.114 [id number] Univers 00:00:00 00:00:00 Management Nechelle Y HEALTH 350.1.13.10 it[place] [phone] [address] 2021-01-12 2021-01-12 Se Pepeclary, [facility] 1.2.217.396 0524 [id number] Univers 00:00:00 00:00:00 Soham Y HEALTH 350.1.13.10 i ty [facility] [place] [phone] [address] 2020-12-17 2020-12-17 Sarmad Driscoll, [facility] 1.2.840.114 [id number] Univers 00:00:00 00:00:00 Management Rosemarie L Y HEALTH 350.1.13.10 it[place] [phone] [address] 2020-12-04 2020-12-04 [facility] [id number] Univers 14:20:00 14:20:00 ELEONORA hebert [facility] 2020-12-03 2020-12-03 [facility] 1.2.840.114 [id number] Univers 12:40:26 13:08:23 ne Visit Eleonora Muse 350.1.13.10 ity of [place] [phone] Pr dical [address] 2020-12-03 2020-12-03 Out[facility] 1033 [id number] Univers 09:35:00 09:35:00 ELEONORA hebert [facility] 2020-12-02 2020-12-02 [facility] 1.2.840.114 [id number] Univers 00:00:00 00:00:00 Eleonora Muse 350.1.13.10 i [place] [phone] Pr dical nal 044 [facility] 2020-12-02 2020-12-02 Refkenyon [place], UNIVERSIT 1.2.715.940 2686 [id number] Univers 00:00:00 00:00:00 [facility] 350.1.13.10 i ty of [facility] 4.2.7.2.[place] [id number] [facility] [address] [place] 2020-11-24 2020-11-24 Client Engagement Specialist David, Adc Lab Main [facility] 1.2.8 40.114 [id number] Univers 14:04:32 14:19:32 Visit Sandrine Alamo 350.1.13.10 [facility]y [facility] 4.2.7.2.686 [facility] [phone] Pr dicnv nal 353 [facility] 2020-11-24 2020-11-24 Outpatient [facility] [id number] Univers 14:00:00 14:00:00 ELEONORA hebert [facility] 2020-11-14 2020-11-14 [facility] 1.2.840.114 [id number] Univers 12:01:32 23:59:00 Encounter Eleonora Muse 350.1.13.10 ity [place] [phone] [facility] [address] [place] 2020-11-14 2020-11-14 Client Engagement Specialist 2, Adc Lab [facility] 1.2.840.114 [id number] Univers 08:16:10 08:31:10 Visit Eleonora Malin 350.1.13.10 ity [place] [phone] Pr dical nal 353 [facility] 2020-11-14 2020-11-14 Outpatient R DEA [facility] 1033 [id number] Univers 08:30:00 08:30:00 ELEONORA hebert [facility] 2020-11-13 2020-11-13 Refkenyon Olvera, UNIVERS 1.2.840.114 [id number] Univers 00:00:00 00:00:00 [facility] 350.1.13.10 i ty of CL[place]ICS [place] [phone] [facility] [address] 2020-11-13 2020-11-13 Refkenoyn Parksste[facility] 1.2.840.114 [id number] [id number] Univers 00:00:00 00:00:00 Eleonora Muse 350.1.13.10 i ty [place] [phone] Pr dical [facility] 044 [facility] 2020-11-12 2020-11-12 Office Soham Nicholas [facility] 1. 2.840.114 [id number] Univers 08:18:57 09:31:10 Visit Eleonora Herman [facility] 350.1.13.10 ity of CLINICS 4[place] [phone] [facility] [address] [place] 2020-11-12 2020-11-12 Outpatient R VIRGIL [facility] [id number] Univers 08:00:00 08:00:00 ELEONORA itbrittany of [facility] 2020-11-12 2020-11-12 Telephone MARIA EUGENIA Nicholas 1.2.840.114 [id number] Univers 00:00:00 00:00:00 [facility] 350.1.13.10 i ty of [facility] [place] [phone] [facility] [address] [place] 2020-11-12 2020-11-12 Telephone Meron [facility] 1.2.840.114 [id number] Univers 00:00:00 00:00:00 [facility] 350.1.13.10 i ty of [facility] 4[place] [id number] [facility] [address] [place] 2020-11-11 2020-11-11 CHARMAINE Noguera 1.2.840.114 [id number] Univers 00:00:00 00:00:00 Management Aminta SHERWOOD 350.1.13.10 ity of [facility] 4.2.7.2.[place] [phone] [place] [address] [address] 2020-11-112020-11-11 Telephone Lexy, [facility]ERS[facility] 1.2.840.114 84 [id number] Univers 00:00:00 00:00:00 Joan Y HEALTH 350.1.13.10 ity of [place] [id number] [facility] [address] 2020-11-11 2020-11-11 Orders Doctor CHARMAINE 1.2.840.114 [id number] Univers 00:00:00 00:00:00 Only Unassigned, KENYATTA 350.1.13.10 ity of [place] [facility] 4.2.7.2.686 Mirza as [phone] [facility] [address] 2020-11-06 2020-11-06 Telephone Drexel, [facility] 1.2.840.114 84 [id number] Univers 00:00:00 00:00:00 Joan Y HEALTH 350.1.13.10 ity of [place] [phone] [facility] [address] 2020-11-05 2020-11-05 CHARMAINE Rebollar 1.2.840.114 [id number] Univers 00:00:00 00:00:00 Management Senait SHERWOOD 350.1.13.10 ity of HOSPITAL 4.2.7.2.686 Mirza as [phone] [facility] [address] 2020-10-31 2020-10-31 [facility] 1.2.840.114 [id number] [id number] Univers 00:00:00 00:00:00 Eleonora Muse 350.1.13.10 i ty [place] [phone] Pr dical nal [address] 2020-10-30 2020-10-30 Office LELE Gallegos 1.2.840.114 [id number] Univers 15:17:29 16:27:21 Visit Juliana Y HEALTH 350.1.13.10 ity of CL[place] [phone] [facility] [address] 2020-10-30 2020-10-30 Outpatient [facility] 1032 [id number] Univers 15:00:00 16:27:21 JULIANA hebert [facility] 2020-10-30 2020-10-30 Outpatient R [facility] 1032 [id number] Univers 15:00:00 15:00:00 JULIANA hebert [facility] 2020-10-27 2020-10-27 Ana Pugh, UN[facility]ERSIT 1.2.840.114 84 [id number] Univers 00:00:00 00:00:00 Joan Y HEALTH 350.1.13.10 ity of [place] [phone] [facility] [address] 2020-10-24 2020-10-24 [facility] 1.2.357.141 2490 [id number] Univers 13:30:00 23:59:00 Encounter Juan Carlos [place] 350.1.13.10 ity of [place].2.[place] [phone] [facility] [address] 2020-10-24 2020-10-24 Outpatient [facility] [id number] Univers 00:00:00 00:00:00 JUAN CARLOS hebert [facility] 2020-10-24 2020-10-24 [facility] 1.2.840.114 [id number] Univers 00:00:00 00:00:00 Management Juan Carlos Y HEALTH 350.1.13.10 ity of [place] [phone] [facility] [address] 2020-10-23 2020-10-23 [facility] 1.2.840.114 [id number] Univers 00:00:00 00:00:00 Eleonora Muse 350.1.13.10 i ty [place] [phone] [address] 2020-10-23 2020-10-23 [facility] Chapito, [facility] 1.2.933.972 [id number] 0379 Univers 00:00:00 00:00:00 Deshawn Y HEALTH 350.1.13.10 i ty of [facility] 4.2.7.2.[place] [phone] [facility] [address] [place] 2020-10-22 2020-10-22 [facility]medici [facility] 1.2.840.114 [id number] Univers 13:29:14 14:48:49 ne Visit Eleonora Muse 350.1.13.10 ity [place].2.[place] [phone] Pr dical [facility] 044 [facility] 2020-10-22 2020-10-22 Outpatient [facility] 1032 [id number] Univers 08:00:00 08:00:00 ELEONORA hebert of [facility] 2020-10-22 2020-10-22 Transition Bhanu Corona 1.2.840.114 [id number] Univers 00:00:00 00:00:00 of Care Desi Yo 350.1.13.10 it y of [place] [id number] [facility] [address] [place] 2020-10-20 2020-10-20 Outpatient R FLORIDALMA [facility] 1032 [id number] Univers 09:30:00 09:30:00 ARY ity of [facility] 2020-10-20 2020-10-20 Bhanu Arnett 1.2.840.114 [id number] Univers 00:00:00 00:00:00 of Care Desi Yo 350.1.13.10 it y of [place].2.[place] [phone] [facility] [address] [place] 2020-09-26 2020-10-18 [facility] Jonh Wilkinson 1.2.8 40.114 [id number] Univers 16:08:00 14:55:00 Encounter Piyush Van 350.1.13.10 ity of [facility] 4.2.7.2.686 [place] Juan Jose Rahman [phone] [facility] Juliana Gallegos [address] 2020-10-14 2020-10-14 Outpatient R BRAD, [facility] [id number] Univers 11:00:00 11:00:00 SENDIL ity of [facility] 2020-10-09 2020-10-09 Surgery Brenda Gallegos 1.2.840.114 [id number] Univers 11:10:00 17:48:00 Juliana Garcia Kenyatta 350.1.13.10 ity of [facility] 4.2.7.2.686 Mirza as [phone] [facility] [address] 2020-10-09 2020-10-09 Outpatient R [facility] [id number] Univers 10:30:00 10:30:00 ity of [facility] 2020-10-09 2020-10-09 Telephone LELE Pugh 1.2.840.114 [id number] Univers 00:00:00 00:00:00 Joan Y HEALTH 350.1.13.10 ity of CL[place] [id number] [facility] [address] 2020-10-01 2020-10-01 Surgery Benny [facility] 1.2.220.295 7730 5373 Univers 14:29:00 15:44:00 Gianluca ICAL 350.1.13.10 it y of [facility] 4.2.7.2.686 Mirza as BLDG [phone] [facility] [address] 2020-09-26 2020-09-26 Travel 1.2.840.1 1.2.600.632 [id number] [id number] Univers 00:00:00 00:00:00 37370.1.1 350.1.13.10 ity of 3.104.2.7 4.[place].3.698 [place] .3.581867 084.8 Medica l .8 Branch 2020-09-25 2020-09-25 [facility], 1.2.840.7 [id number] Univers 10:00:00 23:59:00 Encounter Peter 72709.1.1 it y of 3.104.2.7 [place] .3.311761 Medica l .8 Branch 2020-09-252020-09-25 Outpatient R DEA, [facility] 1032 [id number] Univers 00:00:00 00:00:00 ELEONORA itbrittany [facility] 2020-09-25 2020-09-25 Travel 1.2.840.1 1.2.649.650 [id number] [id number] Univers 00:00:00 00:00:00 72130.1.1 350.1.13.10 ity of 3.104.2.7 4.2.7.3.698 [place] .3.622171 084.8 Medica l .[address] [place] 2020-09-24 2020-09-24 [facility] [id number] Univers 12:00:00 12:00:00 RENAN ity [facility] 2020-09-24 2020-09-24 Telephone Lexy, 1.2.840.2 [id number] Univers 00:00:00 00:00:00 Joan 19618.1.1 ity of 3.104.2.7 [place] .3.359430 Medica l .[address] [place] 2020-09-23 2020-09-23 Outpatient [facility] [id number] Univers 10:00:00 10:00:00 DEISY itbrittany [facility] 2020-09-19 2020-09-19 Office Dea, 1.2.840.7 [id number] Univers 12:51:17 13:40:11 Visit Eleonora 92204.1.1 ity of 3.104.2.7 [place] .3.749878 Medica l .[address] [place] 2020-09-19 2020-09-19 Outpatient [facility] 1032 [id number] Univers 13:00:00 13:00:00 ELEONORA ity [facility] 2020-09-19 2020-09-19 Travel 1.2.840.1 1.2.133.928 [id number] Univers 00:00:00 00:00:00 51194.1.1 350.1.13.10 ity of 3.104.2.7 4.2.7.3.698 [place] .3.497206 084.8 Medica l .8 Branch 2020-09-18 2020-09-18 Emergency Yarijoaquina, 1.2.840.6 [id number] [id number] Univers 04:19:00 06:59:00 Zak Galicia 87082.1.1 ity of 3.104.2.7 [place] .3.154169 Medica l .8 Branch 2020-09-18 2020-09-18 Telephone East, 1.2.840.9 [id number] [id number] Univers 00:00:00 00:00:00 Deshawn 78590.1.1 ity of 3.104.2.7 [place] .3.034240 Medica l .8 Branch 2020-09-18 2020-09-18 Travel 1.2.840.1 1.2.474.677 2592 [id number] Univers 00:00:00 00:00:00 84229.1.1 350.1.13.10 ity of 3.104.2.7 4.2.7.3.698 [place] .3.886898 084.8 Medica l .8 [place] 2020-09-15 2020-09-15 Telephone Lexy, 1.2.840.1 [id number] Univers 00:00:00 00:00:00 Joan 12266.1.1 ity of 3.104.2.7 [place] .3.562647 Medica l .8 [place] 2020-09-01 2020-09-01 Case Lexy, 1.2.840.2 [id number] [id number] Univers 00:00:00 00:00:00 Management Joan 84742.1.1 ity of 3.104.2.7 [place] .3.321973 Medica l .[address] [place] 2020-08-28 2020-08-28 Patient Doctor 1.2.840.9 [id number] Univers 00:00:00 00:00:00 Secure Msg Unassigned, 63937.1.1 ity of [place] 3.104.2.7 [place] .3.984158 Medica l .8 Branch 2020-08-27 2020-08-27 Outpatient [facility] [id number] Univers 12:00:00 12:00:00 ity of [facility] 2020-08-27 2020-08-27 Imm/Inj ChevyRenan phelps 1.2.840.1 [id number] Univers 11:54:17 11:55:19 Visit Nurse, Tiffany Leija 49868.1.1 ity of 3.104.2.7 [place] .3.551879 Medica l .[address] [place] 2020-08-21 2020-08-21 Office Edemekovenecia, 1.2.840.5 [id number] Univers 11:27:02 12:16:58 Visit Eleonora 73632.1.1 ity of 3.104.2.7 [place] .3.569221 Medica l .[address] [place] 2020-08-21 2020-08-21 Out[facility] 1031 [id number] Univers 11:20:00 11:20:00 ELEONORA ity of [facility] 2020-08-21 2020-08-21 Travel 1.2.840.1 1.2.006.211 [id number] [id number] Univers 00:00:00 00:00:00 84207.1.1 350.1.13.10 ity of 3.104.2.7 4.2.7.3.698 [place] .3.339666 084.8 Medica l .8 [place] 2020-08-19 2020-08-19 Outpatient [facility] [id number] Univers 10:30:00 10:30:00 DESHAWN ity of [facility] 2020-08-18 2020-08-18 Sarmad Pugh, 1.2.840.7 [id number] Univers 00:00:00 00:00:00 Management Joan 94240.1.1 ity of 3.104.2.7 [place] .3.468967 Medica l .8 [place] 2020-08-18 2020-08-18 Telephone Power Wheat, 1.2.840.9 [id number] Univers 00:00:00 00:00:00 Rosemarie R 41130.1.1 ity of 3.104.2.7 [place] .3.628942 Medica l .8 [place] 2020-08-02 2020-08-02 Telephone Tavon, 1.2.840.6 [id number] Univers 00:00:00 00:00:00 All N 61032.1.1 ity of 3.104.2.7 [place] .3.114033 Medica l .8 [place] 2020-08-01 2020-08-01 Client Engagement Specialist Eleonora Malin 1.2.840.1 [id number] Univers 12:12:13 12:27:13 Visit Poblayne, Adc Lab Main 31774.1.1 ity of 3.104.2.7 [place] .3.034019 Medica l .[address] [place] 2020-08-01 2020-08-01 Outpatient R DEA [facility] 1031 [id number] Univers 12:15:00 12:15:00 ELEONORA ity of [facility] 2020-08-01 2020-08-01 Orders Doctor 1.2.840.3 [id number] Univers 00:00:00 00:00:00 Only Unassigned, 23886.1.1 ity of [place] 3.104.2.7 [place] .3.492175 Medica l .[address] [place] 2020-08-01 2020-08-01 Telephone Asher, 1.2.840.6 [id number] Univers 00:00:00 00:00:00 Cailin Mg 72554.1.1 i ty of 3.104.2.7 [place] .3.258774 Medica l .8 [place] 2020-08-01 2020-08-01 Travel 1.2.840.1 1.2.547.692 8938 6471 Univers 00:00:00 00:00:00 56150.1.1 350.1.13.10 ity of 3.104.2.7 4.2.7.3.698 [place] .3.306550 084.8 Medica l .8 [place] 2020-07-23 2020-07-23 Refill Doctor 1.2.840.5 [id number] [id number] Univers 00:00:00 00:00:00 Unassigned, 81843.1.1 ity of [place] 3.104.2.7 [place] .3.467809 Medica l .8 [place] 2020-07-23 2020-07-23 Refill Doctor 1.2.840.6 [id number] 114 Univers 00:00:00 00:00:00 Unassigned, 87608.1.1 ity of [place] 3.104.2.7 [place] .3.786121 Medica l .8 [place] 2020-07-22 2020-07-22 Telemedici Dea, 1.2.840.8 [id number] Univers 09:20:00 09:40:00 ne Visit Eleonora 75322.1.1 ity of 3.104.2.7 [place] .3.872491 Medica l .[address] [place] 2020-07-22 2020-07-22 Out[facility] [id number] Univers 09:20:00 09:20:00 ELEONORA itbrittany [facility] 2020-07-18 2020-07-18 Out[facility] [id number] Univers 14:00:00 14:00:00 DESHAWN emilee [facility] 2020-07-18 2020-07-18 Office Chapito, 1.2.840.0 [id number] Univers 10:29:11 12:18:23 Visit Deshawn 67477.1.1 ity of 3.104.2.7 [place] .3.121427 Medica l .8 [place] 2020-07-18 2020-07-18 Case Ida, 1.2.840.6 [id number] Univers 00:00:00 00:00:00 Management Taj Cohn 56807.1.1 ity of 3.104.2.7 [place] .3.104751 Medica l .8 [place] 2020-07-17 2020-07-17 Office Tavon, 1.2.840.5 [id number] [id number] Univers 14:15:13 15:06:13 Visit All Galan 57318.1.1 ity of 3.104.2.7 [place] .3.093881 Medica l .8 Branch 2020-07-17 2020-07-17 Outpatient R TAVON, [facility] [id number] Univers 14:15:00 14:15:00 ALL ity of [facility] 2020-07-17 2020-07-17 Telephone Ida, 1.2.840.9 [id number] [id number] Univers 00:00:00 00:00:00 Taj L 45460.1.1 ity of 3.104.2.7 [place] .3.288092 Medica l .8 [place] 2020-07-17 2020-07-17 Orders Doctor 1.2.840.7 [id number] Univers 00:00:00 00:00:00 Only Unassigned, 14277.1.1 ity of [place] 3.104.2.7 [place] .3.777508 Medica l .8 Branch 2020-07-17 2020-07-17 Travel 1.2.840.1 1.2.596.250 9933 1278 Univers 00:00:00 00:00:00 56312.1.1 350.1.13.10 ity of 3.104.2.7 4.2.7.3.698 [place] .3.848960 084.8 Medica l .8 [place] 2020-07-14 2020-07-14 Case Georgianaridge, 1.2.840.1 [id number] [id number] Univers 00:00:00 00:00:00 Management Rosemarie L 06048.1.1 ity of 3.104.2.7 [place] .3.566739 Medica l .8 [place] 2020-07-11 2020-07-11 Case Magallon, 1.2.840.0 [id number] Univers 00:00:00 00:00:00 Management Lona L 63858.1.1 i ty of 3.104.2.7 [place] .3.370805 Medica l .8 [place] 2020-07-10 2020-07-10 [facility] 1030 [id number] Univers 16:40:00 16:40:00 LUZ MARINA hebert [facility] 2020-06-23 2020-06-23 Sarmad Mcallister, [facility] 1.2.840.114 [id number] Univers 00:00:00 00:00:00 Management Nechelle Y HEALTH 350.1.13.10 ity of [place] [id number] [address] 2020-05-23 2020-05-23 Telephone [facility] 1.2.840.114 [id number] Univers 00:00:00 00:00:00 Deshawn Y HEALTH 350.1.13.10 i ty of [place] [id number] [address] 2020-05-19 2020-05-19 Outpatient [facility] [id number] Univers 09:30:00 09:30:00 DESHAWN [facility] 2020-05-14 2020-05-14 Sarmad Driscoll, [facility] 1.2.840.114 [id number] Univers 00:00:00 00:00:00 Management Rosemarie L Y HEALTH 350.1.13.10 ity of [place] 213.2328018 [address] 2020-05-14 2020-05-14 Sarmad Driscoll [facility] 1.2.840.114 [id number] Univers 00:00:00 00:00:00 Management Rosemarie L Y HEALTH 350.1.13.10 ity of [place] 137.6576685 [address] 2020-05-14 2020-05-14 [facility] 1.2.840.114 [id number] Univers 00:00:00 00:00:00 Taj L Y HEALTH 350.1.13.10 ity of CLINICS 4[place].2.[place] 349.1605160 [address] 2020-05-12 2020-05-12 Sarmad Stonerdomstiven [facility] 1.2.840.114 [id number] Univers 00:00:00 00:00:00 Management Rosemarie Cohn [facility] 350.1.13.10 [place] [id number] [address] 2020-05-07 2020-05-07 Patient [facility] [id number] Univers 00:00:00 00:00:00 Secure Msg Deshawn Finney [facility] 350.1.13.10 [place] [phone] [address] 2020-05-02 2020-05-02 Telephone [facility] 1.2.840.114 [id number] Univers 00:00:00 00:00:00 Dsehawn [facility] 350.1.13.10 i ty [place] [id number] [address] 2020-04-24 2020-04-24 Office [facility] 1.2.203.046 [id number] Univers 15:09:49 16:00:34 Visit All Galan [employer] SPECIALIST 350.1.13.10 it y of REGIONAL 4.2.7.2.686 Mirza as MATERNAL [phone] Med ical & CHILD [address] [place] [address] 2020-04-24 2020-04-24 [facility] [id number] Univers 15:00:00 15:00:00 ALL hebert [facility] 2020-04-18 2020-04-18 Client Engagement Specialist [facility] 1.2.840.114 [id number] Univers 13:00:05 13:16:02 Visit Deshawn Uriarte [facility] 350.1.13.10 ity [place] [id number] [address] 2020-04-18 2020-04-18 [facility] [id number] Univers 13:00:00 13:00:00 DESHAWN hebert [facility] 2020-04-18 2020-04-18 Office [facility] 1.2.165.002 [id number] Univers 11:35:51 12:51:39 Visit Deshawn Y HEALTH 350.1.13.10 i ty [place] [id number] [address] 2020-04-14 2020-04-14 Telephone [facility] 1.2.840.114 [id number] Univers 00:00:00 00:00:00 Deshawn [facility] 350.1.13.10 i ty [place] [id number] [address] 2020-04-01 2020-04-01 [facility] 1.2.840.114 [id number] Univers 00:00:00 00:00:00 Rosemarie L Y HEALTH 350.1.13.10 ity [place] [id number] [address] 2020-03-25 2020-03-25 [facility] 1.2.840.114 [id number] Univers 00:00:00 00:00:00 Management Rosemarie L Y HEALTH 350.1.13.10 [place] [id number] [address] 2020-03-21 2020-03-21 [facility] 1.2.840.114 [id number] Univers 00:00:00 00:00:00 Taj L Y HEALTH 350.1.13.10 [place] [phone] [address] 2020-03-17 2020-03-17 Client Engagement Specialist Tiffany Hernandez [facility] 1.2.8 40.114 [id number] Univers 10:29:46 10:44:46 Visit Luz Marina Cruz 350.1. 13.10 ity of Deshawn Uriartebury 4.2.7.2.686 [place] [id number] [address] 2020-03-17 2020-03-17 Outpatient R [facility] [id number] Univers 10:40:00 10:40:00 LUZ MARINA hebert [facility] 2020-03-17 2020-03-17 Orders Doctor CHARMAINE 1.2.840.114 [id number] Univers 00:00:00 00:00:00 Only Unassigned, KENYATTA 350.1.13.10 [place]y [place] [facility] 4.2.7.2.686 Mirza as [phone] [address] 2020-03-17 2020-03-17 Telephone [facility] 1.2.840.114 [id number] Univers 00:00:00 00:00:00 [facility] 350.1.13.10 i [place] [phone] [address] 2020-03-04 2020-03-04 Outpatient [facility] [id number] Univers 10:45:00 10:45:00 [facility] 2020-03-04 2020-03-04 [facility] 1.2.188.200 [id number] Univers 00:00:00 00:00:00 [facility] 350.1.13.10 i [place] [id number] [address] 2020-01-23 2020-01-23 Refill [facility] 1.2.759.768 [id number] Univers 00:00:00 00:00:00 [facility] 350.1.13.10 i [place] [id number] [address] 2020-01-01 2020-01-01 Outpatient [facility] [id number] Univers 14:30:00 14:30:00 [facility] 2020-01-01 2020-01-01 Outpatient [facility] [id number] Univers 14:30:00 14:30:00 [facility] 2020-01-01 2020-01-01 Telemedici [facility] 1.2.840.114 [id number] Univers 07:44:27 08:14:27 ne Visit [facility] 350.1.13.10 [place] [id number] [address] 2020-01-01 2020-01-01 Telephone Ida, [facility]ERS[facility] 1.2.840.114 [id number] Univers 00:00:00 00:00:00 Taj L Y HEALTH 350.1.13.10 [place] [phone] [address] 2019-12-19 2019-12-19 Telephone [facility] 1.2.840.114 [id number] Univers 00:00:00 00:00:00 Rosemarie L Y HEALTH 350.1.13.10 [place] [phone] [address] 2019-11-27 2019-11-27 Outpatient [facility] [id number] Univers 09:00:00 09:00:00 DESHAWN hebert [facility] 2019-11-25 2019-11-25 Refill Doctor [facility] 1.2.572.260 [id number] Univers 00:00:00 00:00:00 Unassigned, Y HEALTH 350.1.13.10 [place] [id number] [address] 2019-11-23 2019-11-23 Telephone Ida, UN[facility]ERS[facility] 1.2.840.114 [id number] Univers 00:00:00 00:00:00 Taj L Y HEALTH 350.1.13.10 [place] [id number] [address] 2019-11-13 2019-11-13 Case Americo, [facility]ERS[facility] 1.2.840.114 [id number] Univers 00:00:00 00:00:00 Management Rosemarie L Y HEALTH 350.1.13.10 [place] [id number] [address] 2019-11-05 2019-11-05 Outpatient Jason CRUZ [facility] [id number] Univers 15:20:00 15:20:00 LUZ MARINA hebert [facility] 2019-10-22 2019-10-22 [facility] 1.2.840.114 [id number] Univers 07:55:08 13:40:35 ne Visit Luz Marina Michael Muse 350.1.13.10 [place] Profess[place] [phone] [address] 2019-10-22 2019-10-22 [facility] [id number] Univers 09:00:00 09:00:00 LUZ MARINA adrybrittany [facility] 2019-09-21 2019-09-21 [facility] [id number] Univers 10:00:00 10:00:00 DESHAWN brittany [facility] 2019-09-21 2019-09-21 [facility] 1.2.840.114 [id number] Univers 07:57:15 08:27:15 ne Visit [facility] 350.1.13.10 it[place] [phone] [address] 2019-09-12 2019-09-12 Telephone Ida [facility] 1.2.840.114 [id number] Univers 00:00:00 00:00:00 [facility] HEALTH 350.1.13.10 [place] [phone] [address] 2019-09-10 2019-09-10 Refkenyon Uriarte [facility] 1.2.562.509 [id number] Univers 00:00:00 00:00:00 [facility] 350.1.13.10 i [place] [phone] [address] 2019-09-04 2019-09-04 Sarmad Magallon [facility] 1.2.775.325 [id number] Univers 00:00:00 00:00:00 Management Lona L Y HEALTH 350.1.13.10 [place] [id number] [address] 2019-08-30 2019-08-30 [facility] 1.2.405.181 [id number] Univers 00:00:00 00:00:00 Libramiriam Jason Edna 350.1.13.10 [place] dev[place] [phone] [facility] 044 [facility] 2019-08-20 2019-08-20 Patient Isabel Duncan 1.2.840.114 [id number] Univers 00:00:00 00:00:00 Outreach E Yo 350.1.13.10 i ty of [place] [phone]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 Item Value Reference Range Interpretation Comments UA COLOR (test code = COLU) YELLOW YEL/STRAW UA APPEARANCE (test code = APPU) CLEAR CLEAR UA GLUCOSE DIPSTICK (test code = NEGATIVE NEGATIVE DGLUU) UA BILIRUBIN DIPSTICK (test code NEGATIVE NEGATIVE = BILU) UA KETONE DIPSTICK (test code = NEGATIVE NEGATIVE KETU) UA SPECIFIC GRAVITY (test code = 1.010 1.005-1.030 N SGU) UA BLOOD DIPSTICK (test code = 1+ NEGATIVE A HOLLIS) UA PH DIPSTICK (test code = SONAL) 6.0 5.0-7.0 N UA PROTEIN DIPSTICK (test code = NEGATIVE NEGATIVE PROU) UA UROBILINIOGEN DIPSTICK (test 0.2 mg/dL 0.2-1.0 code = URO) UA NITRITE DIPSTICK (test code = NEGATIVE NEGATIVE ORN) UA LEUKOCYTE ESTERASE DIPSTICK NEGATIVE NEGATIVE (test code = LEUU) UA WBC (test code = WBCU) 0-3 WBC/HPF 0-3 UA RBC (test code = RBCU) 4-10 RBC/HPF 0-3 UA BACTERIA (test code = BACU) 1+ /HPF NONE SEEN A UA SQUAMOUS CELLS (test code = 0-5 /HPF NONE SEEN SQU) UA MUCUS (test code = MUCU) TRACE /LPF NONE SEEN UR HCG [id number] 23:52:00 Test Item Value Reference Range Interpretation Comments UR HCG QUAL (test code = HCGQLU) NEGATIVE NEGATIVE
[2022-06-08] MEDS ORDERED: ONDANSETRON 4 MG/2 ML VIAL ONE (12:23)
[2022-06-08] MEDS ORDERED: NA CHLORIDE 0.9% 1,000 ML ONE ×2 (12:23→13:37)
[2022-06-08 12:52] LABS: Absolute Lymphocytes (CBC) 0.9 K/uL (0.7-4.9); Hematocrit 26.6 % (36.0-45.0); Lymphocytes % 18.1 % (15.3-44.8); MCV 79.1 fL (80-100); MPV 8.4 fL (7.6-11.3); RBC Red Blood Cell Count 3.36 M/uL (3.86-4.86)
[2022-06-08 12:56] LABS: Urine Blood Trace-intact (Negative); Urine Glucose Negative (Negative); Urine Protein Negative (Negative); Urine Specific Gravity <=1.005 (1.005-1.030)
[2022-06-08 13:19] LABS: Albumin 3.4 g/dL (3.4-5.0); Bilirubin Total 0.6 mg/dL (0.2-1.0); Potassium 3.3 mmol/L (3.5-5.1); Protein, Total 7.3 g/dL (6.4-8.2)
--- NOTE | 2022-06-08 14:46 | RAD REPORT ---
EXAM DESCRIPTION: CTAbdomen Pelvis W Contrast - 06/08/2022 2:33 pm CLINICAL HISTORY: Abdominal pain. abd pain COMPARISON: No comparisons TECHNIQUE: Biphasic CT imaging of the abdomen and pelvis was performed with 100 ml non-ionic IV cont rast. All CT scans are performed using dose optimization technique as appropriate and may include automated exposure control or mA/KV adjustment according to patient size. FINDINGS: The lung bases are clear.Cholelithiasis. The liver, spleen, pancreas, adrenal glands and right kidney are within normal limits. An area of dim inished density is seen in the lateral superior left renal cortex measuring 25 mm. This is nonspecifi c but could indicate lobar nephronia related to pyelonephritis. No bowel obstruction, free air, free fluid or abscess. The appendix is normal. No evidence of signi ficant lymphadenopathy. No suspicious bony findings. IMPRESSION: Possible findings of left-sided pyelonephritis. Recommend correlation with urinalysis. Cholelithiasis.
--- NOTE | 2022-06-08 15:04 | EDPHYS ---
Physician Documentation [facility] Name: Katia Robledo Age: 36 yrs Sex: Female : 1985 Arrival Date: 06/08/2022 Time: 11:54 Bed 7 Private MD: ED Physician Jose Márquez HPI: 06/08 14:15 This 36 yrs old Female presents to ER via Ambulatory with complaints of kb Abnormal Lab Results. 14:15 The patient presents with generalized weakness. Onset: The symptoms/episode kb began/occurred 1 week(s) ago. Context: occurred at home, just prior to the episode the patient experienced no apparent symptoms. Modifying factors: The symptoms are alleviated by nothing, the symptoms are aggravated by nothing. Associated signs and symptoms: Pertinent positives: nausea, vomiting. Severity of symptoms: At their worst the symptoms were moderate in the emergency department the symptoms are unchanged. Patient's baseline: Neuro: alert and fully oriented, Motor: no deficits, Ambulation: walks without assistance, Speech: normal. The patient has not experienced similar symptoms in the past. The patient has not recently seen a physician. Pt reports vomiting for a week with intermittent diarrhea. States she was feeling very weak so she followed up with photograph finisher yesterday who did blood work. Pt was called today and told to come to the ER for anemia. Pt denies dark stool, blood in stool, any active bleeding. Historical: - Allergies: 12:12 Erythromycin; iw - PSHx: 12:12 section; heart valve replacement; iw - Immunization history:: Client reports receiving the 1st dose of the Covid vaccine. - Social history:: Smoking status: Patient reports the use of cigarette tobacco products, denies chronic smoking, but will smoke occasionally, Patient uses alcohol, occasionally. ROS: 14:13 Constitutional: Negative for fever, chills, and weight loss. kb 14:13 Abdomen/GI: Positive for nausea, vomiting, and diarrhea. 14:13 Neuro: Positive for weakness. 14:13 All other systems are negative. Exam: 13:55 Constitutional: This is a well developed, well nourished patient who is awake, alert, kb and in no acute distress. Head/Face: Normocephalic, atraumatic. ENT: Moist Mucous membranes Cardiovascular: Regular rate and rhythm with a normal S1 and S2. No gallops, murmurs, or rubs. No pulse deficits. Respiratory: Respirations even and unlabored. No increased work of breathing. Talking in full sentences Abdomen/GI: Soft, non-tender. No distention Skin: Warm, dry with normal turgor. Normal color. MS/ Extremity: Pulses equal, no cyanosis. Neurovascular intact. Full, normal range of motion. Neuro: Awake and alert, GCS 15, oriented to person, place, time, and situation. Moves all extremities. Normal gait. Psych: Awake, alert, with orientation to person, place and time. Behavior, mood, and affect are within normal limits. 13:55 ECG was reviewed by the Attending Physician. Vital Signs: 12:11 BP 83 / 59; Pulse 99; Resp 18; Pulse Ox 100% on R/A; Weight 90.72 kg; Height 5 ft. 5 iw in. (165.10 cm); Pain 4/10; 12:47 BP 90 / 72; Pulse 97; Resp 18; Pulse Ox 100% on R/A; Pain 0/10; ld1 13:30 BP 81 / 61; Pulse 89; Resp 18; Pulse Ox 96% on R/A; ld1 13:47 BP 78 / 53; ld1 14:43 BP 84 / 56; Pulse 85; Resp 18; Pulse Ox 100% on R/A; ld1 15:00 BP 84 / 57; Pulse 82; Resp 16; Pulse Ox 100% on R/A; ld1 16:00 BP 75 / 55; Pulse 81; Resp 15; Pulse Ox 100% on R/A; Pain 0/10; ld1 12:11 Body Mass Index 33.28 (90.72 kg, 165.10 cm) iw 13:47 Notified ERP of BP - See [facility] for orders. ld1 MDM: 11:57 Patient medically screened. kb 14:13 Data reviewed: vital signs, nurses notes. Data interpreted: Pulse oximetry: on room air kb is 96 %. Interpretation: normal. 15:02 Counseling: I had a detailed discussion with the patient and/or guardian regarding: the kb historical points, exam findings, and any diagnostic results supporting the discharge/admit diagnosis, lab results, radiology results, the need for further work-up and treatment in the hospital. ED course: [facility] accepts pt for admission under dr hugo. 06/08 12:15 Order name: CBC with Diff; Complete Time: 12:54 kb 06/08 12:15 Order name: CMP; Complete Time: 13:23 kb 06/08 12:15 Order name: Lipase; Complete Time: 13:23 kb 06/08 12:15 Order name: Type And Screen; Complete Time: 13:29 kb 06/08 12:56 Order name: Urine Dipstick-Ancillary; Complete Time: 12:58 EDMS 06/08 13:17 Order name: ABO/RH no charge; Complete Time: 13:23 EDMS 06/08 12:15 Order name: CT Abd/Pelvis - IV Contrast Only; Complete Time: 14:51 kb 06/08 13:21 Order name: Test, Serum; Complete Time: 14:18 bd 06/08 14:51 Order name: Urine Microscopic Only; Complete Time: 16:46 kb 06/08 14:56 Order name: Blood Culture Adult (2) kb 06/08 14:56 Order name: Lactate w/ 2H reflex if indic.; Complete Time: 16:46 kb 06/08 15:20 Order name: SARS RAPID; Complete Time: 16:46 ld1 06/08 12:15 Order name: IV Saline Lock; Complete Time: 12:49 kb 06/08 12:15 Order name: Labs collected and sent; Complete Time: 12:49 kb 06/08 12:15 Order name: Urine Dipstick-Ancillary (obtain specimen); Complete Time: 12:56 kb 06/08 12:15 Order name: Urine Test (obtain specimen); Complete Time: 12:56 kb EC:55 Rate is 80 beats/min. Rhythm is regular. QRS [place] is Normal. OR interval is normal at kb 156 msec. QRS interval is normal at 96 msec. QT interval is normal at 477 msec. Administered Medications: 12:57 Drug: NS 0.9% 1000 ml Route: IV; Rate: 1 bolus; Site: right antecubital; ld1 12:57 Drug: Zofran (Ondansetron) 4 mg Route: IVP; Site: right antecubital; ld1 13:38 Drug: NS 0.9% 1000 ml Route: IV; Rate: 1000 ml; Site: right upper arm; ld1 16:57 Drug: Lactated Ringers Solution 1000 ml Route: IV; Rate: bolus; Site: right upper arm; ld1 Disposition: 16:18 Co-signature as Attending Physician, Jose Márquez DO I was immediately available onsite ms3 in the emergency department for consultation in the care of the patient. Disposition Summary: 06/08/22 15:03 Hospitalization Ordered Hospitalization Status: Observation kb Provider: Ruben Hugo Location: Telemetry/MedSurg (observation) kb Condition: Stable kb Problem: new kb Symptoms: are unchanged kb Bed/Room Type: Standard kb Room Assignment: 410(06/08/22 17:51) bd Diagnosis - Weakness kb - Hypotension, unspecified kb - Nausea with vomiting, unspecified kb Forms: - Medication Reconciliation Form kb - SBAR form kb Signatures: Dispatcher [employer] EDMS Maribell Dominique, ZITA-C RESEARCH GEOLOGIST-Senait Castillo Irene, RN RN iw Jose Márquez DO DO ms3 Zuleima Bowling RN RN ld1 Corrections: (The following items were deleted from the chart) 14:18 14:15 Pt reports vomiting for a week with intermittent diarrhea. States she was feeling kb very weak so she followed up with photograph finisher yesterday who did blood work. Pt was called today and told to come to the ER for anemia. kb 17:51 15:03 kb bd
--- NOTE | 2022-06-08 15:04 | ER ---
Nurse's Notes [facility] Name: Katia Robledo Age: 36 yrs Sex: Female : 1985 Arrival Date: 06/08/2022 Time: 11:54 Bed 7 Private MD: Diagnosis: Weakness;Hypotension, unspecified;Nausea with vomiting, unspecified Presentation: 06/08 12:01 Chief complaint: Patient states: had labs drawn yesterday and was told her blood count iw was 8 and her platelets were low, her heart doctor sent her in for eval, had a heart valve replacement last year. Coronavirus screen: At this time, the client does not indicate any symptoms associated with coronavirus-19. Ebola Screen: Patient negative for fever greater than or equal to 101.5 degrees Fahrenheit, and additional compatible Ebola Virus Disease symptoms Patient denies exposure to infectious person. Patient denies travel to an Ebola-affected area in the 21 days before illness onset. No symptoms or risks identified at this time. Initial Sepsis Screen: Does the patient meet any 2 criteria? No. Patient's initial sepsis screen is negative. Does the patient have a suspected source of infection? No. Patient's initial sepsis screen is negative. Risk Assessment: Do you want to hurt yourself or someone else? Patient reports no desire to harm self or others. 12:01 Method Of Arrival: Ambulatory iw 12:01 Acuity: XIN 3 iw 12:11 Onset of symptoms was June 08, 2022. iw 12:11 Acuity: XIN 2 iw Historical: - Allergies: 12:12 Erythromycin; iw - PSHx: 12:12 section; heart valve replacement; iw - Immunization history:: Client reports receiving the 1st dose of the Covid vaccine. - Social history:: Smoking status: Patient reports the use of cigarette tobacco products, denies chronic smoking, but will smoke occasionally, Patient uses alcohol, occasionally. Screenin:48 [facility] ED Fall Risk Assessment (Adult) History of falling in the last 3 months, ld1 including since admission No falls in past 3 months (0 pts) Confusion or Disorientation No (0 pts) Intoxicated or Sedated No (0 pts) Impaired Gait No (0 pts) Mobility Assist Device Used No (0 pt) Altered Elimination No (0 pt) Score/Fall Risk Level 0 - 2 = Low Risk. Abuse screen: Denies threats or abuse. Denies injuries from another. Nutritional screening: No deficits noted. Tuberculosis screening: No symptoms or risk factors identified. Fall Risk No fall in past 12 months (0 pts). Assessment: 12:47 General: Appears in no apparent distress. comfortable, Behavior is calm, cooperative, ld1 appropriate for age. Pain: Denies pain. Neuro: Level of Consciousness is awake, alert, obeys commands, Oriented to person, place, time, situation. Cardiovascular: Capillary refill < 3 seconds Patient's skin is warm and dry. Respiratory: Airway is patent Respiratory effort is even, unlabored. GI: Abdomen is flat, non-distended, Reports nausea. : No signs and/or symptoms were reported regarding the genitourinary system. EENT: No signs and/or symptoms were reported regarding the EENT system. Derm: No signs and/or symptoms reported regarding the dermatologic system. Musculoskeletal: No signs and/or symptoms reported regarding the musculoskeletal system. 13:30 Reassessment: Patient appears in no apparent distress at this time. Patient and/or ld1 family updated on plan of care and expected duration. Pain level reassessed. Patient is alert, oriented x 3, equal unlabored respirations, skin warm/dry/pink. 15:00 Reassessment: No changes from previously documented assessment. Notified ERP of low ld1 Blood pressure. See MAR for orders. Patient denies pain at this time. 16:20 Reassessment: Patient appears in no apparent distress at this time. Patient and/or ld1 family updated on plan of care and expected duration. Pain level reassessed. Hospitalist at bedside - notified of Low BP. Patient denies pain at this time. Vital Signs: 12:11 BP 83 / 59; Pulse 99; Resp 18; Pulse Ox 100% on R/A; Weight 90.72 kg; Height 5 ft. 5 iw in. (165.10 cm); Pain 4/10; 12:47 BP 90 / 72; Pulse 97; Resp 18; Pulse Ox 100% on R/A; Pain 0/10; ld1 13:30 BP 81 / 61; Pulse 89; Resp 18; Pulse Ox 96% on R/A; ld1 13:47 BP 78 / 53; ld1 14:43 BP 84 / 56; Pulse 85; Resp 18; Pulse Ox 100% on R/A; ld1 15:00 BP 84 / 57; Pulse 82; Resp 16; Pulse Ox 100% on R/A; ld1 16:00 BP 75 / 55; Pulse 81; Resp 15; Pulse Ox 100% on R/A; Pain 0/10; ld1 12:11 Body Mass Index 33.28 (90.72 kg, 165.10 cm) iw 13:47 Notified ERP of BP - See MAR for orders. ld1 ED Course: 11:54 Patient arrived in ED. jm9 11:54 Maribell Dominique FNP-C is PHCP. kb 11:54 Jose Márquez DO is Attending Physician. kb 12:04 Triage completed. iw 12:13 Arm band placed on. iw 12:20 Zuleima Bowling, RN is Primary Nurse. ld1 12:48 Patient has correct armband on for positive identification. Placed in gown. Bed in low ld1 position. Call light in reach. Side rails up X2. monitoring and evaluation advisor on. Pulse ox on. NIBP on. Door closed. Noise minimized. Warm blanket given. 12:48 No provider procedures requiring assistance completed. ld1 12:49 Accessed peripheral vein via ultrasound, utilizing dynamic ultrasound technique using jd3 20G Nexia IV catheter ,sterile technique, per hospital protocol. Clean \T\ dry. Dressing intact. Good blood return. Flushes easily. 20 g right upper arm. 14:35 CT Abd/Pelvis - IV Contrast Only In Process Unspecified. EDMS 15:03 César Hugo MD is Hospitalizing Provider. kb 15:03 Hospitalizing Provider role handed off by César Hugo MD kb 15:03 Ruben Hugo MD is Hospitalizing Provider. kb 15:34 SARS RAPID Sent. ld1 18:21 Patient admitted, IV remains in place. ld1 Administered Medications: 12:57 Drug: NS 0.9% 1000 ml Route: IV; Rate: 1 bolus; Site: right antecubital; ld1 12:57 Drug: Zofran (Ondansetron) 4 mg Route: IVP; Site: right antecubital; ld1 13:38 Drug: NS 0.9% 1000 ml Route: IV; Rate: 1000 ml; Site: right upper arm; ld1 16:57 Drug: Lactated Ringers Solution 1000 ml Route: IV; Rate: bolus; Site: right upper arm; ld1 Medication: 12:48 VIS not applicable for this client. ld1 Outcome: 15:03 Decision to Hospitalize by Provider. kb 18:20 Admitted to Med/surg accompanied by tech, via wheelchair, room 410, with chart, Report ld1 called to MANI Ryan 18:20 Condition: stable 18:20 Instructed on the need for admit. 18:21 Patient left the ED. ld1 Signatures: Dispatcher [employer] EDMaribell Comer, PRINT COLOR MATCHER-C PRINT COLOR MATCHER-Isaura Shaffer, RN RN iw Tonny Patel RN RN jd3 Zuleima Bowling RN RN ld1 Micheline Rico
[2022-06-08 15:48] LABS: Urine Bacteria None Seen /HPF (<20); Urine RBC <5 /HPF (None Seen)
[2022-06-08 15:53] LABS: SARS-CoV-2 Antigen Rapid Res Negative (Negative)
[2022-06-08] MEDS ORDERED: Ringers Lactate 1,000 ML IV ONE (16:49)
[2022-06-08] MEDS ORDERED: HYDROCODONE/APAP 5/325 MG TAB PO PRN (17:36)
[2022-06-08] MEDS ORDERED: ENOXAPARIN 40 MG/0.4 ML SQ SCH (18:00)
[2022-06-08] MEDS ORDERED: POTASSIUM CL SA 10 MEQ TAB PO ONE (18:00)
[2022-06-08] MEDS ORDERED: NA CHLORIDE 0.9% 1,000 ML IV SCH ×2 (18:00→20:31)
[2022-06-08 19:01] LABS: Protime INR 1.25
[2022-06-08 19:11] LABS: Magnesium 1.9 mg/dL (1.6-2.4); Phosphorus 2.9 mg/dL (2.5-4.9); Thyroid Stimulating Hormone 0.006 uIU/mL (0.358-3.740)
[2022-06-08] MEDS: ACETAMINOPHEN 325 MG TABLET PO PRN (19:43)
[2022-06-08] MEDS: ONDANSETRON 4 MG/2 ML VIAL IV PRN (20:01)
--- NOTE | 2022-06-08 20:32 | P.HP ---
Certification for Inpatient Patient admitted to: Observation With expected LOS: <2 Midnights Patient will require the following post-hospital care: None Practitioner: I am a practitioner with admitting privileges, knowledge of patient current condition, hospital course, and medical plan of care. Services: Services provided to patient in accordance with Admission requirements found in Title 42 Section 412.3 of the Code of Federal Regulations Patient History Date of Service: 06/08/22 Reason for admission: Generalized weakness and shortness of breath with exertion History of Present Illness: Patient is a 36-year-old female with a past medical history significant for cardiac valve replacement, obesity, hypertension who presents with complaint of generalized weakness and shortness of breath that has been ongoing for the past 1 week. Patient reported that her interlocking pavement installer changed her blood pressure medicine from labetalol to metoprolol and her systolic blood pressure has been in the low 100s. Patient reported that she has been having nausea, vomiting and diarrhea in the last 5 days. Patient denies having any episodes of diarrhea today. Patient reported associated signs and symptoms of fatigue, generalized malaise and shortness of breath with exertion. Patient denies any other signs and symptoms. Symptoms are aggravated by exertion and relieved by nothing. Patient reported that she followed up with her interlocking pavement installer who did blood work. Patient indicated that she was called by her interlocking pavement installer to come to the ER due to hemoglobin of 8.0. Patient decided to present to the hospital as directed. Allergies No Known Allergies Allergy (Unverified 06/08/22 19:19) - Past Medical/Surgical History -: Obesity -: Hypertension -: Cardiac valve replacement. - Family History Family History: Reviewed- Non-Contributory - Social History Smoking Status: Current some day smoker Smoking therapy provided: Yes Patient receptive to therapy: Yes Alcohol use: Yes CD- Drugs: No Caffeine use: Yes Place of Residence: Home Review of Systems General: Weakness, Malaise, Other (Fatigue) Eyes: Unremarkable ENT: Unremarkable Respiratory: Shortness of Breath, SOB with Excertion Cardiovascular: Unremarkable Gastrointestinal: Nausea, Vomiting, Diarrhea Genitourinary: Unremarkable Musculoskeletal: Unremarkable Integumentary: Unremarkable Neurological: Weakness, Unremarkable Lymphatics: Unremarkable Physical Examination - Vital Signs Temperature: 99.1 F Blood Pressure: 95/59 Pulse: 116 Respirations: 19 Pulse Ox (%): 100 - Physical Exam General: Alert, In no apparent distress, Oriented x3, Cooperative HEENT: Atraumatic, PERRLA, Mucous membr. moist/pink, EOMI, Sclerae nonicteric Neck: Supple, 2+ carotid pulse no bruit, No LAD, Without JVD or thyroid abnormality Respiratory: Normal air movement, Diminished Cardiovascular: Normal pulses, Regular rate/rhythm, Normal S1 S2 Capillary refill: <2 Seconds Gastrointestinal: Normal bowel sounds, Soft and benign, No tenderness Musculoskeletal: No clubbing, No swelling, No contractures, No tenderness Integumentary: No rashes, No breakdown, No significant lesion, No tenderness/swelling Neurological: Normal speech, Normal tone, Normal affect Lymphatics: No axilla or inguinal lymphadenopathy - Studies Laboratory Data (last 24 hrs) 06/08/22 12:41: Sodium 137, Potassium 3.3 L, BUN 6 L, Creatinine 0.71, Glucose 155 H, Total Bilirubin 0.6, AST 16, ALT 20, Alkaline Phosphatase 80, Lipase 74 06/08/22 12:41: WBC 4.80, Hgb 8.9 L, Hct 26.6 L, Plt Count 115 L Assessment and Plan - Plan --Dyspnea. D-dimer elevated. CTA PE protocol ordered to rule out PE. Patient's O2 sat within normal limits on room air. Continue supportive care. --Hypotension. Patient given IV bolus hydration in the ER. Cardiology consulted. Echocardiogram pending to assess cardiac structures and functions. We will await further recommendation from interlocking pavement installer. --Elevated BNP. BNP noted to be elevated. Echocardiogram pending to assess cardiac functions and structures. Will hold off on Lasix due to hypotension. Daily weight and strict I/O. Further management per interlocking pavement installer. --Anemia of chronic disease. H&H stable. Continue to monitor hemoglobin and transfuse if less than 7.0. --Obesity. Likely secondary to excess calories intake. Patient counseled on weight reduction, diet and excise therapy. --Hypokalemia. Replete as needed. --Nausea and vomiting. Antiemetics on board. Continue supportive care. --Diarrhea. Patient currently denies any episode of diarrhea. Continue supportive care. --DVT prophylaxis with Lovenox subQ. Discharge Plan: Home Plan to discharge in: 48 Hours - Advance Directives Does patient have a Living Will: No Does patient have a Durable POA for Healthcare: No - Code Status/Comfort Care Code Status Assessed: Yes Physician Review: Patient Assessed, Agree with Above Assessment and Plan Critical Care: No
--- NOTE | 2022-06-08 21:28 | P.PN ---
Date of Service: 06/08/22 DDimer elevated, CT ABD/Pelvis with IV contrast performed today around noon, CT to rule out PE ordered and will be completed 24 hours after previous contrast per protocol. Pt on room air satting 100%. Will obtain venous doppler to R/O DVT. holding off on full anticoagulation given relative hypotension/anemia unclear etiology.
[2022-06-08] MEDS ORDERED: KETOROLAC 30 MG/ML INJ IV ONE (21:41)
--- NOTE | 2022-06-08 22:48 | RAD REPORT ---
EXAM DESCRIPTION: US - Extrem Venous W Compress Anderson - 06/08/2022 10:39 pm CLINICAL HISTORY: R/O DVT, + DDimer Bilateral leg edema and swelling. COMPARISON: No comparisons TECHNIQUE: Real-time sonographic interrogation of the left and right lower extremity deep venous sys tems was performed. FINDINGS: Normal compressibility, flow augmentation, phasic flow and spontaneous flow is identified in both the left and right lower extremity deep venous systems. IMPRESSION: No sonographic evidence of left or right lower extremity deep venous thrombosis.
[2022-06-08 22:54] VITALS: BMI 33.3
[2022-06-09] MEDS ORDERED: NA CHLORIDE 0.9% 500 ML IV ONE (00:56)
[2022-06-09] MEDS: ACETAMINOPHEN 325 MG TABLET PO PRN (01:38)
[2022-06-09] MEDS: ONDANSETRON 4 MG/2 ML VIAL IV PRN (01:59)
[2022-06-09] MEDS: NA CHLORIDE 0.9% 1,000 ML IV SCH ×2 (01:59→04:24)
[2022-06-09] MEDS ORDERED: FAMOTIDINE 20 MG/2 ML VIAL IV ONE ×2 (03:09→04:23)
[2022-06-09 04:09] VITALS: O2SAT 99
[2022-06-09] MEDS ORDERED: TENECTEPLASE 50 MG/10 ML VIAL IV STA ×2 (04:10→04:22)
[2022-06-09] MEDS ORDERED: CLOPIDOGREL 75 MG TABLET PO ONE ×2 (04:11→04:22)
[2022-06-09] MEDS ORDERED: ASPIRIN 81 MG CHEWABLE TABLET ONE (04:21)
[2022-06-09 04:22] LABS: Absolute Lymphocytes (CBC) 0.6 K/uL (0.7-4.9); Hematocrit 25.7 % (36.0-45.0); Lymphocytes % 9.6 % (15.3-44.8); MCV 79.7 fL (80-100); MPV 8.7 fL (7.6-11.3); RBC Red Blood Cell Count 3.23 M/uL (3.86-4.86)
[2022-06-09] MEDS ORDERED: TENECTEPLASE 50 MG/10 ML VIAL IV ONE (04:33)
[2022-06-09 04:40] LABS: Potassium 3.5 mmol/L (3.5-5.1)
[2022-06-09 04:42] LABS: C-Reactive Protein 71.7 mg/L (<3.00); Ferritin 53.1 ng/mL (8-388)
[2022-06-09 04:48] LABS: Troponin High Sensitivity 654.5 pg/mL (<58.9)
--- NOTE | 2022-06-09 04:51 | P.DS ---
Admission Date: 06/08/22 Discharge Date: 06/09/22 Reason for Admission: Generalized weakness and shortness of breath with exertion Consultations: Cardiology Dr. Edmondson Procedures: CT abdomen pelvis with IV contrast 06/08/2022 FINDINGS: The lung bases are clear.Cholelithiasis. The liver, spleen, pancreas, adrenal glands and right kidney are within normal limits. An area of diminished density is seen in the lateral superior left renal cortex measuring 25 mm. This is nonspecific but could indicate lobar nephronia related to pyelonephritis. No bowel obstruction, free air, free fluid or abscess. The appendix is normal. No evidence of significant lymphadenopathy. No suspicious bony findings. IMPRESSION: Possible findings of left-sided pyelonephritis. Recommend correlation with urinalysis. Cholelithiasis. Venous Doppler bilateral lower extremity TECHNIQUE: Real-time sonographic interrogation of the left and right lower extremity deep venous systems was performed. FINDINGS: Normal compressibility, flow augmentation, phasic flow and spontaneous flow is identified in both the left and right lower extremity deep venous systems. IMPRESSION: No sonographic evidence of left or right lower extremity deep venous thrombosis. Chest x-ray 06/09/2022 Single view of the chest was obtained portable. No prior films are available for comparison. Sternotomy wires suggest previous cardiothoracic surgery. The heart is prominent. Increased reticular pulmonary markings could correspond to interstitial pulmonary edema. Minimal densities within the lung bases could correspond superimposed atelectatic changes. The rest of the soft tissue and bony structures demonstrate to be unremarkable. Impression: Increased reticular pulmonary markings could correspond to interstitial pulmonary edema. Status post cardiothoracic surgery. Brief History of Present Illness: Patient is a 36-year-old female with a past medical history significant for cardiac valve replacement, obesity, hypertension who presents with complaint of generalized weakness and shortness of breath that has been ongoing for the past 1 week. Patient reported that her facilities and grounds director changed her blood pressure medicine from labetalol to metoprolol and her systolic blood pressure has been in the low 100s. Patient reported that she has been having nausea, vomiting and diarrhea in the last 5 days. Patient denies having any episodes of diarrhea today. Patient reported associated signs and symptoms of fatigue, generalized malaise and shortness of breath with exertion. Patient denies any other signs and symptoms. Symptoms are aggravated by exertion and relieved by nothing. Patient reported that she followed up with her facilities and grounds director who did blood work. Patient indicated that she was called by her facilities and grounds director to come to the ER due to hemoglobin of 8.0. Patient decided to present to the hospital as directed. Hospital Course: Was called by nursing staff, patient developed nausea/vomiting/diaphoresis with worsening hypotension comparatively to the rest of the evening, earlier today. I ordered repeat EKG which demonstrated ST elevations in leads I, aVL with depressions in leads III, aVF, V2, V3, V4, V5, V6. I called cardiology who evaluated this as a STEMI and recommended emergent transfer. [facility] transfer center was contacted via their STEMI line and case was discussed with cardiologyDr. Enamorado who recommended administration of ASA, Plavix, TNKase, heparin as well as Levophed if needed for blood pressure. Patient was accepted to [facility] CCU, currently arrangements are being made for transfer preferably via air ambulance if available given weather. Blood pressure has improved currently in the 90s over 60s patient denies chest pain currently she is not on Levophed. Patient with previous valve replacement approximate 1 year ago at [facility], she is unsure of what valve, or placement type. She reports she was taken off of anticoagulation long ago by her facilities and grounds director Dr. Pratt <Navin Garrett - Last Filed: 06/09/22 04:51> Admission Date: 06/08/22 Discharge Date: 06/09/22 <Ruben Hugo - Last Filed: 06/09/22 21:48> Disposition: TRANSFER TO [facility] Discharge Condition: CRITICAL Vital Signs/Physical Exam: Temp Pulse Resp BP Pulse Ox 97.2 F 135 H 19 86/57 L 92 06/09/22 03:25 06/09/22 03:25 06/09/22 03:25 06/09/22 03:25 06/09/22 03:25 General: Alert, In no apparent distress, Oriented x3 HEENT: Atraumatic, PERRLA, EOMI Neck: Supple, JVD not distended Respiratory: Diminished, Crackles/rales Cardiovascular: Edema, Irregular heart rate/rhythm (Sinus tach, ST elevations leads 1 and aVL) Capillary refill: <2 Seconds Gastrointestinal: Normal bowel sounds, No tenderness Musculoskeletal: No tenderness Integumentary: No rashes Neurological: Normal speech, Normal tone, Normal affect Lymphatics: No axilla or inguinal lymphadenopathy Laboratory Data at Discharge: WBC 5.80 K/uL (4.3-10.9) 06/09/22 03:52 Hgb 8.6 g/dL (12.0-15.0) L 06/09/22 03:52 Hct 25.7 % (36.0-45.0) L 06/09/22 03:52 Plt Count 95 K/uL (152-406) L* 06/09/22 03:52 PT 13.7 SECONDS (9.5-12.5) H 06/08/22 18:33 INR 1.25 06/08/22 18:33 Sodium 139 mmol/L (136-145) 06/09/22 03:52 Potassium 3.5 mmol/L (3.5-5.1) 06/09/22 03:52 BUN 7 mg/dL (7-18) 06/09/22 03:52 Creatinine 0.79 mg/dL (0.55-1.02) 06/09/22 03:52 Glucose 236 mg/dL (74-106) H 06/09/22 03:52 Phosphorus 2.9 mg/dL (2.5-4.9) 06/08/22 18:33 Magnesium 1.9 mg/dL (1.6-2.4) 06/08/22 18:33 Total Bilirubin 0.6 mg/dL (0.2-1.0) 06/08/22 12:41 AST 16 U/L (15-37) 06/08/22 12:41 ALT 20 U/L (13-56) 06/08/22 12:41 Alkaline Phosphatase 80 U/L (45-117) 06/08/22 12:41 Lipase 74 U/L (73-393) 06/08/22 12:41 <Navin Garrett - Last Filed: 06/09/22 04:51> Vital Signs/Physical Exam: Temp Pulse Resp BP Pulse Ox 97.0 F 124 H 31 H 101/68 95 06/09/22 04:02 06/09/22 05:00 06/09/22 05:00 06/09/22 05:00 06/09/22 05:00 Laboratory Data at Discharge: WBC 5.80 K/uL (4.3-10.9) 06/09/22 03:52 Hgb 8.6 g/dL (12.0-15.0) L 06/09/22 03:52 Hct 25.7 % (36.0-45.0) L 06/09/22 03:52 Plt Count 95 K/uL (152-406) L* 06/09/22 03:52 PT 13.7 SECONDS (9.5-12.5) H 06/08/22 18:33 INR 1.25 06/08/22 18:33 Sodium 139 mmol/L (136-145) 06/09/22 03:52 Potassium 3.5 mmol/L (3.5-5.1) 06/09/22 03:52 BUN 7 mg/dL (7-18) 06/09/22 03:52 Creatinine 0.79 mg/dL (0.55-1.02) 06/09/22 03:52 Glucose 236 mg/dL (74-106) H 06/09/22 03:52 Phosphorus 2.9 mg/dL (2.5-4.9) 06/08/22 18:33 Magnesium 1.9 mg/dL (1.6-2.4) 06/08/22 18:33 Total Bilirubin 0.6 mg/dL (0.2-1.0) 06/08/22 12:41 AST 16 U/L (15-37) 06/08/22 12:41 ALT 20 U/L (13-56) 06/08/22 12:41 Alkaline Phosphatase 80 U/L (45-117) 06/08/22 12:41 Lipase 74 U/L (73-393) 06/08/22 12:41 <Ruben Hugo - Last Filed: 06/09/22 21:48> Diet: NPO Time spent managing pt's care (in minutes): 60 <Navin Garrett - Last Filed: 06/09/22 04:51> Physician Review: Patient Assessed, Agree with Above Assessment and Plan (Agree with plan of care as noted above. Discussed with Navin Garrett. Patient was admitted and discharged overnight, prior to my ability to see the patient / perform physical exam.) <Ruben Hugo - Last Filed: 06/09/22 21:48> Physician Discharge Instructions: Continue with further care at [facility] CCU/cardiology team Followup: Boy Pearce MD [Primary Care Provider] -
[2022-06-09] MEDS ORDERED: NOREPINEPHRINE 4 MG in D5W 250 ML IV SCH (05:00)
[2022-06-09] MEDS ORDERED: HEPARIN/D5W 25,000 UNIT/500 ML BAG IV SCH (05:00)
[2022-06-09 05:09] LABS: Blood Morphology Comment NOTED (NOT SEEN); Ovalocytes 2+; Platelet Estimate DECR; White Blood Cell Scan OK (OK)
[2022-06-09 05:20] VITALS: BP 101/68; TEMP 97
[2022-06-09] MEDS ORDERED: ASPIRIN 81 MG CHEWABLE TABLET PO SCH ×2 (09:00)
--- NOTE | 2022-06-09 12:09 | RAD REPORT ---
EXAM DESCRIPTION: Chest Single View 06/09/2022 3:58 AM DIE CUT OPERATOR CLINICAL HISTORY: 36 years, Female, chest pain COMPARISON: None FINDINGS: Single view of the chest was obtained portable. No prior films are available for compariso n. Sternotomy wires suggest previous cardiothoracic surgery. The heart is prominent. Increased reticu lar pulmonary markings could correspond to interstitial pulmonary edema. Minimal densities within the lung bases could correspond superimposed atelectatic changes. The rest of the soft tissue and bony s tructures demonstrate to be unremarkable. IMPRESSION: Increased reticular pulmonary markings could correspond to interstitial pulmonary edema. Status post cardiothoracic surgery Electronically signed by: Servando Calvin MD 06/09/2022 3:59 AM DIE CUT OPERATOR Due to temporary technical issues with the PACS/Fluency reporting system, reports are being signed by the in house radiologists without review as a courtesy to insure prompt reporting. The interpreting radiologist is fully responsible for the content of the report.
--- NOTE | 2022-06-09 14:00 | EKG ---
Test Date: 2022-06-08 Test Time: 13:53:07 News Producer: AARON MEASUREMENT RESULTS: Intervals: Rate: 80 HI: 156 QRSD: 96 QT: 414 QTc: 477 Luckey: P: 55 HI: 156 QRS: 58 T: 90 INTERPRETIVE STATEMENTS: Normal sinus rhythm Normal ECG Compared to ECG 04/06/2003 02:11:00 ST (T wave) deviation no longer present Electronically Signed On 06-09-22 13:59:25 BUSINESS ANALYTICS DIRECTOR by Oscar Edmondson
== END 2022-06-09 06:37 | disposition short-term general hospital (02) ==
LOC: ER 11:45 → ERHOLD 17:34 → 4TH 18:05 → 3RD-ICU 06-09 04:05
PROVIDERS: ADMIT Hospitalist; ATTEND Hospitalist
DX: R06.00 Dyspnea, unspecified (principal); R79.89 Other specified abnormal findings of blood chemistry; I95.9 Hypotension, unspecified; I10 Essential (primary) hypertension; R87.89 Other abnormal findings in specimens from female genital organs; D63.1 Anemia in chronic kidney disease; E66.9 Obesity, unspecified; E87.6 Hypokalemia; R11.2 Nausea with vomiting, unspecified; R19.7 Diarrhea, unspecified; R53.1 Weakness; Z95.2 Presence of prosthetic heart valve; K80.20 Calculus of gallbladder without cholecystitis without obstruction; Z20.822 Contact with and (suspected) exposure to COVID-19; N18.9 Chronic kidney disease, unspecified
CPT/HCPCS: 93005; 87040 ×2; 85025 ×2; 80048; 36415; 86900; 83735; 86850; 82550; 87205 ×4; 84703; 83615; 84100; 85610; 86901; 85379; 83605; 84443; 84484; 84439; 82728; 83690; 83540; 80053; 83880; 84466; 86140; 87804 ×2; 74177; 71045; 93970; 96374; 99285; 87811; Q9967; J3101; J1650; J1644 ×2; J7120; J7040; J7030 ×4; J2405 ×3; 81003; 81015